=== PATIENT | female | born 1930 | race Caucasian/White ===

== ENCOUNTER → 2016-05-28 | Outpatient (CLI) | payer MEDICARE, BC ==
[2016-05-28 13:24] LABS: CH 31.5; CHCM 32.3; HCT 43.3 % (34.0-46.0); HDW 2.42; HGB 13.7 gm/dL (11.4-16.0); MCH 30.9 pg (25.0-35.0); MCHC 31.5 g/dL (31.0-37.0); RBC 4.42 m/uL (3.80-5.40); RDW 14.6 % (11.5-15.5); WBC 5.4 k/uL (3.8-10.6)
[2016-05-28 13:44] LABS: Anion Gap 10 mmol/L; Blood Urea Nitrogen 15 mg/dL (7-17); Carbon Dioxide 33 mmol/L (22-30); Chloride 91 mmol/L (98-107); Non-African American GFR(MDRD) >60 (>60 ml/min/1.73 sqM); Potassium 3.6 mmol/L (3.5-5.1); Sodium 134 mmol/L (137-145)
== END | disposition home or self-care (01) ==
LOC: LABPAT 12:45
PROVIDERS: ATTEND Internal Medicine Cardiovascular Disease
DX: Z01.812 Encounter for preprocedural laboratory examination (principal); I48.2 Chronic atrial fibrillation
CPT/HCPCS: 80051; 82565; 84520; 85027

== ENCOUNTER 2016-05-29 06:04 | Day surgery (SDC) | payer MEDICARE, BC ==
[2016-05-27 14:09] VITALS: BMI 18.1
[~2016-05-29 06:04] MED LIST: SODIUM CHLORIDE 0.9% 1,000 ML IV SCH; ceFAZolin 1,000 MG in SODIUM CHLORIDE 0.9% IRRIGATIO 250 ML IRRIGATION ONE; ceFAZolin 2 GM in SODIUM CHLORIDE 0.9% 100 ML IVPB ONE
[2016-05-29 06:42] LABS: INR 2.1 (<1.1); Prothrombin Time 19.9 sec (9.0-12.0)
[2016-05-29] MEDS ORDERED: PHYTONADIONE 5 MG in SODIUM CHLORIDE 0.9% 50 ML IVPB STA (07:47)
[2016-05-29] MEDS ORDERED: fentaNYL (PF) 50 MCG/ML 2 ML AMP IV ONE (07:50)
[2016-05-29] MEDS ORDERED: IV FLUID CONTINUATION 400 ML IV ONE (07:50)
[2016-05-29] MEDS ORDERED: LIDOCAINE 1% INJ 10MG/ML (20 ML MDV) SQ ONE (07:53)
[2016-05-29] MEDS ORDERED: ACETAMINOPHEN TAB 325 MG TAB PO PRN (08:35)
--- NOTE | 2016-05-29 08:48 | P.PCN ---
Date of Procedure: 05/29/16 Preoperative Diagnosis: Battery depletion Postoperative Diagnosis: The same Procedure(s) Performed: Generator replacement Description of Procedure: HISTORY: This is a 85-year-old female with history of permanent pacemaker implantation who is found to have evidence of battery depletion on recent evaluation. She was advised to have battery replacement. Patient was advised to stop Coumadin 5 days prior to the procedure CONSENT: I have discussed the risks and benefits as related to the above mentioned procedure and both sedation/analgesia as well as necessary blood product administration. The patient has indicated understanding and acceptance of the risks of the procedure discussed. PROCEDURE: Patient was brought to the lab in a fasting state. Patient was given IV Versed and fentanyl for sedation. The skin over the existing pulse generator was infiltrated with lidocaine. An incision was made in the skin and was deepened until the pectoral fascia was exposed. Hemostasis was obtained. The existing pulse generator was pulled out of the pocket. The lead was disconnected and were checked for thresholds. THRESHOLDS: VENTRICULAR: The minimum patient threshold was 0.7 V at pulse width of 0.5 ms. The impedance is 655 ohms. R- wave is a 23 mV. THE LEADS: VENTRICULAR: This is manufactured by [employer]. Model number is 4136 and serial number is [id number]. There is a E at in the ventricle manifest by [employer] model #07550 and serial number is [id number] THE EXPLANTED DEVICE and this is manufactured by [employer] model number is 1194 and serial number is [id number]. THE NEW DEVICE: Manufactured by [employer]. Model number is L100 and the serial number is [id number] . The lead was then connected to a new pulse generator . Pacemaker seems to function normally. The pocket was irrigated with antibiotics. The pocket was closed in the usual fashion. Pectoral fascia was closed with 2-0 Prolene, the subcutaneous tissue was closed with 3-0 Prolene and the skin was closed with 4-0 Prolene. Patient tolerated the procedure well . Patient will be monitored on the telemetry unit for 2-3 hours. If stable patient be discharged home later today. PLAN: Continue prophylactic antibiotics. We'll resume Coumadin from tomorrow. Rest of the medication be continued. We will keep the incision dry for the next week. FALLOW UP: In the office in one week.
[2016-05-29 09:09] VITALS: RESP 16
[2016-05-29 10:34] VITALS: PULSE 60
[2016-05-29 10:51] VITALS: TEMP 98
[2016-05-29 11:29] VITALS: BP 139/63
--- NOTE | 2016-06-04 16:10 | CDI ---
Dear Dr. Armstrong, On your procedure note IV versed and Fentanyl for sedation is documented. However, the Versed or Moderate/Conscious sedation is not documented any where else in the medical record. This is conflicting documentation. For proper reporting purposes please document that the sedation provided You Senior was Moderate/Conscious sedation or MAC (Monitored Anesthesia Care). Please document this as an addendum to your procedure note. Thank you for your time, Chyna Slaughter, [facility] Outpatient Intelligence Officer Murtaza howard [employer] Remberto MTDD
== END 2016-05-29 11:24 | disposition home or self-care (01) ==
LOC: CATHEP 06:04
PROVIDERS: ATTEND Internal Medicine Cardiovascular Disease
DX: Z45.010 Encounter for checking and testing of cardiac pacemaker pulse generator [battery] (principal); Z79.01 Long term (current) use of anticoagulants
CPT/HCPCS: 99152; 99153; 33227; 85610; C1786; J3430; J0690 ×2; J2001; J3010

== ENCOUNTER 2016-10-13 13:37 | Inpatient (IN) | payer MEDICARE, BC ==
[2016-10-13 14:29] LABS: Basophils % (A) 0 %; CH 31.6; CHCM 34.1; Eosinophils # (A) 0.1 k/uL (0-0.7); Eosinophils % (A) 0 %; HCT 38.1 % (34.0-46.0); HDW 2.28; HGB 13.2 gm/dL (11.4-16.0); Luc % (Auto) 1; Lymphocytes # (A) 0.5 k/uL (1.0-4.8); Lymphocytes % (A) 4 %; MCH 32.3 pg (25.0-35.0); MCHC 34.7 g/dL (31.0-37.0); Mean Platelet Volume 7.1; Monocytes # (A) 0.6 k/uL (0-1.0); Monocytes % (A) 5 %; Neutrophils % (A) 89 %; RDW 14.6 % (11.5-15.5); WBC 12.3 k/uL (3.8-10.6); WBC (Perox) 11.81
[2016-10-13 14:39] LABS: ALT 26 U/L (9-52); AST 24 U/L (14-36); Alkaline Phosphatase 96 U/L (38-126); Amylase 37 U/L (30-110); Anion Gap 9 mmol/L; Blood Urea Nitrogen 18 mg/dL (7-17); Calcium 8.8 mg/dL (8.4-10.2); Carbon Dioxide 28 mmol/L (22-30); Chloride 94 mmol/L (98-107); Glucose 101 mg/dL (74-99); Non-African American GFR(MDRD) >60 (>60 ml/min/1.73 sqM); Potassium 3.5 mmol/L (3.5-5.1); Sodium 131 mmol/L (137-145); Total Bilirubin 1.3 mg/dL (0.2-1.3); Total Protein 6.4 g/dL (6.3-8.2)
--- NOTE | 2016-10-13 14:46 | XR ---
EXAMINATION TYPE: XR KUB DATE OF EXAM: 10/13/2016 2:36 PM CLINICAL HISTORY: Difficulty urinating per patient. Pain per order. TECHNIQUE: Supine and upright images of the abdomen are obtained. COMPARISON: None. FINDINGS: Cardiomegaly is seen. Dual-lead pacemaker is noted. Vascular calcification is seen. Cholecy stectomy clips are noted. Patient is rotated making evaluation slightly suboptimal. Osseous structure s are demineralized. Disc space narrowing with spurring and sclerotic right L4-L5 level is noted. Scattered gas is seen in nondistended small and large bowel loops. No suspicious calcifications are p resent. No pneumoperitoneum is noted. IMPRESSION: Overall nonspecific favor nonobstructive bowel gas pattern. No definite nephrolithiasis.
[2016-10-13 15:06] LABS: Appearance,Urine Turbid (Clear); Bacteria,Urine Moderate /hpf; Bilirubin,Urine Negative (Negative); Glucose,Urine (UA) Negative (Negative); Ketones,Urine Negative (Negative); Leukocyte Esterase,Urine Large (Negative); Nitrite,Urine Positive (Negative); Particle Count 58085; Protein,Urine 1+ (Negative); RBC,Urine 14 /hpf (0-5); Specific Gravity,Urine 1.012 (1.001-1.035); UA Billing (MACRO vs. MICRO) MICRO; Urobilinogen,Urine <2.0 mg/dL (<2.0); WBC,Urine >182 /hpf (0-5)
[2016-10-13] MEDS ORDERED: HYDROmorphone 1 MG/ML 1 ML SYRINGE IVP STA (15:35)
[2016-10-13] MEDS ORDERED: SODIUM CHLORIDE 0.9% 1,000 ML IV ONE ×2 (15:35→15:51)
--- NOTE | 2016-10-13 15:37 | ED ---
Abdominal Pain HPI - General Chief Complaint: Abdominal Pain Stated Complaint: kidney pain/back pain Time Seen by Provider: 10/13/16 14:05 Source: EMS, RN notes reviewed Mode of arrival: EMS Limitations: no limitations - History of Present Illness Initial Comments: Patient is a 86-year-old female presents emergency room for evaluation of bilateral flank pain and difficulty urinating. Patient states the difficulty during urination began this weekend. Patient states that the bilateral flank pain began this morning and she could not get out of bed so EMS was called. Patient states she was given morphine with no relief of symptoms. Patient states she continues still having trouble urinating. Patient denies abdominal pain. Patient denies nausea or vomiting. Patient denies fevers or chills. Patient has chest pain or shortness of breath. Patient denies history of kidney stones. - Related Data Home Medications Medication Instructions Recorded Confirmed Albuterol Nebulized [Ventolin 2.5 mg INHALATION QID 04/01/14 10/13/16 Nebulized] Aspirin 81 mg PO DAILY 04/01/14 10/13/16 Digoxin [Lanoxin] 125 mcg PO DAILY 04/01/14 10/13/16 Diltiazem HCl 30 mg PO BID 04/01/14 10/13/16 Hydrochlorothiazide [Hydrodiuril] 37.5 mg PO DAILY 04/01/14 10/13/16 Montelukast [Singulair] 10 mg PO HS 04/01/14 10/13/16 Pravastatin Sodium [Pravachol] 20 mg PO HS 04/01/14 10/13/16 ALPRAZolam [Xanax] 0.25 mg PO DAILY PRN 05/27/16 10/13/16 Cetirizine HCl [Zyrtec] 10 mg PO DAILY 05/27/16 10/13/16 Dorzolamide 2% [Trusopt 2%] 1 drops BOTH EYES BID 05/27/16 10/13/16 Latanoprost Ophth [Xalatan 0.005%] 1 drops BOTH EYES HS 05/27/16 10/13/16 Loteprednol Etabonate [Lotemax] 1 drop LEFT EYE DAILY 05/27/16 10/13/16 Magnesium Oxide [Mag-Ox] 250 mg PO DAILY 05/27/16 10/13/16 Vits A,C,E/Lutein/Minerals 1 tab PO DAILY 05/27/16 10/13/16 [Ocuvite with Lutein Tablet] Clopidogrel Bisulfate [Plavix] 75 mg PO DAILY 10/13/16 10/13/16 Escitalopram Oxalate [Lexapro] 10 mg PO DAILY 10/13/16 10/13/16 Allergies Allergy/AdvReac Type Severity Reaction Status Date / Time codeine AdvReac Unknown Verified 10/13/16 14:12 furosemide [From Lasix] AdvReac dizziness,w Verified 10/13/16 14:12 eakness tiotropium bromide AdvReac Unknown Verified 10/13/16 14:12 [From Spiriva with HandiHaler] Review of Systems ROS Statement: Those systems with pertinent positive or pertinent negative responses have been documented in the HPI. ROS Other: All systems not noted in ROS Statement are negative. Past Medical History Past Medical History: Atrial Fibrillation, Coronary Artery Disease (CAD), Cancer , Eye Disorder, Hearing Disorder / Deafness, Hyperlipidemia, Hypertension Additional Past Medical History / Comment(s): See Dr Townsend's H&P,breast ca ,blind rt eye,legally blind lt eye, [place] hearing [employer],Macular degeneration and glaucoma josh eyes. History of Any Multi-Drug Resistant Organisms: None Reported Past Surgical History: Ablation, Cholecystectomy, Heart Catheterization With Stent, Hysterectomy, Pacemaker, Tonsillectomy Additional Past Surgical History / Comment(s): mastectomy, oopherectomy Past Anesthesia/Blood Transfusion Reactions: No Reported Reaction Date of Last Stent Placement:: unk Type of Cardiac Device: Permanent Pacemaker Device Placement Date:: unk Past Psychological History: Anxiety Smoking Status: Former smoker - Past Family History Mother Family Medical History: No Reported History Father Family Medical History: No Reported History General Exam - General Exam Comments Initial Comments: laying in exam room, no acute distress. Limitations: no limitations General appearance: alert, in no apparent distress Head exam: Present: atraumatic, normocephalic, normal inspection Eye exam: Present: normal appearance ENT exam: Present: normal exam Neck exam: Present: normal inspection Respiratory exam: Present: normal lung sounds bilaterally. Absent: respiratory distress Cardiovascular Exam: Present: regular rate, normal rhythm, normal heart sounds Extremities exam: Present: normal inspection Back exam: Present: normal inspection, CVA tenderness (R), CVA tenderness (L) Neurological exam: Present: alert, oriented X3, CN II-XII intact, normal gait Psychiatric exam: Present: normal affect, normal mood Skin exam: Present: warm, dry, intact, normal color. Absent: rash Course Vital Signs 10/13/16 10/13/16 10/13/16 13:41 16:28 17:31 Temperature 99.4 F 97.1 F L 97.9 F Pulse Rate 90 77 91 Respiratory 17 16 17 Rate Blood Pressure 128/67 144/69 146/73 O2 Sat by Pulse 92 L 93 L 94 L Oximetry Medical Decision Making - Medical Decision Making Patient is a 86-year-old female presents to the emergency room for evaluation of bilateral flank pain and painful urination. Patient does have a urinary tract infection. Elevated white count. Possible pyelonephritis. Patient given a dose of Rocephin and will be admitted. Discussed case with Dr. Mcintosh. Dr. Mcintosh discussed case with Dr. Noriega who agreed to admit patient. - Lab Data Result diagrams: 10/13/16 14:08 10/13/16 14:08 Lab Results 10/13/16 10/13/16 10/13/16 Range/Units 14:08 14:08 14:51 WBC 12.3 H (3.8-10.6) k/uL RBC 4.10 (3.80-5.40) m/uL Hgb 13.2 (11.4-16.0) gm/dL Hct 38.1 (34.0-46.0) % MCV 93.0 (80.0-100.0) fL MCH 32.3 (25.0-35.0) pg MCHC 34.7 (31.0-37.0) g/dL RDW 14.6 (11.5-15.5) % Plt Count 201 (150-450) k/uL Neutrophils % 89 % Lymphocytes % 4 % Monocytes % 5 % Eosinophils % 0 % Basophils % 0 % Neutrophils # 11.0 H (1.3-7.7) k/uL Lymphocytes # 0.5 L (1.0-4.8) k/uL Monocytes # 0.6 (0-1.0) k/uL Eosinophils # 0.1 (0-0.7) k/uL Basophils # 0.0 (0-0.2) k/uL Sodium 131 L (137-145) mmol/L Potassium 3.5 (3.5-5.1) mmol/L Chloride 94 L (98-107) mmol/L Carbon Dioxide 28 (22-30) mmol/L Anion Gap 9 mmol/L BUN 18 H (7-17) mg/dL Creatinine 0.69 (0.52-1.04) mg/dL Est GFR (MDRD) Af Amer >60 (>60 ml/min/1.73 sqM) Est GFR (MDRD) Non-Af >60 (>60 ml/min/1.73 sqM) Glucose 101 H (74-99) mg/dL Calcium 8.8 (8.4-10.2) mg/dL Total Bilirubin 1.3 (0.2-1.3) mg/dL AST 24 (14-36) U/L ALT 26 (9-52) U/L Alkaline Phosphatase 96 (38-126) U/L Total Protein 6.4 (6.3-8.2) g/dL Albumin 3.4 L (3.5-5.0) g/dL Amylase 37 (30-110) U/L Lipase 141 (23-300) U/L Urine Color Yellow Urine Appearance Turbid H (Clear) Urine pH 6.0 (5.0-8.0) Ur Specific [place] 1.012 (1.001-1.035) Urine Protein 1+ H (Negative) Urine Glucose (UA) Negative (Negative) Urine Ketones Negative (Negative) Urine Blood Moderate H (Negative) Urine Nitrite Positive H (Negative) Urine Bilirubin Negative (Negative) Urine Urobilinogen <2.0 (<2.0) mg/dL Ur Leukocyte Esterase Large H (Negative) Urine RBC 14 H (0-5) /hpf Urine WBC >182 H (0-5) /hpf Urine WBC Clumps Many H (None) /hpf Urine Bacteria Moderate H (None) /hpf - Radiology Data Radiology results: report reviewed, image reviewed Disposition Clinical Impression: Urinary tract infection Disposition: ADMITTED IP TO THIS [facility] Condition: Stable Decision Date: 10/13/16
[2016-10-13] MEDS ORDERED: ONDANSETRON 4 MG/2 ML VIAL IVP PRN (16:57)
[2016-10-13] MEDS ORDERED: NALOXONE 0.4 MG/ML 1 ML VIAL IV PRN (16:57)
[2016-10-13] MEDS ORDERED: DIAZEPAM 5 MG/ML 2 ML SYRINGE IVP STA (16:57)
[2016-10-13 18:07] VITALS: BMI 19.2
[2016-10-13] MEDS: SODIUM CHLORIDE 0.9% 1,000 ML IV SCH (18:15)
[2016-10-13] MEDS ORDERED: ALPRAZolam 0.25 MG TAB PO PRN (20:26)
[2016-10-13] MEDS: LATANOPROST 0.005% OPHTH DROPS 2.5 ML BTL BOTH EYES SCH (20:55)
[2016-10-13] MEDS: DORZOLAMIDE HCL 2% DROPS 10 ML BTL BOTH EYES SCH (20:55)
[2016-10-13] MEDS: HYDROmorphone 1 MG/ML 1 ML SYRINGE IV PRN (21:01)
[2016-10-13] MEDS: MONTELUKAST 10 MG TAB PO SCH (22:11)
[2016-10-13] MEDS: DILTIAZEM ORAL 30 MG TAB PO SCH (22:11)
[2016-10-13] MEDS: PRAVASTATIN SODIUM 20 MG TAB PO SCH (22:12)
[2016-10-13] MEDS: ALBUTEROL NEBULIZED 2.5 MG/3 ML INHALATION SCH (22:17)
[2016-10-14] MEDS: SODIUM CHLORIDE 0.9% 1,000 ML IV SCH (03:23)
[2016-10-14] MEDS: HYDROmorphone 1 MG/ML 1 ML SYRINGE IV PRN ×2 (03:26→07:38)
[2016-10-14 07:41] LABS: Basophils % (A) 1 %; CH 30.9; CHCM 33.3; Eosinophils # (A) 0.1 k/uL (0-0.7); Eosinophils % (A) 1 %; HCT 35.6 % (34.0-46.0); HDW 2.33; Luc # (Auto) 0.15; Luc % (Auto) 2; Lymphocytes # (A) 0.9 k/uL (1.0-4.8); Lymphocytes % (A) 9 %; MCH 31.5 pg (25.0-35.0); MCHC 33.8 g/dL (31.0-37.0); MCV 93.2 fL (80.0-100.0); Mean Platelet Volume 7.1; Monocytes # (A) 0.7 k/uL (0-1.0); Monocytes % (A) 7 %; Neutrophils # (A) 7.9 k/uL (1.3-7.7); Neutrophils % (A) 81 %; RBC 3.81 m/uL (3.80-5.40); RDW 14.5 % (11.5-15.5); WBC 9.8 k/uL (3.8-10.6); WBC (Perox) 10.23
[2016-10-14] MEDS: DORZOLAMIDE HCL 2% DROPS 10 ML BTL BOTH EYES SCH ×2 (07:45→20:59)
[2016-10-14] MEDS: ESCITALOPRAM 10 MG TAB PO SCH (07:45)
[2016-10-14] MEDS: CLOPIDOGREL 75 MG TAB PO SCH (07:45)
[2016-10-14] MEDS: prednisoLONE ACETATE 1% OPHTH DROPS 1 ML BTL LEFT EYE SCH (07:45)
[2016-10-14] MEDS: LORATADINE 10 MG TAB PO SCH (07:45)
[2016-10-14] MEDS: DILTIAZEM ORAL 30 MG TAB PO SCH ×2 (07:45→20:59)
[2016-10-14] MEDS: DIGOXIN 125 MCG TAB PO SCH (07:45)
[2016-10-14] MEDS: ASPIRIN 81 MG CHEW PO SCH (07:45)
[2016-10-14] MEDS: HYDROCHLOROTHIAZIDE 25 MG TAB PO SCH (07:46)
[2016-10-14] MEDS: ALBUTEROL NEBULIZED 2.5 MG/3 ML INHALATION SCH ×4 (07:58→20:46)
[2016-10-14] MEDS ORDERED: ALBUTEROL NEBULIZED 2.5 MG/3 ML INHALATION SCH (08:00)
[2016-10-14 08:11] LABS: ALT 32 U/L (9-52); AST 36 U/L (14-36); Alkaline Phosphatase 93 U/L (38-126); Anion Gap 9 mmol/L; Blood Urea Nitrogen 12 mg/dL (7-17); Calcium 8.4 mg/dL (8.4-10.2); Carbon Dioxide 26 mmol/L (22-30); Chloride 100 mmol/L (98-107); Glucose 89 mg/dL (74-99); Non-African American GFR(MDRD) >60 (>60 ml/min/1.73 sqM); Potassium 3.3 mmol/L (3.5-5.1); Sodium 135 mmol/L (137-145); Total Bilirubin 0.9 mg/dL (0.2-1.3); Total Protein 5.9 g/dL (6.3-8.2)
--- NOTE | 2016-10-14 09:01 | P.HPIM ---
History of Present Illness H&P Date: 10/14/16 Chief Complaint: Difficulty urinating This is a 86-year-old female with past medical history noted below who presented to the emergency room with difficulty urinating and bilateral flank pain. Patient is a poor historian and is hard of hearing as well. She said that for the past few days she was having burning sensation and was unable to urinate. She was also complaining of bilateral flank pain. She denies any blood in her urine. No fevers or chills. She was also progressively weak. She said that usually she is able to get up and use her walker to walk around her house for the past few days was unable to do so. She was brought in by EMS to the emergency room and was found to have evidence of UTI. Abdominal x-ray showed no evidence of nephrolithiasis. Patient was hemodynamically stable. She was started on IV antibiotic and IV fluid hydration was admitted to the hospital for further evaluation. She is awake and alert today. She said that her pain is improved. She was very weak and unable to sit up in bed for me to check for CVA tenderness. Review of Systems Review of system: 14 points review of systems were obtained and were negative except to what were mentioned in the HPI. Past Medical History Past Medical History: Atrial Fibrillation, Coronary Artery Disease (CAD), Cancer , Eye Disorder, Hearing Disorder / Deafness, Hyperlipidemia, Hypertension Additional Past Medical History / Comment(s): See Dr Townsend's H&P,breast ca ,blind rt eye,legally blind lt eye, [place],Macular degeneration and glaucoma josh eyes. History of Any Multi-Drug Resistant Organisms: None Reported Past Surgical History: Ablation, Cholecystectomy, Heart Catheterization With Stent, Hysterectomy, Pacemaker, Tonsillectomy Additional Past Surgical History / Comment(s): mastectomy, oopherectomy Past Anesthesia/Blood Transfusion Reactions: No Reported Reaction Date of Last Stent Placement:: unk Type of Cardiac Device: Permanent Pacemaker Device Placement Date:: unk Past Psychological History: Anxiety Smoking Status: Former smoker - Past Family History Mother Family Medical History: No Reported History Father Family Medical History: No Reported History Medications and Allergies Home Medications Medication Instructions Recorded Confirmed Type Albuterol Nebulized [Ventolin 2.5 mg INHALATION QID 04/01/14 10/13/16 History Nebulized] Aspirin 81 mg PO DAILY 04/01/14 10/13/16 History Digoxin [Lanoxin] 125 mcg PO DAILY 04/01/14 10/13/16 History Diltiazem HCl 30 mg PO BID 04/01/14 10/13/16 History Hydrochlorothiazide [Hydrodiuril] 37.5 mg PO DAILY 04/01/14 10/13/16 History Montelukast [Singulair] 10 mg PO HS 04/01/14 10/13/16 History Pravastatin Sodium [Pravachol] 20 mg PO HS 04/01/14 10/13/16 History ALPRAZolam [Xanax] 0.25 mg PO DAILY PRN 05/27/16 10/13/16 History Cetirizine HCl [Zyrtec] 10 mg PO DAILY 05/27/16 10/13/16 History Dorzolamide 2% [Trusopt 2%] 1 drops BOTH EYES BID 05/27/16 10/13/16 History Latanoprost Ophth [Xalatan 0.005%] 1 drops BOTH EYES HS 05/27/16 10/13/16 History Loteprednol Etabonate [Lotemax] 1 drop LEFT EYE DAILY 05/27/16 10/13/16 History Magnesium Oxide [Mag-Ox] 250 mg PO DAILY 05/27/16 10/13/16 History Vits A,C,E/Lutein/Minerals 1 tab PO DAILY 05/27/16 10/13/16 History [Ocuvite with Lutein Tablet] Clopidogrel Bisulfate [Plavix] 75 mg PO DAILY 10/13/16 10/13/16 History Escitalopram Oxalate [Lexapro] 10 mg PO DAILY 10/13/16 10/13/16 History Allergies Allergy/AdvReac Type Severity Reaction Status Date / Time codeine AdvReac Unknown Verified 10/13/16 14:12 furosemide [From Lasix] AdvReac dizziness,w Verified 10/13/16 14:12 eakness tiotropium bromide AdvReac Unknown Verified 10/13/16 14:12 [From Spiriva with HandiHaler] Physical Exam Vitals: Vital Signs Temp Pulse Pulse Resp BP BP Pulse Ox 10/14/16 08:11 92 10/14/16 08:01 96 96 10/14/16 00:00 98 20 07/10/17 22:28 94 10/13/16 22:17 94 10/13/16 22:07 98.7 F 98 20 164/72 97 10/13/16 17:31 97.9 F 91 17 146/73 94 L 10/13/16 16:28 97.1 F L 77 16 144/69 93 L 10/13/16 13:41 99.4 F 90 17 128/67 92 L Intake and Output 10/13/16 10/14/16 10/14/16 22:59 06:59 14:59 Intake Total 800 Output Total 999 3000 Balance -999 -2200 Intake: Intake, IV Titration 800 Amount Sodium Chloride 0.9% 1, 800 000 ml @ 100 mls/hr IV . Q10H [facility] Rx#:[id number] Output: Urine 3000 Straight 1200 Post Void Residual 999 Other: Voiding Method Indwelling Catheter # Voids 2 Weight 50.802 kg General: The patient is awake and alert, in no distress Eye: there is normal conjunctiva bilaterally. Neck: The neck is supple, there is no JVD. Cardiovascular: Normal S1-S2, no S3-S4, no murmurs. Respiratory: Lungs clear to auscultation bilaterally Gastrointestinal: Abdomen is soft, nontender Musculoskeletal: There is no pedal edema. Neurological:. Speech is normal. Skin: Skin is warm and dry Results CBC & Chem 7: 10/14/16 07:13 10/14/16 07:13 Labs: Abnormal Lab Results - Last 24 Hours (Table) 10/13/16 10/13/16 10/13/16 Range/Units 14:08 14:08 14:51 WBC 12.3 H (3.8-10.6) k/uL Neutrophils # 11.0 H (1.3-7.7) k/uL Lymphocytes # 0.5 L (1.0-4.8) k/uL Sodium 131 L (137-145) mmol/L Potassium (3.5-5.1) mmol/L Chloride 94 L (98-107) mmol/L BUN 18 H (7-17) mg/dL Creatinine (0.52-1.04) mg/dL Glucose 101 H (74-99) mg/dL Total Protein (6.3-8.2) g/dL Albumin 3.4 L (3.5-5.0) g/dL Urine Appearance Turbid H (Clear) Urine Protein 1+ H (Negative) Urine Blood Moderate H (Negative) Urine Nitrite Positive H (Negative) Ur Leukocyte Esterase Large H (Negative) Urine RBC 14 H (0-5) /hpf Urine WBC >182 H (0-5) /hpf Urine WBC Clumps Many H (None) /hpf Urine Bacteria Moderate H (None) /hpf 10/14/16 10/14/16 Range/Units 07:13 07:13 WBC (3.8-10.6) k/uL Neutrophils # 7.9 H (1.3-7.7) k/uL Lymphocytes # 0.9 L (1.0-4.8) k/uL Sodium 135 L (137-145) mmol/L Potassium 3.3 L (3.5-5.1) mmol/L Chloride (98-107) mmol/L BUN (7-17) mg/dL Creatinine 0.50 L (0.52-1.04) mg/dL Glucose (74-99) mg/dL Total Protein 5.9 L (6.3-8.2) g/dL Albumin 3.1 L (3.5-5.0) g/dL Urine Appearance (Clear) Urine Protein (Negative) Urine Blood (Negative) Urine Nitrite (Negative) Ur Leukocyte Esterase (Negative) Urine RBC (0-5) /hpf Urine WBC (0-5) /hpf Urine WBC Clumps (None) /hpf Urine Bacteria (None) /hpf Microbiology - Last 24 Hours (Table) 10/13/16 14:51 Urine Culture - Preliminary Urine,Catheterized Thrombosis Risk Factor Assmnt - Choose All That Apply Any of the Below Risk Factors Present?: Yes Each Risk Factor Represents 3 Points: Age 75 years or older Thrombosis Risk Factor Assessment Total Risk Factor Score: 3 Thrombosis Risk Factor Assessment Level: Moderate Risk Assessment and Plan Plan: 1. Urinary tract infection with suspected pyelonephritis: Continue IV ceftriaxone awaiting urine culture. Would obtain a kidney ultrasound for further evaluation. 2. Urinary retention status post Miller catheter insertion. We will plan for voiding trial in the next day or 2. 3. Paroxysmal atrial fibrillation not on anticoagulation at home 4. Essential hypertension: Blood pressure within acceptable range 5. Coronary artery disease on dual antiplatelet therapy 6. DVT prophylaxis with subcu heparin Today, I reviewed his medication list and lab work results. We will continue current regimen.
[2016-10-14] MEDS: HEPARIN SODIUM,PORCINE 5,000 UNIT/ML 1 ML VIAL SQ SCH ×2 (09:26→21:01)
--- NOTE | 2016-10-14 11:07 | US ---
EXAMINATION TYPE: US kidneys/renal and bladder DATE OF EXAM: 10/14/2016 COMPARISON: NONE CLINICAL HISTORY: 86-year-old female with pain, r/o pyelo. TECHNIQUE: Multiple sonographic images of the kidneys and bladder are obtained. FINDINGS: Right Kidney: 8.7 x 3.4 3.1 cm Left Kidney: 10.9 x 4.9 x 3.1 cm with 2 prominent cysts measuring up to 3.5 and 4.5 cm in the mid and lower pole, respectively. No hydronephrosis on either side. Miller catheter is present decompressing the bladder and limiting its evaluation. IMPRESSION: No hydronephrosis. 2 cysts in the left kidney measuring up to 4.5 cm. Miller catheter collapsing the b ladder.
[2016-10-14] MEDS: ACETAMINOPHEN TAB 325 MG TAB PO PRN ×2 (12:09→21:09)
[2016-10-14] MEDS: MAGNESIUM OXIDE 400 MG TAB PO SCH (12:09)
[2016-10-14] MEDS: PRAVASTATIN SODIUM 20 MG TAB PO SCH (20:59)
[2016-10-14] MEDS: MONTELUKAST 10 MG TAB PO SCH (20:59)
[2016-10-14] MEDS: LATANOPROST 0.005% OPHTH DROPS 2.5 ML BTL BOTH EYES SCH (21:00)
[2016-10-15] MEDS: ACETAMINOPHEN TAB 325 MG TAB PO PRN ×2 (06:05→20:53)
[2016-10-15] MEDS: ALBUTEROL NEBULIZED 2.5 MG/3 ML INHALATION SCH ×5 (07:33→18:51)
[2016-10-15] MEDS: CLOPIDOGREL 75 MG TAB PO SCH (09:01)
[2016-10-15] MEDS: ASPIRIN 81 MG CHEW PO SCH (09:01)
[2016-10-15] MEDS: DIGOXIN 125 MCG TAB PO SCH (09:01)
[2016-10-15] MEDS: DILTIAZEM ORAL 30 MG TAB PO SCH ×2 (09:01→20:51)
[2016-10-15] MEDS: DORZOLAMIDE HCL 2% DROPS 10 ML BTL BOTH EYES SCH ×2 (09:02→20:54)
[2016-10-15] MEDS: LORATADINE 10 MG TAB PO SCH (09:03)
[2016-10-15] MEDS: ESCITALOPRAM 10 MG TAB PO SCH (09:03)
[2016-10-15] MEDS: HEPARIN SODIUM,PORCINE 5,000 UNIT/ML 1 ML VIAL SQ SCH ×2 (09:03→20:54)
[2016-10-15] MEDS: HYDROCHLOROTHIAZIDE 25 MG TAB PO SCH (09:03)
[2016-10-15] MEDS: prednisoLONE ACETATE 1% OPHTH DROPS 1 ML BTL LEFT EYE SCH (09:04)
[2016-10-15] MEDS: MAGNESIUM OXIDE 400 MG TAB PO SCH (12:18)
--- NOTE | 2016-10-15 13:32 | P.PN ---
Subjective Patient is doing fairly well today. No events overnight. Objective - Vital Signs Vital signs: Vital Signs Temp 97.5 F L 10/15/16 07:00 Pulse 80 10/15/16 11:23 Resp 16 10/15/16 08:00 BP 136/63 10/15/16 07:00 Pulse Ox 95 10/15/16 07:00 Intake & Output 10/14/16 10/15/16 10/15/16 18:59 06:59 18:59 Intake Total 50 440 240 Output Total 500 1300 1800 Balance -450 -560 1560 Weight 50.802 kg 50.802 kg Intake: IV 50 cefTRIAXone 1,000 mg In 50 Sodium Chloride 0.9% 50 ml @ 100 mls/hr IVPB Q24HR [facility] Rx#:[id number] Oral 440 240 Output: Urine 500 1300 1800 Straight 500 1300 Other: Voiding Method Indwelling Catheter Indwelling Catheter Indwelling Catheter # Voids 2 - Exam General: The patient is awake and alert, in no distress Eye: there is normal conjunctiva bilaterally. Neck: The neck is supple, there is no JVD. Cardiovascular: Normal S1-S2, no S3-S4, no murmurs. Respiratory: Lungs clear to auscultation bilaterally Gastrointestinal: Abdomen is soft, nontender Musculoskeletal: There is no pedal edema. Neurological:. Speech is normal. Skin: Skin is warm and dry - Labs CBC & Chem 7: 10/14/16 07:13 10/14/16 07:13 Labs: Microbiology - Last 24 Hours (Table) 10/13/16 14:51 Urine Culture - Preliminary Urine,Catheterized Gram Neg Bacilli Assessment and Plan Plan: 1. Urinary tract infection with no evidence of pyelonephritis on ultrasound: Continue IV ceftriaxone awaiting urine culture. 2. Urinary retention status post Miller catheter insertion. We will plan for voiding today 3. Paroxysmal atrial fibrillation not on anticoagulation at home 4. Essential hypertension: Blood pressure within acceptable range 5. Coronary artery disease on dual antiplatelet therapy 6. DVT prophylaxis with subcu heparin 7. Physical debility, seen and evaluated by PT/OT. Patient is not interested in going to [facility] for subacute rehab. She would like to go where she resides. Today, I reviewed his medication list and lab work results. We will continue current regimen. Anticipate discharge home tomorrow
[2016-10-15] MEDS: LATANOPROST 0.005% OPHTH DROPS 2.5 ML BTL BOTH EYES SCH (20:53)
[2016-10-15] MEDS: MONTELUKAST 10 MG TAB PO SCH (20:54)
[2016-10-15] MEDS: PRAVASTATIN SODIUM 20 MG TAB PO SCH (20:55)
[2016-10-16] MEDS: ACETAMINOPHEN TAB 325 MG TAB PO PRN ×3 (06:05→20:31)
[2016-10-16] MEDS: ALBUTEROL NEBULIZED 2.5 MG/3 ML INHALATION SCH ×4 (06:52→20:22)
[2016-10-16] MEDS: ASPIRIN 81 MG CHEW PO SCH (08:56)
[2016-10-16] MEDS: HYDROCHLOROTHIAZIDE 25 MG TAB PO SCH (08:56)
[2016-10-16] MEDS: LORATADINE 10 MG TAB PO SCH (08:57)
[2016-10-16] MEDS: DIGOXIN 125 MCG TAB PO SCH (08:57)
[2016-10-16] MEDS: ESCITALOPRAM 10 MG TAB PO SCH (08:57)
[2016-10-16] MEDS: HEPARIN SODIUM,PORCINE 5,000 UNIT/ML 1 ML VIAL SQ SCH ×2 (08:58→20:32)
[2016-10-16] MEDS: CLOPIDOGREL 75 MG TAB PO SCH (08:58)
[2016-10-16] MEDS: DILTIAZEM ORAL 30 MG TAB PO SCH ×2 (08:58→20:32)
[2016-10-16] MEDS: DORZOLAMIDE HCL 2% DROPS 10 ML BTL BOTH EYES SCH ×2 (08:59→20:32)
[2016-10-16] MEDS: prednisoLONE ACETATE 1% OPHTH DROPS 1 ML BTL LEFT EYE SCH (08:59)
[2016-10-16] MEDS: MAGNESIUM OXIDE 400 MG TAB PO SCH (12:05)
--- NOTE | 2016-10-16 12:15 | P.DS ---
Providers Date of admission: 10/13/16 17:03 Expected date of discharge: 10/16/16 Attending physician: Rohit Noriega Primary care physician: Monica Wright [facility] Course: 1. Urinary tract infection with no evidence of pyelonephritis on ultrasound: He will culture grew E. coli. Will finish antibiotic course with Keflex. 2. Urinary retention status post Miller catheter insertion. We will plan for voiding trial next week at [facility]. Patient failed voiding trial in the hospital. 3. Paroxysmal atrial fibrillation not on anticoagulation at home 4. Essential hypertension: Blood pressure within acceptable range 5. Coronary artery disease on dual antiplatelet therapy 6. Physical debility, seen and evaluated by PT/OT. Plan for subacute rehab Patient Condition at Discharge: Fair Plan - Discharge Summary New Discharge Prescriptions: New Cephalexin [Keflex] 500 mg PO Q12HR #14 cap Continue RX: Montelukast [Singulair] 10 mg PO HS RX: Albuterol Nebulized [Ventolin Nebulized] 2.5 mg INHALATION QID RX: Pravastatin Sodium [Pravachol] 20 mg PO HS RX: Aspirin 81 mg PO DAILY RX: Diltiazem HCl 30 mg PO BID RX: Digoxin [Lanoxin] 125 mcg PO DAILY RX: Dorzolamide 2% [Trusopt 2%] 1 drops BOTH EYES BID RX: Loteprednol Etabonate [Lotemax] 1 drop LEFT EYE DAILY RX: Latanoprost Ophth [Xalatan 0.005%] 1 drops BOTH EYES HS RX: Magnesium Oxide [Mag-Ox] 250 mg PO DAILY RX: Vits A,C,E/Lutein/Minerals [Ocuvite with Lutein Tablet] 1 tab PO DAILY RX: Escitalopram Oxalate [Lexapro] 10 mg PO DAILY RX: Clopidogrel Bisulfate [Plavix] 75 mg PO DAILY RX: ALPRAZolam [Xanax] 0.25 mg PO DAILY PRN #20 PRN Reason: Anxiety Changed RX: Hydrochlorothiazide [Hydrodiuril] 25 mg PO DAILY #0 Discontinued RX: Cetirizine HCl [Zyrtec] 10 mg PO DAILY Discharge Medication List RX: Albuterol Nebulized [Ventolin Nebulized] 2.5 mg INHALATION QID 04/01/14 [ History] RX: Aspirin 81 mg PO DAILY 04/01/14 [History] RX: Digoxin [Lanoxin] 125 mcg PO DAILY 04/01/14 [History] RX: Diltiazem HCl 30 mg PO BID 04/01/14 [History] RX: Montelukast [Singulair] 10 mg PO HS 04/01/14 [History] RX: Pravastatin Sodium [Pravachol] 20 mg PO HS 04/01/14 [History] RX: Dorzolamide 2% [Trusopt 2%] 1 drops BOTH EYES BID 05/27/16 [History] RX: Latanoprost Ophth [Xalatan 0.005%] 1 drops BOTH EYES HS 05/27/16 [History] RX: Loteprednol Etabonate [Lotemax] 1 drop LEFT EYE DAILY 05/27/16 [History] RX: Magnesium Oxide [Mag-Ox] 250 mg PO DAILY 05/27/16 [History] RX: Vits A,C,E/Lutein/Minerals [Ocuvite with Lutein Tablet] 1 tab PO DAILY 05/27 [History] RX: Clopidogrel Bisulfate [Plavix] 75 mg PO DAILY 10/13/16 [History] RX: Escitalopram Oxalate [Lexapro] 10 mg PO DAILY 10/13/16 [History] Cephalexin [Keflex] 500 mg PO Q12HR #14 cap 10/16/16 [Rx] RX: ALPRAZolam [Xanax] 0.25 mg PO DAILY PRN #20 10/16/16 [Rx] RX: Hydrochlorothiazide [Hydrodiuril] 25 mg PO DAILY #0 10/16/16 [Rx] Follow up Appointment(s)/Referral(s): Monica Wright MD [Primary Care Provider] - 1-2 days Discharge Disposition: TRANSFER TO SNF/F
--- NOTE | 2016-10-16 13:03 | XR ---
EXAMINATION TYPE: XR chest 2V DATE OF EXAM: 10/16/2016 COMPARISON: Chest x-ray september 04, 2015 HISTORY: Extended care facility placement TECHNIQUE: Frontal and lateral views of the chest are obtained. FINDINGS: There is chronic emphysematous change without suspicious focal air space opacity, pleural effusion, or pneumothorax seen. The cardiac silhouette size remains enlarged with dual lead pacemake r and atherosclerotic thoracic aorta redemonstrated. One of the proximal leads is disassociated on c urrent radiograph from pacemaker device. The osseous structures are demineralized. IMPRESSION: Chronic emphysematous change and cardiomegaly without acute pulmonary process. Displaced proximal pacemaker lead noted. Results of displaced pacemaker lead called to patient's nurse Owen via telephone at time of dictation .
[2016-10-16] MEDS: MONTELUKAST 10 MG TAB PO SCH (20:32)
[2016-10-16] MEDS: PRAVASTATIN SODIUM 20 MG TAB PO SCH (20:32)
[2016-10-16] MEDS: LATANOPROST 0.005% OPHTH DROPS 2.5 ML BTL BOTH EYES SCH (20:32)
[2016-10-16 22:53] VITALS: RESP 18
[2016-10-17] MEDS: ACETAMINOPHEN TAB 325 MG TAB PO PRN (02:07)
[2016-10-17] MEDS: ALBUTEROL NEBULIZED 2.5 MG/3 ML INHALATION SCH ×2 (07:19→11:04)
[2016-10-17 07:42] VITALS: BP 150/76; TEMP 97.8
[2016-10-17] MEDS: ASPIRIN 81 MG CHEW PO SCH (08:38)
[2016-10-17] MEDS: LORATADINE 10 MG TAB PO SCH (08:38)
[2016-10-17] MEDS: ESCITALOPRAM 10 MG TAB PO SCH (08:38)
[2016-10-17] MEDS: HYDROCHLOROTHIAZIDE 25 MG TAB PO SCH (08:38)
[2016-10-17] MEDS: CLOPIDOGREL 75 MG TAB PO SCH (08:38)
[2016-10-17] MEDS: HEPARIN SODIUM,PORCINE 5,000 UNIT/ML 1 ML VIAL SQ SCH (08:38)
[2016-10-17] MEDS: DIGOXIN 125 MCG TAB PO SCH (08:38)
[2016-10-17] MEDS: DILTIAZEM ORAL 30 MG TAB PO SCH (08:38)
[2016-10-17] MEDS: prednisoLONE ACETATE 1% OPHTH DROPS 1 ML BTL LEFT EYE SCH (08:39)
[2016-10-17] MEDS: DORZOLAMIDE HCL 2% DROPS 10 ML BTL BOTH EYES SCH (08:39)
[2016-10-17] MEDS ORDERED: APIXABAN 2.5 MG TABLET PO SCH (09:30)
[2016-10-17 11:05] VITALS: PULSE 80
[2016-10-17] MEDS: MAGNESIUM OXIDE 400 MG TAB PO SCH (13:24)
--- NOTE | 2016-10-17 14:07 | CONS ---
ATTENDING: Dr. Wright and ( ) Ms. Senior is an 86-year-old female with known history of coronary artery disease , status post percutaneous revascularization of her left circumflex performed in 2000, history of chronic atrial fibrillation, with permanent pacemaker implantation underwent degenerative change in May of this year. She was then admitted to the hospital with symptoms of urinary tract infection. Cardiology consultation was requested because of abnormal chest x-ray related to her pacemaker lead. The patient denies any chest pain. She has some dyspnea on exertion and cough. She has occasional dizziness. She does not feel any palpitations. She has occasional peripheral edema. No syncope. She has been on anticoagulation by Dr. Townsend in the past in the form of Coumadin, but apparently that was stopped because of difficulty controlling her INR. Her coronary risk factors are positive for history of hyperlipidemia. She is nonsmoker. She is hyperlipidemic. Her medications at home include aspirin, Plavix 75 mg daily, Lanoxin 0.125 mg daily, Diltazem 30 mg twice a day, hydrochlorothiazide 25 mg daily, Singulair 10 mg daily and pravastatin 20 mg daily. REVIEW OF SYSTEMS: RESPIRATORY SYSTEM: She has history of asthma, history of cough. GI SYSTEM: No recent GI bleeding. No peptic ulcer disease. SYSTEM: She had the urinary tract infection. NERVOUS SYSTEM: She had prior history of stroke. The patient is hard of hearing as well as has difficulty seeing with decreased vision. Her past history is remarkable for the fact that she underwent her first permanent pacemaker implantation in May 2001 and subsequently in 2007 underwent degenerative change with implantation of new RV wire and capping of the old wire. In 2017 the RV wire was used without placement of any new wires. PHYSICAL EXAMINATION: An 86-year-old female alert, no apparent distress. Blood pressure running in the 150s with heart rate in the 80s. HEAD: Normocephalic. EYES: Sclerae anicteric. NECK: Good carotid upstroke. LUNGS: Clear to auscultation. HEART: Irregularly irregular, S1, S2. No S3 with systolic murmur at the base. No diastolic murmur, no rub. ABDOMEN: Soft, nontender. Positive bowel sounds No organomegaly. EXTREMITIES: Mild skin discoloration with minimal edema. Lab data revealed a potassium of 3.3, BUN and creatinine of 12 and 0.5. Hemoglobin of 12, white blood cell of 9.8. Chest x-ray showed a pacemaker with 1 wire that is being capped another wire in good position. There is no evidence of infiltrate. IMPRESSION: 1. Urinary tract infection. 2. Chronic atrial fibrillation not anticoagulated. 3. Status post permanent pacemaker implantation. 4. History of coronary artery disease. 5. Hypertension. 6. Hyperlipidemia. RECOMMENDATIONS: I will obtain an EKG. The x-ray shows no evidence of any significant abnormality in regard to her pacemaker. I had a long discussion with the patient regarding the issue of anticoagulation and risk of stroke. I discussed with her the fact that aspirin and Plavix unfortunately do not prevent stroke in setting of atrial fibrillation. One of the options is to stop the Plavix and initiate treatment with Eliquis. I will discuss those findings further with Dr. Noriega. Thank you for this consult. Will follow with you. CITLALY
== END 2016-10-17 14:55 | DRG 690 ==
LOC: EC 13:37 → 5MS5E 17:03
PROVIDERS: ADMIT Internal Medicine; ATTEND Internal Medicine
DX: N39.0 Urinary tract infection, site not specified (principal); T82.120A Displacement of cardiac electrode, initial encounter; I48.0 Paroxysmal atrial fibrillation; I10 Essential (primary) hypertension; E78.5 Hyperlipidemia, unspecified; F41.9 Anxiety disorder, unspecified; H35.30 Unspecified macular degeneration; H40.9 Unspecified glaucoma; H54.0 Blindness, both eyes; H91.90 Unspecified hearing loss, unspecified ear; I25.10 Atherosclerotic heart disease of native coronary artery without angina pectoris; I48.2 Chronic atrial fibrillation; Z79.02 Long term (current) use of antithrombotics/antiplatelets; Z79.82 Long term (current) use of aspirin; Z79.899 Other long term (current) drug therapy; Z85.3 Personal history of malignant neoplasm of breast; Z87.891 Personal history of nicotine dependence; Z95.0 Presence of cardiac pacemaker; Z88.5 Allergy status to narcotic agent
CPT/HCPCS: 36415; 71020; 74000; 76770; 80053; 81001; 82150; 83690; 85025; 87077; 87086; 87186; 93005; 94640; 94760

== ENCOUNTER 2017-09-02 14:13 | Emergency (ER) | payer MEDICARE, BC ==
[2017-09-02 14:29] VITALS: RESP 18
[2017-09-02] MEDS ORDERED: SODIUM CHLORIDE 0.9% 500 ML IV STA (14:41)
[2017-09-02] MEDS ORDERED: SODIUM CHLORIDE 0.9% 1,000 ML IV STA ×2 (14:41→15:56)
--- NOTE | 2017-09-02 14:46 | ED ---
Nausea/Vomiting/Diarrhea HPI - General Chief complaint: Nausea/Vomiting/Diarrhea Stated complaint: NAUSEA, VOMITING Time Seen by Provider: 09/02/17 14:30 Source: patient, family, RN notes reviewed Mode of arrival: EMS Limitations: no limitations - History of Present Illness Initial comments: This is an 87-year-old female who presents by ambulance with complaints of nausea and vomiting which started last evening around 6 PM. No diarrhea she states she has some distention of her abdomen. She does states she did have a small bowel movements and nothing large recently she does feel like she has to get something out. She also complains of an occipital headache some clear when this started exactly. It is mild in severity. She denies any overt lightheadedness or weakness but generalized weakness is present. No fevers chills or sweats. No known bad food was consumed no other close association with anyone else with similar symptoms and MD complaint: nausea, vomiting - Related Data Home Medications Medication Instructions Recorded Confirmed Albuterol Nebulized [Ventolin 2.5 mg INHALATION RT-QID 04/01/14 09/02/17 Nebulized] Digoxin [Lanoxin] 125 mcg PO DAILY 04/01/14 09/02/17 Diltiazem HCl 30 mg PO BID 04/01/14 09/02/17 Montelukast [Singulair] 10 mg PO HS 04/01/14 09/02/17 Pravastatin Sodium [Pravachol] 20 mg PO HS 04/01/14 09/02/17 Dorzolamide 2% [Trusopt 2%] 1 drops BOTH EYES BID 05/27/16 09/02/17 Latanoprost Ophth [Xalatan 0.005%] 1 drops BOTH EYES HS 05/27/16 09/02/17 Loteprednol Etabonate [Lotemax] 1 drop LEFT EYE DAILY 05/27/16 09/02/17 Magnesium Oxide [Mag-Ox] 250 mg PO HS 05/27/16 09/02/17 Vits A,C,E/Lutein/Minerals 1 tab PO DAILY 05/27/16 09/02/17 [Ocuvite with Lutein Tablet] Escitalopram Oxalate [Lexapro] 10 mg PO DAILY 10/13/16 09/02/17 ALPRAZolam [Xanax] 0.25 mg PO HS 09/02/17 09/02/17 Apixaban [Eliquis] 2.5 mg PO DAILY 09/02/17 09/02/17 Aspirin EC [Ecotrin Low Dose] 81 mg PO DAILY 09/02/17 09/02/17 Otc Allergy Pill Unknown 1 tab PO HS 09/02/17 09/02/17 Previous Rx's Medication Instructions Recorded Hydrochlorothiazide [Hydrodiuril] 25 mg PO DAILY #0 10/16/16 Allergies Allergy/AdvReac Type Severity Reaction Status Date / Time codeine AdvReac Unknown Verified 09/02/17 14:32 furosemide [From Lasix] AdvReac dizziness,w Verified 09/02/17 14:32 eakness tiotropium bromide AdvReac Unknown Verified 09/02/17 14:32 [From Spiriva with HandiHaler] Review of Systems ROS Statement: Those systems with pertinent positive or pertinent negative responses have been documented in the HPI. ROS Other: All systems not noted in ROS Statement are negative. Past Medical History Past Medical History: Atrial Fibrillation, Coronary Artery Disease (CAD), Cancer , Eye Disorder, Hearing Disorder / Deafness, Hyperlipidemia, Hypertension Additional Past Medical History / Comment(s): See Dr Townsend's H&P,breast ca ,blind rt eye,legally blind lt eye, [place],Macular degeneration and glaucoma j[facility] eyes. History of Any Multi-Drug Resistant Organisms: None Reported Past Surgical History: Ablation, Cholecystectomy, Heart Catheterization With Stent, Hysterectomy, Pacemaker, Tonsillectomy Additional Past Surgical History / Comment(s): mastectomy, oopherectomy Past Anesthesia/Blood Transfusion Reactions: No Reported Reaction Date of Last Stent Placement:: unk Type of Cardiac Device: Permanent Pacemaker Device Placement Date:: unk Past Psychological History: Anxiety Smoking Status: Former smoker Past Alcohol Use History: Occasional Past Drug Use History: None Reported - Past Family History Mother Family Medical History: No Reported History Father Family Medical History: No Reported History General Exam - General Exam Comments Initial Comments: This is a well-developed well-nourished awake alert oriented 3 female Limitations: no limitations General appearance: alert, in no apparent distress Head exam: Present: atraumatic, normocephalic, normal inspection Eye exam: Present: normal appearance, PERRL, EOMI. Absent: scleral icterus, conjunctival injection, periorbital swelling ENT exam: Present: mucous membranes dry Neck exam: Present: normal inspection. Absent: tenderness, meningismus, lymphadenopathy Respiratory exam: Present: normal lung sounds bilaterally. Absent: respiratory distress, wheezes, rales, rhonchi, stridor Cardiovascular Exam: Present: normal rhythm, irregular rhythm, normal heart sounds. Absent: systolic murmur, diastolic murmur, rubs, gallop, clicks GI/Abdominal exam: Present: soft, distended (Distention and tympanic no overt tenderness palpation), normal bowel sounds. Absent: tenderness, guarding, rebound, rigid, bruit, pulsatile mass, hernia Rectal exam: Present: deferred Extremities exam: Present: normal inspection, full ROM, normal capillary refill. Absent: tenderness, pedal edema, joint swelling, calf tenderness Back exam: Present: normal inspection Neurological exam: Present: alert, oriented X3, CN II-XII intact Psychiatric exam: Present: normal affect, normal mood Skin exam: Present: warm, dry, intact, normal color. Absent: rash Course Vital Signs 09/02/17 14:22 Temperature 97.7 F Pulse Rate 87 Respiratory 18 Rate Blood Pressure 129/61 O2 Sat by Pulse 92 L Oximetry Medical Decision Making - Medical Decision Making The patient had 973 mL of urine in the bladder per bladder scan. Nursing staff reposition the Miller catheter good flow was obtained with the thousand plus cc return. Patient does feel much improved. He will be discharged. - Lab Data Result diagrams: 09/02/17 14:36 Lab Results 09/02/17 Range/Units 14:36 WBC 10.9 H (3.8-10.6) k/uL RBC 4.46 (3.80-5.40) m/uL Hgb 14.2 (11.4-16.0) gm/dL Hct 42.1 (34.0-46.0) % MCV 94.2 (80.0-100.0) fL MCH 31.7 (25.0-35.0) pg MCHC 33.7 (31.0-37.0) g/dL RDW 14.1 (11.5-15.5) % Plt Count 261 (150-450) k/uL Neutrophils % 84 % Lymphocytes % 6 % Monocytes % 9 % Eosinophils % 1 % Basophils % 0 % Neutrophils # 9.1 H (1.3-7.7) k/uL Lymphocytes # 0.6 L (1.0-4.8) k/uL Monocytes # 1.0 (0-1.0) k/uL Eosinophils # 0.1 (0-0.7) k/uL Basophils # 0.0 (0-0.2) k/uL - EKG Data -: EKG Interpreted by Me Disposition Clinical Impression: Miller catheter problem, Urinary outflow obstruction Disposition: HOME SELF-CARE Condition: Good Instructions: Miller Catheter Placement and Care (ED) Is patient prescribed a controlled substance at d/c from ED?: No Referrals: Gonzalo Oneil MD [Primary Care Provider] - 1-2 days
[2017-09-02 14:58] LABS: Basophils % (A) 0 %; Eosinophils # (A) 0.1 k/uL (0-0.7); Eosinophils % (A) 1 %; HCT 42.1 % (34.0-46.0); HGB 14.2 gm/dL (11.4-16.0); Lymphocytes # (A) 0.6 k/uL (1.0-4.8); Lymphocytes % (A) 6 %; MCH 31.7 pg (25.0-35.0); MCHC 33.7 g/dL (31.0-37.0); MCV 94.2 fL (80.0-100.0); Mean Platelet Volume 7.6; Monocytes % (A) 9 %; Neutrophils # (A) 9.1 k/uL (1.3-7.7); Neutrophils % (A) 84 %; Platelet Count 261 k/uL (150-450); RBC 4.46 m/uL (3.80-5.40); RDW 14.1 % (11.5-15.5); WBC 10.9 k/uL (3.8-10.6)
[2017-09-02 15:46] LABS: Digoxin 1.3 ng/mL; Magnesium 2.2 mg/dL (1.6-2.3); Potassium 3.3 mmol/L (3.5-5.1); Total Bilirubin 1.1 mg/dL (0.2-1.3); Total Protein 6.9 g/dL (6.3-8.2)
--- NOTE | 2017-09-02 15:51 | CT ---
EXAMINATION TYPE: CT brain wo con DATE OF EXAM: 09/02/2017 COMPARISON: NONE HISTORY: Nausea, vomiting and weakness CT DLP: [address] of the brain was performed. The ventricles, basal cisterns and sulci overlying the cerebral convexities demonstrate mild enlargem ent. There is no evidence for intracranial hemorrhage or sulcal effacement. There is decreased attenuation about the periventricular white matter and deep white matter of both c erebral hemispheres, compatible with chronic small vessel ischemia. Differential diagnosis does inclu de demyelination. No mass effects are seen.No midline shift. Osseous calvarium is intact. If symptoms persist consider MRI. IMPRESSION: 1. Age related atrophic and chronic small vessel ischemic change without acute intracranial process s een at this time.
--- NOTE | 2017-09-02 16:04 | XR ---
EXAMINATION TYPE: XR chest 2V DATE OF EXAM: 09/02/2017 COMPARISON: 10/16/2016 HISTORY: Shortness of breath TECHNIQUE: Frontal and lateral views of the chest are obtained. FINDINGS: Scattered senescent parenchymal changes noted. Hyperinflation compatible with COPD. No evidence for infiltrate. No evidence for atelectasis. Heart size is stable. Mediastinal structures are stable and grossly unremarkable. No evidence for hilar prominence. Degenerative changes dorsal spine. Fractured pacer wire noted. IMPRESSION: 1. No evidence for acute pulmonary disease.
--- NOTE | 2017-09-02 16:09 | XR ---
EXAMINATION TYPE: XR KUB DATE OF EXAM: 09/02/2017 COMPARISON: NONE HISTORY: Pain TECHNIQUE: Single supine KUB image of the abdomen is obtained FINDINGS: Small bowel demonstrates no evidence for dilatation or air fluid levels. Gas and fecal material is seen in non-distended colon. No convincing evidence for pneumoperitoneum. No unusual calcifications. The lung bases are clear. The osseous structures are intact. IMPRESSION: 1. Overall nonobstructive bowel gas pattern.
[2017-09-02 16:13] LABS: Creatine Kinase 21 U/L (30-135)
[2017-09-02 16:25] LABS: Creatine Kinase MB 0.4 ng/mL (0.0-2.4); Troponin I <0.012 ng/mL (0.000-0.034)
--- NOTE | 2017-09-02 18:29 | ED ---
Medical Decision Making - Medical Decision Making The patient did feel much improved after IV hydration and was able ambulate with assistance she normally uses a cart when she lays. No more nausea or vomiting she would like to go home the patient daughter's are in agreement with this. The patient will be discharged. There were cautioned that she may start developing diarrhea. She is increase oral fluids follow-up with her doctor return when necessary - Lab Data Result diagrams: 09/02/17 14:36 09/02/17 15:17 Lab Results 09/02/17 09/02/17 09/02/17 Range/Units 14:36 15:17 15:17 WBC 10.9 H (3.8-10.6) k/uL RBC 4.46 (3.80-5.40) m/uL Hgb 14.2 (11.4-16.0) gm/dL Hct 42.1 (34.0-46.0) % MCV 94.2 (80.0-100.0) fL MCH 31.7 (25.0-35.0) pg MCHC 33.7 (31.0-37.0) g/dL RDW 14.1 (11.5-15.5) % Plt Count 261 (150-450) k/uL Neutrophils % 84 % Lymphocytes % 6 % Monocytes % 9 % Eosinophils % 1 % Basophils % 0 % Neutrophils # 9.1 H (1.3-7.7) k/uL Lymphocytes # 0.6 L (1.0-4.8) k/uL Monocytes # 1.0 (0-1.0) k/uL Eosinophils # 0.1 (0-0.7) k/uL Basophils # 0.0 (0-0.2) k/uL Sodium 140 (137-145) mmol/L Potassium 3.3 L (3.5-5.1) mmol/L Chloride 90 L (98-107) mmol/L Carbon Dioxide 39 H (22-30) mmol/L Anion Gap 11 mmol/L BUN 30 H (7-17) mg/dL Creatinine 0.78 (0.52-1.04) mg/dL Est GFR (CKD-EPI)AfAm 80 (>60 ml/min/1.73 sqM) Est GFR (CKD-EPI)NonAf 69 (>60 ml/min/1.73 sqM) Glucose 124 H (74-99) mg/dL Calcium 10.0 (8.4-10.2) mg/dL Magnesium 2.2 (1.6-2.3) mg/dL Total Bilirubin 1.1 (0.2-1.3) mg/dL AST 36 (14-36) U/L ALT 34 (9-52) U/L Alkaline Phosphatase 87 (38-126) U/L Total Creatine Kinase 21 L (30-135) U/L CK-MB (CK-2) 0.4 (0.0-2.4) ng/mL CK-MB (CK-2) Rel Index 1.9 Troponin I <0.012 (0.000-0.034) ng/mL Total Protein 6.9 (6.3-8.2) g/dL Albumin 4.0 (3.5-5.0) g/dL Amylase 59 (30-110) U/L Lipase 145 (23-300) U/L Digoxin 1.3 ng/mL - Radiology Data Radiology results: report reviewed (Imaging was reviewed no acute findings.), image reviewed Disposition Clinical Impression: Gastritis, Nausea & vomiting, Dehydration, Hypokalemia Disposition: HOME SELF-CARE Condition: Good Instructions: Gastritis (ED), Acute Nausea and Vomiting (ED), Dehydration (ED) Prescriptions: Ondansetron [Zofran ODT] 4 mg PO Q8HR #10 tab Potassium Chloride ER [K-Dur 20] 20 meq PO DAILY #7 tab Is patient prescribed a controlled substance at d/c from ED?: No Referrals: Gonzalo Oneil MD [Primary Care Provider] - 1-2 days
[2017-09-02 18:45] LABS: Appearance,Urine Turbid (Clear); Bacteria,Urine Many /hpf; Bilirubin,Urine Negative (Negative); Blood,Urine Moderate (Negative); Color,Urine Yellow; Glucose,Urine (UA) Negative (Negative); Hyaline Casts,Urine 22 /lpf (0-2); Ketones,Urine Trace (Negative); Leukocyte Esterase,Urine Large (Negative); Mucus,Urine Few /hpf; Nitrite,Urine Negative (Negative); Protein,Urine 1+ (Negative); RBC,Urine 59 /hpf (0-5); Specific Gravity,Urine 1.018 (1.001-1.035); Squamous Epithelial Cell,Urine 3 /hpf (0-4); Urobilinogen,Urine <2.0 mg/dL (<2.0); WBC,Urine >182 /hpf (0-5)
[2017-09-02 18:49] VITALS: BP 150/63; PULSE 98; TEMP 98.7
== END 2017-09-02 18:47 | disposition home or self-care (01) ==
LOC: EC 14:13
DX: K29.70 Gastritis, unspecified, without bleeding (principal); E87.6 Hypokalemia; E86.0 Dehydration; I25.10 Atherosclerotic heart disease of native coronary artery without angina pectoris; E78.5 Hyperlipidemia, unspecified; I10 Essential (primary) hypertension; I48.91 Unspecified atrial fibrillation; F41.9 Anxiety disorder, unspecified; Z87.891 Personal history of nicotine dependence; H40.9 Unspecified glaucoma; Z79.82 Long term (current) use of aspirin; Z79.899 Other long term (current) drug therapy; Z79.01 Long term (current) use of anticoagulants; Z88.5 Allergy status to narcotic agent; Z88.8 Allergy status to other drugs, medicaments and biological substances; Z85.3 Personal history of malignant neoplasm of breast; Z95.5 Presence of coronary angioplasty implant and graft
CPT/HCPCS: 36415; 70450; 71046; 74018; 80053; 80162; 81001; 82150; 82550; 82553; 83690; 83735; 84484; 85025; 93005; 96360; 96361; 99285

== ENCOUNTER 2017-09-03 13:10 | Inpatient (IN) | payer MEDICARE, BC ==
[~2017-09-03 13:10] MED LIST changes: +HUMAN PROTHROMBIN COMPLX 500 UNIT/16 ML VIAL IV ONE; -SODIUM CHLORIDE 0.9% 1,000 ML IV SCH; -ceFAZolin 1,000 MG in SODIUM CHLORIDE 0.9% IRRIGATIO 250 ML IRRIGATION ONE; -ceFAZolin 2 GM in SODIUM CHLORIDE 0.9% 100 ML IVPB ONE
[2017-09-03] MEDS ORDERED: MORPHINE SULFATE 2 MG/ML SYRINGE IVP STA (13:57)
[2017-09-03] MEDS ORDERED: ONDANSETRON 4 MG/2 ML VIAL IVP STA (13:57)
[2017-09-03] MEDS ORDERED: RX INFO: IV CONTRAST WAS GIVEN 1 EACH MISC MISCELLANE PRN (13:57)
[2017-09-03 14:24] LABS: Basophils % (A) 0 %; Eosinophils # (A) 0.3 k/uL (0-0.7); Eosinophils % (A) 2 %; HCT 41.6 % (34.0-46.0); HGB 13.9 gm/dL (11.4-16.0); Lymphocytes # (A) 0.4 k/uL (1.0-4.8); Lymphocytes % (A) 3 %; MCH 31.9 pg (25.0-35.0); MCHC 33.4 g/dL (31.0-37.0); MCV 95.5 fL (80.0-100.0); Monocytes # (A) 0.8 k/uL (0-1.0); Monocytes % (A) 5 %; Neutrophils # (A) 14.6 k/uL (1.3-7.7); Neutrophils % (A) 90 %; Platelet Count 244 k/uL (150-450); RBC 4.36 m/uL (3.80-5.40); WBC 16.1 k/uL (3.8-10.6)
[2017-09-03 14:42] LABS: Albumin 3.9 g/dL (3.5-5.0); Calcium 10.2 mg/dL (8.4-10.2); Potassium 3.4 mmol/L (3.5-5.1); Total Protein 6.8 g/dL (6.3-8.2)
[2017-09-03] MEDS ORDERED: PROPOFOL 10 MG/ML 20 ML VIAL IV ONE ×2 (15:27)
[2017-09-03] MEDS ORDERED: SUCCINYLCHOLINE CHLORIDE 100 MG/5 ML SYR IV ONE ×2 (15:27)
[2017-09-03] MEDS ORDERED: fentaNYL (PF) 50 MCG/ML 2 ML AMP ONE ×2 (15:27)
[2017-09-03] MEDS ORDERED: ROCURONIUM BROMIDE 10 MG/ML 10 ML VIAL IV ONE ×2 (15:27)
[2017-09-03] MEDS ORDERED: MIDAZOLAM 2 MG/2 ML VIAL ONE ×2 (15:27)
[2017-09-03] MEDS ORDERED: PHENYLEPHRINE-0.9% NACL SYG 1 MG/10 ML SYRINGE ONE ×2 (15:27)
--- NOTE | 2017-09-03 16:00 | ED ---
Abdominal Pain HPI - General Chief Complaint: Abdominal Pain Stated Complaint: Abd Pain Time Seen by Provider: 09/03/17 13:19 Source: patient, EMS Mode of arrival: EMS Limitations: no limitations - History of Present Illness Initial Comments: 87-year-old female with past medical history is notable appearing for evaluation of intractable nausea and vomiting with abdominal discomfort and distention. She states that she was at this facility yesterday and treated for similar symptoms and discharged home with prescription for pain control and nausea. She states since being discharged she continues to have nausea and vomiting with worsening generalized abdominal pain. States the zofran helps intermittently but returns quickly. States there is associated dysuria but denies chest pain or shortness of breath. - Related Data Home Medications Medication Instructions Recorded Confirmed Albuterol Nebulized [Ventolin 2.5 mg INHALATION RT-QID 04/01/14 09/03/17 Nebulized] Digoxin [Lanoxin] 125 mcg PO DAILY 04/01/14 09/03/17 Diltiazem HCl 30 mg PO BID 04/01/14 09/03/17 Montelukast [Singulair] 10 mg PO HS 04/01/14 09/03/17 Pravastatin Sodium [Pravachol] 20 mg PO HS 04/01/14 09/03/17 Dorzolamide 2% [Trusopt 2%] 1 drops BOTH EYES BID 05/27/16 09/03/17 Latanoprost Ophth [Xalatan 0.005%] 1 drops BOTH EYES HS 05/27/16 09/03/17 Loteprednol Etabonate [Lotemax] 1 drop LEFT EYE DAILY 05/27/16 09/03/17 Magnesium Oxide [Mag-Ox] 250 mg PO HS 05/27/16 09/03/17 Vits A,C,E/Lutein/Minerals 1 tab PO DAILY 05/27/16 09/03/17 [Ocuvite with Lutein Tablet] Escitalopram Oxalate [Lexapro] 10 mg PO DAILY 10/13/16 09/03/17 ALPRAZolam [Xanax] 0.25 mg PO HS 09/02/17 09/03/17 Apixaban [Eliquis] 2.5 mg PO DAILY 09/02/17 09/03/17 Aspirin EC [Ecotrin Low Dose] 81 mg PO DAILY 09/02/17 09/03/17 Otc Allergy Pill Unknown 1 tab PO HS 09/02/17 09/03/17 Previous Rx's Medication Instructions Recorded Hydrochlorothiazide [Hydrodiuril] 25 mg PO DAILY #0 10/16/16 Ondansetron [Zofran ODT] 4 mg PO Q8HR #10 tab 09/02/17 Potassium Chloride ER [K-Dur 20] 20 meq PO DAILY #7 tab 09/02/17 Allergies Allergy/AdvReac Type Severity Reaction Status Date / Time codeine AdvReac Unknown Verified 09/03/17 13:42 furosemide [From Lasix] AdvReac dizziness,w Verified 09/03/17 13:42 eakness tiotropium bromide AdvReac Unknown Verified 09/03/17 13:42 [From Spiriva with HandiHaler] Review of Systems ROS Statement: Those systems with pertinent positive or pertinent negative responses have been documented in the HPI. ROS Other: All systems not noted in ROS Statement are negative. Constitutional: Denies: fever, chills Eyes: Denies: eye pain, vision change ENT: Denies: ear pain, throat pain Respiratory: Denies: cough, dyspnea Cardiovascular: Denies: chest pain, palpitations Endocrine: Denies: polydipsia, polyuria Gastrointestinal: Reports: abdominal pain, nausea, vomiting. Denies: diarrhea, constipation, hematemesis, melena, hematochezia Genitourinary: Reports: dysuria, frequency. Denies: urgency Musculoskeletal: Denies: back pain, arthralgia, myalgia Skin: Denies: rash, lesions Neurological: Denies: headache, weakness Psychiatric: Denies: anxiety, depression Hematological/Lymphatic: Denies: easy bleeding, easy bruising Past Medical History Past Medical History: Atrial Fibrillation, Coronary Artery Disease (CAD), Cancer , Eye Disorder, Hearing Disorder / Deafness, Hyperlipidemia, Hypertension Additional Past Medical History / Comment(s): See Dr Townsend's H&P,breast ca ,blind rt eye,legally blind lt eye, [place]-[employer] hearing aides,Macular degeneration and glaucoma josh eyes. History of Any Multi-Drug Resistant Organisms: None Reported Past Surgical History: Ablation, Cholecystectomy, Heart Catheterization With Stent, Hysterectomy, Pacemaker, Tonsillectomy Additional Past Surgical History / Comment(s): mastectomy, oopherectomy Past Anesthesia/Blood Transfusion Reactions: No Reported Reaction Date of Last Stent Placement:: unk Type of Cardiac Device: Permanent Pacemaker Device Placement Date:: unk Past Psychological History: Anxiety Smoking Status: Former smoker Past Alcohol Use History: Occasional Past Drug Use History: None Reported - Past Family History Mother Family Medical History: No Reported History Father Family Medical History: No Reported History General Exam Limitations: no limitations General appearance: alert, in distress (moderate) Head exam: Present: atraumatic, normocephalic, normal inspection Eye exam: Present: normal appearance, PERRL, EOMI. Absent: scleral icterus, conjunctival injection, periorbital swelling ENT exam: Present: normal exam, mucous membranes moist Neck exam: Present: normal inspection. Absent: tenderness, meningismus, lymphadenopathy Respiratory exam: Present: normal lung sounds bilaterally. Absent: respiratory distress, wheezes, rales, rhonchi, stridor Cardiovascular Exam: Present: regular rate, normal rhythm, normal heart sounds. Absent: systolic murmur, diastolic murmur, rubs, gallop, clicks GI/Abdominal exam: Present: distended, tenderness, guarding. Absent: rebound, rigid Rectal exam: Present: deferred Extremities exam: Present: normal inspection, full ROM, normal capillary refill. Absent: tenderness, pedal edema, joint swelling, calf tenderness Back exam: Present: normal inspection Neurological exam: Present: alert, oriented X3, CN II-XII intact Psychiatric exam: Present: normal affect, normal mood Skin exam: Present: warm, dry, intact, normal color. 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] Respiratory 18 16 18 Rate Blood Pressure 147/63 151/87 Blood Pressure 133/71 [Right Arm Sitting] O2 Sat by Pulse 95 96 96 Oximetry 09/03/17 18:08 Temperature Pulse Rate Pulse Rate [ 91 Supine Gas Appliance Servicer] Respiratory 16 Rate Blood Pressure Blood Pressure 131/63 [Right Arm Sitting] O2 Sat by Pulse 98 Oximetry Medical Decision Making - Medical Decision Making 87-year-old female with past medical history of multiple abdominal surgeries including cholecystectomy, appendectomy, hysterectomy/oophorectomy presented for evaluation of intractable abdominal pain since Thursday and worsening today. On physical examination she appears to be in moderate distress and has a distended abdomen with guarding. The patient is actively vomiting during the exam. Vital signs are stable however. Concern for urinary tract infection versus urinary obstruction versus bowel obstruction. We'll obtain CT abdomen and pelvis, labs, and provide Zofran for pain control. Labs significant for leukocytosis of 16.1 and UTI however no other significant abnormalities noted. CT abdomen and pelvis showed dilated small bowel loops containing fluid extending to the ileum which is decompressed. The transition is in the right lower quadrant and findings are compatible with small bowel obstruction however consideration for possible volvulus is also on differential. Discussed with the on-call surgeon Dr. Seo who agreed with plan to admit, place NG/barajas, start antibiotics, and stated he would likely take the patient to surgery later tonight. He requested a medicine consult with Dr. Song who accepted the consult without further request. Admission order placed and bed request submitted. Dr. Seo called to request the patient be started on Kcentra which was ordered here in the ED. - Lab Data Result diagrams: 09/03/17 14:05 09/03/17 14:05 Lab Results 09/03/17 09/03/17 09/03/17 Range/Units 14:05 14:05 14:05 WBC 16.1 H (3.8-10.6) k/uL RBC 4.36 (3.80-5.40) m/uL Hgb 13.9 (11.4-16.0) gm/dL Hct 41.6 (34.0-46.0) % MCV 95.5 (80.0-100.0) fL MCH 31.9 (25.0-35.0) pg MCHC 33.4 (31.0-37.0) g/dL RDW 14.0 (11.5-15.5) % Plt Count 244 (150-450) k/uL Neutrophils % 90 % Lymphocytes % 3 % Monocytes % 5 % Eosinophils % 2 % Basophils % 0 % Neutrophils # 14.6 H (1.3-7.7) k/uL Lymphocytes # 0.4 L (1.0-4.8) k/uL Monocytes # 0.8 (0-1.0) k/uL Eosinophils # 0.3 (0-0.7) k/uL Basophils # 0.0 (0-0.2) k/uL Sodium 143 (137-145) mmol/L Potassium 3.4 L (3.5-5.1) mmol/L Chloride 91 L (98-107) mmol/L Carbon Dioxide 38 H (22-30) mmol/L Anion Gap 14 mmol/L BUN 32 H (7-17) mg/dL Creatinine 0.80 (0.52-1.04) mg/dL Est GFR (CKD-EPI)AfAm 77 (>60 ml/min/1.73 sqM) Est GFR (CKD-EPI)NonAf 67 (>60 ml/min/1.73 sqM) Glucose 123 H (74-99) mg/dL POC Glucose (mg/dL) (75-99) mg/dL POC Glu Core Finisher ID Plasma Lactic Acid Robert 1.0 (0.7-2.0) mmol/L Calcium 10.2 (8.4-10.2) mg/dL Total Bilirubin 1.0 (0.2-1.3) mg/dL AST 32 (14-36) U/L ALT 32 (9-52) U/L Alkaline Phosphatase 81 (38-126) U/L Total Protein 6.8 (6.3-8.2) g/dL Albumin 3.9 (3.5-5.0) g/dL Lipase 106 (23-300) U/L Urine Color Urine Appearance (Clear) Urine pH (5.0-8.0) Ur Specific [place] (1.001-1.035) Urine Protein (Negative) Urine Glucose (UA) (Negative) Urine Ketones (Negative) Urine Blood (Negative) Urine Nitrite (Negative) Urine Bilirubin (Negative) Urine Urobilinogen (<2.0) mg/dL Ur Leukocyte Esterase (Negative) Urine RBC (0-5) /hpf Urine WBC (0-5) /hpf Urine WBC Clumps (None) /hpf Urine Mucus (None) /hpf Gastric Occult Blood (Negative) 09/03/17 09/03/17 09/03/17 Range/Units 14:05 16:00 20:09 WBC (3.8-10.6) k/uL RBC (3.80-5.40) m/uL Hgb (11.4-16.0) gm/dL Hct (34.0-46.0) % MCV (80.0-100.0) fL MCH (25.0-35.0) pg MCHC (31.0-37.0) g/dL RDW (11.5-15.5) % Plt Count (150-450) k/uL Neutrophils % % Lymphocytes % % Monocytes % % Eosinophils % % Basophils % % Neutrophils # (1.3-7.7) k/uL Lymphocytes # (1.0-4.8) k/uL Monocytes # (0-1.0) k/uL Eosinophils # (0-0.7) k/uL Basophils # (0-0.2) k/uL Sodium (137-145) mmol/L Potassium (3.5-5.1) mmol/L Chloride (98-107) mmol/L Carbon Dioxide (22-30) mmol/L Anion Gap mmol/L BUN (7-17) mg/dL Creatinine (0.52-1.04) mg/dL Est GFR (CKD-EPI)AfAm (>60 ml/min/1.73 sqM) Est GFR (CKD-EPI)NonAf (>60 ml/min/1.73 sqM) Glucose (74-99) mg/dL POC Glucose (mg/dL) 121 H (75-99) mg/dL POC Glu Core Finisher ID Plasma Lactic Acid Robert (0.7-2.0) mmol/L Calcium (8.4-10.2) mg/dL Total Bilirubin (0.2-1.3) mg/dL AST (14-36) U/L ALT (9-52) U/L Alkaline Phosphatase (38-126) U/L Total Protein (6.3-8.2) g/dL Albumin (3.5-5.0) g/dL Lipase (23-300) U/L Urine Color Light Red Urine Appearance Turbid H (Clear) Urine pH 6.0 (5.0-8.0) Ur Specific [place] >1.050 H (1.001-1.035) Urine Protein 3+ H (Negative) Urine Glucose (UA) Negative (Negative) Urine Ketones 1+ H (Negative) Urine Blood Moderate H (Negative) Urine Nitrite Positive H (Negative) Urine Bilirubin Negative (Negative) Urine Urobilinogen <2.0 (<2.0) mg/dL Ur Leukocyte Esterase Large H (Negative) Urine RBC 51 H (0-5) /hpf Urine WBC >182 H (0-5) /hpf Urine WBC Clumps Many H (None) /hpf Urine Mucus Few H (None) /hpf Gastric Occult Blood Positive (Negative) Disposition Clinical Impression: Small bowel obstruction, Volvulus, UTI (urinary tract infection), Leukocytosis Disposition: ADMITTED IP TO THIS [facility] Referrals: Gonzalo Oneil MD [Primary Care Provider] - 1-2 days Decision to Admit Reason: Admit from EC Decision Date: 09/03/17 Decision Time: 17:11
--- NOTE | 2017-09-03 16:10 | CT ---
EXAMINATION TYPE: CT abdomen pelvis w con DATE OF EXAM: 09/03/2017 COMPARISON: NONE INDICATION: Generalized abdominal pain. DLP: 983 mGycm, Automated exposure control for dose reduction was used. CONTRAST: 100 mL of Isovue M300. Study performed without Oral Contrast TECHNIQUE: Axial images were obtained from above the diaphragm to the pubic rami in the axial plane a t 5 mm thick sections. Reconstructed images are reviewed on the computer in the coronal plane. FINDINGS: Limited CT sections are obtained the lung bases. Some minimal subsegmental atelectasis may be at the right base.. CT ABDOMEN: Liver: There is biliary dilatation within the liver. Some minimal ascites is adjacent to the liver. Spleen: Calcified granuloma within the spleen. Some splenic splenule is may be present inferiorly lat erally. Pancreas: Atrophic Adrenal glands: The adrenal glands are normal. Gallbladder: Surgically absent Kidneys: No masses are evident. No hydronephrosis is present. There are 2 cysts on the posterior la teral left to lower pole measuring 2.8 cm the inferior pole measuring 4.2 cm. This lower pole measure s 0 Hounsfield units in the posterior lateral measures -3 Hounsfield units. Right kidney may has some cortical infarct. Delayed images were obtained through the kidneys, which remain unremarkable. Aorta: Vascular calcification is within the aorta. Inferior vena cava: Flattened which can be related to the patient's volume status. CT PELVIS: There are markedly dilated small bowel loops containing fluid. The stomach is distended. Distention e xtends to the proximal ileum. Distal ileum have a normal caliber. Colon is decompressed. Is a transit ion is in the right lower quadrant identified series 3 image 52 but better appreciated on sequential images series 5 image 35-41. There may be some swirling vascular structures in this region. Consider volvulus. Appendix: Not clearly identified. What may be the appendix extends into the right anterior hemipelvis but is not dilated and does not inflammatory changes. Urinary bladder: Normal. Genitourinary structures: Uterus and ovaries are not identified. Osseous structures: No suspicious lytic or sclerotic lesions. IMPRESSIONS: 1. Dilated small bowel loops containing fluid extending to the ileum which is decompressed. The berman sition is in the right lower quadrant. Findings compatible small bowel obstruction. Consider possible volvulus. Report was called to the emergency room physician by Dr. Shogren by telephone at the time of interpretation. 2. Renal cysts
[2017-09-03] MEDS ORDERED: metroNIDAZOLE-NS PMX 500 MG in SALINE 1 100ML.BAG IVPB STA (16:14)
[2017-09-03] MEDS ORDERED: cefTRIAXone IN SWFI 1,000 MG/10 ML SYRINGE IVP STA (16:14)
[2017-09-03 16:18] LABS: RBC,Urine 51 /hpf (0-5); WBC,Urine >182 /hpf (0-5)
[2017-09-03 16:19] LABS: Appearance,Urine Turbid (Clear); Bilirubin,Urine Negative (Negative); Blood,Urine Moderate (Negative); Color,Urine Light Red; Glucose,Urine (UA) Negative (Negative); Ketones,Urine 1+ (Negative); Leukocyte Esterase,Urine Large (Negative); Mucus,Urine Few /hpf; Nitrite,Urine Positive (Negative); Protein,Urine 3+ (Negative); Urobilinogen,Urine <2.0 mg/dL (<2.0)
[2017-09-03 16:25] LABS: Specific Gravity,Urine >1.050 (1.001-1.035)
[2017-09-03] MEDS ORDERED: NALOXONE 0.4 MG/ML 1 ML VIAL IV PRN ×2 (16:51→19:49)
[2017-09-03] MEDS: MORPHINE SULFATE 2 MG/ML SYRINGE IV PRN ×2 (17:03→17:04)
[2017-09-03] MEDS: ONDANSETRON 4 MG/2 ML VIAL IVP PRN (17:03)
[2017-09-03] MEDS: SODIUM CHLORIDE 0.9% 1,000 ML IV SCH ×2 (17:09→21:00)
[2017-09-03] MEDS ORDERED: Kcentra PER PHARMACY 1 EACH MISC MISCELLANE SCH (17:15)
[2017-09-03] MEDS ORDERED: HUMAN PROTHROMBIN COMPLX IV ONE ×2 (17:30→19:30)
[2017-09-03] MEDS ORDERED: SODIUM CHLORIDE 0.9% 1,000 ML IV ONE ×2 (17:35→23:25)
--- NOTE | 2017-09-03 17:42 | P.CONS ---
History of Present Illness - Reason for Consult Consult date: 09/03/17 medical management Requesting physician: Durga Seo - Chief Complaint small bowel obstruction with volvulus - History of Present Illness This is an 87-year-old female one of Dr. Oneil,'s with a previous medical history significant for coronary artery disease status post myocardial infarction 3 with the first one Y she was at 5-year-old, post left heart catheterization with the upper continue his coronary intervention and 3 stent placement, hypertension and hypertensive cardio vascular disease, hyperlipidemia , atrial fibrillation status post permanent pacemaker, history of breast cancer in the past status post left mastectomy with lymph node dissection, history of glaucoma with left eye blindness and macular degeneration, patient was in her usual state of health about a week ago when she started to feel increased bloating in her stomach associated with increased nausea over the last 2 days she developed to have a significant abdominal pain associated with increased nausea and vomiting she has not had a bowel movement in 3 days, she was brought into the emergency department at [facility] yesterday from 12 until 6: 30 she was given some medicine that she felt better that time patient went back home and woke up today with significant abdominal pain associated with nausea and vomiting and no bowel movement she ended up coming to the ER at [facility] had a computed tomography scan of the abdomen that showed small bowel obstruction with possible volvulus patient was seen by surgery and he was reminded for the patient to go to the OR [facility]. Review of Systems Constitutional: Reports anorexia, Reports weakness, Reports weight loss Eyes: left loss of vision Ears: bilateral: decreased hearing Ears, nose, mouth and throat: Denies dysphagia, Denies neck lump, Denies sore throat Cardiovascular: Reports shortness of breath, Denies chest pain, Denies rapid heart beat Respiratory: Denies congestion, Denies cough, Denies cough with sputum, Denies sleep apnea, Denies snoring, Denies wheezing Gastrointestinal: Reports abdominal pain, Reports bloating, Reports loss of appetite, Reports nausea, Reports vomiting, Denies hematemesis, Denies melena Genitourinary: Denies dysuria, Denies urgency Menstruation: Reports post hysterectomy, Reports postmenopausal Musculoskeletal: Denies myalgias Musculoskeletal: absent: ankle pain, ankle stiffness, ankle swelling, elbow pain , elbow stiffness, elbow swelling, foot pain, foot stiffness, foot swelling, hand pain, hand stiffness, hand swelling, hip pain, hip stiffness, hip swelling , knee pain, knee stiffness, knee swelling, shoulder pain, shoulder stiffness, shoulder swelling, wrist pain, wrist stiffness, wrist swelling Integumentary: Denies pruritus, Denies rash Neurological: Denies numbness, Denies weakness Psychiatric: Reports anxiety Endocrine: Denies fatigue, Denies weight change Past Medical History Past Medical History: Atrial Fibrillation, Coronary Artery Disease (CAD), Cancer , Eye Disorder, Hearing Disorder / Deafness, Hyperlipidemia, Hypertension, Myocardial Infarction (HI), Osteoarthritis (OA) Additional Past Medical History / Comment(s): See Dr Townsend's H&P,breast ca ,blind rt eye,legally blind lt eye, [place]-josh hearing aides,Macular degeneration and glaucoma josh eyes. History of Any Multi-Drug Resistant Organisms: None Reported Past Surgical History: Ablation, Cholecystectomy, Heart Catheterization With Stent, Hysterectomy, Pacemaker, Tonsillectomy Additional Past Surgical History / Comment(s): mastectomy, oopherectomy Past Anesthesia/Blood Transfusion Reactions: No Reported Reaction Date of Last Stent Placement:: unk Type of Cardiac Device: Permanent Pacemaker Device Placement Date:: unk Past Psychological History: Anxiety Smoking Status: Former smoker (patient uses would've a pack every day she smoked from the age of 16 until the age of 51 about 35 years of smoking.) Past Alcohol Use History: Occasional Past Drug Use History: None Reported - Past Family History Mother Family Medical History: Myocardial Infarction (HI) (mother at the age of 66 from HI.) Father Family Medical History: Unable to Obtain (doesn't know much about the father.) Brother(s) Family Medical History: Coronary Artery Disease (CAD) (patient had 2 brothers were with CAD.) Sister(s) Family Medical History: Coronary Artery Disease (CAD) (patient had 2 sisters were with CAD.) Daughter(s) Family Medical History: No Reported History (patient has 3 daughters no major medical problems) Son(s) Family Medical History: No Reported History (patient has 2 sons no major medical problems) Medications and Allergies Home Medications Medication Instructions Recorded Confirmed Type Albuterol Nebulized [Ventolin 2.5 mg INHALATION RT-QID 04/01/09/03/17 History Nebulized] Digoxin [Lanoxin] 125 mcg PO DAILY 04/01/14 09/03/17 History Diltiazem HCl 30 mg PO BID 04/01/14 09/03/17 History Montelukast [Singulair] 10 mg PO HS 04/01/14 09/03/17 History Pravastatin Sodium [Pravachol] 20 mg PO HS 04/01/14 09/03/17 History Dorzolamide 2% [Trusopt 2%] 1 drops BOTH EYES BID 05/27/16 09/03/17 History Latanoprost Ophth [Xalatan 0.005%] 1 drops BOTH EYES HS 05/27/16 09/03/17 History Loteprednol Etabonate [Lotemax] 1 drop LEFT EYE DAILY 05/27/16 09/03/17 History Magnesium Oxide [Mag-Ox] 250 mg PO HS 05/27/16 09/03/17 History Vits A,C,E/Lutein/Minerals 1 tab PO DAILY 05/27/16 09/03/17 History [Ocuvite with Lutein Tablet] Escitalopram Oxalate [Lexapro] 10 mg PO DAILY 10/13/16 09/03/17 History Hydrochlorothiazide [Hydrodiuril] 25 mg PO DAILY #0 10/16/16 09/03/17 Rx ALPRAZolam [Xanax] 0.25 mg PO HS 09/02/17 09/03/17 History Apixaban [Eliquis] 2.5 mg PO DAILY 09/02/17 09/03/17 History Aspirin EC [Ecotrin Low Dose] 81 mg PO DAILY 09/02/17 09/03/17 History Ondansetron [Zofran ODT] 4 mg PO Q8HR #10 tab 09/02/17 09/03/17 Rx Otc Allergy Pill Unknown 1 tab PO HS 09/02/17 09/03/17 History Potassium Chloride ER [K-Dur 20] 20 meq PO DAILY #7 tab 09/02/17 09/03/17 Rx Allergies Allergy/AdvReac Type Severity Reaction Status Date / Time codeine AdvReac Unknown Verified 09/03/17 13:42 furosemide [From Lasix] AdvReac dizziness,w Verified 09/03/17 13:42 eakness tiotropium bromide AdvReac Unknown Verified 09/03/17 13:42 [From Spiriva with HandiHaler] Physical Exam Vitals: Vital Signs Temp Pulse Resp BP Pulse Ox 09/03/17 17:26 98.4 F 98 16 151/87 96 09/03/17 13:19 97.8 F 85 18 147/63 95 Intake and Output 09/03/17 09/03/17 09/03/17 06:59 14:59 22:59 Other: Weight 54.431 kg - Constitutional General appearance: mild distress, thin - EENT Eyes: anicteric sclerae, EOMI, PERRLA, no ptosis, no scleral icterus, normal appearance ENT: hearing grossly normal, NA/AT, normal oropharynx Ears: bilateral: normal - Neck Neck: no lymphadenopathy, normal ROM, no rigidity, no stridor, no thyromegaly Carotids: bilateral: upstroke delayed - Respiratory Respiratory: bilateral: diminished, negative: dullness, rales, rhonchi, wheezing , prolonged expiration - Cardiovascular Rhythm: other (permanent pacemaker.) Heart sounds: normal: S1, S2 Abnormal Heart Sounds: systolic murmur - Gastrointestinal General gastrointestinal: absent bowel sounds, distended, rigid, tenderness - Integumentary Integumentary: normal, normal turgor - Neurologic Neurologic: CNII-XII intact - Musculoskeletal Musculoskeletal: generalized weakness, strength equal bilaterally - Psychiatric Psychiatric: A&O x's 3, appropriate affect, intact judgment & insight Results CBC & Chem 7: 09/03/17 14:05 09/03/17 14:05 Labs: Abnormal Lab Results - Last 24 Hours (Table) 09/03/17 09/03/17 09/03/17 Range/Units 14:05 14:05 16:00 WBC 16.1 H (3.8-10.6) k/uL Neutrophils # 14.6 H (1.3-7.7) k/uL Lymphocytes # 0.4 L (1.0-4.8) k/uL Potassium 3.4 L (3.5-5.1) mmol/L Chloride 91 L (98-107) mmol/L Carbon Dioxide 38 H (22-30) mmol/L BUN 32 H (7-17) mg/dL Glucose 123 H (74-99) mg/dL Urine Appearance Turbid H (Clear) Ur Specific [place] >1.050 H (1.001-1.035) Urine Protein 3+ H (Negative) Urine Ketones 1+ H (Negative) Urine Blood Moderate H (Negative) Urine Nitrite Positive H (Negative) Ur Leukocyte Esterase Large H (Negative) Urine RBC 51 H (0-5) /hpf Urine WBC >182 H (0-5) /hpf Urine WBC Clumps Many H (None) /hpf Urine Mucus Few H (None) /hpf Assessment and Plan Assessment: Assessment and plan: 1. Small bowel obstruction with possible volvulus. Patient will have the energy to place in the OR, patient was taken to the OR urgently for expiratory laparotomy and lysis of adhesion with possible small bowel resection, with Dr. Seo, keep the patient nothing per mouth for now NG tube in place, IV fluid resuscitation, replace her potassium, patient did receive a dose of ceftriaxone and metronidazole, she will receive the reversal of the Eliquis prior to the OR , continue IV antibiotic in the form of metronidazole as well as Zosyn. 2. CAD post HI with left heart catheterization in 3 stents placement. Patient appears to be stable at this point in time we'll monitor the patient very closely postoperatively. 3. Atrial fibrillation post permanent pacemaker placement. We will resume the patient digoxin, Cardizem, hold off Eliquis for the next 48 hours. 4. Hyperlipidemia. Continue patient on pravastatin 20 mg at bedtime. 5. History of glaucoma. Continue current eyedrops. 6. History of macular degeneration. She is legally blind. 7. History of breast cancer status post left mastectomy with lymph node dissection. Currently in remission. 8. ALLERGIC rhinitis and possible asthma. Continue patient on albuterol and singular 10 mg orally at bedtime. 9. Anxiety disorder. Continue Lexapro 10 mg orally once every day as well as Xanax 0.25 mg orally at bedtime. 10. DVT prophylaxis. Patient will be placed on heparin postoperatively subcutaneously. 11. GI prophylaxis. Start the patient on Protonix 40 mg IV push every 24 hours. 12. We will follow the patient post OR, spoke with both daughters at the bedside in the emergency department we will continue to follow the patient her prognosis is guarded further recommendations to follow. 13. Hypokalemia status post placement. 14. Thank you Dr. Seo for allowing us to participate in the care of your patient we will follow the patient postoperatively with you.
--- NOTE | 2017-09-03 18:37 | P.GSHP ---
History of Present Illness H&P Date: 09/03/17 Chief Complaint: Abdominal pain distention This is a 87-year-old female who's had a 3 to four-day history of abdominal pain nausea vomiting. Patient states her abdominal pain and distention worsened today. She presented emergency room underwent CAT scan was found to have a small bowel obstruction possibly due to adhesions or volvulus. The patient had been seen in the ER approximately 2 days ago with similar symptoms. The patient is in extreme pain. She looks quite distress. Past Medical History Past Medical History: Atrial Fibrillation, Coronary Artery Disease (CAD), Cancer , Eye Disorder, Hearing Disorder / Deafness, Hyperlipidemia, Hypertension, Myocardial Infarction ([place]), Osteoarthritis (OA) Additional Past Medical History / Comment(s): See Dr Townsend's H&P,breast ca ,blind rt eye,legally blind lt eye, [employer],Macular degeneration and glaucoma josh eyes. History of Any Multi-Drug Resistant Organisms: None Reported Past Surgical History: Ablation, Cholecystectomy, Heart Catheterization With Stent, Hysterectomy, Pacemaker, Tonsillectomy Additional Past Surgical History / Comment(s): mastectomy, oopherectomy Past Anesthesia/Blood Transfusion Reactions: No Reported Reaction Date of Last Stent Placement:: unk Type of Cardiac Device: Permanent Pacemaker Device Placement Date:: unk Past Psychological History: Anxiety Smoking Status: Former smoker (patient uses would've a pack every day she smoked from the age of 16 until the age of 51 about 35 years of smoking.) Past Alcohol Use History: Occasional Past Drug Use History: None Reported - Past Family History Mother Family Medical History: Myocardial Infarction ([place]) (mother at the age of 66 from [place].) Father Family Medical History: Unable to Obtain (doesn't know much about the father.) Brother(s) Family Medical History: Coronary Artery Disease (CAD) (patient had 2 brothers were with CAD.) Sister(s) Family Medical History: Coronary Artery Disease (CAD) (patient had 2 sisters were with CAD.) Daughter(s) Family Medical History: No Reported History (patient has 3 daughters no major medical problems) Son(s) Family Medical History: No Reported History (patient has 2 sons no major medical problems) Medications and Allergies Home Medications Medication Instructions Recorded Confirmed Type Albuterol Nebulized [Ventolin 2.5 mg INHALATION RT-QID 04/01/14 09/03/17 History Nebulized] Digoxin [Lanoxin] 125 mcg PO DAILY 04/01/14 09/03/17 History Diltiazem HCl 30 mg PO BID 04/01/14 09/03/17 History Montelukast [Singulair] 10 mg PO HS 04/01/14 09/03/17 History Pravastatin Sodium [Pravachol] 20 mg PO HS 04/01/14 09/03/17 History Dorzolamide 2% [Trusopt 2%] 1 drops BOTH EYES BID 05/27/16 09/03/17 History Latanoprost Ophth [Xalatan 0.005%] 1 drops BOTH EYES HS 05/27/16 09/03/17 History Loteprednol Etabonate [Lotemax] 1 drop LEFT EYE DAILY 05/27/16 09/03/17 History Magnesium Oxide [Mag-Ox] 250 mg PO HS 05/27/16 09/03/17 History Vits A,C,E/Lutein/Minerals 1 tab PO DAILY 05/27/16 09/03/17 History [Ocuvite with Lutein Tablet] Escitalopram Oxalate [Lexapro] 10 mg PO DAILY 10/13/16 09/03/17 History Hydrochlorothiazide [Hydrodiuril] 25 mg PO DAILY #0 10/16/16 09/03/17 Rx ALPRAZolam [Xanax] 0.25 mg PO HS 09/02/17 09/03/17 History Apixaban [Eliquis] 2.5 mg PO DAILY 09/02/17 09/03/17 History Aspirin EC [Ecotrin Low Dose] 81 mg PO DAILY 09/02/17 09/03/17 History Ondansetron [Zofran ODT] 4 mg PO Q8HR #10 tab 09/02/17 09/03/17 Rx Otc Allergy Pill Unknown 1 tab PO HS 09/02/17 09/03/17 History Potassium Chloride ER [K-Dur 20] 20 meq PO DAILY #7 tab 09/02/17 09/03/17 Rx Allergies Allergy/AdvReac Type Severity Reaction Status Date / Time codeine AdvReac Unknown Verified 09/03/17 13:42 furosemide [From Lasix] AdvReac dizziness,w Verified 09/03/17 13:42 eakness tiotropium bromide AdvReac Unknown Verified 09/03/17 13:42 [From Spiriva with HandiHaler] Surgical - Exam Vital Signs Temp Pulse Resp BP Pulse Ox 97.8 F 85 18 147/63 95 09/03/17 13:19 09/03/17 13:19 09/03/17 13:19 09/03/17 13:19 09/03/17 13:19 - General moderate distress - Eyes PERRL - ENT normal pinna - Neck no masses - Respiratory normal expansion - Cardiovascular Rhythm: regular - Abdomen Abdomen soft, there is diffuse tenderness throughout. The abdomen is distended. Results - Labs 09/03/17 14:05 09/03/17 14:05 Abnormal Lab Results - Last 24 Hours (Table) 09/03/17 09/03/17 09/03/17 Range/Units 14:05 14:05 16:00 WBC 16.1 H (3.8-10.6) k/uL Neutrophils # 14.6 H (1.3-7.7) k/uL Lymphocytes # 0.4 L (1.0-4.8) k/uL Potassium 3.4 L (3.5-5.1) mmol/L Chloride 91 L (98-107) mmol/L Carbon Dioxide 38 H (22-30) mmol/L BUN 32 H (7-17) mg/dL Glucose 123 H (74-99) mg/dL Urine Appearance Turbid H (Clear) Ur Specific [place] >1.050 H (1.001-1.035) Urine Protein 3+ H (Negative) Urine Ketones 1+ H (Negative) Urine Blood Moderate H (Negative) Urine Nitrite Positive H (Negative) Ur Leukocyte Esterase Large H (Negative) Urine RBC 51 H (0-5) /hpf Urine WBC >182 H (0-5) /hpf Urine WBC Clumps Many H (None) /hpf Urine Mucus Few H (None) /hpf Diabetes panel 09/03/17 Range/Units 14:05 Sodium 143 (137-145) mmol/L Potassium 3.4 L (3.5-5.1) mmol/L Chloride 91 L (98-107) mmol/L Carbon Dioxide 38 H (22-30) mmol/L BUN 32 H (7-17) mg/dL Creatinine 0.80 (0.52-1.04) mg/dL Glucose 123 H (74-99) mg/dL Calcium 10.2 (8.4-10.2) mg/dL AST 32 (14-36) U/L ALT 32 (9-52) U/L Alkaline Phosphatase 81 (38-126) U/L Total Protein 6.8 (6.3-8.2) g/dL Albumin 3.9 (3.5-5.0) g/dL Calcium panel 09/03/17 Range/Units 14:05 Calcium 10.2 (8.4-10.2) mg/dL Albumin 3.9 (3.5-5.0) g/dL Pituitary panel 09/03/17 Range/Units 14:05 Sodium 143 (137-145) mmol/L Potassium 3.4 L (3.5-5.1) mmol/L Chloride 91 L (98-107) mmol/L Carbon Dioxide 38 H (22-30) mmol/L BUN 32 H (7-17) mg/dL Creatinine 0.80 (0.52-1.04) mg/dL Glucose 123 H (74-99) mg/dL Calcium 10.2 (8.4-10.2) mg/dL Adrenal panel 09/03/17 Range/Units 14:05 Sodium 143 (137-145) mmol/L Potassium 3.4 L (3.5-5.1) mmol/L Chloride 91 L (98-107) mmol/L Carbon Dioxide 38 H (22-30) mmol/L BUN 32 H (7-17) mg/dL Creatinine 0.80 (0.52-1.04) mg/dL Glucose 123 H (74-99) mg/dL Calcium 10.2 (8.4-10.2) mg/dL Total Bilirubin 1.0 (0.2-1.3) mg/dL AST 32 (14-36) U/L ALT 32 (9-52) U/L Alkaline Phosphatase 81 (38-126) U/L Total Protein 6.8 (6.3-8.2) g/dL Albumin 3.9 (3.5-5.0) g/dL Assessment and Plan Assessment: High-grade complete small bowel obstruction. Patient will undergo emergent exploratory laparotomy today. I discussed with the patient family that she is quite high risk. The patient was given K Centra in the emergency room.
[2017-09-03] MEDS ORDERED: LACTATED RINGERS 1,000 ML IV ONE ×2 (19:45→19:49)
[2017-09-03] MEDS ORDERED: METOCLOPRAMIDE 5 MG/ML 2 ML VIAL IVP PRN (19:49)
--- NOTE | 2017-09-03 19:49 | P.OP ---
Date of Procedure: 09/03/17 Preoperative Diagnosis: Small bowel obstruction Postoperative Diagnosis: Small bowel obstruction due to adhesions with small bowel volvulus Procedure(s) Performed: Exploratory laparotomy Lysis of adhesions Small bowel resection Anesthesia: DEIDRE Surgeon: Durga Seo Estimated Blood Loss (ml): 10 Pathology: other Disposition: ICU Description of Procedure: Patient's placed the operative table in the supine position. She received general anesthesia. Her abdomen was prepped and draped in usual sterile fashion. The abdomen was entered through a midline incision. Upon entering the abdomen there was some ascitic fluid. The bowel was grossly dilated. In the right lower quadrant there was some normal caliber small bowel. The bowel was adhesed in the right pelvis. This had caused a complete bowel traction. The adhesion was lysed and then the bowel was freed. There was a small bowel volvulus related to this adhesion. This was causing a complete bowel obstruction. This point the bowel was examined. There is small section of jejunum that appeared to be ischemic. This area was transected proximally distally with a GI stapler and then using the LigaSure device the mesentery the bowel was divided. A [id number] functional end-to-end staple anastomosis created using the RADHA and TA stapler. The window in the mesentery was closed with 3-0 Vicryl suture. The abdomen was irrigated. No bleeding seen. The fascia was closed with looped #1 PDS suture. Skin was closed with davi. Patient top she will well and was sent to to the recovery room in stable condition. On the ventilator.
[2017-09-03 20:10] LABS: Glucose,Whole Blood 121 mg/dL (75-99)
[2017-09-03 20:45] LABS: ABG Base Excess 11.1 mmol/L; ABG HCO3 34 mmol/L (21-25); ABG PCO2 44 mmHg (35-45); ABG PO2 202 mmHg (83-108); ABG TCO2 36 mmol/L (19-24)
[2017-09-03] MEDS: HYDROmorphone 0.5 MG/0.5 ML SYRINGE IVP PRN ×2 (20:45→23:41)
[2017-09-03] MEDS: ALBUTEROL NEBULIZED 2.5 MG/3 ML INHALATION SCH (20:46)
[2017-09-03] MEDS ORDERED: PROPOFOL 100 ML IV ONE (20:48)
[2017-09-03 20:53] LABS: Basophils % (A) 0 %; Eosinophils # (A) 0.1 k/uL (0-0.7); Eosinophils % (A) 1 %; HCT 38.1 % (34.0-46.0); HGB 12.5 gm/dL (11.4-16.0); Lymphocytes # (A) 0.3 k/uL (1.0-4.8); Lymphocytes % (A) 3 %; MCH 31.4 pg (25.0-35.0); MCHC 32.8 g/dL (31.0-37.0); MCV 95.5 fL (80.0-100.0); Mean Platelet Volume 7.5; Monocytes # (A) 0.1 k/uL (0-1.0); Monocytes % (A) 2 %; Neutrophils # (A) 7.1 k/uL (1.3-7.7); Neutrophils % (A) 94 %; Platelet Count 220 k/uL (150-450); RBC 3.99 m/uL (3.80-5.40); WBC 7.5 k/uL (3.8-10.6)
[2017-09-03 20:59] LABS: Ionized Calcium 5.1 mg/dL (4.5-5.3)
[2017-09-03] MEDS ORDERED: PROPOFOL 1,000 MG in EMPTY BAG 1 BAG IV SCH (21:00)
[2017-09-03 21:02] LABS: INR 1.1 (<1.2)
[2017-09-03 21:06] LABS: Anion Gap 10 mmol/L; Blood Urea Nitrogen 29 mg/dL (7-17); Calcium 9.3 mg/dL (8.4-10.2); Carbon Dioxide 32 mmol/L (22-30); Chloride 99 mmol/L (98-107); Glucose 131 mg/dL (74-99); Magnesium 2.1 mg/dL (1.6-2.3); Phosphorus 3.1 mg/dL (2.5-4.5); Sodium 141 mmol/L (137-145)
[2017-09-03] MEDS ORDERED: Potassium Replacement Protocol 1 EACH MISC MISCELLANE PRN (21:36)
[2017-09-03] MEDS: POTASSIUM CHLORIDE 10 MEQ in WATER FOR INJECTION 1 100ML.BAG IVPB SCH ×2 (21:55→23:36)
--- NOTE | 2017-09-03 22:11 | XR ---
EXAMINATION: XR chest 1V portable DATE AND TIME: 09/03/2017 9:14 PM ORDERING PROVIDER: Katalina Forte CLINICAL INDICATION: Tube placement TECHNIQUE: AP portable supine COMPARISON: 09/02/2017 3:34 PM DESCRIPTION: ET tube tip superimposed over the mid trachea level of the head of the clavicles. NG tube present, coursing over the gastric cardia. Cardiac pacemaker and EKG leads noted. Mildly enlarged cardiac silhouette, stable compared to yesterday's study. The lungs appear to be cl ear bilaterally. Note: Supine radiography cannot exclude pneumothorax or pneumoperitoneum. IMPRESSION: NO DEFINITE ACUTE PROCESS, SUPINE STUDY.
[2017-09-03] MEDS ORDERED: ACETAMINOPHEN IV (For NPO) 1,000 MG in EMPTY BAG 1 BAG IVPB PRN (22:41)
[2017-09-03] MEDS: MONTELUKAST 10 MG TAB PO SCH (23:29)
[2017-09-03] MEDS: PRAVASTATIN SODIUM 20 MG TAB PO SCH (23:29)
[2017-09-04] MEDS: PIPERACILLIN-TAZOBACTAM 3.375 GM in DEXTROSE/WATER 1 50ML.BAG IVPB SCH ×3 (00:39→16:36)
[2017-09-04] MEDS: ONDANSETRON 4 MG/2 ML VIAL IVP PRN (00:41)
[2017-09-04] MEDS: MAGNESIUM OXIDE 400 MG TAB PO SCH ×2 (00:59→20:34)
[2017-09-04] MEDS: ALPRAZolam 0.25 MG TAB PO SCH ×2 (00:59→20:34)
[2017-09-04] MEDS: LORATADINE 10 MG TAB PO SCH ×2 (00:59→20:34)
[2017-09-04] MEDS: DILTIAZEM ORAL 30 MG TAB PO SCH ×3 (00:59→20:34)
[2017-09-04] MEDS: ONDANSETRON ODT 4 MG TAB PO SCH ×3 (01:02→16:36)
[2017-09-04] MEDS: DORZOLAMIDE HCL 2% DROPS 10 ML BTL BOTH EYES SCH ×3 (02:34→20:33)
[2017-09-04] MEDS ORDERED: SODIUM CHLORIDE 0.9% 1,000 ML IV ONE ×2 (02:35→06:11)
[2017-09-04] MEDS: LATANOPROST 0.005% OPHTH DROPS 2.5 ML BTL BOTH EYES SCH ×2 (02:35→20:33)
[2017-09-04] MEDS: MORPHINE SULFATE 2 MG/ML SYRINGE IV PRN ×3 (02:51→08:29)
[2017-09-04 05:22] LABS: HCT 33.9 % (34.0-46.0); HGB 10.9 gm/dL (11.4-16.0); MCH 31.6 pg (25.0-35.0); MCHC 32.3 g/dL (31.0-37.0); MCV 98.1 fL (80.0-100.0); Mean Platelet Volume 7.7; Platelet Count 187 k/uL (150-450); RBC 3.46 m/uL (3.80-5.40); RDW 14.2 % (11.5-15.5)
[2017-09-04 05:45] LABS: Anion Gap 8 mmol/L; Blood Urea Nitrogen 26 mg/dL (7-17); Calcium 7.8 mg/dL (8.4-10.2); Carbon Dioxide 29 mmol/L (22-30); Chloride 107 mmol/L (98-107); Glucose 100 mg/dL (74-99); Magnesium 1.8 mg/dL (1.6-2.3); Phosphorus 2.2 mg/dL (2.5-4.5); Sodium 144 mmol/L (137-145)
[2017-09-04] MEDS ORDERED: POTASSIUM CHLORIDE 10 MEQ in WATER FOR INJECTION 1 100ML.BAG IVPB ONE (06:00)
[2017-09-04] MEDS: HYDROmorphone 0.5 MG/0.5 ML SYRINGE IVP PRN ×5 (06:59→23:58)
[2017-09-04] MEDS: MAGNESIUM SULFATE-D5W PMX 1 GM in DEXTROSE/WATER 1 100ML.BAG IVPB SCH ×2 (06:59→08:05)
[2017-09-04 07:09] LABS: ABG Base Excess 1.3 mmol/L; ABG HCO3 27 mmol/L (21-25); ABG Oxygen Saturation 98.4 % (94-97); ABG PCO2 47 mmHg (35-45); ABG PH 7.36 (7.35-7.45); ABG PO2 117 mmHg (83-108); ABG TCO2 28 mmol/L (19-24)
[2017-09-04 07:49] LABS: Band Neutrophils % 34 %; Metamyelocytes % 7 %; Myelocytes % 1 %; Neutrophils % (M) 54 %; Nucleated Red Blood Cells 0 /100 WBC (0-0); Total Cells Counted 200; Toxic Granulation Present
[2017-09-04 07:50] LABS: Poikilocytosis (M) Present; Toxic Vacuolation Present
[2017-09-04] MEDS: PANTOPRAZOLE 40 MG/10 ML VIAL IV SCH (08:07)
[2017-09-04] MEDS: POTASSIUM CHLORIDE ER 20 MEQ TAB.ER PO SCH (08:08)
[2017-09-04] MEDS: ESCITALOPRAM 10 MG TAB PO SCH (08:08)
[2017-09-04] MEDS: HYDROCHLOROTHIAZIDE 25 MG TAB PO SCH (08:08)
[2017-09-04] MEDS: prednisoLONE ACETATE 1% OPHTH DROPS 5 ML BTL LEFT EYE SCH (08:08)
[2017-09-04] MEDS: DIGOXIN 125 MCG TAB PO SCH (08:09)
[2017-09-04] MEDS: ENOXAPARIN 40 MG/0.4 ML SYRINGE SQ SCH (08:09)
[2017-09-04] MEDS: ALBUTEROL NEBULIZED 2.5 MG/3 ML INHALATION SCH ×4 (08:17→20:13)
[2017-09-04] MEDS: VIT A,C & E-LUTEIN-MINERALS 1 EACH TAB PO SCH (08:31)
--- NOTE | 2017-09-04 09:19 | P.CNPUL ---
History of Present Illness Consult date: 09/04/17 Chief complaint: Small bowel obstruction, expiratory laparotomy History of present illness: 87-year-old female patient, presented to the hospital for abdominal pain and increased nausea and vomiting and she did not have any bowel movements for the past few days. She initially presented to the ED and she was discharged home to come back with the same problem with significant abdominal pain and distention. CAT scan of the abdomen showed evidence of small bowel obstruction with volvulus and at that point the patient was seen by general surgery and the patient was taken to the operating room yesterday and she underwent expiratory laparotomy, lysis of adhesions and she was found to have a small segment of the jejunum being ischemic that was resected with primary anastomosis. The abdomen was irrigated. The fascia was closed and a wound VAC was applied. Overnight, the patient became oliguric. The patient received a total of 4 L of IV fluid boluses and maintenance fluid was maintained at 120 mL an hour. The patient did not require any pressors. This morning, the patient is still sedated with Diprivan at 50 mics per KG pigmented. The patient is an assist-control mode of ventilation at the rate of 14 tidal volume of 450 FiO2 of 40% and a PEEP of 5. The blood gases from this morning showed a pH of 7.36 with a pCO2 of 47 pO2 117. The chest x-ray from this morning shows some mild four-vessel congestion. ET tube is in a good location. The patient has a left-sided pacemaker in place. Correlation profile is within normal. White cell count is at 10.0. Hemoglobin stable at 10.9. Urinalysis suggested the possibility of an underlying infection the patient is currently on IV Zosyn. The patient is arousable. We are the process of giving her a sedation holiday and checking weaning parameters. The potassium level was low at 3.0 and the patient had a normal renal function with a creatinine of 0.6 and the patient's potassium level is being replaced per protocol. 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, deafness, hypertension, hyperlipidemia, history of breast cancer with a previous left mastectomy, history of coronary intervention and coronary stenting History of Any Multi-Drug Resistant Organisms: None Reported Past Surgical History: Ablation, Cholecystectomy, Heart Catheterization With Stent, Hysterectomy, Pacemaker, Tonsillectomy Additional Past Surgical History / Comment(s): mastectomy, oopherectomy Past Anesthesia/Blood Transfusion Reactions: No Reported Reaction Date of Last Stent Placement:: unk Type of Cardiac Device: Permanent Pacemaker Device Placement Date:: unk Past Psychological History: Anxiety Smoking Status: Former smoker Past Alcohol Use History: Occasional Past Drug Use History: None Reported - Past Family History Mother Family Medical History: No Reported History Father Family Medical History: No Reported History Brother(s) Family Medical History: Coronary Artery Disease (CAD) (patient had 2 brothers were with CAD.) Sister(s) Family Medical History: Coronary Artery Disease (CAD) (patient had 2 sisters were with CAD.) Daughter(s) Family Medical History: No Reported History (patient has 3 daughters no major medical problems) Son(s) Family Medical History: No Reported History (patient has 2 sons no major medical problems) Medications and Allergies Home Medications Medication Instructions Recorded Confirmed Type Albuterol Nebulized [Ventolin 2.5 mg INHALATION RT-QID 04/01/14 09/03/17 History Nebulized] Digoxin [Lanoxin] 125 mcg PO DAILY 04/01/14 09/03/17 History Diltiazem HCl 30 mg PO BID 04/01/14 09/03/17 History Montelukast [Singulair] 10 mg PO HS 04/01/14 09/03/17 History Pravastatin Sodium [Pravachol] 20 mg PO HS 04/01/14 09/03/17 History Dorzolamide 2% [Trusopt 2%] 1 drops BOTH EYES BID 05/27/16 09/03/17 History Latanoprost Ophth [Xalatan 0.005%] 1 drops BOTH EYES HS 05/27/16 09/03/17 History Loteprednol Etabonate [Lotemax] 1 drop LEFT EYE DAILY 05/27/16 09/03/17 History Magnesium Oxide [Mag-Ox] 250 mg PO HS 05/27/16 09/03/17 History Vits A,C,E/Lutein/Minerals 1 tab PO DAILY 05/27/16 09/03/17 History [Ocuvite with Lutein Tablet] Escitalopram Oxalate [Lexapro] 10 mg PO DAILY 10/13/16 09/03/17 History Hydrochlorothiazide [Hydrodiuril] 25 mg PO DAILY #0 10/16/16 09/03/17 Rx ALPRAZolam [Xanax] 0.25 mg PO HS 09/02/17 09/03/17 History Apixaban [Eliquis] 2.5 mg PO DAILY 09/02/17 09/03/17 History Aspirin EC [Ecotrin Low Dose] 81 mg PO DAILY 09/02/17 09/03/17 History Ondansetron [Zofran ODT] 4 mg PO Q8HR #10 tab 09/02/17 09/03/17 Rx Otc Allergy Pill Unknown 1 tab PO HS 09/02/17 09/03/17 History Potassium Chloride ER [K-Dur 20] 20 meq PO DAILY #7 tab 09/02/17 09/03/17 Rx Allergies Allergy/AdvReac Type Severity Reaction Status Date / Time codeine AdvReac Unknown Verified 09/03/17 13:42 furosemide [From Lasix] AdvReac dizziness,w Verified 09/03/17 13:42 eakness tiotropium bromide AdvReac Unknown Verified 09/03/17 13:42 [From Spiriva with HandiHaler] Physical Exam Vitals: Vital Signs Temp Pulse Pulse Resp BP BP Pulse Ox 09/04/17 08:44 102 H 09/04/17 08:23 112 H 09/04/17 07:00 98.6 F 93 14 98 09/04/17 06:45 102 H 14 119/53 98 09/04/17 06:30 102 H 14 98 09/04/17 06:15 109 H 14 87/55 97 09/04/17 06:00 98.2 F 100 14 96 09/04/17 05:45 105 H 14 87/47 96 09/04/17 05:30 104 H 14 84/48 96 09/04/17 05:15 104 H 14 84/48 96 09/04/17 05:00 99.1 F 103 H 14 96 09/04/17 04:45 113 H 14 113/56 99 09/04/17 04:30 104 H 14 97 09/04/17 04:15 102 H 14 107/48 99 18 04:00 98.8 F 97 14 97 09/04/17 03:45 97 14 88/45 96 09/04/17 03:30 97 14 96 09/04/17 03:15 104 H 14 86/47 97 18 03:00 97.8 F 102 H 14 96 09/04/17 02:45 104 H 13 108/52 96 09/04/17 02:30 106 H 14 96 09/04/17 02:15 103 H 14 114/56 96 09/04/17 02:00 104 H 14 98 09/04/17 01:45 104 H 14 120/57 99 09/04/17 01:30 100 14 100 09/04/17 01:15 107 H 14 86/49 98 09/04/17 01:00 98.7 F 108 H 14 86/49 98 09/04/17 00:45 105 H 14 100/50 99 09/04/17 00:30 103 H 13 112/53 99 09/04/17 00:15 100 14 112/53 100 09/04/17 00:00 97.4 F L 94 14 100 09/03/17 23:45 97 14 123/59 99 09/03/17 23:30 105 H 14 99 09/03/17 23:15 106 H 14 95/57 100 09/03/17 23:08 108 H 14 92/51 99 09/03/17 23:00 103 H 14 98 09/03/17 22:45 110 H 14 92/51 99 09/03/17 22:30 100 14 99 09/03/17 22:15 112 H 14 99 09/03/17 22:00 122 H 14 99 18 21:45 96 16 100 09/03/17 21:30 95 15 171/81 100 09/03/17 21:15 99 14 100 09/03/17 21:00 98 14 100 09/03/17 20:47 94 09/03/17 20:45 109 H 14 100 18 20:30 79 14 100 09/03/17 20:15 97.3 F L 73 14 108/60 100 09/03/17 20:05 104 H 09/03/17 18:08 91 16 131/63 98 09/03/17 17:30 97.5 F L 106 H 18 133/71 96 09/03/17 17:26 98.4 F 98 16 151/87 96 09/03/17 13:19 97.8 F 85 18 147/63 95 Intake and Output 09/03/17 09/04/17 09/04/17 22:59 06:59 14:59 Intake Total 5078.818 1731.0 623 Output Total 850 337 30 Balance 123.796 7964.0 593 Intake: IV 1691 4634.0 623 0.9 NaCl 120 960 120 Lactated Ringers 1,000 ml 125 @ 125 mls/hr IV .Q8H [facility] Rx#:[id number] Piperacillin-Tazobactam 3 50.0 .375 gm In Dextrose/Water 1 50ml.bag @ 12.5 mls/hr IVPB Q8HR [facility] Rx#: [id number] Potassium Chloride 10 meq 100 100 In Water For Injection 1 100ml.bag @ 100 mls/hr IVPB Q1H [facility] Rx#: [id number] Pressure Bag of 0.9NaCl- 6 24 3 Sodium Chloride 0.9% 1, 3500 500 000 ml @ 999 mls/hr IV . Q1H1M [facility] Rx#:[id number] Intake, IV Titration 3.918 Amount Propofol 1,000 mg In 3.918 Empty Bag 1 bag @ Titrate IV .Q0M [facility] Rx#: [id number] Output: Gastric Drainage 300 100 Urine 500 237 30 Estimated Blood Loss 50 Other: Voiding Method Indwelling Catheter Indwelling Catheter Weight 52.2 kg 52.7 kg ABP, PAP, CO, CI - Last 8 Hours Arterial Blood Pressure 128/50 Arterial Blood Pressure 134/52 Arterial Blood Pressure 127/47 Arterial Blood Pressure 109/50 Arterial Blood Pressure 91/44 Arterial Blood Pressure 94/44 Arterial Blood Pressure 94/43 Arterial Blood Pressure 97/42 Arterial Blood Pressure 91/42 Arterial Blood Pressure 102/46 Arterial Blood Pressure 109/46 Arterial Blood Pressure 136/58 Arterial Blood Pressure 111/46 Arterial Blood Pressure 92/42 Arterial Blood Pressure 97/44 Arterial Blood Pressure 103/44 Arterial Blood Pressure 107/45 Arterial Blood Pressure 124/53 Arterial Blood Pressure 114/49 Arterial Blood Pressure 125/50 Arterial Blood Pressure 139/51 Arterial Blood Pressure 142/52 Arterial Blood Pressure 135/51 Arterial Blood Pressure 92/45 Gen. appearance the patient is sedated, comfortable likely distress. Currently sedated with Diprivan, intubated on a mechanical ventilator. Orogastric and orotracheal tube are both in place. Head exam was generally normal. There was no scleral icterus or corneal arcus. Mucous membranes were moist. Neck was supple and without jugular venous distension, thyromegaly, or carotid bruits. Carotids were easily palpable bilaterally. There was no adenopathy. The patient has an orogastric and orotracheal tube in place stitches is intubated by #7 orotracheal tube. Lungs were clear to auscultation and percussion, and with normal diaphragmatic excursion. No wheezes or rales were noted. Cardiac exam revealed the PMI to be normally situated and sized. The rhythm was irregular and is controlled for now and no extrasystoles were noted during several minutes of auscultation. The first and second heart sounds were normal and physiologic splitting of the second heart sound was noted. There were no murmurs, rubs, clicks, or gallops. Abdominal exam shows no direct tenderness rebound tensile guarding. Bowel sounds are hypoactive. There is a superficial wound VAC applied covering the anterior wound surface. Organs cannot be accurately palpated. Examination of the extremities revealed easily palpable radial, femoral and pedal pulses. There was no cyanosis, clubbing or edema. Examination of the skin revealed no evidence of significant rashes, suspicious appearing nevi or other concerning lesions. Neurologically the patient is sedated yet she is responding to painful stimuli and she is moving all 4 extremities without any limitation. Pupils are equal and symmetrical and there is no facial asymmetry. Results - Laboratory Findings CBC and BMP: 09/04/17 05:00 09/04/17 05:00 ABG ABG pH 7.36 (7.35-7.45) 09/04/17 07:03 ABG pCO2 47 mmHg (35-45) H 09/04/17 07:03 ABG pO2 117 mmHg (83-108) H 09/04/17 07:03 ABG O2 Saturation 98.4 % (94-97) H 09/04/17 07:03 PT/INR, D-dimer PT 11.0 sec (9.0-12.0) 09/03/17 20:37 INR 1.1 (<1.2) 09/03/17 20:37 Abnormal lab findings: Abnormal Labs 09/03/17 09/03/17 09/03/17 14:05 14:05 16:00 WBC 16.1 H RBC Hgb Hct Neutrophils # 14.6 H Neutrophils # (Manual) Lymphocytes # 0.4 L Lymphocytes # (Manual) Metamyelocytes # (Man) Myelocytes # (Manual) ABG pH ABG pCO2 ABG pO2 ABG HCO3 ABG Total CO2 ABG O2 Saturation Potassium 3.4 L Chloride 91 L Carbon Dioxide 38 H BUN 32 H Glucose 123 H POC Glucose (mg/dL) Calcium Phosphorus Urine Appearance Turbid H Ur Specific [place] >1.050 H Urine Protein 3+ H Urine Ketones 1+ H Urine Blood Moderate H Urine Nitrite Positive H Ur Leukocyte Esterase Large H Urine RBC 51 H Urine WBC >182 H Urine WBC Clumps Many H Urine Mucus Few H 09/03/17 09/03/17 09/03/17 20:09 20:37 20:37 WBC RBC Hgb Hct Neutrophils # Neutrophils # (Manual) Lymphocytes # 0.3 L Lymphocytes # (Manual) Metamyelocytes # (Man) Myelocytes # (Manual) ABG pH ABG pCO2 ABG pO2 ABG HCO3 ABG Total CO2 ABG O2 Saturation Potassium 3.0 L* Chloride Carbon Dioxide 32 H BUN 29 H Glucose 131 H POC Glucose (mg/dL) 121 H Calcium Phosphorus Urine Appearance Ur Specific [place] Urine Protein Urine Ketones Urine Blood Urine Nitrite Ur Leukocyte Esterase Urine RBC Urine WBC Urine WBC Clumps Urine Mucus 09/03/17 09/04/17 09/04/17 20:42 05:00 05:00 WBC RBC 3.46 L Hgb 10.9 L Hct 33.9 L Neutrophils # Neutrophils # (Manual) 8.80 H Lymphocytes # Lymphocytes # (Manual) 0.20 L Metamyelocytes # (Man) 0.70 H Myelocytes # (Manual) 0.10 H ABG pH 7.50 H ABG pCO2 ABG pO2 202 H ABG HCO3 34 H ABG Total CO2 36 H ABG O2 Saturation 100.0 H Potassium 3.0 L* Chloride Carbon Dioxide BUN 26 H Glucose 100 H POC Glucose (mg/dL) Calcium 7.8 L Phosphorus 2.2 L Urine Appearance Ur Specific [place] Urine Protein Urine Ketones Urine Blood Urine Nitrite Ur Leukocyte Esterase Urine RBC Urine WBC Urine WBC Clumps Urine Mucus 09/04/17 07:03 WBC RBC Hgb Hct Neutrophils # Neutrophils # (Manual) Lymphocytes # Lymphocytes # (Manual) Metamyelocytes # (Man) Myelocytes # (Manual) ABG pH ABG pCO2 47 H ABG pO2 117 H ABG HCO3 27 H ABG Total CO2 28 H ABG O2 Saturation 98.4 H Potassium Chloride Carbon Dioxide BUN Glucose POC Glucose (mg/dL) Calcium Phosphorus Urine Appearance Ur Specific [place] Urine Protein Urine Ketones Urine Blood Urine Nitrite Ur Leukocyte Esterase Urine RBC Urine WBC Urine WBC Clumps Urine Mucus - Diagnostic Findings Chest x-ray: image reviewed Assessment and Plan Plan: 1 acute bowel obstruction/small bowel obstruction with volvulus secondary to adhesions, status post respiratory laparotomy, lysis of adhesions and small bowel obstruction. The patient is postop day #1 2 abdominal pain secondary to above 3 acute respiratory failure, and expected outcome of bowel surgery. The patient is oxygenating well for now. Chest exit shows mild pulmonary asked her congestion. Blood gases was reviewed 4 Hypotension, responded nicely to IV fluids and the patient did not require any pressors. The patient is in a positive fluid balance 5 coronary artery disease with previous coronary intervention and stenting 6 chronic atrial fibrillation rate is controlled for now and the patient's coagulopathy was reversed preoperatively with Kcentra. Currently she is on Lovenox 40 mg subcu for DVT prophylaxis and the patient has SCDs. 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 Sedation holiday. Check weaning parameters. Consider extubating patient today if the patient is able to provide good weaning parameters and this point is breathing trial. Continue IV fluids. Give additional bolus of 1 L. Maintenance fluid at the rate of 120 mL an hour. IV Zosyn. Lovenox for DVT prophylaxis. Replace potassium. We'll continue to follow and make further recommendations based on her progress. Keep nothing by mouth for now. IV Protonix for GI prophylaxis.
--- NOTE | 2017-09-04 09:36 | XR ---
EXAMINATION TYPE: XR chest 1V DATE OF EXAM: 09/04/2017 COMPARISON: 09/03/2017 HISTORY: Endotracheal tube placement TECHNIQUE: Single frontal view of the chest is obtained. FINDINGS: Endotracheal tube is stable in position as is the enteric tube. Endotracheal tube appears slightly cephalad in position and could be advanced approximately 2.5 cm for optimal placement. Lucency within the lung suggests underlying emphysematous change. Scattered right-sided patchy opacit ies are favored to represent atelectasis. Cardiomediastinal silhouette is stable and within normal li mits. Dual lead left-sided cardiac device is again noted. No pleural effusion or pneumothorax. Osseou s structures are demineralized but appear intact. IMPRESSION: 1. Stable positioning of lines and tubes although advancement of the endotracheal tube of approximate ly 2.5 cm could be performed for optimal placement. 2. Linear right multifocal opacities likely relate to atelectasis with underlying COPD.
--- NOTE | 2017-09-04 09:51 | P.PN ---
Subjective Progress Note Date: 09/04/17 87-year-old female seen in the intensive care unit vented sedated does open eyes to verbal stimuli. Patient is postop day 1 exploratory laparotomy, lysis of adhesions, small bowel resection due to adhesions with small bowel volvulus. Nasal gastric tube in place indwelling Miller catheter in place few hypoactive bowel tones prevena system in place current blood pressure 119/45 patient did have an episode with a systolic pressure in the 80s 5 L fluid bolus given. Objective - Vital Signs Vital signs: Vital Signs Temp 99.2 F 09/04/17 08:00 Pulse 100 09/04/17 09:15 Resp 11 L 09/04/17 09:15 BP 104/44 09/04/17 09:15 Pulse Ox 97 09/04/17 09:15 Intake & Output 09/03/17 09/04/17 09/04/17 18:59 06:59 18:59 Intake Total 1040 5288.918 1748 Output Total 350 837 85 Balance 690 4451.918 1663 Weight 54.431 kg 52.7 kg Intake: IV 1040 5285.0 1748 0.9 NaCl 1080 240 Lactated Ringers 1,000 ml 125 @ 125 mls/hr IV .Q8H [facility] Rx#:[id number] Piperacillin-Tazobactam 3 50.0 .375 gm In Dextrose/Water 1 50ml.bag @ 12.5 mls/hr IVPB Q8HR [facility] Rx#: [id number] Potassium Chloride 10 meq 200 In Water For Injection 1 100ml.bag @ 100 mls/hr IVPB Q1H [facility] Rx#: [id number] Pressure Bag of 0.9NaCl- 30 9 Sodium Chloride 0.9% 1, 3500 1499 000 ml @ 999 mls/hr IV . Q1H1M [facility] Rx#:[id number] Intake, IV Titration 3.918 Amount Propofol 1,000 mg In 3.918 Empty Bag 1 bag @ Titrate IV .Q0M [facility] Rx#: [id number] Output: Gastric Drainage 400 Urine 300 437 85 Estimated Blood Loss 50 Other: Voiding Method Indwelling Catheter ABP, PAP, CO, CI - Last Documented Arterial Blood Pressure 119/45 - Exam Physical exam 87-year-old female orally intubated sedated on vent support will open eyes to verbal stimuli Lungs anterior diminished at the bases FiO2 at 40% sats 95% Heart S1-S2 audible irregular abdomen few hypoactive bowel tones noted nasal gastric tube to suction indwelling Miller catheter in place prevena wound system in place Extremities 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 - Labs CBC & Chem 7: 09/04/17 05:00 09/04/17 05:00 Labs: Abnormal Lab Results - Last 24 Hours (Table) 09/03/17 09/03/17 09/03/17 Range/Units 14:05 14:05 16:00 WBC 16.1 H (3.8-10.6) k/uL RBC (3.80-5.40) m/uL Hgb (11.4-16.0) gm/dL Hct (34.0-46.0) % Neutrophils # 14.6 H (1.3-7.7) k/uL Neutrophils # (Manual) (1.3-7.7) k/uL Lymphocytes # 0.4 L (1.0-4.8) k/uL Lymphocytes # (Manual) (1.0-4.8) k/uL Metamyelocytes # (Man) (0) k/uL Myelocytes # (Manual) (0) k/uL ABG pH (7.35-7.45) ABG pCO2 (35-45) mmHg ABG pO2 (83-108) mmHg ABG HCO3 (21-25) mmol/L ABG Total CO2 (19-24) mmol/L ABG O2 Saturation (94-97) % Potassium 3.4 L (3.5-5.1) mmol/L Chloride 91 L (98-107) mmol/L Carbon Dioxide 38 H (22-30) mmol/L BUN 32 H (7-17) mg/dL Glucose 123 H (74-99) mg/dL POC Glucose (mg/dL) (75-99) mg/dL Calcium (8.4-10.2) mg/dL Phosphorus (2.5-4.5) mg/dL Urine Appearance Turbid H (Clear) Ur Specific [place] >1.050 H (1.001-1.035) Urine Protein 3+ H (Negative) Urine Ketones 1+ H (Negative) Urine Blood Moderate H (Negative) Urine Nitrite Positive H (Negative) Ur Leukocyte Esterase Large H (Negative) Urine RBC 51 H (0-5) /hpf Urine WBC >182 H (0-5) /hpf Urine WBC Clumps Many H (None) /hpf Urine Mucus Few H (None) /hpf 09/03/17 09/03/17 09/03/17 Range/Units 20:09 20:37 20:37 WBC (3.8-10.6) k/uL RBC (3.80-5.40) m/uL Hgb (11.4-16.0) gm/dL Hct (34.0-46.0) % Neutrophils # (1.3-7.7) k/uL Neutrophils # (Manual) (1.3-7.7) k/uL Lymphocytes # 0.3 L (1.0-4.8) k/uL Lymphocytes # (Manual) (1.0-4.8) k/uL Metamyelocytes # (Man) (0) k/uL Myelocytes # (Manual) (0) k/uL ABG pH (7.35-7.45) ABG pCO2 (35-45) mmHg ABG pO2 (83-108) mmHg ABG HCO3 (21-25) mmol/L ABG Total CO2 (19-24) mmol/L ABG O2 Saturation (94-97) % Potassium 3.0 L* (3.5-5.1) mmol/L Chloride (98-107) mmol/L Carbon Dioxide 32 H (22-30) mmol/L BUN 29 H (7-17) mg/dL Glucose 131 H (74-99) mg/dL POC Glucose (mg/dL) 121 H (75-99) mg/dL Calcium (8.4-10.2) mg/dL Phosphorus (2.5-4.5) mg/dL Urine Appearance (Clear) Ur Specific [place] (1.001-1.035) Urine Protein (Negative) Urine Ketones (Negative) Urine Blood (Negative) Urine Nitrite (Negative) Ur Leukocyte Esterase (Negative) Urine RBC (0-5) /hpf Urine WBC (0-5) /hpf Urine WBC Clumps (None) /hpf Urine Mucus (None) /hpf 09/03/17 09/04/17 09/04/17 Range/Units 20:42 05:00 05:00 WBC (3.8-10.6) k/uL RBC 3.46 L (3.80-5.40) m/uL Hgb 10.9 L (11.4-16.0) gm/dL Hct 33.9 L (34.0-46.0) % Neutrophils # (1.3-7.7) k/uL Neutrophils # (Manual) 8.80 H (1.3-7.7) k/uL Lymphocytes # (1.0-4.8) k/uL Lymphocytes # (Manual) 0.20 L (1.0-4.8) k/uL Metamyelocytes # (Man) 0.70 H (0) k/uL Myelocytes # (Manual) 0.10 H (0) k/uL ABG pH 7.50 H (7.35-7.45) ABG pCO2 (35-45) mmHg ABG pO2 202 H (83-108) mmHg ABG HCO3 34 H (21-25) mmol/L ABG Total CO2 36 H (19-24) mmol/L ABG O2 Saturation 100.0 H (94-97) % Potassium 3.0 L* (3.5-5.1) mmol/L Chloride (98-107) mmol/L Carbon Dioxide (22-30) mmol/L BUN 26 H (7-17) mg/dL Glucose 100 H (74-99) mg/dL POC Glucose (mg/dL) (75-99) mg/dL Calcium 7.8 L (8.4-10.2) mg/dL Phosphorus 2.2 L (2.5-4.5) mg/dL Urine Appearance (Clear) Ur Specific [place] (1.001-1.035) Urine Protein (Negative) Urine Ketones (Negative) Urine Blood (Negative) Urine Nitrite (Negative) Ur Leukocyte Esterase (Negative) Urine RBC (0-5) /hpf Urine WBC (0-5) /hpf Urine WBC Clumps (None) /hpf Urine Mucus (None) /hpf 09/04/17 Range/Units 07:03 WBC (3.8-10.6) k/uL RBC (3.80-5.40) m/uL Hgb (11.4-16.0) gm/dL Hct (34.0-46.0) % Neutrophils # (1.3-7.7) k/uL Neutrophils # (Manual) (1.3-7.7) k/uL Lymphocytes # (1.0-4.8) k/uL Lymphocytes # (Manual) (1.0-4.8) k/uL Metamyelocytes # (Man) (0) k/uL Myelocytes # (Manual) (0) k/uL ABG pH (7.35-7.45) ABG pCO2 47 H (35-45) mmHg ABG pO2 117 H (83-108) mmHg ABG HCO3 27 H (21-25) mmol/L ABG Total CO2 28 H (19-24) mmol/L ABG O2 Saturation 98.4 H (94-97) % Potassium (3.5-5.1) mmol/L Chloride (98-107) mmol/L Carbon Dioxide (22-30) mmol/L BUN (7-17) mg/dL Glucose (74-99) mg/dL POC Glucose (mg/dL) (75-99) mg/dL Calcium (8.4-10.2) mg/dL Phosphorus (2.5-4.5) mg/dL Urine Appearance (Clear) Ur Specific [place] (1.001-1.035) Urine Protein (Negative) Urine Ketones (Negative) Urine Blood (Negative) Urine Nitrite (Negative) Ur Leukocyte Esterase (Negative) Urine RBC (0-5) /hpf Urine WBC (0-5) /hpf Urine WBC Clumps (None) /hpf Urine Mucus (None) /hpf Assessment and Plan Assessment: Impression Present on admission intractable abdominal pain nausea vomiting with abdominal distention no stool suspect due to a small bowel obstruction Postop day 1 September 03 small bowel obstruction secondary to adhesions with volvlus Acute respiratory failure expected outcome from bowel surgery Hypotension fluid bolus given no pressors required Chronic atrial fibrillation controlled ventricular response Macular degeneration legally blind Permanent pacemaker Plan Continue postop surgical care Continue ICU management per the ultrasonic hand solderer Vent per pulmonary service Pain control DVT and GI prophylaxis Further surgical recommendations pending will follow The above impression and plan of care have been discussed and directed by signing physician. Chrystal Sharma nurse practitioner acting as scribe for signing physician.
[2017-09-04] MEDS ORDERED: BENZOCAINE/MENTHOL LOZENG 1 EACH LOZENGE MUCOUS MEM PRN (11:54)
[2017-09-04] MEDS: POTASSIUM CHLORIDE 10 MEQ in WATER FOR INJECTION 1 100ML.BAG IVPB SCH ×4 (13:11→21:23)
[2017-09-04] MEDS: SODIUM CHLORIDE 0.9% 1,000 ML IV SCH ×2 (13:13→19:48)
--- NOTE | 2017-09-04 13:20 | P.PN ---
Subjective Progress Note Date: 09/04/17 This is an 87-year-old female one of Dr. Oneil,'s with a previous medical history significant for coronary artery disease status post myocardial infarction 3 with the first one Y she was at 5-year-old, post left heart catheterization with the upper continue his coronary intervention and 3 stent placement, hypertension and hypertensive cardio vascular disease, hyperlipidemia , atrial fibrillation status post permanent pacemaker, history of breast cancer in the past status post left mastectomy with lymph node dissection, history of glaucoma with left eye blindness and macular degeneration, patient was in her usual state of health about a week ago when she started to feel increased bloating in her stomach associated with increased nausea over the last 2 days she developed to have a significant abdominal pain associated with increased nausea and vomiting she has not had a bowel movement in 3 days, she was brought into the emergency department at [facility] yesterday from 12 until 6: 30 she was given some medicine that she felt better that time patient went back home and woke up today with significant abdominal pain associated with nausea and vomiting and no bowel movement she ended up coming to the ER at [facility] had a computed tomography scan of the abdomen that showed small bowel obstruction with possible volvulus patient was seen by surgery and he was reminded for the patient to go to the [facility]. 09/04: Patient underwent expiratory laparotomy and lysis of adhesion for small bowel resection due to small bowel obstruction and volvulus, she is laying down about the drowsy opens her eyes response to verbal sunlight, she does follow commands appropriately, she has of NG tube in place, she is complaining of pain , she has a wound VAC in the middle of the abdomen. Objective - Vital Signs Vital signs: Vital Signs Temp 99.2 F 09/04/17 08:00 Pulse 95 09/04/17 11:00 Resp 12 09/04/17 11:00 BP 87/41 09/04/17 11:00 Pulse Ox 93 L 09/04/17 11:00 Intake & Output 09/03/17 09/04/17 09/04/17 18:59 06:59 18:59 Intake Total 1040 5288.918 1993 Output Total 350 837 175 Balance 690 4451.918 1819 Weight 54.431 kg 52.7 kg Intake: IV 1040 5285.0 1993 0.9 NaCl 1080 480 Lactated Ringers 1,000 ml 125 @ 125 mls/hr IV .Q8H [facility] Rx#:[id number] Piperacillin-Tazobactam 3 50.0 .375 gm In Dextrose/Water 1 50ml.bag @ 12.5 mls/hr IVPB Q8HR [facility] Rx#: [id number] Potassium Chloride 10 meq 200 In Water For Injection 1 100ml.bag @ 100 mls/hr IVPB Q1H [facility] Rx#: [id number] Pressure Bag of 0.9NaCl- 30 15 Sodium Chloride 0.9% 1, 3500 1499 000 ml @ 999 mls/hr IV . Q1H1M [facility] Rx#:[id number] Intake, IV Titration 3.918 Amount Propofol 1,000 mg In 3.918 Empty Bag 1 bag @ Titrate IV .Q0M [facility] Rx#: [id number] Output: Gastric Drainage 400 Urine 300 437 175 Estimated Blood Loss 50 Other: Voiding Method Indwelling Catheter Indwelling Catheter ABP, PAP, CO, CI - Last Documented Arterial Blood Pressure 100/43 - Exam - Constitutional General appearance: mild distress, thin - EENT Eyes: anicteric sclerae, EOMI, PERRLA, no ptosis, no scleral icterus, normal appearance ENT: Hard of hearing, NG tube in place, mucous membranes of the mouth are somewhat dry. Ears: bilateral: normal - Neck Neck: no lymphadenopathy, normal ROM, no rigidity, no stridor, no thyromegaly Carotids: bilateral: upstroke delayed - Respiratory Respiratory: bilateral: diminished, negative: dullness, rales, rhonchi, wheezing , prolonged expiration - Cardiovascular Rhythm: other (permanent pacemaker.) Heart sounds: normal: S1, S2 Abnormal Heart Sounds: systolic murmur - Gastrointestinal General gastrointestinal: There is a wound VAC in the middle of the abdomen, nonspecific tenderness, decreased bowel sounds. - Integumentary Integumentary: normal, normal turgor - Neurologic Neurologic: CNII-XII intact - Musculoskeletal Musculoskeletal: generalized weakness, strength equal bilaterally - Psychiatric Psychiatric: A&O x's 3, appropriate affect, intact judgment & insight - Labs CBC & Chem 7: 09/04/17 05:00 09/04/17 10:15 Labs: Abnormal Lab Results - Last 24 Hours (Table) 09/03/17 09/03/17 09/03/17 Range/Units 14:05 14:05 16:00 WBC 16.1 H (3.8-10.6) k/uL RBC (3.80-5.40) m/uL Hgb (11.4-16.0) gm/dL Hct (34.0-46.0) % Neutrophils # 14.6 H (1.3-7.7) k/uL Neutrophils # (Manual) (1.3-7.7) k/uL Lymphocytes # 0.4 L (1.0-4.8) k/uL Lymphocytes # (Manual) (1.0-4.8) k/uL Metamyelocytes # (Man) (0) k/uL Myelocytes # (Manual) (0) k/uL ABG pH (7.35-7.45) ABG pCO2 (35-45) mmHg ABG pO2 (83-108) mmHg ABG HCO3 (21-25) mmol/L ABG Total CO2 (19-24) mmol/L ABG O2 Saturation (94-97) % Potassium 3.4 L (3.5-5.1) mmol/L Chloride 91 L (98-107) mmol/L Carbon Dioxide 38 H (22-30) mmol/L BUN 32 H (7-17) mg/dL Glucose 123 H (74-99) mg/dL POC Glucose (mg/dL) (75-99) mg/dL Calcium (8.4-10.2) mg/dL Phosphorus (2.5-4.5) mg/dL Urine Appearance Turbid H (Clear) Ur Specific [place] >1.050 H (1.001-1.035) Urine Protein 3+ H (Negative) Urine Ketones 1+ H (Negative) Urine Blood Moderate H (Negative) Urine Nitrite Positive H (Negative) Ur Leukocyte Esterase Large H (Negative) Urine RBC 51 H (0-5) /hpf Urine WBC >182 H (0-5) /hpf Urine WBC Clumps Many H (None) /hpf Urine Mucus Few H (None) /hpf 09/03/17 09/03/17 09/03/17 Range/Units 20:09 20:37 20:37 WBC (3.8-10.6) k/uL RBC (3.80-5.40) m/uL Hgb (11.4-16.0) gm/dL Hct (34.0-46.0) % Neutrophils # (1.3-7.7) k/uL Neutrophils # (Manual) (1.3-7.7) k/uL Lymphocytes # 0.3 L (1.0-4.8) k/uL Lymphocytes # (Manual) (1.0-4.8) k/uL Metamyelocytes # (Man) (0) k/uL Myelocytes # (Manual) (0) k/uL ABG pH (7.35-7.45) ABG pCO2 (35-45) mmHg ABG pO2 (83-108) mmHg ABG HCO3 (21-25) mmol/L ABG Total CO2 (19-24) mmol/L ABG O2 Saturation (94-97) % Potassium 3.0 L* (3.5-5.1) mmol/L Chloride (98-107) mmol/L Carbon Dioxide 32 H (22-30) mmol/L BUN 29 H (7-17) mg/dL Glucose 131 H (74-99) mg/dL POC Glucose (mg/dL) 121 H (75-99) mg/dL Calcium (8.4-10.2) mg/dL Phosphorus (2.5-4.5) mg/dL Urine Appearance (Clear) Ur Specific [place] (1.001-1.035) Urine Protein (Negative) Urine Ketones (Negative) Urine Blood (Negative) Urine Nitrite (Negative) Ur Leukocyte Esterase (Negative) Urine RBC (0-5) /hpf Urine WBC (0-5) /hpf Urine WBC Clumps (None) /hpf Urine Mucus (None) /hpf 09/03/17 09/04/17 09/04/17 Range/Units 20:42 05:00 05:00 WBC (3.8-10.6) k/uL RBC 3.46 L (3.80-5.40) m/uL Hgb 10.9 L (11.4-16.0) gm/dL Hct 33.9 L (34.0-46.0) % Neutrophils # (1.3-7.7) k/uL Neutrophils # (Manual) 8.80 H (1.3-7.7) k/uL Lymphocytes # (1.0-4.8) k/uL Lymphocytes # (Manual) 0.20 L (1.0-4.8) k/uL Metamyelocytes # (Man) 0.70 H (0) k/uL Myelocytes # (Manual) 0.10 H (0) k/uL ABG pH 7.50 H (7.35-7.45) ABG pCO2 (35-45) mmHg ABG pO2 202 H (83-108) mmHg ABG HCO3 34 H (21-25) mmol/L ABG Total CO2 36 H (19-24) mmol/L ABG O2 Saturation 100.0 H (94-97) % Potassium 3.0 L* (3.5-5.1) mmol/L Chloride (98-107) mmol/L Carbon Dioxide (22-30) mmol/L BUN 26 H (7-17) mg/dL Glucose 100 H (74-99) mg/dL POC Glucose (mg/dL) (75-99) mg/dL Calcium 7.8 L (8.4-10.2) mg/dL Phosphorus 2.2 L (2.5-4.5) mg/dL Urine Appearance (Clear) Ur Specific [place] (1.001-1.035) Urine Protein (Negative) Urine Ketones (Negative) Urine Blood (Negative) Urine Nitrite (Negative) Ur Leukocyte Esterase (Negative) Urine RBC (0-5) /hpf Urine WBC (0-5) /hpf Urine WBC Clumps (None) /hpf Urine Mucus (None) /hpf 09/04/17 09/04/17 Range/Units 07:03 10:15 WBC (3.8-10.6) k/uL RBC (3.80-5.40) m/uL Hgb (11.4-16.0) gm/dL Hct (34.0-46.0) % Neutrophils # (1.3-7.7) k/uL Neutrophils # (Manual) (1.3-7.7) k/uL Lymphocytes # (1.0-4.8) k/uL Lymphocytes # (Manual) (1.0-4.8) k/uL Metamyelocytes # (Man) (0) k/uL Myelocytes # (Manual) (0) k/uL ABG pH (7.35-7.45) ABG pCO2 47 H (35-45) mmHg ABG pO2 117 H (83-108) mmHg ABG HCO3 27 H (21-25) mmol/L ABG Total CO2 28 H (19-24) mmol/L ABG O2 Saturation 98.4 H (94-97) % Potassium 3.1 L (3.5-5.1) mmol/L Chloride (98-107) mmol/L Carbon Dioxide (22-30) mmol/L BUN (7-17) mg/dL Glucose (74-99) mg/dL POC Glucose (mg/dL) (75-99) mg/dL Calcium (8.4-10.2) mg/dL Phosphorus (2.5-4.5) mg/dL Urine Appearance (Clear) Ur Specific [place] (1.001-1.035) Urine Protein (Negative) Urine Ketones (Negative) Urine Blood (Negative) Urine Nitrite (Negative) Ur Leukocyte Esterase (Negative) Urine RBC (0-5) /hpf Urine WBC (0-5) /hpf Urine WBC Clumps (None) /hpf Urine Mucus (None) /hpf Assessment and Plan Assessment: Assessment and plan: 1. Small bowel obstruction with volvulus status post exploratory laparotomy and lysis of adhesion with small bowel resection post operative day #1. Continue the current management as outlined by general surgery. 2. CAD post NC with left heart catheterization in 3 stents placement. Patient appears to be stable at this point in time we'll monitor the patient very closely postoperatively. 3. Atrial fibrillation post permanent pacemaker placement. We will hold off Cardizem, hold off Eliquis for the next 48 hours. 4. Hyperlipidemia. Pravastatin as the patient is on nothing per mouth. 5. History of glaucoma. Continue current eyedrops. 6. History of macular degeneration. She is legally blind. 7. History of breast cancer status post left mastectomy with lymph node dissection. Currently in remission. 8. ALLERGIC rhinitis and possible asthma. Continue nebulized treatment as well as oxygen support. 9. Anxiety disorder. Stable at this time. 10. DVT prophylaxis. Patient is on Lovenox 40 mg subcutaneously every day. 11. GI prophylaxis. Start the patient on Protonix 40 mg IV push every 24 hours. 12. Hypokalemia status post placement.
[2017-09-04] MEDS: MONTELUKAST 10 MG TAB PO SCH (20:35)
[2017-09-04] MEDS: PRAVASTATIN SODIUM 20 MG TAB PO SCH (21:22)
[2017-09-05] MEDS: PIPERACILLIN-TAZOBACTAM 3.375 GM in DEXTROSE/WATER 1 50ML.BAG IVPB SCH ×4 (01:00→23:00)
[2017-09-05] MEDS: ONDANSETRON ODT 4 MG TAB PO SCH ×4 (01:25→23:00)
[2017-09-05] MEDS: POTASSIUM CHLORIDE 10 MEQ in WATER FOR INJECTION 1 100ML.BAG IVPB SCH ×5 (01:40→23:00)
[2017-09-05] MEDS: HYDROmorphone 0.5 MG/0.5 ML SYRINGE IVP PRN ×6 (02:56→22:07)
[2017-09-05] MEDS: SODIUM CHLORIDE 0.9% 1,000 ML IV SCH ×3 (02:58→19:06)
[2017-09-05 05:47] LABS: Basophils % (A) 0 %; Eosinophils % (A) 0 %; HCT 31.4 % (34.0-46.0); HGB 9.8 gm/dL (11.4-16.0); Hypochromasia Slight; Lymphocytes # (A) 0.4 k/uL (1.0-4.8); Lymphocytes % (A) 3 %; MCH 31.5 pg (25.0-35.0); MCHC 31.3 g/dL (31.0-37.0); MCV 100.7 fL (80.0-100.0); Macrocytosis Slight; Mean Platelet Volume 7.6; Monocytes # (A) 0.9 k/uL (0-1.0); Monocytes % (A) 7 %; Neutrophils # (A) 10.7 k/uL (1.3-7.7); Neutrophils % (A) 89 %; Platelet Count 170 k/uL (150-450); RBC 3.12 m/uL (3.80-5.40); RDW 14.4 % (11.5-15.5)
[2017-09-05 06:04] LABS: Ionized Calcium 4.8 mg/dL (4.5-5.3)
[2017-09-05 06:34] LABS: Anion Gap 9 mmol/L; Blood Urea Nitrogen 25 mg/dL (7-17); Calcium 7.4 mg/dL (8.4-10.2); Carbon Dioxide 25 mmol/L (22-30); Chloride 109 mmol/L (98-107); Glucose 86 mg/dL (74-99); Magnesium 2.4 mg/dL (1.6-2.3); Phosphorus 1.8 mg/dL (2.5-4.5); Potassium 3.6 mmol/L (3.5-5.1); Sodium 143 mmol/L (137-145)
[2017-09-05] MEDS ORDERED: POTASSIUM CHLORIDE 10 MEQ in WATER FOR INJECTION 1 100ML.BAG IVPB SCH (07:00)
--- NOTE | 2017-09-05 08:04 | XR ---
EXAMINATION TYPE: XR chest 1V DATE OF EXAM: 09/05/2017 COMPARISON: 09/04/2017 HISTORY: SOB, Follow Up FINDINGS: Indwelling tubes and catheters are unchanged. No change in bibasilar opacities. Stable appearance of the cardio-mediastinal structures at this time. Pleural effusion unchanged. IMPRESSION: 1. Stable portable chest. Clinical correlation and follow up until resolution is recommended.
[2017-09-05] MEDS: POTASSIUM PHOSPHATE 10 MMOL in SODIUM CHLORIDE 0.9% 250 ML IV SCH ×3 (08:15→23:56)
[2017-09-05] MEDS: PANTOPRAZOLE 40 MG/10 ML VIAL IV SCH (08:18)
[2017-09-05] MEDS: DORZOLAMIDE HCL 2% DROPS 10 ML BTL BOTH EYES SCH ×2 (08:18→20:14)
[2017-09-05] MEDS: prednisoLONE ACETATE 1% OPHTH DROPS 5 ML BTL LEFT EYE SCH (08:19)
[2017-09-05] MEDS: ENOXAPARIN 40 MG/0.4 ML SYRINGE SQ SCH (08:19)
[2017-09-05] MEDS: ALBUTEROL NEBULIZED 2.5 MG/3 ML INHALATION SCH ×3 (08:47→16:05)
--- NOTE | 2017-09-05 10:26 | P.PN ---
Subjective Progress Note Date: 09/05/17 Patient is status post exploratory laparotomy and small bowel resection. Her daughter is at bedside. Nasogastric tube present. Care team discussion performed with confirmation of bowel sounds. Education on abdominal skin wound VAC performed. No fevers or chills. Patient complains of dry mouth and discomfort from NG tube. No chest pain. No shortness of breath. Objective - Vital Signs Vital signs: Vital Signs Temp 98.3 F 09/05/17 08:00 Pulse 106 H 09/05/17 10:00 Resp 14 09/05/17 10:00 BP 97/48 09/05/17 10:00 Pulse Ox 96 09/05/17 10:00 Intake & Output 09/04/17 09/05/17 09/05/17 18:59 06:59 18:59 Intake Total 2892.5 1951.0 524.0 Output Total 415 598 735 Balance 2477.5 1353.0 -211.0 Weight 52.7 kg 61.4 kg Intake: IV 2892.5 1501.0 524.0 0.9 NaCl 1320 1440 240 Piperacillin-Tazobactam 3 37.5 25.0 25.0 .375 gm In Dextrose/Water 1 50ml.bag @ 12.5 mls/hr IVPB Q8HR [facility] Rx#: [id number] Potassium Phosphate 10 250 mmol In Sodium Chloride 0 .9% 250 ml @ 125 mls/hr IV Q2H [facility] Rx#:[id number] Pressure Bag of 0.9NaCl- 36 36 9 Sodium Chloride 0.9% 1, 1499 000 ml @ 999 mls/hr IV . Q1H1M [facility] Rx#:[id number] Intake, IV Titration 450.0 Amount Piperacillin-Tazobactam 3 50.0 .375 gm In Dextrose/Water 1 50ml.bag @ 12.5 mls/hr IVPB Q8HR [facility] Rx#: [id number] Potassium Chloride 10 meq 400 In Water For Injection 1 100ml.bag @ 100 mls/hr IVPB Q1H [facility] Rx#: [id number] Output: Gastric Drainage 600 Urine 415 598 135 Other: Voiding Method Indwelling Catheter Indwelling Catheter Indwelling Catheter ABP, PAP, CO, CI - Last Documented Arterial Blood Pressure 114/48 - Exam GENERAL: Well developed and in no acute distress. Pleasant. HEENT: No sclera icterus. Extraocular movements grossly intact. Moist buccal mucosa. Head is atraumatic, normocephalic. Patient is hard of hearing. No nasal drainage. NG tube bilious content. NECK: Supple without lymphadenopathy. CHEST: Non-labored respirations and equal bilateral excursions. CARDIOVASCULAR: Regular rate and rhythm. Palpable 2+ radial pulses. ABDOMEN: Soft, minimal distention. Nontender. Wound VAC clean dry and intact. No erythema or cellulitis. MUSCULOSKELETAL: No clubbing, cyanosis. NEUROLOGIC: No focal or lateralizing signs. PSYCH: Appropriate affect. Alert and oriented to person. SKIN: Good skin turgor. Well perfused. - Labs CBC & Chem 7: 09/05/17 05:00 09/05/17 05:00 Labs: Abnormal Lab Results - Last 24 Hours (Table) 09/04/17 09/04/17 09/05/17 Range/Units 10:15 17:55 00:01 WBC (3.8-10.6) k/uL RBC (3.80-5.40) m/uL Hgb (11.4-16.0) gm/dL Hct (34.0-46.0) % MCV (80.0-100.0) fL Neutrophils # (1.3-7.7) k/uL Lymphocytes # (1.0-4.8) k/uL Potassium 3.1 L 3.3 L 3.3 L (3.5-5.1) mmol/L Chloride (98-107) mmol/L BUN (7-17) mg/dL Calcium (8.4-10.2) mg/dL Phosphorus (2.5-4.5) mg/dL Magnesium (1.6-2.3) mg/dL 09/05/17 09/05/17 Range/Units 05:00 05:00 WBC 12.0 H (3.8-10.6) k/uL RBC 3.12 L (3.80-5.40) m/uL Hgb 9.8 L (11.4-16.0) gm/dL Hct 31.4 L (34.0-46.0) % MCV 100.7 H (80.0-100.0) fL Neutrophils # 10.7 H (1.3-7.7) k/uL Lymphocytes # 0.4 L (1.0-4.8) k/uL Potassium (3.5-5.1) mmol/L Chloride 109 H (98-107) mmol/L BUN 25 H (7-17) mg/dL Calcium 7.4 L (8.4-10.2) mg/dL Phosphorus 1.8 L (2.5-4.5) mg/dL Magnesium 2.4 H (1.6-2.3) mg/dL Microbiology - Last 24 Hours (Table) 09/04/17 17:55 Urine Culture - Preliminary Urine,Voided 09/03/17 16:48 Blood Culture - Preliminary Blood No Growth after 24 hours Assessment and Plan (1) Small bowel obstruction Current Visit: Yes Status: Acute Code(s): K56.609 - UNSP INTESTNL OBST, UNSP TO PARTIAL VERSUS COMPLETE OBST SNOMED Code(s): 886769765 (2) Volvulus Current Visit: Yes Status: Acute Code(s): K56.2 - VOLVULUS SNOMED Code(s) : 3312333 (3) Dehydration Current Visit: No Status: Acute Code(s): E86.0 - DEHYDRATION SNOMED Code(s ): 33410600 Plan: 1. May start ice chips and popsicles. 2. Oral medications are currently on hold until complete bowel function resumes. 3. Wound VAC duration between 5-8 days. 4. Continue ICU care. Critical care time 32 minutes
[2017-09-05] MEDS: HYDROCHLOROTHIAZIDE 25 MG TAB PO SCH (10:50)
[2017-09-05] MEDS: DILTIAZEM ORAL 30 MG TAB PO SCH ×2 (10:50→20:14)
[2017-09-05] MEDS: DIGOXIN 125 MCG TAB PO SCH (10:50)
[2017-09-05] MEDS: ESCITALOPRAM 10 MG TAB PO SCH (10:50)
[2017-09-05] MEDS: POTASSIUM CHLORIDE ER 20 MEQ TAB.ER PO SCH (10:50)
[2017-09-05] MEDS: VIT A,C & E-LUTEIN-MINERALS 1 EACH TAB PO SCH (10:51)
--- NOTE | 2017-09-05 11:40 | P.PN ---
Subjective Progress Note Date: 09/05/17 87-year-old female patient, presented to the hospital for abdominal pain and increased nausea and vomiting and she did not have any bowel movements for the past few days. She initially presented to the ED and she was discharged home to come back with the same problem with significant abdominal pain and distention. CAT scan of the abdomen showed evidence of small bowel obstruction with volvulus and at that point the patient was seen by general surgery and the patient was taken to the operating room yesterday and she underwent expiratory laparotomy, lysis of adhesions and she was found to have a small segment of the jejunum being ischemic that was resected with primary anastomosis. The abdomen was irrigated. The fascia was closed and a wound VAC was applied. Overnight, the patient became oliguric. The patient received a total of 4 L of IV fluid boluses and maintenance fluid was maintained at 120 mL an hour. The patient did not require any pressors. This morning, the patient is still sedated with Diprivan at 50 mics per KG pigmented. The patient is an assist-control mode of ventilation at the rate of 14 tidal volume of 450 FiO2 of 40% and a PEEP of 5. The blood gases from this morning showed a pH of 7.36 with a pCO2 of 47 pO2 117. The chest x-ray from this morning shows some mild four-vessel congestion. ET tube is in a good location. The patient has a left-sided pacemaker in place. Correlation profile is within normal. White cell count is at 10.0. Hemoglobin stable at 10.9. Urinalysis suggested the possibility of an underlying infection the patient is currently on IV Zosyn. The patient is arousable. We are the process of giving her a sedation holiday and checking weaning parameters. The potassium level was low at 3.0 and the patient had a normal renal function with a creatinine of 0.6 and the patient's potassium level is being replaced per protocol. On 09/05/2017, the patient was seen in follow-up. As noted the patient is extubated. She got wean off the mechanical ventilator yesterday and she was extubated without any major difficulties. She is resting comfortably in bed. NG tube is in place. The output has been 400 mL over the past 12 hours. Minimal output from the LOLY drain. Surgical wound site is clean and the wound VAC and the wound VAC is also in place. The patient remains nothing by mouth. Hemodynamically stable. Adequate urine output. No nausea. No vomiting. No abdominal pain. No abdominal distention. Bowel sounds are hypoactive. She is pulling approximately 500 mL on the incentive spirometer. She is covered with empiric antibiotic coverage. Afebrile. No other significant events over the past 24 hours. Potassium is replaced. Renal function is also stable. Objective - Vital Signs Vital signs: Vital Signs Temp 98.3 F 09/05/17 08:00 Pulse 106 H 09/05/17 10:00 Resp 14 09/05/17 10:00 BP 97/48 09/05/17 10:00 Pulse Ox 96 09/05/17 10:00 Intake & Output 09/04/17 09/05/17 09/05/17 18:59 06:59 18:59 Intake Total 2892.5 1951.0 661.5 Output Total 415 598 780 Balance 2477.5 1353.0 -118.5 Weight 52.7 kg 61.4 kg Intake: IV 2892.5 1501.0 661.5 0.9 NaCl 1320 1440 240 Piperacillin-Tazobactam 3 37.5 25.0 37.5 .375 gm In Dextrose/Water 1 50ml.bag @ 12.5 mls/hr IVPB Q8HR [facility] Rx#: [id number] Potassium Phosphate 10 375 mmol In Sodium Chloride 0 .9% 250 ml @ 125 mls/hr IV Q2H [facility] Rx#:[id number] Pressure Bag of 0.9NaCl- 36 36 9 Sodium Chloride 0.9% 1, 1499 000 ml @ 999 mls/hr IV . Q1H1M [facility] Rx#:[id number] Intake, IV Titration 450.0 Amount Piperacillin-Tazobactam 3 50.0 .375 gm In Dextrose/Water 1 50ml.bag @ 12.5 mls/hr IVPB Q8HR [facility] Rx#: [id number] Potassium Chloride 10 meq 400 In Water For Injection 1 100ml.bag @ 100 mls/hr IVPB Q1H [facility] Rx#: [id number] Output: Gastric Drainage 600 Urine 415 598 180 Other: Voiding Method Indwelling Catheter Indwelling Catheter Indwelling Catheter ABP, PAP, CO, CI - Last Documented Arterial Blood Pressure 114/48 - Exam Gen. appearance the patient is awake and alert and following commands appropriately. Head exam was generally normal. There was no scleral icterus or corneal arcus. Mucous membranes were moist. Neck was supple and without jugular venous distension, thyromegaly, or carotid bruits. Carotids were easily palpable bilaterally. There was no adenopathy. The NG tube remains in place for now. Lungs were clear to auscultation and percussion, and with normal diaphragmatic excursion. No wheezes or rales were noted. Cardiac exam revealed the PMI to be normally situated and sized. The rhythm was irregular and is controlled for now and no extrasystoles were noted during several minutes of auscultation. The first and second heart sounds were normal and physiologic splitting of the second heart sound was noted. There were no murmurs, rubs, clicks, or gallops. Abdominal exam shows no direct tenderness rebound tensile guarding. Bowel sounds are hypoactive. There is a superficial wound VAC applied covering the anterior wound surface. Organs cannot be accurately palpated. Examination of the extremities revealed easily palpable radial, femoral and pedal pulses. There was no cyanosis, clubbing or edema. Examination of the skin revealed no evidence of significant rashes, suspicious appearing nevi or other concerning lesions. Neurologically the patient is awake and the neurologic exam is nonfocal at this point. - Labs CBC & Chem 7: 09/05/17 05:00 09/05/17 05:00 Labs: Abnormal Lab Results - Last 24 Hours (Table) 09/04/17 09/05/17 09/05/17 Range/Units 17:55 00:01 05:00 WBC 12.0 H (3.8-10.6) k/uL RBC 3.12 L (3.80-5.40) m/uL Hgb 9.8 L (11.4-16.0) gm/dL Hct 31.4 L (34.0-46.0) % MCV 100.7 H (80.0-100.0) fL Neutrophils # 10.7 H (1.3-7.7) k/uL Lymphocytes # 0.4 L (1.0-4.8) k/uL Potassium 3.3 L 3.3 L (3.5-5.1) mmol/L Chloride (98-107) mmol/L BUN (7-17) mg/dL Calcium (8.4-10.2) mg/dL Phosphorus (2.5-4.5) mg/dL Magnesium (1.6-2.3) mg/dL 09/05/17 Range/Units 05:00 WBC (3.8-10.6) k/uL RBC (3.80-5.40) m/uL Hgb (11.4-16.0) gm/dL Hct (34.0-46.0) % MCV (80.0-100.0) fL Neutrophils # (1.3-7.7) k/uL Lymphocytes # (1.0-4.8) k/uL Potassium (3.5-5.1) mmol/L Chloride 109 H (98-107) mmol/L BUN 25 H (7-17) mg/dL Calcium 7.4 L (8.4-10.2) mg/dL Phosphorus 1.8 L (2.5-4.5) mg/dL Magnesium 2.4 H (1.6-2.3) mg/dL Microbiology - Last 24 Hours (Table) 09/04/17 17:55 Urine Culture - Preliminary Urine,Voided 09/03/17 16:48 Blood Culture - Preliminary Blood No Growth after 24 hours Assessment and Plan Plan: 1 acute bowel obstruction/small bowel obstruction with volvulus secondary to adhesions, status post respiratory laparotomy, lysis of adhesions and small bowel obstruction. The patient is postop day #2. NG tube remains in place. The patient has been extubated and currently she is awake and alert. 2 abdominal pain secondary to above 3 acute respiratory failure, and expected outcome of bowel surgery. The patient is extubated without any major difficulties. The follow-up chest x-ray from today shows NG tube in place and stable cardiac pulmonary structures with small bilateral pleural effusions. 4 Hypotension, responded nicely to IV fluids and the patient did not require any pressors. The patient did not require any pressors and the patient remains hemodynamically stable, normotensive at this point with adequate urine output. 5 coronary artery disease with previous coronary intervention and stenting 6 chronic atrial fibrillation rate is controlled for now and the patient's coagulopathy was reversed preoperatively with Kcentra. Currently she is on Lovenox 40 mg subcu for DVT prophylaxis and the patient has SCDs. 7 pacemaker insertion 8 hypertension, history of 9 glucoma 10 macular degeneration the patient is legally blind 11 hyperlipidemia 12 hypokalemia, replace and the potassium level is up to 3.6 13 history of breast cancer with a previous mastectomy 14 suspected urine infection, cultures are negative Plan Keep the patient ICU. Keep the patient nothing by mouth. Keep the NG tube in place. Encourage use of incentive spirometer. Increased mobility. Adequate pain control for now. Continue the rest of the supportive care. The patient remains in atrial fibrillation at the rate is controlled. We will start anticoagulation probably as of tomorrow. She is currently only on Lovenox for DVT prophylaxis. Dilaudid for pain control. IV Zosyn as an empiric antibiotic coverage. We'll make further recommendations based on her progress. Case was discussed with the daughter and with the general surgeon.
[2017-09-05 11:46] LABS: Glucose,Whole Blood 80 mg/dL (75-99)
[2017-09-05] MEDS ORDERED: FUROSEMIDE 10 MG/ML 4 ML VIAL IV STA (16:05)
[2017-09-05] MEDS ORDERED: DEXTROSE 50%-WATER 50 ML SYRINGE IVP ONE (16:10)
[2017-09-05 16:20] LABS: Glucose,Whole Blood 72 mg/dL (75-99)
[2017-09-05] MEDS ORDERED: Potassium Replacement Protocol 1 EACH MISC MISCELLANE PRN (16:51)
[2017-09-05 17:02] LABS: Glucose,Whole Blood 173 mg/dL (75-99)
[2017-09-05] MEDS ORDERED: Phosphorus Replacement Protoco 1 EACH MISC MISCELLANE PRN (17:36)
[2017-09-05] MEDS ORDERED: SODIUM PHOSPHATE 10 MMOL in SODIUM CHLORIDE 0.9% 250 ML IVPB ONE (18:00)
--- NOTE | 2017-09-05 18:01 | P.PN ---
Subjective Progress Note Date: 09/05/17 This is an 87-year-old female one of Dr. Oneil,'s with a previous medical history significant for coronary artery disease status post myocardial infarction 3 with the first one Y she was at 5-year-old, post left heart catheterization with the upper continue his coronary intervention and 3 stent placement, hypertension and hypertensive cardio vascular disease, hyperlipidemia , atrial fibrillation status post permanent pacemaker, history of breast cancer in the past status post left mastectomy with lymph node dissection, history of glaucoma with left eye blindness and macular degeneration, patient was in her usual state of health about a week ago when she started to feel increased bloating in her stomach associated with increased nausea over the last 2 days she developed to have a significant abdominal pain associated with increased nausea and vomiting she has not had a bowel movement in 3 days, she was brought into the emergency department at [facility] yesterday from 12 until 6: 30 she was given some medicine that she felt better that time patient went back home and woke up today with significant abdominal pain associated with nausea and vomiting and no bowel movement she ended up coming to the ER at [facility] had a computed tomography scan of the abdomen that showed small bowel obstruction with possible volvulus patient was seen by surgery and he was reminded for the patient to go to the [facility]. 09/04: Patient underwent exploratory laparotomy and lysis of adhesion for small bowel resection due to small bowel obstruction and volvulus, she is laying down about the drowsy opens her eyes response to verbal sunlight, she does follow commands appropriately, she has of NG tube in place, she is complaining of pain , she has a wound VAC in the middle of the abdomen 09/05: Patient was extubated yesterday, has been drowsy all day, NG tube in place , Lasix given for slight fluid overload, still nothing by mouth, no bowel sounds , Objective - Vital Signs Vital signs: Vital Signs Temp 97.3 F L 09/05/17 16:00 Pulse 113 H 09/05/17 17:00 Resp 14 09/05/17 17:00 BP 117/53 09/05/17 17:00 Pulse Ox 95 09/05/17 17:00 Intake & Output 09/04/17 09/05/17 09/05/17 18:59 06:59 18:59 Intake Total 2892.5 1951.0 1387.5 Output Total 854 924 0271 Balance 2477.5 1353.0 -67.5 Weight 52.7 kg 61.4 kg Intake: IV 2892.5 1501.0 1387.5 0.9 NaCl 1320 1440 435 Piperacillin-Tazobactam 3 37.5 25.0 62.5 .375 gm In Dextrose/Water 1 50ml.bag @ 12.5 mls/hr IVPB Q8HR [facility] Rx#: [id number] Potassium Phosphate 10 875 mmol In Sodium Chloride 0 .9% 250 ml @ 125 mls/hr IV Q2H [facility] Rx#:[id number] Pressure Bag of 0.9NaCl- 36 36 15 Sodium Chloride 0.9% 1, 1499 000 ml @ 999 mls/hr IV . Q1H1M [facility] Rx#:[id number] Intake, IV Titration 450.0 Amount Piperacillin-Tazobactam 3 50.0 .375 gm In Dextrose/Water 1 50ml.bag @ 12.5 mls/hr IVPB Q8HR [facility] Rx#: [id number] Potassium Chloride 10 meq 400 In Water For Injection 1 100ml.bag @ 100 mls/hr IVPB Q1H [facility] Rx#: [id number] Output: Gastric Drainage 600 Urine 415 598 855 Other: Voiding Method Indwelling Catheter Indwelling Catheter Indwelling Catheter ABP, PAP, CO, CI - Last Documented Arterial Blood Pressure 139/57 - Constitutional General appearance: Present: cooperative, no acute distress - EENT Eyes: Present: anicteric sclerae, EOMI, dentition normal ENT: Present: NA/AT, normal oropharynx - Respiratory Respiratory: bilateral: CTA, rales, negative: wheezing, prolonged expiration, prolonged inspiration - Cardiovascular Rhythm: regular Heart sounds: normal: S1, S2 - Gastrointestinal General gastrointestinal: Present: normal bowel sounds, soft - Integumentary Integumentary: Present: decreased turgor, normal - Neurologic Neurologic: Present: CNII-XII intact - Musculoskeletal Musculoskeletal: Present: gait normal, strength equal bilaterally - Psychiatric Psychiatric: Present: A&O x's 3, appropriate affect, intact judgment & insight - Labs CBC & Chem 7: 09/05/17 05:00 09/05/17 16:00 Labs: Abnormal Lab Results - Last 24 Hours (Table) 09/04/17 09/05/1718 Range/Units 17:55 00:01 05:00 WBC 12.0 H (3.8-10.6) k/uL RBC 3.12 L (3.80-5.40) m/uL Hgb 9.8 L (11.4-16.0) gm/dL Hct 31.4 L (34.0-46.0) % MCV 100.7 H (80.0-100.0) fL Neutrophils # 10.7 H (1.3-7.7) k/uL Lymphocytes # 0.4 L (1.0-4.8) k/uL Potassium 3.3 L 3.3 L (3.5-5.1) mmol/L Chloride (98-107) mmol/L BUN (7-17) mg/dL POC Glucose (mg/dL) (75-99) mg/dL Calcium (8.4-10.2) mg/dL Phosphorus (2.5-4.5) mg/dL Magnesium (1.6-2.3) mg/dL 09/05/17 09/05/17 09/05/17 Range/Units 05:00 16:00 16:00 WBC (3.8-10.6) k/uL RBC (3.80-5.40) m/uL Hgb (11.4-16.0) gm/dL Hct (34.0-46.0) % MCV (80.0-100.0) fL Neutrophils # (1.3-7.7) k/uL Lymphocytes # (1.0-4.8) k/uL Potassium 3.4 L (3.5-5.1) mmol/L Chloride 109 H (98-107) mmol/L BUN 25 H (7-17) mg/dL POC Glucose (mg/dL) (75-99) mg/dL Calcium 7.4 L (8.4-10.2) mg/dL Phosphorus 1.8 L 2.1 L (2.5-4.5) mg/dL Magnesium 2.4 H (1.6-2.3) mg/dL 09/05/17 09/05/17 Range/Units 16:08 16:59 WBC (3.8-10.6) k/uL RBC (3.80-5.40) m/uL Hgb (11.4-16.0) gm/dL Hct (34.0-46.0) % MCV (80.0-100.0) fL Neutrophils # (1.3-7.7) k/uL Lymphocytes # (1.0-4.8) k/uL Potassium (3.5-5.1) mmol/L Chloride (98-107) mmol/L BUN (7-17) mg/dL POC Glucose (mg/dL) 72 L 173 H (75-99) mg/dL Calcium (8.4-10.2) mg/dL Phosphorus (2.5-4.5) mg/dL Magnesium (1.6-2.3) mg/dL Microbiology - Last 24 Hours (Table) 09/04/17 17:55 Urine Culture - Preliminary Urine,Voided 09/03/17 16:48 Blood Culture - Preliminary Blood No Growth after 24 hours Assessment and Plan Plan: 1. Small bowel obstruction with volvulus status post exploratory laparotomy and lysis of adhesion with small bowel resection post operative day #2. Continue the current management as outlined by general surgery. Nutrition most likely would be requiring TPN over the next 24-48 hours, the albumin to be obtained and albumin status, 2. CAD post KS with left heart catheterization in 3 stents placement. Patient appears to be stable at this point in time we'll monitor the patient very closely postoperatively. 3. Atrial fibrillation post permanent pacemaker placement. We will hold off Cardizem, hold off Eliquis for the next 48 hours. 4. Hyperlipidemia. Pravastatin as the patient is on nothing per mouth. 5. History of glaucoma. Continue current eyedrops. 6. History of macular degeneration. She is legally blind. 7. History of breast cancer status post left mastectomy with lymph node dissection. Currently in remission. 8. ALLERGIC rhinitis and possible asthma. Continue nebulized treatment as well as oxygen support. 9. Anxiety disorder. Stable at this time. 10. DVT prophylaxis. Patient is on Lovenox 40 mg subcutaneously every day. 11. GI prophylaxis. Start the patient on Protonix 40 mg IV push every 24 hours. 12. Hypokalemia status post placement.
[2017-09-05 18:08] LABS: Glucose,Whole Blood 160 mg/dL (75-99)
[2017-09-05] MEDS: IPRATROPIUM-ALBUTEROL 3 ML NEB INHALATION SCH (19:40)
[2017-09-05] MEDS: MONTELUKAST 10 MG TAB PO SCH (20:14)
[2017-09-05] MEDS: MAGNESIUM OXIDE 400 MG TAB PO SCH (20:14)
[2017-09-05] MEDS: ALPRAZolam 0.25 MG TAB PO SCH (20:14)
[2017-09-05] MEDS: PRAVASTATIN SODIUM 20 MG TAB PO SCH (20:14)
[2017-09-05] MEDS: LORATADINE 10 MG TAB PO SCH (20:14)
[2017-09-05] MEDS: LATANOPROST 0.005% OPHTH DROPS 2.5 ML BTL BOTH EYES SCH (20:14)
[2017-09-05 22:03] LABS: Glucose,Whole Blood 119 mg/dL (75-99)
[2017-09-05 22:31] LABS: Phosphorus 1.6 mg/dL (2.5-4.5)
[2017-09-05 22:33] LABS: Potassium 2.8 mmol/L (3.5-5.1)
[2017-09-06] MEDS: POTASSIUM CHLORIDE 10 MEQ in WATER FOR INJECTION 1 100ML.BAG IVPB SCH ×9 (01:19→22:03)
[2017-09-06] MEDS: HYDROmorphone 0.5 MG/0.5 ML SYRINGE IVP PRN ×3 (01:23→18:10)
[2017-09-06] MEDS: POTASSIUM PHOSPHATE 10 MMOL in SODIUM CHLORIDE 0.9% 250 ML IV SCH (02:00)
[2017-09-06 03:11] LABS: Glucose,Whole Blood 97 mg/dL (75-99)
[2017-09-06 04:19] LABS: Basophils % (A) 0 %; Eosinophils # (A) 0.1 k/uL (0-0.7); Eosinophils % (A) 1 %; HCT 30.7 % (34.0-46.0); HGB 9.7 gm/dL (11.4-16.0); Lymphocytes # (A) 0.3 k/uL (1.0-4.8); Lymphocytes % (A) 3 %; MCH 30.9 pg (25.0-35.0); MCHC 31.6 g/dL (31.0-37.0); MCV 97.7 fL (80.0-100.0); Mean Platelet Volume 8.4; Monocytes # (A) 0.7 k/uL (0-1.0); Monocytes % (A) 6 %; Neutrophils # (A) 9.9 k/uL (1.3-7.7); Neutrophils % (A) 89 %; Platelet Count 169 k/uL (150-450); RBC 3.14 m/uL (3.80-5.40); RDW 14.3 % (11.5-15.5); WBC 11.1 k/uL (3.8-10.6)
[2017-09-06 04:30] LABS: Ionized Calcium 4.2 mg/dL (4.5-5.3)
[2017-09-06 04:38] LABS: Albumin 2.4 g/dL (3.5-5.0); Anion Gap 10 mmol/L; Blood Urea Nitrogen 20 mg/dL (7-17); Carbon Dioxide 27 mmol/L (22-30); Chloride 106 mmol/L (98-107); Glucose 96 mg/dL (74-99); Magnesium 1.8 mg/dL (1.6-2.3); Phosphorus 3.1 mg/dL (2.5-4.5); Potassium 3.6 mmol/L (3.5-5.1); Sodium 143 mmol/L (137-145)
[2017-09-06] MEDS ORDERED: Magnesium Replacement Protocol 1 EACH MISC MISCELLANE PRN (06:07)
[2017-09-06] MEDS: MAGNESIUM SULFATE-D5W PMX 1 GM in DEXTROSE/WATER 1 100ML.BAG IVPB SCH ×2 (06:11→08:04)
[2017-09-06] MEDS: SODIUM CHLORIDE 0.9% 1,000 ML IV SCH ×5 (06:12→22:03)
[2017-09-06 06:34] LABS: Glucose,Whole Blood 109 mg/dL (75-99)
--- NOTE | 2017-09-06 07:12 | XR ---
EXAMINATION TYPE: XR chest 1V DATE OF EXAM: 09/06/2017 CLINICAL HISTORY: Difficulty breathing progress study. TECHNIQUE: Single AP portable upright view of the chest is obtained. COMPARISON: Chest x-ray from one day earlier and older studies. FINDINGS: An orogastric tube is stable in appearance. Surgical changes epigastric region are felt pr esent. There is cardiomegaly with dual lead pacemaker, both leads appear to terminate in right ventri britt. Atherosclerotic aorta is seen. There is chronic parenchymal change with small bilateral pleural effusions and right greater than left bibasilar atelectasis and/or infiltrate all redemonstrated. Oss eous structures are intact. IMPRESSION: Overall stable findings, cardiomegaly and chronic changes with small bilateral pleural effusions and right greater than left bibasilar atelectasis and/or infiltrate all redemonstrated.
[2017-09-06] MEDS: IPRATROPIUM-ALBUTEROL 3 ML NEB INHALATION SCH ×5 (07:37→19:47)
[2017-09-06] MEDS: PIPERACILLIN-TAZOBACTAM 3.375 GM in DEXTROSE/WATER 1 50ML.BAG IVPB SCH ×3 (08:05→23:05)
[2017-09-06] MEDS: ONDANSETRON ODT 4 MG TAB PO SCH ×3 (08:05→23:29)
[2017-09-06] MEDS: DORZOLAMIDE HCL 2% DROPS 10 ML BTL BOTH EYES SCH ×2 (08:11→20:50)
[2017-09-06] MEDS: PANTOPRAZOLE 40 MG/10 ML VIAL IV SCH (08:12)
[2017-09-06] MEDS: ENOXAPARIN 40 MG/0.4 ML SYRINGE SQ SCH (08:12)
[2017-09-06] MEDS: prednisoLONE ACETATE 1% OPHTH DROPS 5 ML BTL LEFT EYE SCH (08:13)
[2017-09-06] MEDS: DILTIAZEM ORAL 30 MG TAB PO SCH ×2 (09:27→20:17)
[2017-09-06] MEDS: HYDROCHLOROTHIAZIDE 25 MG TAB PO SCH (09:27)
[2017-09-06] MEDS: DIGOXIN 125 MCG TAB PO SCH (09:27)
[2017-09-06] MEDS: VIT A,C & E-LUTEIN-MINERALS 1 EACH TAB PO SCH (09:27)
[2017-09-06] MEDS: POTASSIUM CHLORIDE ER 20 MEQ TAB.ER PO SCH (09:27)
[2017-09-06] MEDS: ESCITALOPRAM 10 MG TAB PO SCH (09:27)
[2017-09-06 10:07] LABS: Glucose,Whole Blood 128 mg/dL (75-99)
[2017-09-06 10:27] LABS: Magnesium 2.6 mg/dL (1.6-2.3); Potassium 3.2 mmol/L (3.5-5.1)
--- NOTE | 2017-09-06 11:35 | P.PN ---
Subjective Progress Note Date: 09/06/17 87-year-old female patient, presented to the hospital for abdominal pain and increased nausea and vomiting and she did not have any bowel movements for the past few days. She initially presented to the ED and she was discharged home to come back with the same problem with significant abdominal pain and distention. CAT scan of the abdomen showed evidence of small bowel obstruction with volvulus and at that point the patient was seen by general surgery and the patient was taken to the operating room yesterday and she underwent expiratory laparotomy, lysis of adhesions and she was found to have a small segment of the jejunum being ischemic that was resected with primary anastomosis. The abdomen was irrigated. The fascia was closed and a wound VAC was applied. Overnight, the patient became oliguric. The patient received a total of 4 L of IV fluid boluses and maintenance fluid was maintained at 120 mL an hour. The patient did not require any pressors. This morning, the patient is still sedated with Diprivan at 50 mics per KG pigmented. The patient is an assist-control mode of ventilation at the rate of 14 tidal volume of 450 FiO2 of 40% and a PEEP of 5. The blood gases from this morning showed a pH of 7.36 with a pCO2 of 47 pO2 117. The chest x-ray from this morning shows some mild four-vessel congestion. ET tube is in a good location. The patient has a left-sided pacemaker in place. Correlation profile is within normal. White cell count is at 10.0. Hemoglobin stable at 10.9. Urinalysis suggested the possibility of an underlying infection the patient is currently on IV Zosyn. The patient is arousable. We are the process of giving her a sedation holiday and checking weaning parameters. The potassium level was low at 3.0 and the patient had a normal renal function with a creatinine of 0.6 and the patient's potassium level is being replaced per protocol. On 09/05/2017, the patient was seen in follow-up. As noted the patient is extubated. She got wean off the mechanical ventilator yesterday and she was extubated without any major difficulties. She is resting comfortably in bed. NG tube is in place. The output has been 400 mL over the past 12 hours. Minimal output from the LOLY drain. Surgical wound site is clean and the wound VAC and the wound VAC is also in place. The patient remains nothing by mouth. Hemodynamically stable. Adequate urine output. No nausea. No vomiting. No abdominal pain. No abdominal distention. Bowel sounds are hypoactive. She is pulling approximately 500 mL on the incentive spirometer. She is covered with empiric antibiotic coverage. Afebrile. No other significant events over the past 24 hours. Potassium is replaced. Renal function is also stable. On 09/06/2017, I'm seeing this patient for a follow-up. The patient is still recovering from her surgery. Her abdominal wound is dry clean and intact. NG tube is in place and output has been minimal over the past 12 hours. Bowel sounds are hypoactive. No bowel activity yet. She has a congestion in her lungs for which was given IV Lasix and she diuresed adequately. She is negative fluid balance of 7 89 mL over the past 12 hours. She did drop her potassium level that was replaced overnight. She is hemodynamically stable. Urine output is noted of 20-30 mL an hour. As for blood work, lobe is stable at 9.7. Stable renal function. Potassium was replaced and the level is up to 3.6. Blood sugar is at 128. She is on IV Zosyn as an empiric antibiotic coverage. No fever. No chills. She remains in atrial fibrillation at the rate is controlled. No articulation for now. Objective - Vital Signs Vital signs: Vital Signs Temp 98.2 F 09/06/17 08:00 Pulse 113 H 09/06/17 11:00 Resp 20 09/06/17 11:00 BP 114/72 09/06/17 11:00 Pulse Ox 96 09/06/17 11:00 Intake & Output 09/05/17 09/06/17 09/06/17 18:59 06:59 18:59 Intake Total 1903.0 1808 375 Output Total 2505 1995 185 Balance -602.0 -187 190 Weight 59.7 kg Intake: IV 1903.0 1808 375 0.9 NaCl 435 825 375 Magnesium Sulfate-D5w Pmx 100 1 gm In Dextrose/Water 1 100ml.bag @ 100 mls/hr IVPB Q1H [facility] Rx#: [id number] Piperacillin-Tazobactam 3 125.0 50 .375 gm In Dextrose/Water 1 50ml.bag @ 12.5 mls/hr IVPB Q8HR [facility] Rx#: [id number] Potassium Chloride 10 meq 200 In Water For Injection 1 100ml.bag @ 100 mls/hr IVPB Q1H [facility] Rx#: [id number] Potassium Chloride 10 meq 300 In Water For Injection 1 100ml.bag @ 100 mls/hr IVPB Q1H [facility] Rx#: [id number] Potassium Phosphate 10 1125 500 mmol In Sodium Chloride 0 .9% 250 ml @ 125 mls/hr IV Q2H [facility] Rx#:[id number] Pressure Bag of 0.9NaCl- 18 33 Output: Gastric Drainage 600 Urine 1855 1995 185 Oral Regurgitation 50 Other: Voiding Method Indwelling Catheter Indwelling Catheter Indwelling Catheter ABP, PAP, CO, CI - Last Documented Arterial Blood Pressure 136/59 - Exam Gen. appearance the patient is awake and alert and following commands appropriately. Head exam was generally normal. There was no scleral icterus or corneal arcus. Mucous membranes were moist. Neck was supple and without jugular venous distension, thyromegaly, or carotid bruits. Carotids were easily palpable bilaterally. There was no adenopathy. The NG tube remains in place for now. Lungs were clear to auscultation and percussion, and with normal diaphragmatic excursion. No wheezes or rales were noted. Cardiac exam revealed the PMI to be normally situated and sized. The rhythm was irregular and is controlled for now and no extrasystoles were noted during several minutes of auscultation. The first and second heart sounds were normal and physiologic splitting of the second heart sound was noted. There were no murmurs, rubs, clicks, or gallops. Abdominal exam shows no direct tenderness rebound tensile guarding. Bowel sounds are hypoactive. There is a superficial wound VAC applied covering the anterior wound surface. Organs cannot be accurately palpated. Examination of the extremities revealed easily palpable radial, femoral and pedal pulses. There was no cyanosis, clubbing or edema. Examination of the skin revealed no evidence of significant rashes, suspicious appearing nevi or other concerning lesions. Neurologically the patient is awake and the neurologic exam is nonfocal at this point. - Labs CBC & Chem 7: 09/06/17 04:00 09/06/17 10:08 Labs: Abnormal Lab Results - Last 24 Hours (Table) 09/05/17 09/05/17 09/05/17 Range/Units 16:00 16:00 16:08 WBC (3.8-10.6) k/uL RBC (3.80-5.40) m/uL Hgb (11.4-16.0) gm/dL Hct (34.0-46.0) % Neutrophils # (1.3-7.7) k/uL Lymphocytes # (1.0-4.8) k/uL Potassium 3.4 L (3.5-5.1) mmol/L BUN (7-17) mg/dL POC Glucose (mg/dL) 72 L (75-99) mg/dL Calcium (8.4-10.2) mg/dL Ionized Calcium Emiliana (4.5-5.3) mg/dL Phosphorus 2.1 L (2.5-4.5) mg/dL Magnesium (1.6-2.3) mg/dL Albumin (3.5-5.0) g/dL 09/05/17 09/05/17 09/05/17 Range/Units 16:59 18:00 22:00 WBC (3.8-10.6) k/uL RBC (3.80-5.40) m/uL Hgb (11.4-16.0) gm/dL Hct (34.0-46.0) % Neutrophils # (1.3-7.7) k/uL Lymphocytes # (1.0-4.8) k/uL Potassium 2.8 L* (3.5-5.1) mmol/L BUN (7-17) mg/dL POC Glucose (mg/dL) 173 H 160 H (75-99) mg/dL Calcium (8.4-10.2) mg/dL Ionized Calcium Emiliana (4.5-5.3) mg/dL Phosphorus 1.6 L (2.5-4.5) mg/dL Magnesium (1.6-2.3) mg/dL Albumin (3.5-5.0) g/dL 09/05/1718 09/06/17 Range/Units 22:01 04:00 04:00 WBC 11.1 H (3.8-10.6) k/uL RBC 3.14 L (3.80-5.40) m/uL Hgb 9.7 L (11.4-16.0) gm/dL Hct 30.7 L (34.0-46.0) % Neutrophils # 9.9 H (1.3-7.7) k/uL Lymphocytes # 0.3 L (1.0-4.8) k/uL Potassium (3.5-5.1) mmol/L BUN 20 H (7-17) mg/dL POC Glucose (mg/dL) 119 H (75-99) mg/dL Calcium 7.0 L (8.4-10.2) mg/dL Ionized Calcium Emiliana 4.2 L (4.5-5.3) mg/dL Phosphorus (2.5-4.5) mg/dL Magnesium (1.6-2.3) mg/dL Albumin 2.4 L (3.5-5.0) g/dL 09/06/17 09/06/17 09/06/17 Range/Units 06:32 10:06 10:08 WBC (3.8-10.6) k/uL RBC (3.80-5.40) m/uL Hgb (11.4-16.0) gm/dL Hct (34.0-46.0) % Neutrophils # (1.3-7.7) k/uL Lymphocytes # (1.0-4.8) k/uL Potassium 3.2 L (3.5-5.1) mmol/L BUN (7-17) mg/dL POC Glucose (mg/dL) 109 H 128 H (75-99) mg/dL Calcium (8.4-10.2) mg/dL Ionized Calcium Emiliana (4.5-5.3) mg/dL Phosphorus (2.5-4.5) mg/dL Magnesium 2.6 H (1.6-2.3) mg/dL Albumin (3.5-5.0) g/dL Microbiology - Last 24 Hours (Table) 09/04/17 17:55 Urine Culture - Final Urine,Voided 09/03/17 16:48 Blood Culture - Preliminary Blood No Growth after 48 hours Assessment and Plan Plan: 1 acute bowel obstruction/small bowel obstruction with volvulus secondary to adhesions, status post respiratory laparotomy, lysis of adhesions and small bowel obstruction. The patient is postop day #3. The output from the NG tube was dropped. The patient is not producing any bowel movement and the bowel sounds are hypoactive on the physical examination. Abdominal wound is dry clean and intact. Wound VAC is in place. Hemoglobin is stable. Hemodynamically the patient is also stable. 2 abdominal pain secondary to above, recovered 3 acute respiratory failure, and expected outcome of bowel surgery. The patient is extubated without any major difficulties. The patient subsequently developed some pulmonary vessel congestion due to aggressive fluid resuscitation. The patient got diuretics and the patient is improved for now. Today's chest x-ray shows some cardiomegaly and small bilateral pleural effusion right more than left along with some limited atelectatic changes in lung bases. 4 Hypotension, responded nicely to IV fluids and the patient did not require any pressors. The patient did not require any pressors and the patient remains hemodynamically stable, normotensive at this point with adequate urine output. 5 coronary artery disease with previous coronary intervention and stenting 6 chronic atrial fibrillation rate is controlled for now and the patient's coagulopathy was reversed preoperatively with Kcentra. Currently she is on Lovenox 40 mg subcu for DVT prophylaxis and the patient has SCDs. 7 pacemaker insertion 8 hypertension, history of 9 glucoma 10 macular degeneration the patient is legally blind 11 hyperlipidemia 12 hypokalemia, replace and the potassium level is up to 3.6 13 history of breast cancer with a previous mastectomy 14 suspected urine infection, cultures are negative Plan Keep the patient ICU. Keep the patient nothing by mouth. Keep the NG tube in place. Encourage use of incentive spirometer. Increased mobility. Continue with IV Zosyn. Monitor potassium and replace accordingly. Watch for any signs of any fluid overload. Chest x-ray from today was reviewed and it shows atelectatic changes small better pleural effusions lung base bilaterally. Surgery is on the case. Surgical wound site is dry clean and intact. We'll continue to follow.
--- NOTE | 2017-09-06 13:14 | P.PN ---
Subjective Progress Note Date: 09/06/17 Patient is status post exploratory laparotomy and small bowel resection. Her family is at bedside. Today, she is gasping for more air. She is confused as identified by her family members at bedside. She is questioning about hospice. She is now no code. She is more fatigued today. Family members also note increased swelling of the face. She is demonstrating difficulty with breathing. She also has increased cough. She is in the ICU. Objective - Vital Signs Vital signs: Vital Signs Temp 99.0 F 09/06/17 12:00 Pulse 114 H 09/06/17 12:00 Resp 20 09/06/17 12:00 BP 114/85 09/06/17 12:00 Pulse Ox 96 09/06/17 12:00 Intake & Output 09/05/17 09/06/17 09/06/17 18:59 06:59 18:59 Intake Total 1903.0 1808 450 Output Total 2505 1994 245 Balance -602.0 -187 205 Weight 59.7 kg Intake: IV 1903.0 1808 450 0.9 NaCl 435 825 450 Magnesium Sulfate-D5w Pmx 100 1 gm In Dextrose/Water 1 100ml.bag @ 100 mls/hr IVPB Q1H [facility] Rx#: [id number] Piperacillin-Tazobactam 3 125.0 50 .375 gm In Dextrose/Water 1 50ml.bag @ 12.5 mls/hr IVPB Q8HR [facility] Rx#: [id number] Potassium Chloride 10 meq 200 In Water For Injection 1 100ml.bag @ 100 mls/hr IVPB Q1H [facility] Rx#: [id number] Potassium Chloride 10 meq 300 In Water For Injection 1 100ml.bag @ 100 mls/hr IVPB Q1H [facility] Rx#: [id number] Potassium Phosphate 10 1125 500 mmol In Sodium Chloride 0 .9% 250 ml @ 125 mls/hr IV Q2H [facility] Rx#:[id number] Pressure Bag of 0.9NaCl- 18 33 Output: Gastric Drainage 600 Urine 1855 1994 245 Oral Regurgitation 50 Other: Voiding Method Indwelling Catheter Indwelling Catheter Indwelling Catheter ABP, PAP, CO, CI - Last Documented Arterial Blood Pressure 141/66 - Exam GENERAL: Well developed and in no acute distress. Pleasant. HEENT: No sclera icterus. Extraocular movements grossly intact. Moist buccal mucosa. Head is atraumatic, normocephalic. Patient is hard of hearing. No nasal drainage. NG tube bilious content. NECK: Supple without lymphadenopathy. CHEST: Labored respirations and equal bilateral excursions. CARDIOVASCULAR: Tachycardic. Palpable 2+ radial pulses. ABDOMEN: Soft, minimal distention. Nontender. Wound VAC clean dry and intact. No erythema or cellulitis. MUSCULOSKELETAL: No clubbing, cyanosis. NEUROLOGIC: No focal or lateralizing signs. PSYCH: Appropriate affect. Alert and oriented to person. SKIN: Good skin turgor. Well perfused. - Labs CBC & Chem 7: 09/06/17 04:00 09/06/17 10:08 Labs: Abnormal Lab Results - Last 24 Hours (Table) 09/05/17 09/05/17 09/05/17 Range/Units 16:00 16:00 16:08 WBC (3.8-10.6) k/uL RBC (3.80-5.40) m/uL Hgb (11.4-16.0) gm/dL Hct (34.0-46.0) % Neutrophils # (1.3-7.7) k/uL Lymphocytes # (1.0-4.8) k/uL Potassium 3.4 L (3.5-5.1) mmol/L BUN (7-17) mg/dL POC Glucose (mg/dL) 72 L (75-99) mg/dL Calcium (8.4-10.2) mg/dL Ionized Calcium Emiliana (4.5-5.3) mg/dL Phosphorus 2.1 L (2.5-4.5) mg/dL Magnesium (1.6-2.3) mg/dL Albumin (3.5-5.0) g/dL 09/05/17 09/05/17 09/05/17 Range/Units 16:59 18:00 22:00 WBC (3.8-10.6) k/uL RBC (3.80-5.40) m/uL Hgb (11.4-16.0) gm/dL Hct (34.0-46.0) % Neutrophils # (1.3-7.7) k/uL Lymphocytes # (1.0-4.8) k/uL Potassium 2.8 L* (3.5-5.1) mmol/L BUN (7-17) mg/dL POC Glucose (mg/dL) 173 H 160 H (75-99) mg/dL Calcium (8.4-10.2) mg/dL Ionized Calcium Emiliana (4.5-5.3) mg/dL Phosphorus 1.6 L (2.5-4.5) mg/dL Magnesium (1.6-2.3) mg/dL Albumin (3.5-5.0) g/dL 09/05/17 09/06/17 09/06/17 Range/Units 22:01 04:00 04:00 WBC 11.1 H (3.8-10.6) k/uL RBC 3.14 L (3.80-5.40) m/uL Hgb 9.7 L (11.4-16.0) gm/dL Hct 30.7 L (34.0-46.0) % Neutrophils # 9.9 H (1.3-7.7) k/uL Lymphocytes # 0.3 L (1.0-4.8) k/uL Potassium (3.5-5.1) mmol/L BUN 20 H (7-17) mg/dL POC Glucose (mg/dL) 119 H (75-99) mg/dL Calcium 7.0 L (8.4-10.2) mg/dL Ionized Calcium Emiliana 4.2 L (4.5-5.3) mg/dL Phosphorus (2.5-4.5) mg/dL Magnesium (1.6-2.3) mg/dL Albumin 2.4 L (3.5-5.0) g/dL 09/06/17 09/06/17 09/06/17 Range/Units 06:32 10:06 10:08 WBC (3.8-10.6) k/uL RBC (3.80-5.40) m/uL Hgb (11.4-16.0) gm/dL Hct (34.0-46.0) % Neutrophils # (1.3-7.7) k/uL Lymphocytes # (1.0-4.8) k/uL Potassium 3.2 L (3.5-5.1) mmol/L BUN (7-17) mg/dL POC Glucose (mg/dL) 109 H 128 H (75-99) mg/dL Calcium (8.4-10.2) mg/dL Ionized Calcium Emiliana (4.5-5.3) mg/dL Phosphorus (2.5-4.5) mg/dL Magnesium 2.6 H (1.6-2.3) mg/dL Albumin (3.5-5.0) g/dL Microbiology - Last 24 Hours (Table) 09/04/17 17:55 Urine Culture - Final Urine,Voided 09/03/17 16:48 Blood Culture - Preliminary Blood No Growth after 48 hours Assessment and Plan (1) Small bowel obstruction Current Visit: Yes Status: Acute Code(s): K56.609 - UNSP INTESTNL OBST, UNSP TO PARTIAL VERSUS COMPLETE OBST SNOMED Code(s): 306267675 (2) Volvulus Current Visit: Yes Status: Acute Code(s): K56.2 - VOLVULUS SNOMED Code(s) : 0233516 (3) Dehydration Current Visit: No Status: Acute Code(s): E86.0 - DEHYDRATION SNOMED Code(s ): 69741521 (4) COPD (chronic obstructive pulmonary disease) Current Visit: Yes Status: Acute Code(s): J44.9 - CHRONIC OBSTRUCTIVE PULMONARY DISEASE, UNSPECIFIED SNOMED Code(s): 23323140 Plan: 1. Recommend breathing treatments. 2. Patient is far more tachypneic today. 3. Continue ICU care. 4. May start anticoagulant when Hgb is stable for more than 24 hrs. Critical care time 32 minutes
[2017-09-06 14:29] LABS: Glucose,Whole Blood 104 mg/dL (75-99)
[2017-09-06] MEDS ORDERED: FUROSEMIDE 10 MG/ML 4 ML VIAL IV STA (16:23)
--- NOTE | 2017-09-06 16:30 | P.PN ---
Subjective This is an 87-year-old female one of Dr. Oneil,'s with a previous medical history significant for coronary artery disease status post myocardial infarction 3 with the first one Y she was at 5-year-old, post left heart catheterization with the upper continue his coronary intervention and 3 stent placement, hypertension and hypertensive cardio vascular disease, hyperlipidemia , atrial fibrillation status post permanent pacemaker, history of breast cancer in the past status post left mastectomy with lymph node dissection, history of glaucoma with left eye blindness and macular degeneration, patient was in her usual state of health about a week ago when she started to feel increased bloating in her stomach associated with increased nausea over the last 2 days she developed to have a significant abdominal pain associated with increased nausea and vomiting she has not had a bowel movement in 3 days, she was brought into the emergency department at [facility] yesterday from 12 until 6: 30 she was given some medicine that she felt better that time patient went back home and woke up today with significant abdominal pain associated with nausea and vomiting and no bowel movement she ended up coming to the ER at [facility] had a computed tomography scan of the abdomen that showed small bowel obstruction with possible volvulus patient was seen by surgery and he was reminded for the patient to go to the [facility]. 09/04: Patient underwent exploratory laparotomy and lysis of adhesion for small bowel resection due to small bowel obstruction and volvulus, she is laying down about the drowsy opens her eyes response to verbal sunlight, she does follow commands appropriately, she has of NG tube in place, she is complaining of pain , she has a wound VAC in the middle of the abdomen 6/2: Patient was extubated yesterday, has been drowsy all day, NG tube in place , Lasix given for slight fluid overload, still nothing by mouth, no bowel sounds 6 last 3: Patient is awake today, more conversant, she has brought up hospice but most likely discussion was triggered that she and her has been to prior to his , on exam today noted to be more generalized edema and anasarca in the face, extremities and bilateral upper extremity and bilateral lower extremity, furosemide 40 mg IV given today, albumin low at 2.4, IV fluids decreased to 75 mL an hour, contemplating the use of TPN, will discuss with family members patient was started on popsicle which she tolerated, if this continues, patient most likely with transition to oral ensure clear in next 24 hrs Objective - Vital Signs Vital signs: Vital Signs Temp 99.0 F 09/06/17 12:00 Pulse 114 H 09/06/17 16:03 Resp 19 09/06/17 15:00 BP 109/60 09/06/17 15:00 Pulse Ox 94 L 09/06/17 15:00 Intake & Output 09/05/17 09/06/17 09/06/17 18:59 06:59 18:59 Intake Total 1903.0 1808 675 Output Total 5 1994 Balance -602.0 -187 320 Weight 59.7 kg Intake: IV 1903.0 1808 675 0.9 NaCl 435 825 675 Magnesium Sulfate-D5w Pmx 100 1 gm In Dextrose/Water 1 100ml.bag @ 100 mls/hr IVPB Q1H [facility] Rx#: [id number] Piperacillin-Tazobactam 3 125.0 50 .375 gm In Dextrose/Water 1 50ml.bag @ 12.5 mls/hr IVPB Q8HR [facility] Rx#: [id number] Potassium Chloride 10 meq 200 In Water For Injection 1 100ml.bag @ 100 mls/hr IVPB Q1H [facility] Rx#: [id number] Potassium Chloride 10 meq 300 In Water For Injection 1 100ml.bag @ 100 mls/hr IVPB Q1H [facility] Rx#: [id number] Potassium Phosphate 10 1125 500 mmol In Sodium Chloride 0 .9% 250 ml @ 125 mls/hr IV Q2H [facility] Rx#:[id number] Pressure Bag of 0.9NaCl- 18 33 Output: Gastric Drainage 600 Urine 1854 Oral Regurgitation 50 Other: Voiding Method Indwelling Catheter Indwelling Catheter Indwelling Catheter ABP, PAP, CO, CI - Last Documented Arterial Blood Pressure 123/52 - Constitutional General appearance: Present: cooperative, no acute distress - EENT Eyes: Present: anicteric sclerae, EOMI, PERRLA, normal appearance ENT: Present: NA/AT, normal oropharynx - Neck Neck: Present: normal ROM - Respiratory Respiratory: bilateral: CTA, diminished, rales, negative: dullness, prolonged expiration, prolonged inspiration - Cardiovascular Rhythm: irregularly irregular Heart sounds: normal: S1, S2 Abnormal Heart Sounds: Present: systolic murmur. Absent: diastolic murmur, rub , S3 Gallop, S4 Gallop, click, other - Gastrointestinal General gastrointestinal: Present: absent bowel sounds, soft - Integumentary Integumentary: Present: decreased turgor, normal - Neurologic Neurologic: Present: CNII-XII intact - Musculoskeletal Musculoskeletal: Present: strength equal bilaterally - Psychiatric Psychiatric: Present: A&O x's 3, appropriate affect - Labs CBC & Chem 7: 09/06/17 04:00 09/06/17 15:30 Labs: Abnormal Lab Results - Last 24 Hours (Table) 09/05/17 09/05/17 09/05/17 Range/Units 16:00 16:00 16:08 WBC (3.8-10.6) k/uL RBC (3.80-5.40) m/uL Hgb (11.4-16.0) gm/dL Hct (34.0-46.0) % Neutrophils # (1.3-7.7) k/uL Lymphocytes # (1.0-4.8) k/uL Potassium 3.4 L (3.5-5.1) mmol/L BUN (7-17) mg/dL POC Glucose (mg/dL) 72 L (75-99) mg/dL Calcium (8.4-10.2) mg/dL Ionized Calcium Emiliana (4.5-5.3) mg/dL Phosphorus 2.1 L (2.5-4.5) mg/dL Magnesium (1.6-2.3) mg/dL Albumin (3.5-5.0) g/dL 09/05/17 09/05/17 09/05/17 Range/Units 16:59 18:00 22:00 WBC (3.8-10.6) k/uL RBC (3.80-5.40) m/uL Hgb (11.4-16.0) gm/dL Hct (34.0-46.0) % Neutrophils # (1.3-7.7) k/uL Lymphocytes # (1.0-4.8) k/uL Potassium 2.8 L* (3.5-5.1) mmol/L BUN (7-17) mg/dL POC Glucose (mg/dL) 173 H 160 H (75-99) mg/dL Calcium (8.4-10.2) mg/dL Ionized Calcium Emiliana (4.5-5.3) mg/dL Phosphorus 1.6 L (2.5-4.5) mg/dL Magnesium (1.6-2.3) mg/dL Albumin (3.5-5.0) g/dL 09/05/17 09/06/17 09/06/17 Range/Units 22:01 04:00 04:00 WBC 11.1 H (3.8-10.6) k/uL RBC 3.14 L (3.80-5.40) m/uL Hgb 9.7 L (11.4-16.0) gm/dL Hct 30.7 L (34.0-46.0) % Neutrophils # 9.9 H (1.3-7.7) k/uL Lymphocytes # 0.3 L (1.0-4.8) k/uL Potassium (3.5-5.1) mmol/L BUN 20 H (7-17) mg/dL POC Glucose (mg/dL) 119 H (75-99) mg/dL Calcium 7.0 L (8.4-10.2) mg/dL Ionized Calcium Emiliana 4.2 L (4.5-5.3) mg/dL Phosphorus (2.5-4.5) mg/dL Magnesium (1.6-2.3) mg/dL Albumin 2.4 L (3.5-5.0) g/dL 09/06/17 09/06/17 09/06/17 Range/Units 06:32 10:06 10:08 WBC (3.8-10.6) k/uL RBC (3.80-5.40) m/uL Hgb (11.4-16.0) gm/dL Hct (34.0-46.0) % Neutrophils # (1.3-7.7) k/uL Lymphocytes # (1.0-4.8) k/uL Potassium 3.2 L (3.5-5.1) mmol/L BUN (7-17) mg/dL POC Glucose (mg/dL) 109 H 128 H (75-99) mg/dL Calcium (8.4-10.2) mg/dL Ionized Calcium Emiliana (4.5-5.3) mg/dL Phosphorus (2.5-4.5) mg/dL Magnesium 2.6 H (1.6-2.3) mg/dL Albumin (3.5-5.0) g/dL 09/06/17 09/06/17 Range/Units 14:27 15:30 WBC (3.8-10.6) k/uL RBC (3.80-5.40) m/uL Hgb (11.4-16.0) gm/dL Hct (34.0-46.0) % Neutrophils # (1.3-7.7) k/uL Lymphocytes # (1.0-4.8) k/uL Potassium 3.3 L (3.5-5.1) mmol/L BUN (7-17) mg/dL POC Glucose (mg/dL) 104 H (75-99) mg/dL Calcium (8.4-10.2) mg/dL Ionized Calcium Emiliana (4.5-5.3) mg/dL Phosphorus (2.5-4.5) mg/dL Magnesium (1.6-2.3) mg/dL Albumin (3.5-5.0) g/dL Microbiology - Last 24 Hours (Table) 09/04/17 17:55 Urine Culture - Final Urine,Voided 09/03/17 16:48 Blood Culture - Preliminary Blood No Growth after 48 hours Assessment and Plan Plan: 1. Small bowel obstruction with volvulus status post exploratory laparotomy and lysis of adhesion with small bowel resection post operative day #2. Continue the current management as outlined by general surgery. Nutrition most likely would be requiring TPN over the next 24-48 hours, the albumin to be obtained and albumin status, continue Zosyn 2. Fluid overload, with anasarca, Lasix 40 mg one time dose today potassium supplementation IV, based on this, IV fluid has been decreased to 75 mL an hour , we'll going to hold off TPN at this time and readdress fluid status with 24 hours with strict I's and O's, echocardiogram and a BNP to be obtained 2. CAD post VA with left heart catheterization in 3 stents placement. Patient appears to be stable at this point in time we'll monitor the patient very closely postoperatively. 3. Atrial fibrillation post permanent pacemaker placement. We will hold off Cardizem, hold off Eliquis for the next 48 hours. 4. Hyperlipidemia. Pravastatin as the patient is on nothing per mouth. 5. History of glaucoma. Continue current eyedrops. 6. History of macular degeneration. She is legally blind. 7. History of breast cancer status post left mastectomy with lymph node dissection. Currently in remission. 8. ALLERGIC rhinitis and possible asthma. Continue nebulized treatment as well as oxygen support. 9. Anxiety disorder. Stable at this time. 10. Moderate protein calorie malnutrition, status post bowel surgery, TPN will be addressed tomorrow 10. DVT prophylaxis. Patient is on Lovenox 40 mg subcutaneously every day. 11. GI prophylaxis. Start the patient on Protonix 40 mg IV push every 24 hours. 12. Hypokalemia status post placement.
[2017-09-06] MEDS ORDERED: POTASSIUM CHLORIDE 10 MEQ in WATER FOR INJECTION 1 100ML.BAG IVPB SCH (17:00)
[2017-09-06 17:58] LABS: Glucose,Whole Blood 114 mg/dL (75-99)
[2017-09-06 20:00] LABS: Glucose,Whole Blood 103 mg/dL (75-99)
[2017-09-06] MEDS: ALPRAZolam 0.25 MG TAB PO SCH (20:17)
[2017-09-06] MEDS: MONTELUKAST 10 MG TAB PO SCH (20:18)
[2017-09-06] MEDS: PRAVASTATIN SODIUM 20 MG TAB PO SCH (20:18)
[2017-09-06] MEDS: LORATADINE 10 MG TAB PO SCH (20:18)
[2017-09-06] MEDS: MAGNESIUM OXIDE 400 MG TAB PO SCH (20:18)
[2017-09-06] MEDS: LATANOPROST 0.005% OPHTH DROPS 2.5 ML BTL BOTH EYES SCH (20:50)
[2017-09-06 22:09] LABS: Glucose,Whole Blood 101 mg/dL (75-99)
[2017-09-07] MEDS: POTASSIUM CHLORIDE 10 MEQ in WATER FOR INJECTION 1 100ML.BAG IVPB SCH ×5 (02:05→08:20)
[2017-09-07] MEDS: SODIUM CHLORIDE 0.9% 1,000 ML IV SCH ×2 (02:06→17:15)
[2017-09-07 02:12] LABS: Glucose,Whole Blood 89 mg/dL (75-99)
[2017-09-07] MEDS: HYDROmorphone 0.5 MG/0.5 ML SYRINGE IVP PRN ×2 (03:18→14:32)
[2017-09-07 05:27] LABS: Basophils % (A) 0 %; Eosinophils # (A) 0.1 k/uL (0-0.7); Eosinophils % (A) 1 %; HCT 32.1 % (34.0-46.0); HGB 10.4 gm/dL (11.4-16.0); Lymphocytes # (A) 0.3 k/uL (1.0-4.8); Lymphocytes % (A) 3 %; MCH 31.2 pg (25.0-35.0); MCHC 32.4 g/dL (31.0-37.0); MCV 96.3 fL (80.0-100.0); Mean Platelet Volume 8.3; Monocytes # (A) 0.7 k/uL (0-1.0); Monocytes % (A) 7 %; Neutrophils # (A) 8.3 k/uL (1.3-7.7); Neutrophils % (A) 87 %; Platelet Count 191 k/uL (150-450); RBC 3.34 m/uL (3.80-5.40); RDW 13.9 % (11.5-15.5); WBC 9.6 k/uL (3.8-10.6)
[2017-09-07 05:44] LABS: Ionized Calcium 4.2 mg/dL (4.5-5.3)
[2017-09-07 06:03] LABS: Glucose,Whole Blood 83 mg/dL (75-99)
[2017-09-07 06:14] LABS: Anion Gap 11 mmol/L; Blood Urea Nitrogen 16 mg/dL (7-17); Calcium 7.3 mg/dL (8.4-10.2); Carbon Dioxide 30 mmol/L (22-30); Chloride 100 mmol/L (98-107); Glucose 85 mg/dL (74-99); Magnesium 2.1 mg/dL (1.6-2.3); Phosphorus 1.4 mg/dL (2.5-4.5); Potassium 3.5 mmol/L (3.5-5.1); Sodium 141 mmol/L (137-145)
[2017-09-07] MEDS: IPRATROPIUM-ALBUTEROL 3 ML NEB INHALATION SCH ×4 (07:36→19:40)
[2017-09-07] MEDS: ONDANSETRON ODT 4 MG TAB PO SCH ×3 (07:51→17:25)
[2017-09-07] MEDS: PIPERACILLIN-TAZOBACTAM 3.375 GM in DEXTROSE/WATER 1 50ML.BAG IVPB SCH ×2 (07:54→17:22)
--- NOTE | 2017-09-07 08:17 | XR ---
EXAMINATION TYPE: XR chest 1V DATE OF EXAM: 09/07/2017 COMPARISON: 09/06/2017 HISTORY: SOB, Follow Up FINDINGS: Indwelling tubes and catheters are unchanged. No change in bibasilar atelectasis, infiltrate and/or effusion. Stable appearance of the cardio-mediastinal structures at this time. Pleural effusion unchanged. Fractured pacer wire redemonstrated. IMPRESSION: 1. Stable portable chest. Clinical correlation and follow up until resolution is recommended.
[2017-09-07] MEDS: prednisoLONE ACETATE 1% OPHTH DROPS 5 ML BTL LEFT EYE SCH (08:43)
[2017-09-07] MEDS: DORZOLAMIDE HCL 2% DROPS 10 ML BTL BOTH EYES SCH ×2 (08:44→20:51)
[2017-09-07] MEDS: PANTOPRAZOLE 40 MG/10 ML VIAL IV SCH (08:44)
[2017-09-07] MEDS: ENOXAPARIN 40 MG/0.4 ML SYRINGE SQ SCH (08:44)
[2017-09-07] MEDS: POTASSIUM CHLORIDE ER 20 MEQ TAB.ER PO SCH (10:01)
[2017-09-07 10:11] LABS: Glucose,Whole Blood 83 mg/dL (75-99)
[2017-09-07] MEDS: HYDROCHLOROTHIAZIDE 25 MG TAB PO SCH (10:52)
[2017-09-07] MEDS: DIGOXIN 125 MCG TAB PO SCH (10:52)
[2017-09-07] MEDS: VIT A,C & E-LUTEIN-MINERALS 1 EACH TAB PO SCH (10:52)
[2017-09-07] MEDS: ESCITALOPRAM 10 MG TAB PO SCH (10:52)
[2017-09-07] MEDS: DILTIAZEM ORAL 30 MG TAB PO SCH ×2 (10:52→20:51)
--- NOTE | 2017-09-07 11:50 | P.PN ---
Subjective Progress Note Date: 09/07/17 Principal diagnosis: Acute bowel obstruction with volvulus secondary to adhesions, status post exploratory laparotomy. Postoperative day #4. 87-year-old female patient, presented to the hospital for abdominal pain and increased nausea and vomiting and she did not have any bowel movements for the past few days. She initially presented to the ED and she was discharged home to come back with the same problem with significant abdominal pain and distention. CAT scan of the abdomen showed evidence of small bowel obstruction with volvulus and at that point the patient was seen by general surgery and the patient was taken to the operating room yesterday and she underwent expiratory laparotomy, lysis of adhesions and she was found to have a small segment of the jejunum being ischemic that was resected with primary anastomosis. The abdomen was irrigated. The fascia was closed and a wound VAC was applied. Overnight, the patient became oliguric. The patient received a total of 4 L of IV fluid boluses and maintenance fluid was maintained at 120 mL an hour. The patient did not require any pressors. This morning, the patient is still sedated with Diprivan at 50 mics per KG pigmented. The patient is an assist-control mode of ventilation at the rate of 14 tidal volume of 450 FiO2 of 40% and a PEEP of 5. The blood gases from this morning showed a pH of 7.36 with a pCO2 of 47 pO2 117. The chest x-ray from this morning shows some mild four-vessel congestion. ET tube is in a good location. The patient has a left-sided pacemaker in place. Correlation profile is within normal. White cell count is at 10.0. Hemoglobin stable at 10.9. Urinalysis suggested the possibility of an underlying infection the patient is currently on IV Zosyn. The patient is arousable. We are the process of giving her a sedation holiday and checking weaning parameters. The potassium level was low at 3.0 and the patient had a normal renal function with a creatinine of 0.6 and the patient's potassium level is being replaced per protocol. On 09/05/2017, the patient was seen in follow-up. As noted the patient is extubated. She got wean off the mechanical ventilator yesterday and she was extubated without any major difficulties. She is resting comfortably in bed. NG tube is in place. The output has been 400 mL over the past 12 hours. Minimal output from the LOLY drain. Surgical wound site is clean and the wound VAC and the wound VAC is also in place. The patient remains nothing by mouth. Hemodynamically stable. Adequate urine output. No nausea. No vomiting. No abdominal pain. No abdominal distention. Bowel sounds are hypoactive. She is pulling approximately 500 mL on the incentive spirometer. She is covered with empiric antibiotic coverage. Afebrile. No other significant events over the past 24 hours. Potassium is replaced. Renal function is also stable. On 09/06/2017, I'm seeing this patient for a follow-up. The patient is still recovering from her surgery. Her abdominal wound is dry clean and intact. NG tube is in place and output has been minimal over the past 12 hours. Bowel sounds are hypoactive. No bowel activity yet. She has a congestion in her lungs for which was given IV Lasix and she diuresed adequately. She is negative fluid balance of 7 89 mL over the past 12 hours. She did drop her potassium level that was replaced overnight. She is hemodynamically stable. Urine output is noted of 20-30 mL an hour. As for blood work, lobe is stable at 9.7. Stable renal function. Potassium was replaced and the level is up to 3.6. Blood sugar is at 128. She is on IV Zosyn as an empiric antibiotic coverage. No fever. No chills. She remains in atrial fibrillation at the rate is controlled. No articulation for now. On 09/07/2017, patient was seen on follow-up, and she seems to be doing relatively well. Still recovering from her surgery nicely, abdominal wound is dry and clean, she has some oozing from her right lower quadrant area from reaction to the tape. Nasogastric tube remains in place, bowel sounds are hypoactive, still improving with diuretics/Lasix IV push, chest x-ray continues to show by basilar atelectasis and effusions. All labs were reviewed including CBC and basic metabolic profile as well as renal profile seems to be unremarkable. Objective - Vital Signs Vital signs: Vital Signs Temp 96.9 F L 09/07/17 08:00 Pulse 125 H 09/07/17 11:30 Resp 20 09/07/17 11:00 BP 125/71 09/07/17 11:00 Pulse Ox 96 09/07/17 11:18 Intake & Output 09/06/17 09/07/17 09/07/17 18:59 06:59 18:59 Intake Total 975 1418.0 313 Output Total 1735 1193 390 Balance -760 225.0 -77 Weight 59.4 kg 59.4 kg Intake: IV 975 1018.0 313 0.9 NaCl 975 935 310 Piperacillin-Tazobactam 3 50.0 .375 gm In Dextrose/Water 1 50ml.bag @ 12.5 mls/hr IVPB Q8HR [facility] Rx#: [id number] Pressure Bag of 0.9NaCl- 33 3 Intake, IV Titration 400 Amount Potassium Chloride 10 meq 400 In Water For Injection 1 100ml.bag @ 100 mls/hr IVPB Q1H [facility] Rx#: [id number] Output: Gastric Drainage 225 Urine 1435 1193 165 Emesis 300 Other: Voiding Method Indwelling Catheter Indwelling Catheter Indwelling Catheter ABP, PAP, CO, CI - Last Documented Arterial Blood Pressure 150/61 - Exam Physical Exam: Revealed an 87-year-old female in no distress. Head: Atraumatic, normocephalic. HEENT:[Neck is supple.] [No neck masses.] [No thyromegaly.] [No JVD.] Moist mucous membranes, PERRLA, EOMI, no icterus, no thyromegaly. Chest: [Clear throughout, no crackles, no rhonchi, no wheezes.] Cardiac Exam: [Normal S1 and S2, no S3 gallop, no murmur.] Abdomen: [Soft, slightly tender, no megaly, no rebound, no guarding, diminished bowel sounds, minimal tenderness on deep palpation. Minimal oozing of serous drainage noted in the right lower quadrant area from reaction to tape. Extremities: [No clubbing, no edema, no cyanosis.] Neurological Exam: [No focal neurologic deficit.] Psychiatric: Normal mood affect and mental status examination Lymphatics: No lymphadenopathy. - Labs CBC & Chem 7: 09/07/17 05:00 09/07/17 10:00 Labs: Abnormal Lab Results - Last 24 Hours (Table) 09/06/17 09/06/17 09/06/17 Range/Units 14:27 15:30 17:54 RBC (3.80-5.40) m/uL Hgb (11.4-16.0) gm/dL Hct (34.0-46.0) % Neutrophils # (1.3-7.7) k/uL Lymphocytes # (1.0-4.8) k/uL Potassium 3.3 L (3.5-5.1) mmol/L POC Glucose (mg/dL) 104 H 114 H (75-99) mg/dL Calcium (8.4-10.2) mg/dL Ionized Calcium Emiilana (4.5-5.3) mg/dL Phosphorus (2.5-4.5) mg/dL 09/06/17 09/06/17 09/06/17 Range/Units 19:59 20:01 22:07 RBC (3.80-5.40) m/uL Hgb (11.4-16.0) gm/dL Hct (34.0-46.0) % Neutrophils # (1.3-7.7) k/uL Lymphocytes # (1.0-4.8) k/uL Potassium 3.1 L (3.5-5.1) mmol/L POC Glucose (mg/dL) 103 H 101 H (75-99) mg/dL Calcium (8.4-10.2) mg/dL Ionized Calcium Emiliana (4.5-5.3) mg/dL Phosphorus (2.5-4.5) mg/dL 09/06/17 09/07/17 09/07/17 Range/Units 23:57 05:00 05:00 RBC 3.34 L (3.80-5.40) m/uL Hgb 10.4 L (11.4-16.0) gm/dL Hct 32.1 L (34.0-46.0) % Neutrophils # 8.3 H (1.3-7.7) k/uL Lymphocytes # 0.3 L (1.0-4.8) k/uL Potassium 3.1 L (3.5-5.1) mmol/L POC Glucose (mg/dL) (75-99) mg/dL Calcium 7.3 L (8.4-10.2) mg/dL Ionized Calcium Emiliana 4.2 L (4.5-5.3) mg/dL Phosphorus 1.4 L (2.5-4.5) mg/dL Microbiology - Last 24 Hours (Table) 09/03/17 16:48 Blood Culture - Preliminary Blood No Growth after 72 hours Assessment and Plan Assessment: 1 acute bowel obstruction/small bowel obstruction with volvulus secondary to adhesions, status post respiratory laparotomy, lysis of adhesions and small bowel obstruction. The patient is postop day #4. The output from the NG tube was dropped. The patient is not producing any bowel movement and the bowel sounds are hypoactive on the physical examination. Abdominal wound is dry clean and intact. Hemoglobin is stable. Hemodynamically the patient is also stable. 2 abdominal pain secondary to above, recovered 3 acute respiratory failure, and expected outcome of bowel surgery. The patient is extubated without any major difficulties. The patient subsequently developed some pulmonary vessel congestion due to aggressive fluid resuscitation. The patient got diuretics and the patient is improved for now. Today's chest x-ray shows some cardiomegaly small bilateral pleural effusions, right more so than left. And some atelectasis. 4 Hypotension, responded nicely to IV fluids and the patient did not require any pressors. The patient did not require any pressors and the patient remains hemodynamically stable, normotensive at this point with adequate urine output. 5 coronary artery disease with previous coronary intervention and stenting 6 chronic atrial fibrillation rate is controlled for now and the patient's coagulopathy was reversed preoperatively with Kcentra. Currently she is on Lovenox 40 mg subcu for DVT prophylaxis and the patient has SCDs. 7 pacemaker insertion 8 hypertension, history of 9 glucoma 10 macular degeneration the patient is legally blind 11 hyperlipidemia 12 hypokalemia, replace and the potassium level is 3.5 13 history of breast cancer with a previous mastectomy 14 suspected urine infection, cultures are negative Recommendation we'll continue to monitor in the ICU for the next 24 hours, continue nasogastric tube on low suction, encourage incentive spirometry, continue antibiotics, monitor closely and correct electrolytes, continue Lasix as needed for findings of mild fluid overload. Patient does have pleural effusions, but not in any form of distress at this point. We'll continue to follow. Time with Patient: Less than 30
--- NOTE | 2017-09-07 12:36 | ECHOF ---
Referral Reason:[facility] MEASUREMENTS -------- HEIGHT: 165.1 cm WEIGHT: 59.0 kg BP: 115/63 RVIDd: 2.9 cm (< 3.3) IVSd: 1.2 cm (0.6 - 1.1) LVIDd: 3.4 cm (3.9 - 5.3) LVPWd: 1.1 cm (0.6 - 1.1) IVSs: 1.4 cm LVIDs: 2.4 cm LVPWs: 1.4 cm LA Diam: 4.2 cm (2.7 - 3.8) LAESV Index (A-L): 32.48 ml/m Ao Diam: 3.2 cm (2.0 - 3.7) AV Cusp: 1.4 cm (1.5 - 2.6) MV EXCURSION: 14.100 mm (> 18.000) MV EF SLOPE: 134 mm/s (70 - 150) EPSS: 0.5 cm AV maxP.78 mmHg AV meanP.93 mmHg RAP: 5.00 mmHg RVSP: 31.48 mmHg FINDINGS -------- Atrial fibrillation. Pacerwire seen in RV and RA. This was a technically adequate study. The left ventricular size is normal. There is borderline concentric left ventricular hypertrophy. Overall left ventricular systolic function is normal with, an EF between 55 - 60 %. The right ventricle is normal in size. LA is midly dilated 29-33ml/m2. The right atrium is normal in size. There is mild aortic valve sclerosis. There is mild aortic regurgitation. There is mild aortic st enosis present. Peak/mean gradient across the Aortic Valve is 14.78mmHg / 8.93mmHg. The mitral valve leaflets are mildly thickened. Moderate mitral annular calcification present. Mo derate mitral regurgitation is present. Mild tricuspid regurgitation present. Right ventricular systolic pressure is normal at < 35 mmHg. The pulmonic valve was not well visualized. There is no pulmonic regurgitation present. The aortic root size is normal. There is no pericardial effusion. CONCLUSIONS -------- 1. Atrial fibrillation. 2. Pacerwire seen in RV and RA. 3. This was a technically adequate study. 4. The left ventricular size is normal. 5. There is borderline concentric left ventricular hypertrophy. 6. Overall left ventricular systolic function is normal with, an EF between 55 - 60 %. 7. LA is midly dilated 29-33ml/m2. 8. There is mild aortic valve sclerosis. 9. There is mild aortic regurgitation. 10. There is mild aortic stenosis present. 11. Peak/mean gradient across the Aortic Valve is 14.78mmHg / 8.93mmHg. 12. The mitral valve leaflets are mildly thickened. 13. Moderate mitral annular calcification present. 14. Moderate mitral regurgitation is present. 15. Mild tricuspid regurgitation present. 16. Right ventricular systolic pressure is normal at < 35 mmHg. 17. The pulmonic valve was not well visualized. 18. There is no pulmonic regurgitation present. 19. The aortic root size is normal. 20. There is no pericardial effusion. TELETYPE OR [employer] KEYBOARD OPERATOR: Inez Llamas RDCS
[2017-09-07] MEDS ORDERED: POTASSIUM BICARBONATE/CIT AC 20 MEQ TABLET.EFF NG-TUBE SCH (13:00)
[2017-09-07 14:06] LABS: Glucose,Whole Blood 97 mg/dL (75-99)
--- NOTE | 2017-09-07 15:30 | P.PN ---
Subjective Progress Note Date: 09/07/17 87-year-old female seen in the intensive care unit vented sedated does open eyes to verbal stimuli. Patient is postop exploratory laparotomy, lysis of adhesions, small bowel resection due to adhesions with small bowel volvulus. Nasal gastric tube in place to intermittent suction few hypoactive bowel tones indwelling Miller catheter in place prevena wound system in place afebrile tachycardic heart rate 1 Objective - Vital Signs Vital signs: Vital Signs Temp 96.9 F L 09/07/17 08:00 Pulse 125 H 09/07/17 15:00 Resp 20 09/07/17 15:00 BP 117/58 09/07/17 14:00 Pulse Ox 94 L 09/07/17 15:00 Intake & Output 09/06/17 09/07/17 09/07/17 18:59 06:59 18:59 Intake Total 975 1418.0 538 Output Total 1735 1193 540 Balance -760 225.0 -2 Weight 59.4 kg 59.4 kg Intake: IV 975 1018.0 538 0.9 NaCl 975 935 535 Piperacillin-Tazobactam 3 50.0 .375 gm In Dextrose/Water 1 50ml.bag @ 12.5 mls/hr IVPB Q8HR [facility] Rx#: [id number] Pressure Bag of 0.9NaCl- 33 3 Intake, IV Titration 400 Amount Potassium Chloride 10 meq 400 In Water For Injection 1 100ml.bag @ 100 mls/hr IVPB Q1H [facility] Rx#: [id number] Output: Gastric Drainage 225 Urine 1435 1193 315 Emesis 300 Other: Voiding Method Indwelling Catheter Indwelling Catheter Indwelling Catheter ABP, PAP, CO, CI - Last Documented Arterial Blood Pressure 127/54 - Exam Physical exam Essential female awake appears in no acute distress Lungs diminished at the bases no wheezing no crackles Heart S1-S2 audible Abdomen surgical dressing site dry hypoactive bowel active bowel tones nasal gastric tube dysfunction scant amount of serous drainage noted right lower quadrant indwelling Miller catheter in place Extremities trace pedal edema bilaterally - Labs CBC & Chem 7: 09/07/17 05:00 09/07/17 10:00 Labs: Abnormal Lab Results - Last 24 Hours (Table) 09/06/17 09/06/17 09/06/17 Range/Units 04:00 15:30 17:54 RBC (3.80-5.40) m/uL Hgb (11.4-16.0) gm/dL Hct (34.0-46.0) % Neutrophils # (1.3-7.7) k/uL Lymphocytes # (1.0-4.8) k/uL Potassium 3.3 L (3.5-5.1) mmol/L POC Glucose (mg/dL) 114 H (75-99) mg/dL Calcium (8.4-10.2) mg/dL Ionized Calcium Emiliana (4.5-5.3) mg/dL Phosphorus (2.5-4.5) mg/dL Prealbumin <5.0 L (18.0-42.0) mg/dL 09/06/17 09/06/17 09/06/17 Range/Units 19:59 20:01 22:07 RBC (3.80-5.40) m/uL Hgb (11.4-16.0) gm/dL Hct (34.0-46.0) % Neutrophils # (1.3-7.7) k/uL Lymphocytes # (1.0-4.8) k/uL Potassium 3.1 L (3.5-5.1) mmol/L POC Glucose (mg/dL) 103 H 101 H (75-99) mg/dL Calcium (8.4-10.2) mg/dL Ionized Calcium Emiliana (4.5-5.3) mg/dL Phosphorus (2.5-4.5) mg/dL Prealbumin (18.0-42.0) mg/dL 09/06/17 09/07/17 09/07/17 Range/Units 23:57 05:00 05:00 RBC 3.34 L (3.80-5.40) m/uL Hgb 10.4 L (11.4-16.0) gm/dL Hct 32.1 L (34.0-46.0) % Neutrophils # 8.3 H (1.3-7.7) k/uL Lymphocytes # 0.3 L (1.0-4.8) k/uL Potassium 3.1 L (3.5-5.1) mmol/L POC Glucose (mg/dL) (75-99) mg/dL Calcium 7.3 L (8.4-10.2) mg/dL Ionized Calcium Emiliana 4.2 L (4.5-5.3) mg/dL Phosphorus 1.4 L (2.5-4.5) mg/dL Prealbumin (18.0-42.0) mg/dL Microbiology - Last 24 Hours (Table) 09/03/17 16:48 Blood Culture - Preliminary Blood No Growth after 72 hours Assessment and Plan Assessment: Impression Present on admission intractable abdominal pain nausea vomiting with abdominal distention no stool suspect due to a small bowel obstruction Postop September 03 acute small bowel obstruction secondary to adhesions with volvlus Acute respiratory failure expected outcome from bowel surgery Hypotension fluid bolus given no pressors required Chronic atrial fibrillation controlled ventricular response Macular degeneration legally blind Permanent pacemaker Hypokalemia corrected resolved Essential hypertension Plan Continue postop surgical care Continue ICU management per the perforating machine operator Vent per pulmonary service Pain control DVT and GI prophylaxis Further surgical recommendations pending will follow The above impression and plan of care have been discussed and directed by signing physician. Chrystal Sharma nurse practitioner acting as scribe for signing physician.
--- NOTE | 2017-09-07 16:50 | P.PN ---
Subjective This is an 87-year-old female one of Dr. Oneil,'s with a previous medical history significant for coronary artery disease status post myocardial infarction 3 with the first one Y she was at 5-year-old, post left heart catheterization with the upper continue his coronary intervention and 3 stent placement, hypertension and hypertensive cardio vascular disease, hyperlipidemia , atrial fibrillation status post permanent pacemaker, history of breast cancer in the past status post left mastectomy with lymph node dissection, history of glaucoma with left eye blindness and macular degeneration, patient was in her usual state of health about a week ago when she started to feel increased bloating in her stomach associated with increased nausea over the last 2 days she developed to have a significant abdominal pain associated with increased nausea and vomiting she has not had a bowel movement in 3 days, she was brought into the emergency department at [facility] yesterday from 12 until 6: 30 she was given some medicine that she felt better that time patient went back home and woke up today with significant abdominal pain associated with nausea and vomiting and no bowel movement she ended up coming to the ER at [facility] had a computed tomography scan of the abdomen that showed small bowel obstruction with possible volvulus patient was seen by surgery and he was reminded for the patient to go to the [facility]. 09/04: Patient underwent exploratory laparotomy and lysis of adhesion for small bowel resection due to small bowel obstruction and volvulus, she is laying down about the drowsy opens her eyes response to verbal sunlight, she does follow commands appropriately, she has of NG tube in place, she is complaining of pain , she has a wound VAC in the middle of the abdomen 6/2: Patient was extubated yesterday, has been drowsy all day, NG tube in place , Lasix given for slight fluid overload, still nothing by mouth, no bowel sounds 6 last 3: Patient is awake today, more conversant, she has brought up hospice but most likely discussion was triggered that she and her has been to prior to his , on exam today noted to be more generalized edema and anasarca in the face, extremities and bilateral upper extremity and bilateral lower extremity, furosemide 40 mg IV given today, albumin low at 2.4, IV fluids decreased to 75 mL an hour, contemplating the use of TPN, will discuss with family members patient was started on popsicle which she tolerated, if this continues, patient most likely with transition to oral ensure clear in next 24 hrs 09/07, patient remains in ICU, more conversant, and less edematous, vitals are stable general surgeon is anticipating increase in oral diet in the morning, currently on ice chips and popsicle, and meds. No nausea no vomiting, postop pain under control, no flatness she had limited bowel sounds. NG tube clamp with intermittent suction Objective - Vital Signs Vital signs: Vital Signs Temp 96.9 F L 09/07/17 08:00 Pulse 100 09/07/17 15:41 Resp 18 09/07/17 15:41 BP 117/58 09/07/17 14:00 Pulse Ox 94 L 09/07/17 15:00 Intake & Output 09/06/17 09/07/17 09/07/17 18:59 06:59 18:59 Intake Total 975 1418.0 538 Output Total 1735 1193 540 Balance -760 225.0 -2 Weight 59.4 kg 59.4 kg Intake: IV 975 1018.0 538 0.9 NaCl 975 935 535 Piperacillin-Tazobactam 3 50.0 .375 gm In Dextrose/Water 1 50ml.bag @ 12.5 mls/hr IVPB Q8HR [facility] Rx#: [id number] Pressure Bag of 0.9NaCl- 33 3 Intake, IV Titration 400 Amount Potassium Chloride 10 meq 400 In Water For Injection 1 100ml.bag @ 100 mls/hr IVPB Q1H [facility] Rx#: [id number] Output: Gastric Drainage 225 Urine 1435 1193 315 Emesis 300 Other: Voiding Method Indwelling Catheter Indwelling Catheter Indwelling Catheter ABP, PAP, CO, CI - Last Documented Arterial Blood Pressure 127/54 - Constitutional General appearance: Present: cooperative, no acute distress - EENT Eyes: Present: anicteric sclerae, EOMI, PERRLA, dentition normal, normal appearance ENT: Present: NA/AT, normal oropharynx - Neck Neck: Present: normal ROM - Respiratory Respiratory: bilateral: CTA, negative: diminished, dullness, rales - Cardiovascular Rhythm: regular Heart sounds: normal: S1, S2 Abnormal Heart Sounds: Absent: systolic murmur, diastolic murmur, rub, S3 Gallop , S4 Gallop, click, other - Gastrointestinal General gastrointestinal: Present: normal bowel sounds, soft - Integumentary Integumentary: Present: decreased turgor, normal - Neurologic Neurologic: Present: CNII-XII intact - Musculoskeletal Musculoskeletal: Present: generalized weakness, strength equal bilaterally - Psychiatric Psychiatric: Present: A&O x's 3, appropriate affect - Labs CBC & Chem 7: 09/07/17 05:00 09/07/17 10:00 Labs: Abnormal Lab Results - Last 24 Hours (Table) 09/06/17 09/06/17 09/06/17 Range/Units 04:00 17:54 19:59 RBC (3.80-5.40) m/uL Hgb (11.4-16.0) gm/dL Hct (34.0-46.0) % Neutrophils # (1.3-7.7) k/uL Lymphocytes # (1.0-4.8) k/uL Potassium (3.5-5.1) mmol/L POC Glucose (mg/dL) 114 H 103 H (75-99) mg/dL Calcium (8.4-10.2) mg/dL Ionized Calcium Emiliana (4.5-5.3) mg/dL Phosphorus (2.5-4.5) mg/dL Prealbumin <5.0 L (18.0-42.0) mg/dL 09/06/17 09/06/17 09/06/17 Range/Units 20:01 22:07 23:57 RBC (3.80-5.40) m/uL Hgb (11.4-16.0) gm/dL Hct (34.0-46.0) % Neutrophils # (1.3-7.7) k/uL Lymphocytes # (1.0-4.8) k/uL Potassium 3.1 L 3.1 L (3.5-5.1) mmol/L POC Glucose (mg/dL) 101 H (75-99) mg/dL Calcium (8.4-10.2) mg/dL Ionized Calcium Emiliana (4.5-5.3) mg/dL Phosphorus (2.5-4.5) mg/dL Prealbumin (18.0-42.0) mg/dL 09/07/17 09/07/17 Range/Units 05:00 05:00 RBC 3.34 L (3.80-5.40) m/uL Hgb 10.4 L (11.4-16.0) gm/dL Hct 32.1 L (34.0-46.0) % Neutrophils # 8.3 H (1.3-7.7) k/uL Lymphocytes # 0.3 L (1.0-4.8) k/uL Potassium (3.5-5.1) mmol/L POC Glucose (mg/dL) (75-99) mg/dL Calcium 7.3 L (8.4-10.2) mg/dL Ionized Calcium Emiliana 4.2 L (4.5-5.3) mg/dL Phosphorus 1.4 L (2.5-4.5) mg/dL Prealbumin (18.0-42.0) mg/dL Microbiology - Last 24 Hours (Table) 09/03/17 16:48 Blood Culture - Preliminary Blood No Growth after 72 hours Assessment and Plan Plan: 1. Small bowel obstruction with volvulus status post exploratory laparotomy and lysis of adhesion with small bowel resection post operative day #2. Continue the current management as outlined by general surgery. Nutrition most likely would be requiring TPN over the next 24-48 hours, the albumin to be obtained and albumin status, continue Zosyn 2. Fluid overload, with anasarca, Lasix 40 mg one time dose today potassium supplementation IV, based on this, IV fluid has been decreased to 75 mL an hour , we'll going to hold off TPN at this time eas diet will be increased in am per general surgery and continue with strict I's and O's, echocardiogram 2. CAD post VT with left heart catheterization in 3 stents placement. Patient appears to be stable at this point in time we'll monitor the patient very closely postoperatively. 3. Atrial fibrillation post permanent pacemaker placement. We will hold off Cardizem, hold off Eliquis for the next 48 hours. 4. Hyperlipidemia. Pravastatin as the patient is on nothing per mouth. 5. History of glaucoma. Continue current eyedrops. 6. History of macular degeneration. She is legally blind. 7. History of breast cancer status post left mastectomy with lymph node dissection. Currently in remission. 8. ALLERGIC rhinitis and possible asthma. Continue nebulized treatment as well as oxygen support. 9. Anxiety disorder. Stable at this time. 10. Moderate protein calorie malnutrition, status post bowel surgery, TPN will be addressed tomorrow 10. DVT prophylaxis. Patient is on Lovenox 40 mg subcutaneously every day. 11. GI prophylaxis. Start the patient on Protonix 40 mg IV push every 24 hours. 12. Hypokalemia status post placement potassium bicarb given through an NG tube today 09/07 will need K-Phos for the next supplementation, as phosphorous is low,
[2017-09-07 18:07] LABS: Glucose,Whole Blood 92 mg/dL (75-99)
[2017-09-07] MEDS: ALPRAZolam 0.25 MG TAB PO SCH ×2 (19:50→20:50)
[2017-09-07 20:05] LABS: Glucose,Whole Blood 83 mg/dL (75-99)
[2017-09-07] MEDS: POTASSIUM BICARBONATE/CIT AC 20 MEQ TABLET.EFF NG-TUBE SCH ×2 (20:49→20:52)
[2017-09-07] MEDS: PRAVASTATIN SODIUM 20 MG TAB PO SCH (20:50)
[2017-09-07] MEDS: MONTELUKAST 10 MG TAB PO SCH (20:51)
[2017-09-07] MEDS: MAGNESIUM OXIDE 400 MG TAB PO SCH (20:51)
[2017-09-07] MEDS: LORATADINE 10 MG TAB PO SCH (20:51)
[2017-09-07] MEDS: LATANOPROST 0.005% OPHTH DROPS 2.5 ML BTL BOTH EYES SCH (20:51)
[2017-09-07 23:39] LABS: Glucose,Whole Blood 84 mg/dL (75-99)
[2017-09-08] MEDS: ONDANSETRON ODT 4 MG TAB PO SCH ×3 (00:50→18:51)
[2017-09-08] MEDS: PIPERACILLIN-TAZOBACTAM 3.375 GM in DEXTROSE/WATER 1 50ML.BAG IVPB SCH ×3 (00:50→17:50)
[2017-09-08] MEDS: HYDROmorphone 0.5 MG/0.5 ML SYRINGE IVP PRN ×3 (01:36→20:04)
[2017-09-08 04:29] LABS: Glucose,Whole Blood 82 mg/dL (75-99)
[2017-09-08 04:38] LABS: Basophils % (A) 0 %; Eosinophils # (A) 0.1 k/uL (0-0.7); Eosinophils % (A) 1 %; HCT 31.3 % (34.0-46.0); HGB 10.1 gm/dL (11.4-16.0); Lymphocytes # (A) 0.6 k/uL (1.0-4.8); Lymphocytes % (A) 5 %; MCH 31.1 pg (25.0-35.0); MCHC 32.2 g/dL (31.0-37.0); MCV 96.7 fL (80.0-100.0); Mean Platelet Volume 7.8; Monocytes # (A) 0.8 k/uL (0-1.0); Monocytes % (A) 7 %; Neutrophils # (A) 9.5 k/uL (1.3-7.7); Neutrophils % (A) 85 %; Platelet Count 187 k/uL (150-450); RBC 3.23 m/uL (3.80-5.40); RDW 14.1 % (11.5-15.5); WBC 11.2 k/uL (3.8-10.6)
[2017-09-08 04:50] LABS: Ionized Calcium 4.4 mg/dL (4.5-5.3)
[2017-09-08 04:59] LABS: Anion Gap 9 mmol/L; Blood Urea Nitrogen 15 mg/dL (7-17); Calcium 7.8 mg/dL (8.4-10.2); Carbon Dioxide 33 mmol/L (22-30); Chloride 97 mmol/L (98-107); Glucose 80 mg/dL (74-99); Magnesium 2.1 mg/dL (1.6-2.3); Potassium 3.6 mmol/L (3.5-5.1); Sodium 139 mmol/L (137-145)
[2017-09-08 05:08] LABS: Phosphorus 1.2 mg/dL (2.5-4.5)
[2017-09-08] MEDS: SODIUM CHLORIDE 0.9% 1,000 ML IV SCH ×2 (05:31→17:50)
[2017-09-08] MEDS ORDERED: POTASSIUM CHLORIDE ER 20 MEQ TAB.ER PO SCH (06:00)
[2017-09-08] MEDS: POTASSIUM PHOSPHATE 10 MMOL in SODIUM CHLORIDE 0.9% 250 ML IV SCH ×3 (06:19→10:51)
--- NOTE | 2017-09-08 07:52 | XR ---
EXAMINATION TYPE: XR chest 1V DATE OF EXAM: 09/08/2017 COMPARISON: 09/07/2017 INDICATION: Shortness of breath TECHNIQUE: Single frontal view of the chest is obtained. FINDINGS: The heart size is mildly prominent. The pulmonary vasculature is normal. There is a small right pleural effusion which is slightly increased over the interval. A minimal left pleural effusion is stable. Some mild right lower lobe atelectasis may be present. Pacemaker overlie s left chest. IMPRESSION: 1. Small increasing right pleural effusion. Stable small left pleural effusion. 2. Cardiomegaly.
[2017-09-08] MEDS: IPRATROPIUM-ALBUTEROL 3 ML NEB INHALATION SCH ×4 (08:24→19:52)
[2017-09-08] MEDS: POTASSIUM CHLORIDE ER 20 MEQ TAB.ER PO SCH (08:38)
[2017-09-08] MEDS: ENOXAPARIN 40 MG/0.4 ML SYRINGE SQ SCH (08:38)
[2017-09-08] MEDS: PANTOPRAZOLE 40 MG/10 ML VIAL IV SCH (08:38)
[2017-09-08] MEDS: HYDROCHLOROTHIAZIDE 25 MG TAB PO SCH (08:38)
[2017-09-08] MEDS: VIT A,C & E-LUTEIN-MINERALS 1 EACH TAB PO SCH (08:39)
[2017-09-08] MEDS: DILTIAZEM ORAL 30 MG TAB PO SCH ×2 (08:39→21:13)
[2017-09-08] MEDS: DORZOLAMIDE HCL 2% DROPS 10 ML BTL BOTH EYES SCH ×2 (08:39→21:13)
[2017-09-08] MEDS: ESCITALOPRAM 10 MG TAB PO SCH (08:39)
[2017-09-08] MEDS: DIGOXIN 125 MCG TAB PO SCH (08:39)
[2017-09-08] MEDS: prednisoLONE ACETATE 1% OPHTH DROPS 5 ML BTL LEFT EYE SCH (08:51)
--- NOTE | 2017-09-08 10:56 | P.PN ---
Subjective Progress Note Date: 09/08/17 Principal diagnosis: Acute bowel obstruction with volvulus secondary to adhesions, status post exploratory laparotomy. Postoperative day #5 87-year-old female patient, presented to the hospital for abdominal pain and increased nausea and vomiting and she did not have any bowel movements for the past few days. She initially presented to the ED and she was discharged home to come back with the same problem with significant abdominal pain and distention. CAT scan of the abdomen showed evidence of small bowel obstruction with volvulus and at that point the patient was seen by general surgery and the patient was taken to the operating room yesterday and she underwent expiratory laparotomy, lysis of adhesions and she was found to have a small segment of the jejunum being ischemic that was resected with primary anastomosis. The abdomen was irrigated. The fascia was closed and a wound VAC was applied. Overnight, the patient became oliguric. The patient received a total of 4 L of IV fluid boluses and maintenance fluid was maintained at 120 mL an hour. The patient did not require any pressors. This morning, the patient is still sedated with Diprivan at 50 mics per KG pigmented. The patient is an assist-control mode of ventilation at the rate of 14 tidal volume of 450 FiO2 of 40% and a PEEP of 5. The blood gases from this morning showed a pH of 7.36 with a pCO2 of 47 pO2 117. The chest x-ray from this morning shows some mild four-vessel congestion. ET tube is in a good location. The patient has a left-sided pacemaker in place. Correlation profile is within normal. White cell count is at 10.0. Hemoglobin stable at 10.9. Urinalysis suggested the possibility of an underlying infection the patient is currently on IV Zosyn. The patient is arousable. We are the process of giving her a sedation holiday and checking weaning parameters. The potassium level was low at 3.0 and the patient had a normal renal function with a creatinine of 0.6 and the patient's potassium level is being replaced per protocol. On 09/05/2017, the patient was seen in follow-up. As noted the patient is extubated. She got wean off the mechanical ventilator yesterday and she was extubated without any major difficulties. She is resting comfortably in bed. NG tube is in place. The output has been 400 mL over the past 12 hours. Minimal output from the LOLY drain. Surgical wound site is clean and the wound VAC and the wound VAC is also in place. The patient remains nothing by mouth. Hemodynamically stable. Adequate urine output. No nausea. No vomiting. No abdominal pain. No abdominal distention. Bowel sounds are hypoactive. She is pulling approximately 500 mL on the incentive spirometer. She is covered with empiric antibiotic coverage. Afebrile. No other significant events over the past 24 hours. Potassium is replaced. Renal function is also stable. On 09/06/2017, I'm seeing this patient for a follow-up. The patient is still recovering from her surgery. Her abdominal wound is dry clean and intact. NG tube is in place and output has been minimal over the past 12 hours. Bowel sounds are hypoactive. No bowel activity yet. She has a congestion in her lungs for which was given IV Lasix and she diuresed adequately. She is negative fluid balance of 7 89 mL over the past 12 hours. She did drop her potassium level that was replaced overnight. She is hemodynamically stable. Urine output is noted of 20-30 mL an hour. As for blood work, lobe is stable at 9.7. Stable renal function. Potassium was replaced and the level is up to 3.6. Blood sugar is at 128. She is on IV Zosyn as an empiric antibiotic coverage. No fever. No chills. She remains in atrial fibrillation at the rate is controlled. No articulation for now. On 09/07/2017, patient was seen on follow-up, and she seems to be doing relatively well. Still recovering from her surgery nicely, abdominal wound is dry and clean, she has some oozing from her right lower quadrant area from reaction to the tape. Nasogastric tube remains in place, bowel sounds are hypoactive, still improving with diuretics/Lasix IV push, chest x-ray continues to show by basilar atelectasis and effusions. All labs were reviewed including CBC and basic metabolic profile as well as renal profile seems to be unremarkable. On 09/08/2017, patient was seen on follow-up, patient seems to be doing well, continues to recover nicely from her surgery, relatively asymptomatic, no cough no wheezing no shortness of breath. Chest x-ray continues to show small bilateral pleural effusions, patient is responding well to diuretics, CBC is relatively unremarkable, basic metabolic profile is relatively normal, renal profile is normal. Plan to transfer the patient out of the ICU to a regular medical floor today. Patient remains in atrial fibrillation, but rate seems to be controlled. Objective - Vital Signs Vital signs: Vital Signs Temp 98.6 F 09/08/17 08:00 Pulse 108 H 09/08/17 09:00 Resp 16 09/08/17 09:00 BP 134/65 09/08/17 09:00 Pulse Ox 97 09/08/17 09:00 Intake & Output 09/07/17 09/08/17 09/08/17 18:59 06:59 18:59 Intake Total 908 1050 426 Output Total 1090 795 200 Balance -182 255 226 Weight 59.4 kg 58.3 kg Intake: IV 908 950 56 0.9 NaCl 905 950 Piperacillin-Tazobactam 3 50 .375 gm In Dextrose/Water 1 50ml.bag @ 12.5 mls/hr IVPB Q8HR [facility] Rx#: [id number] Pressure Bag of 0.9NaCl- 3 6 Intake, IV Titration 250 Amount Potassium Phosphate 10 250 mmol In Sodium Chloride 0 .9% 250 ml @ 125 mls/hr IV Q2H [facility] Rx#:[id number] Oral 120 Other 100 Output: Gastric Drainage 225 Drainage 0 0 Medial Abdomen 0 0 Urine 765 795 200 Emesis 100 Other: Voiding Method Indwelling Catheter Indwelling Catheter Indwelling Catheter ABP, PAP, CO, CI - Last Documented Arterial Blood Pressure 152/62 - Exam Physical Exam: Revealed an 87-year-old female in no distress. Head: Atraumatic, normocephalic. HEENT:[Neck is supple.] [No neck masses.] [No thyromegaly.] [No JVD.] Moist mucous membranes, PERRLA, EOMI, no icterus, no thyromegaly. Chest: [Clear throughout, no crackles, no rhonchi, no wheezes.] Cardiac Exam: [Normal S1 and S2, no S3 gallop, no murmur.] Abdomen: [Soft, slightly tender, no megaly, no rebound, no guarding, diminished bowel sounds, minimal tenderness on deep palpation. Minimal oozing of serous drainage noted in the right lower quadrant area from reaction to tape. Wound VAC seems to be intact. Extremities: [No clubbing, trace edema, no cyanosis.] Neurological Exam: [No focal neurologic deficit.] Psychiatric: Normal mood affect and mental status examination Lymphatics: No lymphadenopathy. - Labs CBC & Chem 7: 09/08/17 04:20 09/08/17 04:20 Labs: Abnormal Lab Results - Last 24 Hours (Table) 09/06/17 09/07/17 09/08/17 Range/Units 04:00 18:08 04:20 WBC 11.2 H (3.8-10.6) k/uL RBC 3.23 L (3.80-5.40) m/uL Hgb 10.1 L (11.4-16.0) gm/dL Hct 31.3 L (34.0-46.0) % Neutrophils # 9.5 H (1.3-7.7) k/uL Lymphocytes # 0.6 L (1.0-4.8) k/uL Potassium 3.4 L (3.5-5.1) mmol/L Chloride (98-107) mmol/L Carbon Dioxide (22-30) mmol/L Calcium (8.4-10.2) mg/dL Ionized Calcium Emiliana (4.5-5.3) mg/dL Phosphorus (2.5-4.5) mg/dL Prealbumin <5.0 L (18.0-42.0) mg/dL 09/08/17 Range/Units 04:20 WBC (3.8-10.6) k/uL RBC (3.80-5.40) m/uL Hgb (11.4-16.0) gm/dL Hct (34.0-46.0) % Neutrophils # (1.3-7.7) k/uL Lymphocytes # (1.0-4.8) k/uL Potassium (3.5-5.1) mmol/L Chloride 97 L (98-107) mmol/L Carbon Dioxide 33 H (22-30) mmol/L Calcium 7.8 L (8.4-10.2) mg/dL Ionized Calcium Emiliana 4.4 L (4.5-5.3) mg/dL Phosphorus 1.2 L* (2.5-4.5) mg/dL Prealbumin (18.0-42.0) mg/dL Microbiology - Last 24 Hours (Table) 09/03/17 16:48 Blood Culture - Preliminary Blood No Growth after 96 hours Assessment and Plan Assessment: 1 acute bowel obstruction/small bowel obstruction with volvulus secondary to adhesions, status post respiratory laparotomy, lysis of adhesions and small bowel obstruction. The patient is postop day #5. Progressing nicely, will transfer the patient out of the ICU to a monitor bed. 2 abdominal pain secondary to above, recovered 3 acute respiratory failure, and expected outcome of bowel surgery. The patient is extubated without any major difficulties. The patient subsequently developed some pulmonary vessel congestion due to aggressive fluid resuscitation. Responding well to diuresis. 4 Hypotension, responded nicely to IV fluids and the patient did not require any pressors. Resolved. 5 coronary artery disease with previous coronary intervention and stenting 6 chronic atrial fibrillation rate is controlled for now and the patient's coagulopathy was reversed preoperatively with Kcentra. Currently she is on Lovenox 40 mg subcu for DVT prophylaxis and the patient has SCDs. 7 pacemaker insertion 8 hypertension, history of 9 glaucoma 10 macular degeneration the patient is legally blind 11 hyperlipidemia 12 hypokalemia, replace and the potassium level is 3.6 13 history of breast cancer with a previous mastectomy 14 suspected urine infection, cultures are negative Recommendation : Continue present supportive care measures, patient could be transferred out of the ICU to a monitor bed will continue to follow. Time with Patient: Less than 30
--- NOTE | 2017-09-08 11:52 | P.PN ---
Subjective Progress Note Date: 09/08/17 87-year-old being seen in the intensive care unit sitting up in bed patient reportedly remove the nasogastric tube last evening. Is hard of hearing. Pleasant cooperative oriented 3 States breathing improved no shortness of breath nasal cannula 2 L sats are 97% no conversational dyspnea noted no cough noted dressing removed right lower quadrant skin excoriation noted. Has a prevera wound system to surgical site in place indwelling Miller catheter in place labs reviewed white count 11.2 Postop 03 of September lysis of adhesions exploratory laparotomy small bowel resection for a small bowel obstruction due to adhesions with a small bowel volvulus Objective - Vital Signs Vital signs: Vital Signs Temp 98.6 F 09/08/17 08:00 Pulse 103 H 09/08/17 11:37 Resp 16 09/08/17 10:00 BP 127/59 09/08/17 10:00 Pulse Ox 97 09/08/17 10:00 Intake & Output 09/07/17 09/08/17 09/08/17 18:59 06:59 18:59 Intake Total 908 1050 501 Output Total 1090 795 340 Balance -182 255 161 Weight 59.4 kg 58.3 kg Intake: IV 908 950 131 0.9 NaCl 905 950 75 Piperacillin-Tazobactam 3 50 .375 gm In Dextrose/Water 1 50ml.bag @ 12.5 mls/hr IVPB Q8HR [facility] Rx#: [id number] Pressure Bag of 0.9NaCl- 3 6 Intake, IV Titration 250 Amount Potassium Phosphate 10 250 mmol In Sodium Chloride 0 .9% 250 ml @ 125 mls/hr IV Q2H SANJUANA Rx#:[id number] Oral 120 Other 100 Output: Gastric Drainage 225 Drainage 0 0 Medial Abdomen 0 0 Urine 765 795 340 Emesis 100 Other: Voiding Method Indwelling Catheter Indwelling Catheter Indwelling Catheter ABP, PAP, CO, CI - Last Documented Arterial Blood Pressure 131/47 - Exam Physical exam awake appears in no acute distress sitting up in bed hard of hearing Lungs diminished at the bases no wheezing no crackles nasal cannula 2 L sats 95 % no cough noted Heart S1-S2 audible no murmur noted heart rate in the 80s to 90s Abdomen pervena wound system to surgical site in place dry hypoactive bowel sounds indwelling Miller catheter in place dressing right lower quadrant dry surgical tenderness appropriate slightly distended Extremities trace pedal edema bilaterally - Labs CBC & Chem 7: 09/08/17 04:20 09/08/17 04:20 Labs: Abnormal Lab Results - Last 24 Hours (Table) 09/06/17 09/07/17 09/08/17 Range/Units 04:00 18:08 04:20 WBC 11.2 H (3.8-10.6) k/uL RBC 3.23 L (3.80-5.40) m/uL Hgb 10.1 L (11.4-16.0) gm/dL Hct 31.3 L (34.0-46.0) % Neutrophils # 9.5 H (1.3-7.7) k/uL Lymphocytes # 0.6 L (1.0-4.8) k/uL Potassium 3.4 L (3.5-5.1) mmol/L Chloride (98-107) mmol/L Carbon Dioxide (22-30) mmol/L Calcium (8.4-10.2) mg/dL Ionized Calcium Emiliana (4.5-5.3) mg/dL Phosphorus (2.5-4.5) mg/dL Prealbumin <5.0 L (18.0-42.0) mg/dL 09/08/17 Range/Units 04:20 WBC (3.8-10.6) k/uL RBC (3.80-5.40) m/uL Hgb (11.4-16.0) gm/dL Hct (34.0-46.0) % Neutrophils # (1.3-7.7) k/uL Lymphocytes # (1.0-4.8) k/uL Potassium (3.5-5.1) mmol/L Chloride 97 L (98-107) mmol/L Carbon Dioxide 33 H (22-30) mmol/L Calcium 7.8 L (8.4-10.2) mg/dL Ionized Calcium Emiliana 4.4 L (4.5-5.3) mg/dL Phosphorus 1.2 L* (2.5-4.5) mg/dL Prealbumin (18.0-42.0) mg/dL Microbiology - Last 24 Hours (Table) 09/03/17 16:48 Blood Culture - Preliminary Blood No Growth after 96 hours Assessment and Plan Assessment: Impression Present on admission intractable abdominal pain nausea vomiting with abdominal distention no stool suspect due to a small bowel obstruction Postop September 03 acute small bowel obstruction secondary to adhesions with volvlus Acute respiratory failure expected outcome from bowel surgery Hypotension fluid bolus given no pressors required Chronic atrial fibrillation controlled ventricular response Macular degeneration legally blind Permanent pacemaker Hypokalemia corrected resolved Essential hypertension Hearing deficit History of breast cancer right breast Plan Okay to transfer to surgical unit when okayed with the knitter helper PT OT when appropriate Start clear liquid diet advance as tolerated Continue postop surgical care Continue ICU management per the knitter helper Pain control DVT and GI prophylaxis Further surgical recommendations pending will follow The above impression and plan of care have been discussed and directed by signing physician. Chrystal Sharma nurse practitioner acting as scribe for signing physician.
[2017-09-08 12:15] LABS: Glucose,Whole Blood 75 mg/dL (75-99)
--- NOTE | 2017-09-08 15:18 | P.PN ---
Subjective This is an 87-year-old female one of Dr. Oneil,'s with a previous medical history significant for coronary artery disease status post myocardial infarction 3 with the first one Y she was at 5-year-old, post left heart catheterization with the upper continue his coronary intervention and 3 stent placement, hypertension and hypertensive cardio vascular disease, hyperlipidemia , atrial fibrillation status post permanent pacemaker, history of breast cancer in the past status post left mastectomy with lymph node dissection, history of glaucoma with left eye blindness and macular degeneration, patient was in her usual state of health about a week ago when she started to feel increased bloating in her stomach associated with increased nausea over the last 2 days she developed to have a significant abdominal pain associated with increased nausea and vomiting she has not had a bowel movement in 3 days, she was brought into the emergency department at [facility] yesterday from 12 until 6: 30 she was given some medicine that she felt better that time patient went back home and woke up today with significant abdominal pain associated with nausea and vomiting and no bowel movement she ended up coming to the ER at [facility] had a computed tomography scan of the abdomen that showed small bowel obstruction with possible volvulus patient was seen by surgery and he was reminded for the patient to go to the [facility]. 09/04: Patient underwent exploratory laparotomy and lysis of adhesion for small bowel resection due to small bowel obstruction and volvulus, she is laying down about the drowsy opens her eyes response to verbal sunlight, she does follow commands appropriately, she has of NG tube in place, she is complaining of pain , she has a wound VAC in the middle of the abdomen 6/2: Patient was extubated yesterday, has been drowsy all day, NG tube in place , Lasix given for slight fluid overload, still nothing by mouth, no bowel sounds 6 last 3: Patient is awake today, more conversant, she has brought up hospice but most likely discussion was triggered that she and her has been to prior to his , on exam today noted to be more generalized edema and anasarca in the face, extremities and bilateral upper extremity and bilateral lower extremity, furosemide 40 mg IV given today, albumin low at 2.4, IV fluids decreased to 75 mL an hour, contemplating the use of TPN, will discuss with family members patient was started on popsicle which she tolerated, if this continues, patient most likely with transition to oral ensure clear in next 24 hrs 09/07, patient remains in ICU, more conversant, and less edematous, vitals are stable general surgeon is anticipating increase in oral diet in the morning, currently on ice chips and pop 09/08, patient's in ICU today, has improved significantly, and is anticipated to be transferred out today to surgical or so floor with telemetry, family at bedside, full liquid diet initiated today by surgery , and ensure clear started , patient does not have any flatus or bowel movement yet. Objective - Vital Signs Vital signs: Vital Signs Temp 98.6 F 09/08/17 14:58 Pulse 98 09/08/17 14:58 Resp 17 09/08/17 14:58 BP 116/58 09/08/17 14:58 Pulse Ox 92 L 09/08/17 14:58 Intake & Output 09/07/17 09/08/17 09/08/17 18:59 06:59 18:59 Intake Total 908 1050 696 Output Total 1090 795 615 Balance -182 255 81 Weight 59.4 kg 58.3 kg Intake: IV 908 950 206 0.9 NaCl 905 950 150 Piperacillin-Tazobactam 3 50 .375 gm In Dextrose/Water 1 50ml.bag @ 12.5 mls/hr IVPB Q8HR [facility] Rx#: [id number] Pressure Bag of 0.9NaCl- 3 6 Intake, IV Titration 250 Amount Potassium Phosphate 10 250 mmol In Sodium Chloride 0 .9% 250 ml @ 125 mls/hr IV Q2H [facility] Rx#:[id number] Oral 240 Other 100 Output: Gastric Drainage 225 Drainage 0 0 Medial Abdomen 0 0 Urine 765 795 615 Emesis 100 Other: Voiding Method Indwelling Catheter Indwelling Catheter Indwelling Catheter ABP, PAP, CO, CI - Last Documented Arterial Blood Pressure 131/47 - Constitutional General appearance: Present: cooperative, no acute distress - EENT Eyes: Present: anicteric sclerae, edentulous, PERRLA, dentition normal ENT: Present: NA/AT, normal oropharynx - Neck Neck: Present: normal ROM - Respiratory Respiratory: bilateral: CTA, negative: diminished, dullness - Cardiovascular Rhythm: regular Heart sounds: normal: S1, S2 - Gastrointestinal General gastrointestinal: Present: normal bowel sounds, soft - Neurologic Neurologic: Present: CNII-XII intact - Musculoskeletal Musculoskeletal: Present: generalized weakness, strength equal bilaterally - Psychiatric Psychiatric: Present: A&O x's 3, appropriate affect, intact judgment & insight - Labs CBC & Chem 7: 09/08/17 04:20 09/08/17 04:20 Labs: Abnormal Lab Results - Last 24 Hours (Table) 09/07/17 09/08/17 09/08/17 Range/Units 18:08 04:20 04:20 WBC 11.2 H (3.8-10.6) k/uL RBC 3.23 L (3.80-5.40) m/uL Hgb 10.1 L (11.4-16.0) gm/dL Hct 31.3 L (34.0-46.0) % Neutrophils # 9.5 H (1.3-7.7) k/uL Lymphocytes # 0.6 L (1.0-4.8) k/uL Potassium 3.4 L (3.5-5.1) mmol/L Chloride 97 L (98-107) mmol/L Carbon Dioxide 33 H (22-30) mmol/L Calcium 7.8 L (8.4-10.2) mg/dL Ionized Calcium Emiliana 4.4 L (4.5-5.3) mg/dL Phosphorus 1.2 L* (2.5-4.5) mg/dL Microbiology - Last 24 Hours (Table) 09/03/17 16:48 Blood Culture - Preliminary Blood No Growth after 96 hours Assessment and Plan Plan: 1. Small bowel obstruction with volvulus status post exploratory laparotomy and lysis of adhesion with small bowel resection post operative day #2. Continue the current management as outlined by general surgery. Nutrition most likely would be requiring TPN over the next 24-48 hours, the albumin to be obtained and albumin status, continue Zosyn 2. Fluid overload, with anasarca improved,potassium supplementation IV, based on this, IV fluid has been decreased to 75 mL an hour, protein supplementation to ensure clear, continue Hydreodiuril continue with strict I's and O's, echocardiogram showed atrial fibrillation, LV size normal, EF 55-60%, left atrium mildly dilated, aortic valve sclerosis, mild aortic stenosis, mild aortic regurgitation, moderate MR, mild TR tract ventricle systolic pressure of 35 3. CAD post OH with left heart catheterization in 3 stents placement. Patient appears to be stable at this point in time we'll monitor the patient very closely postoperatively. 4. Atrial fibrillation post permanent pacemaker placement. We will hold off Cardizem, hold off Eliquis for the next 48 hours. 5. Hyperlipidemia. Pravastatin as the patient is on nothing per mouth. 6. History of glaucoma. Continue current eyedrops. 7. History of macular degeneration. She is legally blind. 8. History of breast cancer status post left mastectomy with lymph node dissection. Currently in remission. 8. ALLERGIC rhinitis and possible asthma. Continue nebulized treatment as well as oxygen support. 10. Anxiety disorder. Stable at this time. 11. Moderate protein calorie malnutrition, status post bowel surgery, TPN will be addressed tomorrow 12. DVT prophylaxis. Patient is on Lovenox 40 mg subcutaneously every day. 11. GI prophylaxis. Start the patient on Protonix 40 mg IV push every 24 hours. 12. Hypokalemia status post placement potassium bicarb given through an NG tube today 09/07 will need K-Phos for the next supplementation, as phosphorous is low, 13. Debility, PT OT consulted, discharge planning needed for either subacute or inpatient skilled therapies
[2017-09-08 17:14] LABS: Glucose,Whole Blood 85 mg/dL (75-99)
[2017-09-08] MEDS: ACETAMINOPHEN TAB 325 MG TAB PO PRN (18:38)
[2017-09-08 20:25] LABS: Glucose,Whole Blood 85 mg/dL (75-99)
[2017-09-08] MEDS ORDERED: POTAS-SOD-PHOS 278-164-250 MG 1 EACH PACKET PO SCH (21:00)
[2017-09-08] MEDS: LATANOPROST 0.005% OPHTH DROPS 2.5 ML BTL BOTH EYES SCH (21:12)
[2017-09-08] MEDS: MONTELUKAST 10 MG TAB PO SCH (21:13)
[2017-09-08] MEDS: MAGNESIUM OXIDE 400 MG TAB PO SCH (21:13)
[2017-09-08] MEDS: LORATADINE 10 MG TAB PO SCH (21:13)
[2017-09-08] MEDS: PRAVASTATIN SODIUM 20 MG TAB PO SCH (21:13)
[2017-09-09] MEDS: ALPRAZolam 0.25 MG TAB PO SCH ×2 (00:05→21:53)
[2017-09-09] MEDS: ONDANSETRON ODT 4 MG TAB PO SCH ×4 (00:05→23:31)
[2017-09-09] MEDS: ACETAMINOPHEN TAB 325 MG TAB PO PRN (00:05)
[2017-09-09] MEDS: PIPERACILLIN-TAZOBACTAM 3.375 GM in DEXTROSE/WATER 1 50ML.BAG IVPB SCH ×3 (00:08→16:13)
[2017-09-09] MEDS ORDERED: IPRATROPIUM-ALBUTEROL 3 ML NEB INHALATION ONE (04:54)
[2017-09-09] MEDS: SODIUM CHLORIDE 0.9% 1,000 ML IV SCH ×2 (05:07→19:57)
[2017-09-09 07:23] LABS: Glucose,Whole Blood 85 mg/dL (75-99)
[2017-09-09 07:42] LABS: Basophils % (A) 0 %; Eosinophils # (A) 0.1 k/uL (0-0.7); Eosinophils % (A) 1 %; HCT 32.3 % (34.0-46.0); HGB 10.5 gm/dL (11.4-16.0); Lymphocytes # (A) 0.5 k/uL (1.0-4.8); Lymphocytes % (A) 5 %; MCH 30.8 pg (25.0-35.0); MCHC 32.3 g/dL (31.0-37.0); MCV 95.4 fL (80.0-100.0); Mean Platelet Volume 7.4; Monocytes # (A) 0.7 k/uL (0-1.0); Monocytes % (A) 7 %; Neutrophils # (A) 8.4 k/uL (1.3-7.7); Neutrophils % (A) 85 %; Platelet Count 191 k/uL (150-450); RBC 3.39 m/uL (3.80-5.40); WBC 9.9 k/uL (3.8-10.6)
[2017-09-09 07:47] LABS: Ionized Calcium 4.5 mg/dL (4.5-5.3)
[2017-09-09] MEDS ORDERED: FUROSEMIDE 10 MG/ML 4 ML VIAL IV STA (08:25)
[2017-09-09] MEDS: IPRATROPIUM-ALBUTEROL 3 ML NEB INHALATION SCH ×5 (08:40→19:19)
--- NOTE | 2017-09-09 08:45 | XR ---
EXAMINATION TYPE: XR chest 1V DATE OF EXAM: 09/09/2017 COMPARISON: 09/08/2017 HISTORY: Shortness of breath TECHNIQUE: Single frontal view of the chest is obtained. FINDINGS: There is a persistent right basilar opacity and layering small right pleural effusion as w ell as a trace left pleural effusion. Cardiac silhouette is partially obscured but again enlarged. Du al lead left-sided cardiac device remains. There is mild prominence of the pulmonary vascularity. Oss eous structures are generally demineralized. IMPRESSION: Similar findings in comparison to the prior of 09/08/2017 suggesting underlying decompensa aurea congestive heart failure.
--- NOTE | 2017-09-09 08:51 | P.PN ---
Subjective Progress Note Date: 09/09/17 Principal diagnosis: Acute bowel obstruction with volvulus secondary to adhesions, status post exploratory laparotomy, postop day 6 87-year-old female patient, presented to the hospital for abdominal pain and increased nausea and vomiting and she did not have any bowel movements for the past few days. She initially presented to the ED and she was discharged home to come back with the same problem with significant abdominal pain and distention. CAT scan of the abdomen showed evidence of small bowel obstruction with volvulus and at that point the patient was seen by general surgery and the patient was taken to the operating room yesterday and she underwent expiratory laparotomy, lysis of adhesions and she was found to have a small segment of the jejunum being ischemic that was resected with primary anastomosis. The abdomen was irrigated. The fascia was closed and a wound VAC was applied. Overnight, the patient became oliguric. The patient received a total of 4 L of IV fluid boluses and maintenance fluid was maintained at 120 mL an hour. The patient did not require any pressors. This morning, the patient is still sedated with Diprivan at 50 mics per KG pigmented. The patient is an assist-control mode of ventilation at the rate of 14 tidal volume of 450 FiO2 of 40% and a PEEP of 5. The blood gases from this morning showed a pH of 7.36 with a pCO2 of 47 pO2 117. The chest x-ray from this morning shows some mild four-vessel congestion. ET tube is in a good location. The patient has a left-sided pacemaker in place. Correlation profile is within normal. White cell count is at 10.0. Hemoglobin stable at 10.9. Urinalysis suggested the possibility of an underlying infection the patient is currently on IV Zosyn. The patient is arousable. We are the process of giving her a sedation holiday and checking weaning parameters. The potassium level was low at 3.0 and the patient had a normal renal function with a creatinine of 0.6 and the patient's potassium level is being replaced per protocol. On 09/05/2017, the patient was seen in follow-up. As noted the patient is extubated. She got wean off the mechanical ventilator yesterday and she was extubated without any major difficulties. She is resting comfortably in bed. NG tube is in place. The output has been 400 mL over the past 12 hours. Minimal output from the LOLY drain. Surgical wound site is clean and the wound VAC and the wound VAC is also in place. The patient remains nothing by mouth. Hemodynamically stable. Adequate urine output. No nausea. No vomiting. No abdominal pain. No abdominal distention. Bowel sounds are hypoactive. She is pulling approximately 500 mL on the incentive spirometer. She is covered with empiric antibiotic coverage. Afebrile. No other significant events over the past 24 hours. Potassium is replaced. Renal function is also stable. On 09/06/2017, I'm seeing this patient for a follow-up. The patient is still recovering from her surgery. Her abdominal wound is dry clean and intact. NG tube is in place and output has been minimal over the past 12 hours. Bowel sounds are hypoactive. No bowel activity yet. She has a congestion in her lungs for which was given IV Lasix and she diuresed adequately. She is negative fluid balance of 7 89 mL over the past 12 hours. She did drop her potassium level that was replaced overnight. She is hemodynamically stable. Urine output is noted of 20-30 mL an hour. As for blood work, lobe is stable at 9.7. Stable renal function. Potassium was replaced and the level is up to 3.6. Blood sugar is at 128. She is on IV Zosyn as an empiric antibiotic coverage. No fever. No chills. She remains in atrial fibrillation at the rate is controlled. No articulation for now. On 09/07/2017, patient was seen on follow-up, and she seems to be doing relatively well. Still recovering from her surgery nicely, abdominal wound is dry and clean, she has some oozing from her right lower quadrant area from reaction to the tape. Nasogastric tube remains in place, bowel sounds are hypoactive, still improving with diuretics/Lasix IV push, chest x-ray continues to show by basilar atelectasis and effusions. All labs were reviewed including CBC and basic metabolic profile as well as renal profile seems to be unremarkable. On 09/08/2017, patient was seen on follow-up, patient seems to be doing well, continues to recover nicely from her surgery, relatively asymptomatic, no cough no wheezing no shortness of breath. Chest x-ray continues to show small bilateral pleural effusions, patient is responding well to diuretics, CBC is relatively unremarkable, basic metabolic profile is relatively normal, renal profile is normal. Plan to transfer the patient out of the ICU to a regular medical floor today. Patient remains in atrial fibrillation, but rate seems to be controlled. On 09/09/2017 patient seen in follow-up on the surgical floor. She appears more dyspneic at rest, and particularly with exertion. Per nursing staff patient was also noted to be more short of breath, and the lung sounds are extremely diminished at the bases, with crackles. Today's chest x-ray shows bilateral pleural effusions, slightly worsened on the left compared to previous exams. Patient remains on 2 L per nasal cannula with O2 sat 96%, afebrile, vital signs are stable, denies any chest pain, her incentive spirometry effort is 500-750, patient is legally blind, and requires assistance with her incentive spirometry. Today's labs were reviewed, WBCs 9.9, hemoglobin is 10.5. Patient had been on oral hydrochlorothiazide, we will give the patient 1 dose of Lasix, continue with her nebulized bronchodilators. Left arm seems to be more swollen, the patient has a history of left mastectomy. We will obtain ultrasound Doppler of the left upper extremity to rule out DVT. Patient is on full liquid diet, tolerating diet well, no nausea or vomiting. Mid abdominal incision with a wound VAC in place. Objective - Vital Signs Vital signs: Vital Signs Temp 98.3 F 09/09/17 07:08 Pulse 92 09/09/17 07:08 Resp 18 09/09/17 07:08 BP 121/76 09/09/17 07:08 Pulse Ox 98 09/09/17 07:08 Intake & Output 09/08/17 09/09/17 09/09/17 18:59 06:59 18:59 Intake Total 696 1110 Output Total 615 1850 Balance 81 -740 Intake: IV 206 1110 0.9 NaCl 150 1060 Piperacillin-Tazobactam 3 50 50 .375 gm In Dextrose/Water 1 50ml.bag @ 12.5 mls/hr IVPB Q8HR [facility]JUA[facility] Rx#: [id number] Pressure Bag of 0.9NaCl- 6 Intake, IV Titration 250 Amount Potassium Phosphate 10 250 mmol In Sodium Chloride 0 .9% 250 ml @ 125 mls/hr IV Q2H SANJUANA Rx#:[id number] Oral 240 Output: Drainage 0 0 Medial Abdomen 0 0 Urine 615 [address] Urethral 425 Straight 500 Other: Voiding Method Indwelling Catheter # Voids 0 ABP, PAP, CO, CI - Last Documented Arterial Blood Pressure 131/47 - Exam Physical Exam: Revealed an 87-year-old female in no distress. Head: Atraumatic, normocephalic. HEENT:[Neck is supple.] [No neck masses.] [No thyromegaly.] [No JVD.] Moist mucous membranes, PERRLA, EOMI, no icterus, no thyromegaly. Chest: [Diminished breath sounds bilaterally, with crackles in bilateral bases, dullness at bilateral bases] Cardiac Exam: [Normal S1 and S2, no S3 gallop, no murmur.] Abdomen: [Soft, slightly tender, no megaly, no rebound, no guarding, diminished bowel sounds, minimal tenderness on deep palpation. Wound VAC seems to be intact. Skin tear noted on the right lower quadrant covered with a ABD dressing Extremities: [No clubbing, trace edema, no cyanosis.] Neurological Exam: [No focal neurologic deficit.] Psychiatric: Normal mood affect and mental status examination Lymphatics: No lymphadenopathy. - Labs CBC & Chem 7: 09/09/17 07:00 09/08/17 04:20 Labs: Abnormal Lab Results - Last 24 Hours (Table) 09/09/17 Range/Units 07:00 RBC 3.39 L (3.80-5.40) m/uL Hgb 10.5 L (11.4-16.0) gm/dL Hct 32.3 L (34.0-46.0) % Neutrophils # 8.4 H (1.3-7.7) k/uL Lymphocytes # 0.5 L (1.0-4.8) k/uL Microbiology - Last 24 Hours (Table) 09/03/17 16:48 Blood Culture - Preliminary Blood No Growth after 120 hours Assessment and Plan Plan: Assessment: 1 acute bowel obstruction/small bowel obstruction with volvulus secondary to adhesions, status post respiratory laparotomy, lysis of adhesions and small bowel obstruction. The patient is postop day #6. Progressing nicely, will transfer the patient out of the ICU to a monitor bed. 2 abdominal pain secondary to above, recovered 3 acute respiratory failure, and expected outcome of bowel surgery. The patient is extubated without any major difficulties. The patient subsequently developed some pulmonary vessel congestion due to aggressive fluid resuscitation. Responding well to diuresis. On 09/09/2017 he is noted to be more dyspneic, and there is decreased aeration noted bilaterally, chest x-ray shows bilateral pleural effusions, slightly worse on the left compared to previous exams, patient will be given a dose of IV Lasix, and IV fluids will be decreased to KVO. 4 Hypotension, responded nicely to IV fluids and the patient did not require any pressors. Resolved. 5 coronary artery disease with previous coronary intervention and stenting 6 chronic atrial fibrillation rate is controlled for now and the patient's coagulopathy was reversed preoperatively with Kcentra. Currently she is on Lovenox 40 mg subcu for DVT prophylaxis and the patient has SCDs. 7 pacemaker insertion 8 hypertension, history of 9 glaucoma 10 macular degeneration the patient is legally blind 11 hyperlipidemia 12 hypokalemia, replace and the potassium level is 3.6 13 history of breast cancer with a previous mastectomy 14 suspected urine infection, cultures are negative Recommendation : Patient is a bit more dyspneic on today's exam, and the chest x-ray was obtained and it shows small bilateral pleural effusions, slightly worse on the left compared to previous exams. Continue encouraging incentive spirometry, continue with nebulized bronchodilators. Continue monitoring labs, urine output , electrolytes I performed a history & physical examination of the patient and discussed their management with my nurse practitioner, Carina Rojas. I reviewed the nurse practitioner's note and agree with the documented findings and plan of care. Lung sounds are diminished, with bibasilar crackles. The findings and the impression was discussed with the patient. I attest to the documentation by the nurse practitioner. Time with Patient: Less than 30
[2017-09-09 08:52] LABS: Anion Gap 9 mmol/L; Blood Urea Nitrogen 12 mg/dL (7-17); Carbon Dioxide 30 mmol/L (22-30); Chloride 99 mmol/L (98-107); Glucose 81 mg/dL (74-99); Magnesium 1.7 mg/dL (1.6-2.3); Phosphorus 1.5 mg/dL (2.5-4.5); Potassium 3.4 mmol/L (3.5-5.1); Sodium 138 mmol/L (137-145)
[2017-09-09] MEDS: DILTIAZEM ORAL 30 MG TAB PO SCH ×3 (10:10→22:02)
[2017-09-09] MEDS: ENOXAPARIN 40 MG/0.4 ML SYRINGE SQ SCH (10:10)
[2017-09-09] MEDS: DORZOLAMIDE HCL 2% DROPS 10 ML BTL BOTH EYES SCH ×2 (10:10→22:01)
[2017-09-09] MEDS: HYDROCHLOROTHIAZIDE 25 MG TAB PO SCH (10:11)
[2017-09-09] MEDS: DIGOXIN 125 MCG TAB PO SCH (10:11)
[2017-09-09] MEDS: ESCITALOPRAM 10 MG TAB PO SCH (10:11)
[2017-09-09] MEDS: PANTOPRAZOLE 40 MG/10 ML VIAL IV SCH (10:11)
[2017-09-09] MEDS: POTASSIUM CHLORIDE ER 20 MEQ TAB.ER PO SCH ×4 (10:12→18:00)
[2017-09-09] MEDS: prednisoLONE ACETATE 1% OPHTH DROPS 5 ML BTL LEFT EYE SCH (10:12)
--- NOTE | 2017-09-09 10:36 | P.PN ---
Subjective Progress Note Date: 09/09/17 87 year old female seen this morning at the bedside currently sitting up in bed nasal cannula at 2 L with a sat patient is very hard of hearing temp this morning 98.3 white count 9.9 hemoglobin 10.4 potassium 3.4 diet has been initiated tolerating no reports the nausea vomiting. Dressing right lower quadrant moderate amount of serous drainage noted prevera system in place dressing to the site dry nursing document needing to straight cath patient twice during the night for urinary retention Postop 03 of September lysis of adhesions exploratory laparotomy small bowel resection for a small bowel obstruction due to adhesions with a small bowel volvulus Objective - Vital Signs Vital signs: Vital Signs Temp 98.3 F 09/09/17 07:08 Pulse 96 09/09/17 08:49 Resp 18 09/09/17 07:08 BP 121/76 09/09/17 07:08 Pulse Ox 96 09/09/17 08:40 Intake & Output 09/08/17 09/09/17 09/09/17 18:59 06:59 18:59 Intake Total 696 1110 Output Total 615 1850 Balance 81 -740 Intake: IV 206 1110 0.9 NaCl 150 1060 Piperacillin-Tazobactam 3 50 50 .375 gm In Dextrose/Water 1 50ml.bag @ 12.5 mls/hr IVPB Q8HR [facility] Rx#: [id number] Pressure Bag of 0.9NaCl- 6 Intake, IV Titration 250 Amount Potassium Phosphate 10 250 mmol In Sodium Chloride 0 .9% 250 ml @ 125 mls/hr IV Q2H [facility]JUANA Rx#:[id number] Oral 240 Output: Drainage 0 0 Medial Abdomen 0 0 Urine 615 1850 2-way Urethral 425 Straight 500 Other: Voiding Method Indwelling Catheter # Voids 0 ABP, PAP, CO, CI - Last Documented Arterial Blood Pressure 131/47 - Exam Physical exam awake increasingly more alert sitting up in bed hard of hearing no conversational dyspnea noted appears in no acute distress Lungs diminished at the bases no wheezing no crackles nasal cannula 2 L sats 96 % no cough noted Heart S1-S2 audible no murmur noted Abdomen pervena wound system to surgical site in place dry hypoactive bowel sounds dressing right lower quadrant dry surgical tenderness appropriate slightly distended needed to be straight cathed twice during the night for urinary retention Extremities no pedal edema bilaterally 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 - Labs CBC & Chem 7: 09/09/17 07:00 09/09/17 07:00 Labs: Abnormal Lab Results - Last 24 Hours (Table) 09/09/17 09/09/17 Range/Units 07:00 07:00 RBC 3.39 L (3.80-5.40) m/uL Hgb 10.5 L (11.4-16.0) gm/dL Hct 32.3 L (34.0-46.0) % Neutrophils # 8.4 H (1.3-7.7) k/uL Lymphocytes # 0.5 L (1.0-4.8) k/uL Potassium 3.4 L (3.5-5.1) mmol/L Creatinine 0.46 L (0.52-1.04) mg/dL Calcium 8.0 L (8.4-10.2) mg/dL Phosphorus 1.5 L (2.5-4.5) mg/dL Microbiology - Last 24 Hours (Table) 09/03/17 16:48 Blood Culture - Preliminary Blood No Growth after 120 hours Assessment and Plan Assessment: Impression Present on admission intractable abdominal pain nausea vomiting with abdominal distention no stool suspect due to a small bowel obstruction Postop September 03 acute small bowel obstruction secondary to adhesions with volvlus Acute respiratory failure expected outcome from bowel surgery Hypotension fluid bolus given no pressors required Chronic atrial fibrillation controlled ventricular response Macular degeneration legally blind Permanent pacemaker Hypokalemia corrected resolved Essential hypertension Hearing deficit and legally blind Postop expected urinary retention suspect due to poor oral intake hypovolemia History of breast cancer breast with mastectomy Hypokalemia corrected resolved New-onset left upper extremity edematous Plan Follow-up on Dopplers left upper extremity to rule out a DVT Potassium to be replaced Inserted Miller catheter now PT OT when appropriate Start full diet advance as tolerated Continue postop surgical care Increase activity Pain control DVT and GI prophylaxis Further surgical recommendations pending will follow The above impression and plan of care have been discussed and directed by signing physician. Chrystal Sharma nurse practitioner acting as scribe for signing physician.
[2017-09-09 11:47] LABS: Glucose,Whole Blood 98 mg/dL (75-99)
[2017-09-09] MEDS: HYDROcodone/APAP 5-325MG 1 EACH TAB PO PRN (12:09)
[2017-09-09] MEDS ORDERED: METOCLOPRAMIDE 5 MG/ML 2 ML VIAL IVP PRN (12:29)
[2017-09-09] MEDS: VIT A,C & E-LUTEIN-MINERALS 1 EACH TAB PO SCH (14:00)
--- NOTE | 2017-09-09 14:27 | P.PN ---
Subjective Progress Note Date: 09/09/17 This is an 87-year-old female one of Dr. Oneil,'s with a previous medical history significant for coronary artery disease status post myocardial infarction 3 with the first one Y she was at 5-year-old, post left heart catheterization with the upper continue his coronary intervention and 3 stent placement, hypertension and hypertensive cardio vascular disease, hyperlipidemia , atrial fibrillation status post permanent pacemaker, history of breast cancer in the past status post left mastectomy with lymph node dissection, history of glaucoma with left eye blindness and macular degeneration, patient was in her usual state of health about a week ago when she started to feel increased bloating in her stomach associated with increased nausea over the last 2 days she developed to have a significant abdominal pain associated with increased nausea and vomiting she has not had a bowel movement in 3 days, she was brought into the emergency department at [facility] yesterday from 12 until 6: 30 she was given some medicine that she felt better that time patient went back home and woke up today with significant abdominal pain associated with nausea and vomiting and no bowel movement she ended up coming to the ER at [facility] had a computed tomography scan of the abdomen that showed small bowel obstruction with possible volvulus patient was seen by surgery and he was reminded for the patient to go to the [facility]. 09/04: Patient underwent exploratory laparotomy and lysis of adhesion for small bowel resection due to small bowel obstruction and volvulus, she is laying down about the drowsy opens her eyes response to verbal sunlight, she does follow commands appropriately, she has of NG tube in place, she is complaining of pain , she has a wound VAC in the middle of the abdomen 6/2: Patient was extubated yesterday, has been drowsy all day, NG tube in place , Lasix given for slight fluid overload, still nothing by mouth, no bowel sounds 6 last 3: Patient is awake today, more conversant, she has brought up hospice but most likely discussion was triggered that she and her has been to prior to his , on exam today noted to be more generalized edema and anasarca in the face, extremities and bilateral upper extremity and bilateral lower extremity, furosemide 40 mg IV given today, albumin low at 2.4, IV fluids decreased to 75 mL an hour, contemplating the use of TPN, will discuss with family members patient was started on popsicle which she tolerated, if this continues, patient most likely with transition to oral ensure clear in next 24 hrs 09/07, patient remains in ICU, more conversant, and less edematous, vitals are stable general surgeon is anticipating increase in oral diet in the morning, currently on ice chips and pop 09/08, patient's in ICU today, has improved significantly, and is anticipated to be transferred out today to surgical or so floor with telemetry, family at bedside, full liquid diet initiated today by surgery , and ensure clear started , patient does not have any flatus or bowel movement yet. 09/09: Patient is seen on the surgical unit. Heart rate is elevated for which Cardizem will be increased. Patient denies having any nausea. She has not passed gas. Slight increased abdominal distention from yesterday. She is tolerating diet without nausea or vomiting. Wound VAC is in place. Patient needed straight cath for urinary retention. We will plan for culture of the wound on her right lower abdomen (skin tear from tape) and Bactroban to be applied. Objective - Vital Signs Vital signs: Vital Signs Temp 98.3 F 09/09/17 07:08 Pulse 96 09/09/17 08:49 Resp 18 09/09/17 07:08 BP 138/72 09/09/17 10:23 Pulse Ox 96 09/09/17 08:40 Intake & Output 09/08/17 09/09/17 09/09/17 18:59 06:59 18:59 Intake Total 696 1110 Output Total 615 1850 Balance 81 -740 Intake: IV 206 1110 0.9 NaCl 150 1060 Piperacillin-Tazobactam 3 50 50 .375 gm In Dextrose/Water 1 50ml.bag @ 12.5 mls/hr IVPB Q8HR [facility] Rx#: [id number] Pressure Bag of 0.9NaCl- 6 Intake, IV Titration 250 Amount Potassium Phosphate 10 250 mmol In Sodium Chloride 0 .9% 250 ml @ 125 mls/hr IV Q2H [facility] Rx#:[id number] Oral 240 Output: Drainage 0 0 Medial Abdomen 0 0 Urine 615 1850 2-way Urethral 425 Straight 500 Other: Voiding Method Indwelling Catheter # Voids 0 ABP, PAP, CO, CI - Last Documented Arterial Blood Pressure 131/47 - Exam General appearance: Present: cooperative, no acute distress - EENT Eyes: Present: anicteric sclerae, edentulous, PERRLA, dentition normal ENT: Present: NA/AT, normal oropharynx - Neck Neck: Present: normal ROM - Respiratory Respiratory: bilateral: CTA, negative: diminished, dullness - Cardiovascular Rhythm: regular Heart sounds: normal: S1, S2 - Gastrointestinal General gastrointestinal: Present: normal bowel sounds, soft - Neurologic Neurologic: Present: CNII-XII intact - Musculoskeletal Musculoskeletal: Present: generalized weakness, strength equal bilaterally - Psychiatric Psychiatric: Present: A&O x's 3, appropriate affect, intact judgment & insight - Labs CBC & Chem 7: 09/09/17 07:00 09/09/17 07:00 Labs: Abnormal Lab Results - Last 24 Hours (Table) 09/09/17 09/09/17 Range/Units 07:00 07:00 RBC 3.39 L (3.80-5.40) m/uL Hgb 10.5 L (11.4-16.0) gm/dL Hct 32.3 L (34.0-46.0) % Neutrophils # 8.4 H (1.3-7.7) k/uL Lymphocytes # 0.5 L (1.0-4.8) k/uL Potassium 3.4 L (3.5-5.1) mmol/L Creatinine 0.46 L (0.52-1.04) mg/dL Calcium 8.0 L (8.4-10.2) mg/dL Phosphorus 1.5 L (2.5-4.5) mg/dL Microbiology - Last 24 Hours (Table) 09/03/17 16:48 Blood Culture - Preliminary Blood No Growth after 120 hours Assessment and Plan Plan: 1. Small bowel obstruction with volvulus status post exploratory laparotomy and lysis of adhesion with small bowel resection. Continue the current management as outlined by general surgery. Continue Zosyn. 2. Fluid overload, with anasarca improved. echocardiogram showed atrial fibrillation, LV size normal, EF 55-60%, left atrium mildly dilated, aortic valve sclerosis, mild aortic stenosis, mild aortic regurgitation, moderate MR, mild TR tract ventricle systolic pressure of 35 3. CAD post ID with left heart catheterization in 3 stents placement. Patient appears to be stable at this point in time we'll monitor the patient very closely postoperatively. 4. Chronic Atrial fibrillation post permanent pacemaker placement. Resumed on digoxin 125 g daily, Cardizem 30 mg 3 times daily, currently on Lovenox.. 5. Hyperlipidemia. Continue pravastatin. 6. History of glaucoma. Continue current eyedrops. 7. History of macular degeneration. She is legally blind. 8. History of breast cancer status post left mastectomy with lymph node dissection. Currently in remission. 8. ALLERGIC rhinitis and possible asthma. Continue nebulized treatment as well as oxygen support. 10. Generalized anxiety disorder. Continue Xanax 0.25 mg at bedtime, Lexapro 10 mg daily. 11. Moderate protein calorie malnutrition, status post bowel surgery, on oral diet 12. DVT prophylaxis. Patient is on Lovenox 40 mg subcutaneously every day. 11. GI prophylaxis. Start the patient on Protonix 40 mg IV push every 24 hours. 12. Hypokalemia status post replacement 13. Discharge plan: Subacute rehab or possibly inpatient rehab Impression and plan of care have been directed as dictated by the signing physician. Cailin Mendoza nurse practitioner acting as scribe for signing physician.
--- NOTE | 2017-09-09 14:35 | US ---
EXAMINATION TYPE: US venous doppler duplex UE LT DATE OF EXAM: 09/09/2017 COMPARISON: NONE CLINICAL HISTORY: swelling in left arm. Swelling left arm SIDE PERFORMED: Left Limitations, pt scanned portable sitting upright in chair. Grayscale, color doppler, spectral dop pler imaging performed of the deep veins of the left upper extremity. There is normal flow, compress ibility and vascular waveforms Left Arm: Visualized portions show no evidence of DVT, proximal subclavian vein and cephalic vein u nable to be imaged due to pt position and immobility IMPRESSION: Limited exam with inability to image the proximal subclavian vein and cephalic vein. Otherwise no haresh p venous thrombosis within the remainder the visualized left upper extremity.
[2017-09-09] MEDS: MUPIROCIN 2% OINT 22 GM TUBE TOPICAL SCH ×2 (16:54→22:02)
[2017-09-09 17:01] LABS: Glucose,Whole Blood 81 mg/dL (75-99)
[2017-09-09] MEDS: POTASSIUM PHOSPHATE 10 MMOL in SODIUM CHLORIDE 0.9% 250 ML IV SCH (19:53)
[2017-09-09 20:19] LABS: Glucose,Whole Blood 84 mg/dL (75-99)
[2017-09-09] MEDS ORDERED: Potassium Replacement Protocol 1 EACH MISC MISCELLANE PRN (20:26)
[2017-09-09] MEDS ORDERED: POTASSIUM BICARBONATE/CIT AC 20 MEQ TABLET.EFF PO SCH (21:00)
[2017-09-09] MEDS: MAGNESIUM SULFATE-D5W PMX 1 GM in DEXTROSE/WATER 1 100ML.BAG IVPB SCH ×2 (21:57→23:28)
[2017-09-09] MEDS: LORATADINE 10 MG TAB PO SCH (22:01)
[2017-09-09] MEDS: LATANOPROST 0.005% OPHTH DROPS 2.5 ML BTL BOTH EYES SCH (22:01)
[2017-09-09] MEDS: MAGNESIUM OXIDE 400 MG TAB PO SCH (22:01)
[2017-09-09] MEDS: MONTELUKAST 10 MG TAB PO SCH (22:02)
[2017-09-09] MEDS: PRAVASTATIN SODIUM 20 MG TAB PO SCH (22:02)
[2017-09-10] MEDS: PIPERACILLIN-TAZOBACTAM 3.375 GM in DEXTROSE/WATER 1 50ML.BAG IVPB SCH ×4 (00:27→23:08)
[2017-09-10] MEDS: POTASSIUM PHOSPHATE 10 MMOL in SODIUM CHLORIDE 0.9% 250 ML IV SCH (01:01)
[2017-09-10] MEDS: HYDROcodone/APAP 5-325MG 1 EACH TAB PO PRN ×2 (02:57→16:21)
[2017-09-10] MEDS: SODIUM CHLORIDE 0.9% 1,000 ML IV SCH ×2 (03:39→11:47)
[2017-09-10 06:56] LABS: Basophils % (A) 0 %; Eosinophils # (A) 0.2 k/uL (0-0.7); Eosinophils % (A) 2 %; HCT 32.5 % (34.0-46.0); HGB 10.5 gm/dL (11.4-16.0); Lymphocytes # (A) 0.7 k/uL (1.0-4.8); Lymphocytes % (A) 6 %; MCH 31.2 pg (25.0-35.0); MCHC 32.5 g/dL (31.0-37.0); MCV 96.1 fL (80.0-100.0); Mean Platelet Volume 7.4; Monocytes # (A) 0.5 k/uL (0-1.0); Monocytes % (A) 4 %; Neutrophils # (A) 10.6 k/uL (1.3-7.7); Neutrophils % (A) 87 %; Platelet Count 211 k/uL (150-450); RBC 3.38 m/uL (3.80-5.40); RDW 14.1 % (11.5-15.5); WBC 12.2 k/uL (3.8-10.6)
[2017-09-10 07:04] LABS: Glucose,Whole Blood 77 mg/dL (75-99)
[2017-09-10 07:06] LABS: Ionized Calcium 4.3 mg/dL (4.5-5.3)
[2017-09-10 07:25] LABS: Anion Gap 7 mmol/L; Blood Urea Nitrogen 9 mg/dL (7-17); Calcium 7.6 mg/dL (8.4-10.2); Carbon Dioxide 32 mmol/L (22-30); Chloride 96 mmol/L (98-107); Glucose 72 mg/dL (74-99); Magnesium 2.1 mg/dL (1.6-2.3); Potassium 4.7 mmol/L (3.5-5.1); Sodium 135 mmol/L (137-145)
[2017-09-10] MEDS: IPRATROPIUM-ALBUTEROL 3 ML NEB INHALATION SCH ×4 (07:38→19:52)
[2017-09-10] MEDS: ESCITALOPRAM 10 MG TAB PO SCH (08:39)
[2017-09-10] MEDS: VIT A,C & E-LUTEIN-MINERALS 1 EACH TAB PO SCH (08:39)
[2017-09-10] MEDS: HYDROCHLOROTHIAZIDE 25 MG TAB PO SCH (08:39)
[2017-09-10] MEDS: ONDANSETRON ODT 4 MG TAB PO SCH ×3 (08:39→23:08)
[2017-09-10] MEDS: DIGOXIN 125 MCG TAB PO SCH (08:39)
[2017-09-10] MEDS: DILTIAZEM ORAL 30 MG TAB PO SCH ×3 (08:39→21:23)
[2017-09-10] MEDS: PANTOPRAZOLE 40 MG/10 ML VIAL IV SCH (08:40)
[2017-09-10] MEDS: MUPIROCIN 2% OINT 22 GM TUBE TOPICAL SCH ×2 (08:40→21:22)
[2017-09-10] MEDS: ENOXAPARIN 40 MG/0.4 ML SYRINGE SQ SCH (08:40)
[2017-09-10] MEDS: prednisoLONE ACETATE 1% OPHTH DROPS 5 ML BTL LEFT EYE SCH (08:40)
[2017-09-10] MEDS: DORZOLAMIDE HCL 2% DROPS 10 ML BTL BOTH EYES SCH ×2 (08:40→21:23)
--- NOTE | 2017-09-10 09:32 | XR ---
EXAMINATION TYPE: XR chest 1V portable DATE OF EXAM: 09/10/2017 HISTORY: Shortness of breath. COMPARISON: 09/09/2017 TECHNIQUE: Single view of the chest is submitted. FINDINGS: Demonstrated are scattered senescent parenchymal change. Patchy basilar infiltrates and pleural effusions with mild interval improvement. Dual-lead pacer is noted. The heart is stable. Hilar and mediastinal structures are within normal limits. Degenerative changes are seen of the dorsal spine. IMPRESSION: 1. Patchy basilar infiltrates and pleural effusions with mild interval improvement.
[2017-09-10] MEDS ORDERED: POTASSIUM PHOSPHATE 10 MMOL in SODIUM CHLORIDE 0.9% 250 ML IV ONE (10:17)
[2017-09-10] MEDS ORDERED: SODIUM PHOSPHATE 10 MMOL in SODIUM CHLORIDE 0.9% 250 ML IVPB ONE (10:22)
--- NOTE | 2017-09-10 11:05 | P.PN ---
Subjective Progress Note Date: 09/10/17 Principal diagnosis: Acute bowel obstruction with volvulus secondary to adhesions, status post exploratory laparotomy, postop day 6 87-year-old female patient, presented to the hospital for abdominal pain and increased nausea and vomiting and she did not have any bowel movements for the past few days. She initially presented to the ED and she was discharged home to come back with the same problem with significant abdominal pain and distention. CAT scan of the abdomen showed evidence of small bowel obstruction with volvulus and at that point the patient was seen by general surgery and the patient was taken to the operating room yesterday and she underwent expiratory laparotomy, lysis of adhesions and she was found to have a small segment of the jejunum being ischemic that was resected with primary anastomosis. The abdomen was irrigated. The fascia was closed and a wound VAC was applied. Overnight, the patient became oliguric. The patient received a total of 4 L of IV fluid boluses and maintenance fluid was maintained at 120 mL an hour. The patient did not require any pressors. This morning, the patient is still sedated with Diprivan at 50 mics per KG pigmented. The patient is an assist-control mode of ventilation at the rate of 14 tidal volume of 450 FiO2 of 40% and a PEEP of 5. The blood gases from this morning showed a pH of 7.36 with a pCO2 of 47 pO2 117. The chest x-ray from this morning shows some mild four-vessel congestion. ET tube is in a good location. The patient has a left-sided pacemaker in place. Correlation profile is within normal. White cell count is at 10.0. Hemoglobin stable at 10.9. Urinalysis suggested the possibility of an underlying infection the patient is currently on IV Zosyn. The patient is arousable. We are the process of giving her a sedation holiday and checking weaning parameters. The potassium level was low at 3.0 and the patient had a normal renal function with a creatinine of 0.6 and the patient's potassium level is being replaced per protocol. On 09/05/2017, the patient was seen in follow-up. As noted the patient is extubated. She got wean off the mechanical ventilator yesterday and she was extubated without any major difficulties. She is resting comfortably in bed. NG tube is in place. The output has been 400 mL over the past 12 hours. Minimal output from the OLLY drain. Surgical wound site is clean and the wound VAC and the wound VAC is also in place. The patient remains nothing by mouth. Hemodynamically stable. Adequate urine output. No nausea. No vomiting. No abdominal pain. No abdominal distention. Bowel sounds are hypoactive. She is pulling approximately 500 mL on the incentive spirometer. She is covered with empiric antibiotic coverage. Afebrile. No other significant events over the past 24 hours. Potassium is replaced. Renal function is also stable. On 09/06/2017, I'm seeing this patient for a follow-up. The patient is still recovering from her surgery. Her abdominal wound is dry clean and intact. NG tube is in place and output has been minimal over the past 12 hours. Bowel sounds are hypoactive. No bowel activity yet. She has a congestion in her lungs for which was given IV Lasix and she diuresed adequately. She is negative fluid balance of 7 89 mL over the past 12 hours. She did drop her potassium level that was replaced overnight. She is hemodynamically stable. Urine output is noted of 20-30 mL an hour. As for blood work, lobe is stable at 9.7. Stable renal function. Potassium was replaced and the level is up to 3.6. Blood sugar is at 128. She is on IV Zosyn as an empiric antibiotic coverage. No fever. No chills. She remains in atrial fibrillation at the rate is controlled. No articulation for now. On 09/07/2017, patient was seen on follow-up, and she seems to be doing relatively well. Still recovering from her surgery nicely, abdominal wound is dry and clean, she has some oozing from her right lower quadrant area from reaction to the tape. Nasogastric tube remains in place, bowel sounds are hypoactive, still improving with diuretics/Lasix IV push, chest x-ray continues to show by basilar atelectasis and effusions. All labs were reviewed including CBC and basic metabolic profile as well as renal profile seems to be unremarkable. On 09/08/2017, patient was seen on follow-up, patient seems to be doing well, continues to recover nicely from her surgery, relatively asymptomatic, no cough no wheezing no shortness of breath. Chest x-ray continues to show small bilateral pleural effusions, patient is responding well to diuretics, CBC is relatively unremarkable, basic metabolic profile is relatively normal, renal profile is normal. Plan to transfer the patient out of the ICU to a regular medical floor today. Patient remains in atrial fibrillation, but rate seems to be controlled. On 09/09/2017 patient seen in follow-up on the surgical floor. She appears more dyspneic at rest, and particularly with exertion. Per nursing staff patient was also noted to be more short of breath, and the lung sounds are extremely diminished at the bases, with crackles. Today's chest x-ray shows bilateral pleural effusions, slightly worsened on the left compared to previous exams. Patient remains on 2 L per nasal cannula with O2 sat 96%, afebrile, vital signs are stable, denies any chest pain, her incentive spirometry effort is 500-750, patient is legally blind, and requires assistance with her incentive spirometry. Today's labs were reviewed, WBCs 9.9, hemoglobin is 10.5. Patient had been on oral hydrochlorothiazide, we will give the patient 1 dose of Lasix, continue with her nebulized bronchodilators. Left arm seems to be more swollen, the patient has a history of left mastectomy. We will obtain ultrasound Doppler of the left upper extremity to rule out DVT. Patient is on full liquid diet, tolerating diet well, no nausea or vomiting. Mid abdominal incision with a wound VAC in place. On 09/10/2017 patient seen again in follow-up on surgical floor. Denies any dyspnea today, she remains on 2 L per nasal cannula and her O2 sat is 97%, vital signs are stable, patient is afebrile. Lung sounds reveal better air entry bilaterally, and there is some residual crackles at the left lower base. Continue encouraging incentive spirometry, yesterday patient was given a dose of IV Lasix in addition to her maintenance dose of hydrochlorothiazide, and patient diuresed, and produced 3600 cc of urine, and she is in -1045 mL fluid balance over the last 24 hours. She is tolerating full liquid diet, today's labs were reviewed. Repeat chest x-ray has been reviewed and shows patchy basilar infiltrates and pleural effusions with mild interval improvement. Doppler of left upper extremity was done, and was negative for DVT. Objective - Vital Signs Vital signs: Vital Signs Temp 98.3 F 09/10/17 07:22 Pulse 90 09/10/17 10:42 Resp 16 09/10/17 10:42 BP 114/65 09/10/17 08:48 Pulse Ox 97 09/10/17 07:38 Intake & Output 09/09/17 09/10/17 09/10/17 18:59 06:59 18:59 Intake Total 1800 830 100 Output Total 2700 975 375 Balance -900 -145 -275 Intake: IV 130 0.9 NaCl 30 Piperacillin-Tazobactam 3 100 .375 gm In Dextrose/Water 1 50ml.bag @ 12.5 mls/hr IVPB Q8HR [facility] Rx#: [id number] Intake, IV Titration 700 Amount Magnesium Sulfate-D5w Pmx 200 1 gm In Dextrose/Water 1 100ml.bag @ 100 mls/hr IVPB Q1H [facility] Rx#: [id number] Potassium Phosphate 10 500 mmol In Sodium Chloride 0 .9% 250 ml @ 125 mls/hr IV Q2H [facility] Rx#:[id number] Oral 1800 100 Output: Urine 2700 975 375 2-way Urethral 975 375 Other: Voiding Method Indwelling Catheter Indwelling Catheter Indwelling Catheter ABP, PAP, CO, CI - Last Documented Arterial Blood Pressure 131/47 - Exam Physical Exam: Revealed an 87-year-old female in no distress. Head: Atraumatic, normocephalic. HEENT:[Neck is supple.] [No neck masses.] [No thyromegaly.] [No JVD.] Moist mucous membranes, PERRLA, EOMI, no icterus, no thyromegaly. Chest: [Diminished lung sounds at the bases, and crackles at the left lower posterior base] Cardiac Exam: [Normal S1 and S2, no S3 gallop, no murmur.] Abdomen: [Soft, slightly tender, no megaly, no rebound, no guarding, diminished bowel sounds, minimal tenderness on deep palpation. Wound VAC seems to be intact. Skin tear noted on the right lower quadrant covered with a ABD dressing Extremities: [No clubbing, trace edema, no cyanosis.] Neurological Exam: [No focal neurologic deficit.] Psychiatric: Normal mood affect and mental status examination Lymphatics: No lymphadenopathy. - Labs CBC & Chem 7: 09/10/17 06:34 09/10/17 06:34 Labs: Abnormal Lab Results - Last 24 Hours (Table) 09/10/17 09/10/17 09/10/17 Range/Units 06:34 06:34 06:34 WBC 12.2 H (3.8-10.6) k/uL RBC 3.38 L (3.80-5.40) m/uL Hgb 10.5 L (11.4-16.0) gm/dL Hct 32.5 L (34.0-46.0) % Neutrophils # 10.6 H (1.3-7.7) k/uL Lymphocytes # 0.7 L (1.0-4.8) k/uL Sodium 135 L (137-145) mmol/L Chloride 96 L (98-107) mmol/L Carbon Dioxide 32 H (22-30) mmol/L Glucose 72 L (74-99) mg/dL Calcium 7.6 L (8.4-10.2) mg/dL Ionized Calcium Emiliana 4.3 L (4.5-5.3) mg/dL Phosphorus 2.4 L (2.5-4.5) mg/dL Microbiology - Last 24 Hours (Table) 09/09/17 16:18 Gram Stain - Preliminary Abdomen Wound Culture - Preliminary 09/03/17 16:48 Blood Culture - Final Blood No Growth after 144 hours Assessment and Plan Plan: Assessment: 1 acute bowel obstruction/small bowel obstruction with volvulus secondary to adhesions, status post respiratory laparotomy, lysis of adhesions and small bowel obstruction. The patient is postop day #7. Progressing nicely, will transfer the patient out of the ICU to a monitor bed. 2 abdominal pain secondary to above, recovered 3 acute respiratory failure, and expected outcome of bowel surgery. The patient is extubated without any major difficulties. The patient subsequently developed some pulmonary vessel congestion due to aggressive fluid resuscitation. Responding well to diuresis. On 09/09/2017 he is noted to be more dyspneic, and there is decreased aeration noted bilaterally, chest x-ray shows bilateral pleural effusions, slightly worse on the left compared to previous exams, patient will be given a dose of IV Lasix, and IV fluids will be decreased to KVO. On 09/10/2017 patient denies any dyspnea, she diuresed over 3600 mL of urine in the last 24 hours, and she is in negative fluid balance. Chest x-ray shows improvement in the appearance of bilateral pleural effusions, continue maintenance dose hydrochlorothiazide, and continue incentive spirometry. 4 Hypotension, responded nicely to IV fluids and the patient did not require any pressors. Resolved. 5 coronary artery disease with previous coronary intervention and stenting 6 chronic atrial fibrillation rate is controlled for now and the patient's coagulopathy was reversed preoperatively with Kcentra. Currently she is on Lovenox 40 mg subcu for DVT prophylaxis and the patient has SCDs. 7 pacemaker insertion 8 hypertension, history of 9 glaucoma 10 macular degeneration the patient is legally blind 11 hyperlipidemia 12 hypokalemia, replace and the potassium level is 3.6 13 history of breast cancer with a previous mastectomy 14 suspected urine infection, cultures are negative Recommendation : Today's chest x-ray has been reviewed, and shows improvement in the appearance of bilateral pleural effusions, however patchy basilar infiltrates remaining, likely related to atelectasis. Obtain maintenance dose hydrochlorothiazide, obtain room air pulse ox, continue encouraging incentive spirometry, nebulized bronchodilators, and increase activity as tolerated. I performed a history & physical examination of the patient and discussed their management with my nurse practitioner, Carina Rojas. I reviewed the nurse practitioner's note and agree with the documented findings and plan of care. Lung sounds are diminished, with crackles at the left posterior lower base. The findings and the impression was discussed with the patient. I attest to the documentation by the nurse practitioner. Time with Patient: Less than 30
[2017-09-10 11:29] LABS: Glucose,Whole Blood 84 mg/dL (75-99)
[2017-09-10 11:58] VITALS: BMI 21.4
[2017-09-10] MEDS ORDERED: FUROSEMIDE 10 MG/ML 2 ML VIAL IV ONE (12:44)
[2017-09-10] MEDS ORDERED: FUROSEMIDE 20 MG TAB PO SCH (12:45)
--- NOTE | 2017-09-10 12:58 | P.PN ---
Subjective Progress Note Date: 09/10/17 This is an 87-year-old female one of Dr. Oneil,'s with a previous medical history significant for coronary artery disease status post myocardial infarction 3 with the first one Y she was at 5-year-old, post left heart catheterization with the upper continue his coronary intervention and 3 stent placement, hypertension and hypertensive cardio vascular disease, hyperlipidemia , atrial fibrillation status post permanent pacemaker, history of breast cancer in the past status post left mastectomy with lymph node dissection, history of glaucoma with left eye blindness and macular degeneration, patient was in her usual state of health about a week ago when she started to feel increased bloating in her stomach associated with increased nausea over the last 2 days she developed to have a significant abdominal pain associated with increased nausea and vomiting she has not had a bowel movement in 3 days, she was brought into the emergency department at [facility] yesterday from 12 until 6: 30 she was given some medicine that she felt better that time patient went back home and woke up today with significant abdominal pain associated with nausea and vomiting and no bowel movement she ended up coming to the ER at [facility] had a computed tomography scan of the abdomen that showed small bowel obstruction with possible volvulus patient was seen by surgery and he was reminded for the patient to go to the OR [facility]. 09/04: Patient underwent exploratory laparotomy and lysis of adhesion for small bowel resection due to small bowel obstruction and volvulus, she is laying down about the drowsy opens her eyes response to verbal sunlight, she does follow commands appropriately, she has of NG tube in place, she is complaining of pain , she has a wound VAC in the middle of the abdomen 6/2: Patient was extubated yesterday, has been drowsy all day, NG tube in place , Lasix given for slight fluid overload, still nothing by mouth, no bowel sounds 6 last 3: Patient is awake today, more conversant, she has brought up hospice but most likely discussion was triggered that she and her has been to prior to his , on exam today noted to be more generalized edema and anasarca in the face, extremities and bilateral upper extremity and bilateral lower extremity, furosemide 40 mg IV given today, albumin low at 2.4, IV fluids decreased to 75 mL an hour, contemplating the use of TPN, will discuss with family members patient was started on popsicle which she tolerated, if this continues, patient most likely with transition to oral ensure clear in next 24 hrs 09/07, patient remains in ICU, more conversant, and less edematous, vitals are stable general surgeon is anticipating increase in oral diet in the morning, currently on ice chips and pop 09/08, patient's in ICU today, has improved significantly, and is anticipated to be transferred out today to surgical or so floor with telemetry, family at bedside, full liquid diet initiated today by surgery , and ensure clear started , patient does not have any flatus or bowel movement yet. 09/09: Patient is seen on the surgical unit. Heart rate is elevated for which Cardizem will be increased. Patient denies having any nausea. She has not passed gas. Slight increased abdominal distention from yesterday. She is tolerating diet without nausea or vomiting. Wound VAC is in place. Patient needed straight cath for urinary retention. We will plan for culture of the wound on her right lower abdomen (skin tear from tape) and Bactroban to be applied. 09/10: Heart rate improved today. US left arm is negative for DVT but limited. UA reveals patchy basilar infiltrates and pleural effusions with mild interval improvement. Miller catheter remains in place. Patient does states she passed gas today but no bowel movement. Pulse ox is 97% on 2 L nasal cannula. Plan is for discharge to [facility] tomorrow. Objective - Vital Signs Vital signs: Vital Signs Temp 98.3 F 09/10/17 07:22 Pulse 90 09/10/17 10:42 Resp 16 09/10/17 10:42 BP 114/65 09/10/17 08:48 Pulse Ox 97 09/10/17 07:38 Intake & Output 09/09/17 09/10/17 09/10/17 18:59 06:59 18:59 Intake Total 1800 830 100 Output Total 2700 975 375 Balance -900 -145 -275 Weight 58.3 kg Intake: IV 130 0.9 NaCl 30 Piperacillin-Tazobactam 3 100 .375 gm In Dextrose/Water 1 50ml.bag @ 12.5 mls/hr IVPB Q8HR [facility] Rx#: [id number] Intake, IV Titration 700 Amount Magnesium Sulfate-D5w Pmx 200 1 gm In Dextrose/Water 1 100ml.bag @ 100 mls/hr IVPB Q1H [facility] Rx#: [id number] Potassium Phosphate 10 500 mmol In Sodium Chloride 0 .9% 250 ml @ 125 mls/hr IV Q2H [facility] Rx#:[id number] Oral 1800 100 Output: Urine 2700 975 375 2-way Urethral 975 375 Other: Voiding Method Indwelling Catheter Indwelling Catheter Indwelling Catheter ABP, PAP, CO, CI - Last Documented Arterial Blood Pressure 131/47 - Exam General appearance: Present: cooperative, no acute distress - EENT Eyes: Present: anicteric sclerae, edentulous, PERRLA, dentition normal ENT: Present: NA/AT, normal oropharynx - Neck Neck: Present: normal ROM - Respiratory Respiratory: bilateral: CTA, negative: diminished, dullness - Cardiovascular Rhythm: regular Heart sounds: normal: S1, S2 - Gastrointestinal General gastrointestinal: Present: normal bowel sounds, soft - Neurologic Neurologic: Present: CNII-XII intact - Musculoskeletal Musculoskeletal: Present: generalized weakness, strength equal bilaterally - Psychiatric Psychiatric: Present: A&O x's 3, appropriate affect, intact judgment & insight - Labs CBC & Chem 7: 18 06:34 09/10/17 06:34 Labs: Abnormal Lab Results - Last 24 Hours (Table) 09/10/17 09/10/17 09/10/17 Range/Units 06:34 06:34 06:34 WBC 12.2 H (3.8-10.6) k/uL RBC 3.38 L (3.80-5.40) m/uL Hgb 10.5 L (11.4-16.0) gm/dL Hct 32.5 L (34.0-46.0) % Neutrophils # 10.6 H (1.3-7.7) k/uL Lymphocytes # 0.7 L (1.0-4.8) k/uL Sodium 135 L (137-145) mmol/L Chloride 96 L (98-107) mmol/L Carbon Dioxide 32 H (22-30) mmol/L Glucose 72 L (74-99) mg/dL Calcium 7.6 L (8.4-10.2) mg/dL Ionized Calcium Emiliana 4.3 L (4.5-5.3) mg/dL Phosphorus 2.4 L (2.5-4.5) mg/dL Microbiology - Last 24 Hours (Table) 09/09/17 16:18 Gram Stain - Preliminary Abdomen Wound Culture - Preliminary 09/03/17 16:48 Blood Culture - Final Blood No Growth after 144 hours Assessment and Plan Plan: 1. Small bowel obstruction with volvulus status post exploratory laparotomy and lysis of adhesion with small bowel resection. Continue the current management as outlined by general surgery. Continue Zosyn. 2. Fluid overload, with anasarca improved. echocardiogram showed atrial fibrillation, LV size normal, EF 55-60%, left atrium mildly dilated, aortic valve sclerosis, mild aortic stenosis, mild aortic regurgitation, moderate MR, mild TR tract ventricle systolic pressure of 35 3. CAD post AR with left heart catheterization in 3 stents placement. Patient appears to be stable at this point in time we'll monitor the patient very closely postoperatively. 4. Chronic Atrial fibrillation post permanent pacemaker placement. Resumed on digoxin 125 g daily, Cardizem 30 mg 3 times daily, currently on Lovenox.. 5. Hyperlipidemia. Continue pravastatin. 6. History of glaucoma. Continue current eyedrops. 7. History of macular degeneration. She is legally blind. 8. History of breast cancer status post left mastectomy with lymph node dissection. Currently in remission. 8. ALLERGIC rhinitis and possible asthma. Continue nebulized treatment as well as oxygen support. 10. Generalized anxiety disorder. Continue Xanax 0.25 mg at bedtime, Lexapro 10 mg daily. 11. Moderate protein calorie malnutrition, status post bowel surgery, on oral diet 12. DVT prophylaxis. Patient is on Lovenox 40 mg subcutaneously every day. 11. GI prophylaxis. Start the patient on Protonix 40 mg IV push every 24 hours. 12. Hypokalemia status post replacement 13. Discharge plan: [facility] tomorrow. Impression and plan of care have been directed as dictated by the signing physician. Cailin Mendoza nurse practitioner acting as scribe for signing physician.
--- NOTE | 2017-09-10 14:13 | P.PN ---
Subjective Progress Note Date: 09/10/17 87-year-old seen and examined hard of hearing sitting up in a chair this morning. Patient states she is passing gas but has not had a bowel movement. Dressing to surgical site dry with a prevena wound system in place. Indwelling Miller catheter in place reports no nausea vomiting tolerating full liquid diet Postop 03 of September lysis of adhesions exploratory laparotomy small bowel resection for a small bowel obstruction due to adhesions with a small bowel volvulus Objective - Vital Signs Vital signs: Vital Signs Temp 98.3 F 09/10/17 07:22 Pulse 90 09/10/17 10:42 Resp 16 09/10/17 10:42 BP 114/65 09/10/17 08:48 Pulse Ox 97 09/10/17 07:38 Intake & Output 09/09/17 09/10/17 09/10/17 18:59 06:59 18:59 Intake Total 1800 830 100 Output Total 2700 975 375 Balance -900 -145 -275 Weight 58.3 kg Intake: IV 130 0.9 NaCl 30 Piperacillin-Tazobactam 3 100 .375 gm In Dextrose/Water 1 50ml.bag @ 12.5 mls/hr IVPB Q8HR [facility] Rx#: [id number] Intake, IV Titration 700 Amount Magnesium Sulfate-D5w Pmx 200 1 gm In Dextrose/Water 1 100ml.bag @ 100 mls/hr IVPB Q1H [facility] Rx#: [id number] Potassium Phosphate 10 500 mmol In Sodium Chloride 0 .9% 250 ml @ 125 mls/hr IV Q2H [facility] Rx#:[id number] Oral 1800 100 Output: Urine 2700 975 375 2-way Urethral 975 375 Other: Voiding Method Indwelling Catheter Indwelling Catheter Indwelling Catheter ABP, PAP, CO, CI - Last Documented Arterial Blood Pressure 131/47 - Exam Physical exam Sitting up in a chair appears in no acute distress Lungs diminished at the bases no wheezing no crackles nasal cannula 2 L sats 97 % no cough noted Heart S1-S2 audible no murmur noted Abdomen pervena wound system to surgical site in place dry hypoactive bowel sounds dressing right lower quadrant dry surgical tenderness appropriate indwelling Miller catheter in place Extremities no pedal edema bilaterally 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 - Labs CBC & Chem 7: 09/10/17 06:34 09/10/17 06:34 Labs: Abnormal Lab Results - Last 24 Hours (Table) 09/10/17 09/10/17 09/10/17 Range/Units 06:34 06:34 06:34 WBC 12.2 H (3.8-10.6) k/uL RBC 3.38 L (3.80-5.40) m/uL Hgb 10.5 L (11.4-16.0) gm/dL Hct 32.5 L (34.0-46.0) % Neutrophils # 10.6 H (1.3-7.7) k/uL Lymphocytes # 0.7 L (1.0-4.8) k/uL Sodium 135 L (137-145) mmol/L Chloride 96 L (98-107) mmol/L Carbon Dioxide 32 H (22-30) mmol/L Glucose 72 L (74-99) mg/dL Calcium 7.6 L (8.4-10.2) mg/dL Ionized Calcium Emiliana 4.3 L (4.5-5.3) mg/dL Phosphorus 2.4 L (2.5-4.5) mg/dL Microbiology - Last 24 Hours (Table) 09/09/17 16:18 Gram Stain - Preliminary Abdomen Wound Culture - Preliminary 09/03/17 16:48 Blood Culture - Final Blood No Growth after 144 hours Assessment and Plan Assessment: Impression Present on admission intractable abdominal pain nausea vomiting with abdominal distention no stool suspect due to a small bowel obstruction Postop September 03 acute small bowel obstruction secondary to adhesions with volvlus Acute respiratory failure expected outcome from bowel surgery Hypotension fluid bolus given no pressors required Chronic atrial fibrillation controlled ventricular response Macular degeneration legally blind Permanent pacemaker Hypokalemia corrected resolved Essential hypertension Hearing deficit and legally blind Postop expected urinary retention suspect due to poor oral intake hypovolemia History of breast cancer breast with mastectomy Hypokalemia corrected resolved New-onset left upper extremity edematous with Doppler showing no evidence of a DVT Plan Inserted Miller catheter now PT OT when appropriate Start full diet advance as tolerated Continue postop surgical care Increase activity Pain control DVT and GI prophylaxis Further surgical recommendations pending will follow When surgically appropriate patient is being followed by the case packer for ECF placement family's request The above impression and plan of care have been discussed and directed by signing physician. Chrystal Sharma nurse practitioner acting as scribe for signing physician.
--- NOTE | 2017-09-10 15:35 | US ---
EXAMINATION TYPE: US chest DATE OF EXAM: 09/10/2017 COMPARISON: X ray on same date CLINICAL HISTORY: Markings for thoracentesis by pulmonary staff. EXAM MEASUREMENTS: Right Pleural Effusion fluid pocket: 8.3 cm Right skin to fluid thickness: 3.5 cm Left Pleural Effusion fluid pocket: 3.8 cm Left skin to fluid thickness: not marked due to lung floating within pocket Right side marked for possible thoracentesis outside the dept. Left side was not marked for possible thoracentesis outside the dept. Pulmonologists are able to review the images in the patient?s EMR. IMPRESSIONS: Bilateral pleural effusions right greater than left
[2017-09-10 16:57] LABS: Glucose,Whole Blood 110 mg/dL (75-99)
[2017-09-10 20:09] LABS: Glucose,Whole Blood 122 mg/dL (75-99)
[2017-09-10] MEDS: ALPRAZolam 0.25 MG TAB PO SCH (21:20)
[2017-09-10] MEDS: MONTELUKAST 10 MG TAB PO SCH (21:23)
[2017-09-10] MEDS: LORATADINE 10 MG TAB PO SCH (21:23)
[2017-09-10] MEDS: PRAVASTATIN SODIUM 20 MG TAB PO SCH (21:23)
[2017-09-10] MEDS: MAGNESIUM OXIDE 400 MG TAB PO SCH (21:23)
[2017-09-10] MEDS: LATANOPROST 0.005% OPHTH DROPS 2.5 ML BTL BOTH EYES SCH (21:23)
[2017-09-11 07:17] LABS: Glucose,Whole Blood 141 mg/dL (75-99)
[2017-09-11] MEDS: IPRATROPIUM-ALBUTEROL 3 ML NEB INHALATION SCH ×4 (07:23→20:34)
[2017-09-11 08:05] LABS: HGB 10.3 gm/dL (11.4-16.0); MCH 31.1 pg (25.0-35.0); MCHC 32.2 g/dL (31.0-37.0); MCV 96.7 fL (80.0-100.0); Mean Platelet Volume 7.5; Platelet Count 256 k/uL (150-450); RBC 3.31 m/uL (3.80-5.40); RDW 14.5 % (11.5-15.5); WBC 13.8 k/uL (3.8-10.6)
[2017-09-11] MEDS: SODIUM CHLORIDE 0.9% 1,000 ML IV SCH (08:05)
[2017-09-11 08:08] LABS: Ionized Calcium 4.5 mg/dL (4.5-5.3)
[2017-09-11 08:21] LABS: ALT 30 U/L (9-52); AST 19 U/L (14-36); Albumin 2.3 g/dL (3.5-5.0); Alkaline Phosphatase 70 U/L (38-126); Anion Gap 6 mmol/L; Blood Urea Nitrogen 10 mg/dL (7-17); Calcium 7.8 mg/dL (8.4-10.2); Carbon Dioxide 36 mmol/L (22-30); Chloride 94 mmol/L (98-107); Glucose 117 mg/dL (74-99); Potassium 3.7 mmol/L (3.5-5.1); Sodium 136 mmol/L (137-145); Total Bilirubin 0.5 mg/dL (0.2-1.3); Total Protein 4.6 g/dL (6.3-8.2)
--- NOTE | 2017-09-11 09:10 | P.PN ---
Subjective Progress Note Date: 09/11/17 87-year-old female seen sitting up in a chair this morning nursing reports patient had several bowel movements yesterday. Indwelling Miller catheter in place. Temp 98 white count up 13 sitting up taking a liquid diet tolerating no nausea no vomiting prevena wound system in place blood and urine cultures have been negative wound culture preliminary showed Ledy albican Postop 03 of September lysis of adhesions exploratory laparotomy small bowel resection for a small bowel obstruction due to adhesions with a small bowel volvulus Objective - Vital Signs Vital signs: Vital Signs Temp 98.4 F 09/11/17 07:58 Pulse 97 09/11/17 07:58 Resp 16 09/11/17 07:58 BP 123/65 09/11/17 07:58 Pulse Ox 96 09/11/17 07:58 Intake & Output 09/10/17 09/11/17 09/11/17 18:59 06:59 18:59 Intake Total 337 290 360 Output Total 1075 1480 Balance -738 -1190 360 Weight 58.3 kg Intake: IV 130 0.9 NaCl 80 Piperacillin-Tazobactam 3 50 .375 gm In Dextrose/Water 1 50ml.bag @ 12.5 mls/hr IVPB Q8HR [facility] Rx#: [id number] Intake, IV Titration 160 Amount Sodium Chloride 0.9% 1, 160 000 ml @ 20 mls/hr IV . Q24H [facility] Rx#:[id number] Oral 337 360 Output: Urine 1075 1480 2-way Urethral 1075 500 Other: Voiding Method Indwelling Catheter Indwelling Catheter Indwelling Catheter # Voids 1 # Bowel Movements 1 ABP, PAP, CO, CI - Last Documented Arterial Blood Pressure 131/47 - Exam Physical exam Sitting up in a chair appears in no acute distress hard of hearing taking a full liquid diet tolerating Lungs diminished at the bases no wheezing no crackles nasal cannula 2 L sats 96 % no cough noted Heart S1-S2 audible no murmur noted Abdomen pervena wound system to surgical site in place dry active bowel sounds dressing right lower quadrant dry surgical tenderness appropriate indwelling Miller catheter in place Extremities no pedal edema bilaterally 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 - Labs CBC & Chem 7: 09/11/17 06:04 09/11/17 06:04 Labs: Abnormal Lab Results - Last 24 Hours (Table) 09/10/17 09/10/17 09/10/17 Range/Units 06:34 16:54 20:06 WBC (3.8-10.6) k/uL RBC (3.80-5.40) m/uL Hgb (11.4-16.0) gm/dL Hct (34.0-46.0) % Sodium (137-145) mmol/L Chloride (98-107) mmol/L Carbon Dioxide (22-30) mmol/L Glucose (74-99) mg/dL POC Glucose (mg/dL) 110 H 122 H (75-99) mg/dL Calcium (8.4-10.2) mg/dL Phosphorus 2.4 L (2.5-4.5) mg/dL Total Protein (6.3-8.2) g/dL Albumin (3.5-5.0) g/dL 09/11/17 09/11/17 09/11/17 Range/Units 06:04 06:04 07:06 WBC 13.8 H (3.8-10.6) k/uL RBC 3.31 L (3.80-5.40) m/uL Hgb 10.3 L (11.4-16.0) gm/dL Hct 32.0 L (34.0-46.0) % Sodium 136 L (137-145) mmol/L Chloride 94 L (98-107) mmol/L Carbon Dioxide 36 H (22-30) mmol/L Glucose 117 H (74-99) mg/dL POC Glucose (mg/dL) 141 H (75-99) mg/dL Calcium 7.8 L (8.4-10.2) mg/dL Phosphorus 2.0 L (2.5-4.5) mg/dL Total Protein 4.6 L (6.3-8.2) g/dL Albumin 2.3 L (3.5-5.0) g/dL Microbiology - Last 24 Hours (Table) 09/09/17 16:18 Gram Stain - Preliminary Abdomen Wound Culture - Preliminary Ledy albicans Assessment and Plan Assessment: Impression Present on admission intractable abdominal pain nausea vomiting with abdominal distention no stool suspect due to a small bowel obstruction Postop September 03 acute small bowel obstruction secondary to adhesions with volvlus Acute respiratory failure expected outcome from bowel surgery Hypotension fluid bolus given no pressors required Chronic atrial fibrillation controlled ventricular response Macular degeneration legally blind Permanent pacemaker Hypokalemia corrected resolved Essential hypertension Hearing deficit and legally blind Postop expected urinary retention suspect due to poor oral intake hypovolemia History of breast cancer breast with mastectomy Hypokalemia corrected resolved New-onset left upper extremity edematous with Doppler showing no evidence of a DVT Plan Inserted Miller catheter now will have it removed in the ECF facility PT OT when appropriate Start full diet advance as tolerated Continue postop surgical care Increase activity Pain control DVT and GI prophylaxis The above impression and plan of care have been discussed and directed by signing physician. Chrystal Sharma nurse practitioner acting as scribe for signing physician.
[2017-09-11] MEDS: ENOXAPARIN 40 MG/0.4 ML SYRINGE SQ SCH (09:27)
[2017-09-11] MEDS: PANTOPRAZOLE 40 MG/10 ML VIAL IV SCH (09:27)
[2017-09-11] MEDS: ESCITALOPRAM 10 MG TAB PO SCH (09:28)
[2017-09-11] MEDS: POTASSIUM CHLORIDE ER 20 MEQ TAB.ER PO SCH (09:28)
[2017-09-11] MEDS: HYDROcodone/APAP 5-325MG 1 EACH TAB PO PRN ×2 (09:28→16:30)
[2017-09-11] MEDS: DORZOLAMIDE HCL 2% DROPS 10 ML BTL BOTH EYES SCH ×2 (09:28→22:08)
[2017-09-11] MEDS: prednisoLONE ACETATE 1% OPHTH DROPS 5 ML BTL LEFT EYE SCH (09:28)
[2017-09-11] MEDS: DILTIAZEM ORAL 30 MG TAB PO SCH ×3 (09:29→22:09)
[2017-09-11] MEDS: DIGOXIN 125 MCG TAB PO SCH (09:29)
[2017-09-11] MEDS: TRIAMTERENE-HCTZ 37.5-25MG 1 EACH CAP PO SCH (09:29)
[2017-09-11] MEDS: VIT A,C & E-LUTEIN-MINERALS 1 EACH TAB PO SCH (09:29)
[2017-09-11] MEDS: MUPIROCIN 2% OINT 22 GM TUBE TOPICAL SCH ×2 (09:29→22:08)
--- NOTE | 2017-09-11 09:59 | XR ---
EXAMINATION TYPE: XR chest 1V portable DATE OF EXAM: 09/11/2017 COMPARISON: 09/10/2017 HISTORY: Follow-up for pleural effusion and shortness of breath. TECHNIQUE: Single frontal view of the chest is obtained. FINDINGS: There is redemonstration of a small layering right pleural effusion and trace left pleural effusion with bibasilar associated airspace disease. Pulmonary hyperinflation is indicative of under lying COPD. No cephalization. Cardiomediastinal silhouette is partially obscured but enlarged. Dual l ead left-sided cardiac device is again present. Osseous structures display generalized demineralizati on. IMPRESSION: Similar-appearing small right and trace left pleural effusions with associated bibasilar airspace disease, likely compressive atelectasis.
[2017-09-11] MEDS: PIPERACILLIN-TAZOBACTAM 3.375 GM in DEXTROSE/WATER 1 50ML.BAG IVPB SCH ×2 (10:10→15:14)
[2017-09-11] MEDS: ONDANSETRON ODT 4 MG TAB PO SCH ×2 (10:14→15:14)
--- NOTE | 2017-09-11 10:38 | P.PN ---
Subjective Progress Note Date: 09/11/17 Principal diagnosis: Acute bowel obstruction with volvulus secondary to adhesions, status post exploratory laparotomy, postop day 6 87-year-old female patient, presented to the hospital for abdominal pain and increased nausea and vomiting and she did not have any bowel movements for the past few days. She initially presented to the ED and she was discharged home to come back with the same problem with significant abdominal pain and distention. CAT scan of the abdomen showed evidence of small bowel obstruction with volvulus and at that point the patient was seen by general surgery and the patient was taken to the operating room yesterday and she underwent expiratory laparotomy, lysis of adhesions and she was found to have a small segment of the jejunum being ischemic that was resected with primary anastomosis. The abdomen was irrigated. The fascia was closed and a wound VAC was applied. Overnight, the patient became oliguric. The patient received a total of 4 L of IV fluid boluses and maintenance fluid was maintained at 120 mL an hour. The patient did not require any pressors. This morning, the patient is still sedated with Diprivan at 50 mics per KG pigmented. The patient is an assist-control mode of ventilation at the rate of 14 tidal volume of 450 FiO2 of 40% and a PEEP of 5. The blood gases from this morning showed a pH of 7.36 with a pCO2 of 47 pO2 117. The chest x-ray from this morning shows some mild four-vessel congestion. ET tube is in a good location. The patient has a left-sided pacemaker in place. Correlation profile is within normal. White cell count is at 10.0. Hemoglobin stable at 10.9. Urinalysis suggested the possibility of an underlying infection the patient is currently on IV Zosyn. The patient is arousable. We are the process of giving her a sedation holiday and checking weaning parameters. The potassium level was low at 3.0 and the patient had a normal renal function with a creatinine of 0.6 and the patient's potassium level is being replaced per protocol. On 09/05/2017, the patient was seen in follow-up. As noted the patient is extubated. She got wean off the mechanical ventilator yesterday and she was extubated without any major difficulties. She is resting comfortably in bed. NG tube is in place. The output has been 400 mL over the past 12 hours. Minimal output from the LOLY drain. Surgical wound site is clean and the wound VAC and the wound VAC is also in place. The patient remains nothing by mouth. Hemodynamically stable. Adequate urine output. No nausea. No vomiting. No abdominal pain. No abdominal distention. Bowel sounds are hypoactive. She is pulling approximately 500 mL on the incentive spirometer. She is covered with empiric antibiotic coverage. Afebrile. No other significant events over the past 24 hours. Potassium is replaced. Renal function is also stable. On 09/06/2017, I'm seeing this patient for a follow-up. The patient is still recovering from her surgery. Her abdominal wound is dry clean and intact. NG tube is in place and output has been minimal over the past 12 hours. Bowel sounds are hypoactive. No bowel activity yet. She has a congestion in her lungs for which was given IV Lasix and she diuresed adequately. She is negative fluid balance of 7 89 mL over the past 12 hours. She did drop her potassium level that was replaced overnight. She is hemodynamically stable. Urine output is noted of 20-30 mL an hour. As for blood work, lobe is stable at 9.7. Stable renal function. Potassium was replaced and the level is up to 3.6. Blood sugar is at 128. She is on IV Zosyn as an empiric antibiotic coverage. No fever. No chills. She remains in atrial fibrillation at the rate is controlled. No articulation for now. On 09/07/2017, patient was seen on follow-up, and she seems to be doing relatively well. Still recovering from her surgery nicely, abdominal wound is dry and clean, she has some oozing from her right lower quadrant area from reaction to the tape. Nasogastric tube remains in place, bowel sounds are hypoactive, still improving with diuretics/Lasix IV push, chest x-ray continues to show by basilar atelectasis and effusions. All labs were reviewed including CBC and basic metabolic profile as well as renal profile seems to be unremarkable. On 09/08/2017, patient was seen on follow-up, patient seems to be doing well, continues to recover nicely from her surgery, relatively asymptomatic, no cough no wheezing no shortness of breath. Chest x-ray continues to show small bilateral pleural effusions, patient is responding well to diuretics, CBC is relatively unremarkable, basic metabolic profile is relatively normal, renal profile is normal. Plan to transfer the patient out of the ICU to a regular medical floor today. Patient remains in atrial fibrillation, but rate seems to be controlled. On 09/09/2017 patient seen in follow-up on the surgical floor. She appears more dyspneic at rest, and particularly with exertion. Per nursing staff patient was also noted to be more short of breath, and the lung sounds are extremely diminished at the bases, with crackles. Today's chest x-ray shows bilateral pleural effusions, slightly worsened on the left compared to previous exams. Patient remains on 2 L per nasal cannula with O2 sat 96%, afebrile, vital signs are stable, denies any chest pain, her incentive spirometry effort is 500-750, patient is legally blind, and requires assistance with her incentive spirometry. Today's labs were reviewed, WBCs 9.9, hemoglobin is 10.5. Patient had been on oral hydrochlorothiazide, we will give the patient 1 dose of Lasix, continue with her nebulized bronchodilators. Left arm seems to be more swollen, the patient has a history of left mastectomy. We will obtain ultrasound Doppler of the left upper extremity to rule out DVT. Patient is on full liquid diet, tolerating diet well, no nausea or vomiting. Mid abdominal incision with a wound VAC in place. On 09/10/2017 patient seen again in follow-up on surgical floor. Denies any dyspnea today, she remains on 2 L per nasal cannula and her O2 sat is 97%, vital signs are stable, patient is afebrile. Lung sounds reveal better air entry bilaterally, and there is some residual crackles at the left lower base. Continue encouraging incentive spirometry, yesterday patient was given a dose of IV Lasix in addition to her maintenance dose of hydrochlorothiazide, and patient diuresed, and produced 3600 cc of urine, and she is in -1045 mL fluid balance over the last 24 hours. She is tolerating full liquid diet, today's labs were reviewed. Repeat chest x-ray has been reviewed and shows patchy basilar infiltrates and pleural effusions with mild interval improvement. Doppler of left upper extremity was done, and was negative for DVT. On 09/11/2017 patient seen again in follow-up. She denies any dyspnea, was on the chest revealed a 8.3 cm oral fluid pocket on the right, and 3.8 cm pocket on the left. Patient remains on 2 L per nasal cannula with a pulse ox of 96%, hemodynamically stable, respirations are even and nonlabored. Today's labs were reviewed. Patient was given an additional dose of IV Lasix yesterday, and she is in -1928 mL fluid balance over the last 24 hours. Patient is tolerating oral diet, wound VAC still in place on the mid abdominal incision, patient is having frequent loose stools, and to receive has been ordered. Objective - Vital Signs Vital signs: Vital Signs Temp 98.4 F 09/11/17 07:58 Pulse 97 09/11/17 07:58 Resp 16 09/11/17 07:58 BP 123/65 09/11/17 07:58 Pulse Ox 96 09/11/17 07:58 Intake & Output 09/10/17 09/11/17 09/11/17 18:59 06:59 18:59 Intake Total 337 290 360 Output Total 1075 1480 Balance -738 -1190 360 Weight 58.3 kg Intake: IV 130 0.9 NaCl 80 Piperacillin-Tazobactam 3 50 .375 gm In Dextrose/Water 1 50ml.bag @ 12.5 mls/hr IVPB Q8HR [facility] Rx#: [id number] Intake, IV Titration 160 Amount Sodium Chloride 0.9% 1, 160 000 ml @ 20 mls/hr IV . Q24H [facility] Rx#:[id number] Oral 337 360 Output: Urine 1075 1480 2-way Urethral 1075 500 Other: Voiding Method Indwelling Catheter Indwelling Catheter Indwelling Catheter # Voids 1 # Bowel Movements 1 1 ABP, PAP, CO, CI - Last Documented Arterial Blood Pressure 131/47 - Exam Physical Exam: Revealed an 87-year-old female in no distress. Head: Atraumatic, normocephalic. HEENT:[Neck is supple.] [No neck masses.] [No thyromegaly.] [No JVD.] Moist mucous membranes, PERRLA, EOMI, no icterus, no thyromegaly. Chest: [Diminished lung sounds at the bases, and bibasilar crackles] Cardiac Exam: [Normal S1 and S2, no S3 gallop, no murmur.] Abdomen: [Soft, slightly tender, no megaly, no rebound, no guarding, diminished bowel sounds, minimal tenderness on deep palpation. Wound VAC seems to be intact. Skin tear noted on the right lower quadrant covered with a ABD dressing Extremities: [No clubbing, trace edema, no cyanosis.] Neurological Exam: [No focal neurologic deficit.] Psychiatric: Normal mood affect and mental status examination Lymphatics: No lymphadenopathy. - Labs CBC & Chem 7: 09/11/17 06:04 09/11/17 06:04 Labs: Abnormal Lab Results - Last 24 Hours (Table) 09/10/17 09/10/17 09/11/17 Range/Units 16:54 20:06 06:04 WBC (3.8-10.6) k/uL RBC (3.80-5.40) m/uL Hgb (11.4-16.0) gm/dL Hct (34.0-46.0) % Sodium 136 L (137-145) mmol/L Chloride 94 L (98-107) mmol/L Carbon Dioxide 36 H (22-30) mmol/L Glucose 117 H (74-99) mg/dL POC Glucose (mg/dL) 110 H 122 H (75-99) mg/dL Calcium 7.8 L (8.4-10.2) mg/dL Phosphorus 2.0 L (2.5-4.5) mg/dL Total Protein 4.6 L (6.3-8.2) g/dL Albumin 2.3 L (3.5-5.0) g/dL 09/11/17 09/11/17 Range/Units 06:04 07:06 WBC 13.8 H (3.8-10.6) k/uL RBC 3.31 L (3.80-5.40) m/uL Hgb 10.3 L (11.4-16.0) gm/dL Hct 32.0 L (34.0-46.0) % Sodium (137-145) mmol/L Chloride (98-107) mmol/L Carbon Dioxide (22-30) mmol/L Glucose (74-99) mg/dL POC Glucose (mg/dL) 141 H (75-99) mg/dL Calcium (8.4-10.2) mg/dL Phosphorus (2.5-4.5) mg/dL Total Protein (6.3-8.2) g/dL Albumin (3.5-5.0) g/dL Microbiology - Last 24 Hours (Table) 09/09/17 16:18 Gram Stain - Preliminary Abdomen Wound Culture - Preliminary Ledy albicans Assessment and Plan Plan: Assessment: 1 acute bowel obstruction/small bowel obstruction with volvulus secondary to adhesions, status post respiratory laparotomy, lysis of adhesions and small bowel obstruction. The patient is postop day #8. 2 abdominal pain secondary to above, recovered 3 acute respiratory failure, and expected outcome of bowel surgery. The patient is extubated without any major difficulties. The patient subsequently developed some pulmonary vessel congestion due to aggressive fluid resuscitation. Responding well to diuresis. On 09/09/2017 he is noted to be more dyspneic, and there is decreased aeration noted bilaterally, chest x-ray shows bilateral pleural effusions, slightly worse on the left compared to previous exams, patient will be given a dose of IV Lasix, and IV fluids will be decreased to KVO. On 09/10/2017 patient denies any dyspnea, she diuresed over 3600 mL of urine in the last 24 hours, and she is in negative fluid balance. Chest x-ray shows improvement in the appearance of bilateral pleural effusions, continue maintenance dose hydrochlorothiazide, and continue incentive spirometry. On 09/11/2017 patient is in -1928 mL fluid balance over the last 24 hours, continues on oral hydrochlorothiazide, and yesterday an additional dose of 20 mg of IV Lasix was given. Clinically patient is stable, denies any respiratory distress, denies any dyspnea, ultrasound of the chest showed 8.3 cm fluid pocket on the right, and 3.8 cm on the left 4 Hypotension, responded nicely to IV fluids and the patient did not require any pressors. Resolved. 5 coronary artery disease with previous coronary intervention and stenting 6 chronic atrial fibrillation rate is controlled for now and the patient's coagulopathy was reversed preoperatively with Kcentra. Currently she is on Lovenox 40 mg subcu for DVT prophylaxis and the patient has SCDs. 7 pacemaker insertion 8 hypertension, history of 9 glaucoma 10 macular degeneration the patient is legally blind 11 hyperlipidemia 12 hypokalemia, replace and the potassium level is 3.6 13 history of breast cancer with a previous mastectomy 14 suspected urine infection, cultures are negative Recommendation : Continue current plan of treatment, continue incentive spirometry, continue nebulized bronchodilators, increase activity as tolerated, we'll proceed with right-sided thoracentesis by Dr. Jhaveri today. I performed a history & physical examination of the patient and discussed their management with my nurse practitioner, Carina Rojas. I reviewed the nurse practitioner's note and agree with the documented findings and plan of care. Lung sounds are diminished, with bibasilar crackles. The findings and the impression was discussed with the patient. I attest to the documentation by the nurse practitioner. Time with Patient: Less than 30
[2017-09-11 11:28] LABS: Glucose,Whole Blood 136 mg/dL (75-99)
[2017-09-11] MEDS ORDERED: POTASSIUM CHLORIDE ER 20 MEQ TAB.ER PO SCH (12:00)
[2017-09-11] MEDS: SODIUM PHOSPHATE 10 MMOL in SODIUM CHLORIDE 0.9% 250 ML IVPB SCH ×2 (12:36→14:49)
[2017-09-11 12:45] LABS: Appearance,Urine Clear (Clear); Bilirubin,Urine Negative (Negative); Blood,Urine Negative (Negative); Color,Urine Yellow; Glucose,Urine (UA) Negative (Negative); Ketones,Urine 1+ (Negative); Leukocyte Esterase,Urine Negative (Negative); Mucus,Urine Rare /hpf; Nitrite,Urine Negative (Negative); PH, Urine 8.5 (5.0-8.0); Protein,Urine 1+ (Negative); RBC,Urine 1 /hpf (0-5); Specific Gravity,Urine 1.017 (1.001-1.035); Squamous Epithelial Cell,Urine <1 /hpf (0-4); Urobilinogen,Urine <2.0 mg/dL (<2.0); WBC,Urine 6 /hpf (0-5)
[2017-09-11] MEDS ORDERED: FUROSEMIDE 10 MG/ML 2 ML VIAL IV ONE (13:07)
--- NOTE | 2017-09-11 14:16 | P.PN ---
Subjective Progress Note Date: 09/11/17 This is an 87-year-old female one of Dr. Oneil,'s with a previous medical history significant for coronary artery disease status post myocardial infarction 3 with the first one Y she was at 5-year-old, post left heart catheterization with the upper continue his coronary intervention and 3 stent placement, hypertension and hypertensive cardio vascular disease, hyperlipidemia , atrial fibrillation status post permanent pacemaker, history of breast cancer in the past status post left mastectomy with lymph node dissection, history of glaucoma with left eye blindness and macular degeneration, patient was in her usual state of health about a week ago when she started to feel increased bloating in her stomach associated with increased nausea over the last 2 days she developed to have a significant abdominal pain associated with increased nausea and vomiting she has not had a bowel movement in 3 days, she was brought into the emergency department at [facility] yesterday from 12 until 6: 30 she was given some medicine that she felt better that time patient went back home and woke up today with significant abdominal pain associated with nausea and vomiting and no bowel movement she ended up coming to the ER at [facility] had a computed tomography scan of the abdomen that showed small bowel obstruction with possible volvulus patient was seen by surgery and he was reminded for the patient to go to the [facility]. 09/04: Patient underwent exploratory laparotomy and lysis of adhesion for small bowel resection due to small bowel obstruction and volvulus, she is laying down about the drowsy opens her eyes response to verbal sunlight, she does follow commands appropriately, she has of NG tube in place, she is complaining of pain , she has a wound VAC in the middle of the abdomen 6/2: Patient was extubated yesterday, has been drowsy all day, NG tube in place , Lasix given for slight fluid overload, still nothing by mouth, no bowel sounds 6 last 3: Patient is awake today, more conversant, she has brought up hospice but most likely discussion was triggered that she and her has been to prior to his , on exam today noted to be more generalized edema and anasarca in the face, extremities and bilateral upper extremity and bilateral lower extremity, furosemide 40 mg IV given today, albumin low at 2.4, IV fluids decreased to 75 mL an hour, contemplating the use of TPN, will discuss with family members patient was started on popsicle which she tolerated, if this continues, patient most likely with transition to oral ensure clear in next 24 hrs 09/07, patient remains in ICU, more conversant, and less edematous, vitals are stable general surgeon is anticipating increase in oral diet in the morning, currently on ice chips and pop 09/08, patient's in ICU today, has improved significantly, and is anticipated to be transferred out today to surgical or so floor with telemetry, family at bedside, full liquid diet initiated today by surgery , and ensure clear started , patient does not have any flatus or bowel movement yet. 09/09: Patient is seen on the surgical unit. Heart rate is elevated for which Cardizem will be increased. Patient denies having any nausea. She has not passed gas. Slight increased abdominal distention from yesterday. She is tolerating diet without nausea or vomiting. Wound VAC is in place. Patient needed straight cath for urinary retention. We will plan for culture of the wound on her right lower abdomen (skin tear from tape) and Bactroban to be applied. 09/10: Heart rate improved today. US left arm is negative for DVT but limited. UA reveals patchy basilar infiltrates and pleural effusions with mild interval improvement. Miller catheter remains in place. Patient does states she passed gas today but no bowel movement. Pulse ox is 97% on 2 L nasal cannula. Plan is for discharge to [facility] tomorrow. 09/11: Patient denies any nausea. She has had diarrhea. Stool specimen to be sent for C. diff. Surgery has ordered for urinalysis and culture. Phosphorus and potassium replaced. Heart rate has been running 110 by documentation is consistently 80-90. Plan will be to continue to monitor. No fevers. Repeat chest x-ray shows trace left pleural effusion and associated bibasilar space disease likely compressive atelectasis. Patient was ordered for 1 dose of IV push Lasix 20 mg today by pulmonary medicine. No plan for thoracentesis. Anticipate discharge to [facility] on Thursday. Objective - Vital Signs Vital signs: Vital Signs Temp 98.4 F 09/11/17 07:58 Pulse 84 09/11/17 11:29 Resp 16 09/11/17 07:58 BP 123/65 09/11/17 07:58 Pulse Ox 96 09/11/17 07:58 Intake & Output 09/10/17 09/11/17 09/11/17 18:59 06:59 18:59 Intake Total 337 290 360 Output Total 1075 1480 Balance -738 -1190 360 Weight 58.3 kg Intake: IV 130 0.9 NaCl 80 Piperacillin-Tazobactam 3 50 .375 gm In Dextrose/Water 1 50ml.bag @ 12.5 mls/hr IVPB Q8HR [facility] Rx#: [id number] Intake, IV Titration 160 Amount Sodium Chloride 0.9% 1, 160 000 ml @ 20 mls/hr IV . Q24H [facility] Rx#:[id number] Oral 337 360 Output: Urine 1075 1480 2-way Urethral 1075 500 Other: Voiding Method Indwelling Catheter Indwelling Catheter Indwelling Catheter # Voids 1 # Bowel Movements 1 1 ABP, PAP, CO, CI - Last Documented Arterial Blood Pressure 131/47 - Exam General appearance: Present: cooperative, no acute distress - EENT Eyes: Present: anicteric sclerae, edentulous, PERRLA, dentition normal ENT: Present: NA/AT, normal oropharynx - Neck Neck: Present: normal ROM - Respiratory Respiratory: bilateral: CTA, negative: diminished, dullness - Cardiovascular Rhythm: regular Heart sounds: normal: S1, S2 - Gastrointestinal General gastrointestinal: Present: normal bowel sounds, soft - Neurologic Neurologic: Present: CNII-XII intact - Musculoskeletal Musculoskeletal: Present: generalized weakness, strength equal bilaterally - Psychiatric Psychiatric: Present: A&O x's 3, appropriate affect, intact judgment & insight - Labs CBC & Chem 7: 09/11/17 06:04 09/11/17 06:04 Labs: Abnormal Lab Results - Last 24 Hours (Table) 09/10/17 09/10/17 09/11/17 Range/Units 16:54 20:06 06:04 WBC (3.8-10.6) k/uL RBC (3.80-5.40) m/uL Hgb (11.4-16.0) gm/dL Hct (34.0-46.0) % Sodium 136 L (137-145) mmol/L Chloride 94 L (98-107) mmol/L Carbon Dioxide 36 H (22-30) mmol/L Glucose 117 H (74-99) mg/dL POC Glucose (mg/dL) 110 H 122 H (75-99) mg/dL Calcium 7.8 L (8.4-10.2) mg/dL Phosphorus 2.0 L (2.5-4.5) mg/dL Total Protein 4.6 L (6.3-8.2) g/dL Albumin 2.3 L (3.5-5.0) g/dL 09/11/17 09/11/17 09/11/17 Range/Units 06:04 07:06 11:19 WBC 13.8 H (3.8-10.6) k/uL RBC 3.31 L (3.80-5.40) m/uL Hgb 10.3 L (11.4-16.0) gm/dL Hct 32.0 L (34.0-46.0) % Sodium (137-145) mmol/L Chloride (98-107) mmol/L Carbon Dioxide (22-30) mmol/L Glucose (74-99) mg/dL POC Glucose (mg/dL) 141 H 136 H (75-99) mg/dL Calcium (8.4-10.2) mg/dL Phosphorus (2.5-4.5) mg/dL Total Protein (6.3-8.2) g/dL Albumin (3.5-5.0) g/dL Microbiology - Last 24 Hours (Table) 09/09/17 16:18 Gram Stain - Preliminary Abdomen Wound Culture - Preliminary Ledy albicans Assessment and Plan Plan: 1. Small bowel obstruction with volvulus status post exploratory laparotomy and lysis of adhesion with small bowel resection. Continue the current management as outlined by general surgery. Continue Zosyn. 2. Fluid overload, with anasarca improved. Lasix dosed daily. echocardiogram showed atrial fibrillation, LV size normal, EF 55-60%, left atrium mildly dilated, aortic valve sclerosis, mild aortic stenosis, mild aortic regurgitation, moderate MR, mild TR tract ventricle systolic pressure of 35 3. CAD post ID with left heart catheterization in 3 stents placement. Patient appears to be stable at this point in time we'll monitor the patient very closely postoperatively. 4. Chronic Atrial fibrillation post permanent pacemaker placement. Resumed on digoxin 125 g daily, Cardizem 30 mg 3 times daily, currently on Lovenox.. 5. Hyperlipidemia. Continue pravastatin. 6. History of glaucoma. Continue current eyedrops. 7. History of macular degeneration. She is legally blind. 8. History of breast cancer status post left mastectomy with lymph node dissection. Currently in remission. 8. ALLERGIC rhinitis and possible asthma. Continue nebulized treatment as well as oxygen support. 10. Generalized anxiety disorder. Continue Xanax 0.25 mg at bedtime, Lexapro 10 mg daily. 11. Moderate protein calorie malnutrition, status post bowel surgery, on oral diet 12. DVT prophylaxis. Patient is on Lovenox 40 mg subcutaneously every day. 11. GI prophylaxis. Start the patient on Protonix 40 mg IV push every 24 hours. 12. Hypokalemia and hypophosphatemia status post replacement 13. Discharge plan: [place]. Impression and plan of care have been directed as dictated by the signing physician. Cailin Mendoza nurse practitioner acting as scribe for signing physician.
[2017-09-11 20:37] LABS: Glucose,Whole Blood 137 mg/dL (75-99)
[2017-09-11] MEDS: ALPRAZolam 0.25 MG TAB PO SCH (22:08)
[2017-09-11] MEDS: PRAVASTATIN SODIUM 20 MG TAB PO SCH (22:08)
[2017-09-11] MEDS: LATANOPROST 0.005% OPHTH DROPS 2.5 ML BTL BOTH EYES SCH (22:08)
[2017-09-11] MEDS: MONTELUKAST 10 MG TAB PO SCH (22:09)
[2017-09-11] MEDS: LORATADINE 10 MG TAB PO SCH (22:09)
[2017-09-11] MEDS: MAGNESIUM OXIDE 400 MG TAB PO SCH (22:09)
[2017-09-12] MEDS: PIPERACILLIN-TAZOBACTAM 3.375 GM in DEXTROSE/WATER 1 50ML.BAG IVPB SCH ×4 (01:48→23:18)
[2017-09-12] MEDS: ONDANSETRON ODT 4 MG TAB PO SCH ×4 (01:49→23:20)
[2017-09-12] MEDS: IPRATROPIUM-ALBUTEROL 3 ML NEB INHALATION SCH ×4 (07:15→21:01)
[2017-09-12 08:44] LABS: ALT 29 U/L (9-52); AST 21 U/L (14-36); Albumin 2.5 g/dL (3.5-5.0); Alkaline Phosphatase 65 U/L (38-126); Anion Gap 6 mmol/L; Blood Urea Nitrogen 11 mg/dL (7-17); Calcium 8.2 mg/dL (8.4-10.2); Carbon Dioxide 33 mmol/L (22-30); Chloride 95 mmol/L (98-107); Glucose 88 mg/dL (74-99); Potassium 3.7 mmol/L (3.5-5.1); Sodium 134 mmol/L (137-145); Total Bilirubin 0.4 mg/dL (0.2-1.3)
[2017-09-12] MEDS: ENOXAPARIN 40 MG/0.4 ML SYRINGE SQ SCH (10:35)
[2017-09-12] MEDS: DORZOLAMIDE HCL 2% DROPS 10 ML BTL BOTH EYES SCH ×2 (10:35→23:19)
[2017-09-12] MEDS: DIGOXIN 125 MCG TAB PO SCH (10:35)
[2017-09-12] MEDS: DILTIAZEM ORAL 30 MG TAB PO SCH ×3 (10:35→23:19)
[2017-09-12] MEDS: ESCITALOPRAM 10 MG TAB PO SCH (10:36)
[2017-09-12] MEDS: prednisoLONE ACETATE 1% OPHTH DROPS 5 ML BTL LEFT EYE SCH (10:36)
[2017-09-12] MEDS: POTASSIUM CHLORIDE ER 20 MEQ TAB.ER PO SCH (10:37)
[2017-09-12] MEDS: HYDROcodone/APAP 5-325MG 1 EACH TAB PO PRN ×3 (10:37→19:03)
[2017-09-12] MEDS: VIT A,C & E-LUTEIN-MINERALS 1 EACH TAB PO SCH (10:37)
[2017-09-12] MEDS: TRIAMTERENE-HCTZ 37.5-25MG 1 EACH CAP PO SCH (10:37)
--- NOTE | 2017-09-12 11:30 | P.PN ---
Subjective Progress Note Date: 09/12/17 Principal diagnosis: Small bowel obstruction Patient continued to be hemodynamic a overnight no major events reported by nursing staff patient continued to have urinary retention and required intermittent straight cath twice. Diarrhea has subsided and patient returned to be negative for C. diff patient is tolerating current diet but eating less than 25% of her meals drinking decent amount of fluid. Family at the bedside Objective - Vital Signs Vital signs: Vital Signs Temp 97.6 F 09/12/17 07:00 Pulse 89 09/12/17 07:00 Resp 16 09/12/17 07:00 BP 143/63 09/12/17 07:00 Pulse Ox 94 L 09/12/17 07:00 Intake & Output 09/11/17 09/12/17 09/12/17 18:59 06:59 18:59 Intake Total 1100 905 350 Output Total 1275 900 Balance -175 5 350 Intake: IV 50 Piperacillin-Tazobactam 3 50 .375 gm In Dextrose/Water 1 50ml.bag @ 12.5 mls/hr IVPB Q8HR [facility] Rx#: [id number] Intake, IV Titration 105 Amount Sodium Chloride 0.9% 1, 105 000 ml @ 20 mls/hr IV . Q24H [facility] Rx#:[id number] Oral 1100 750 350 Output: Urine 1275 900 2-way Urethral 275 Straight 1000 900 Other: Voiding Method Bedside Commode Diaper Indwelling Catheter # Bowel Movements 2 ABP, PAP, CO, CI - Last Documented Arterial Blood Pressure 131/47 - Exam Gen.: in stated age, no acute distress Heart: Normal S1-S2 Lungs: Clear to auscultation bilaterally Abdomen: Soft, no tenderness, positive bowel sounds in all 4 quadrant no guarding or rebound, incision seems to be clean and intact and dry Skin: No new rash Psych: Alert and oriented 2-3 Neuro: No focal deficit - Labs CBC & Chem 7: 09/11/17 06:04 09/12/17 06:53 Labs: Abnormal Lab Results - Last 24 Hours (Table) 09/11/17 09/11/17 09/11/17 Range/Units 11:19 11:55 20:22 Sodium (137-145) mmol/L Chloride (98-107) mmol/L Carbon Dioxide (22-30) mmol/L POC Glucose (mg/dL) 136 H 137 H (75-99) mg/dL Calcium (8.4-10.2) mg/dL Total Protein (6.3-8.2) g/dL Albumin (3.5-5.0) g/dL Urine pH 8.5 H (5.0-8.0) Urine Protein 1+ H (Negative) Urine Ketones 1+ H (Negative) Urine WBC 6 H (0-5) /hpf Urine Mucus Rare H (None) /hpf 09/12/17 Range/Units 06:53 Sodium 134 L (137-145) mmol/L Chloride 95 L (98-107) mmol/L Carbon Dioxide 33 H (22-30) mmol/L POC Glucose (mg/dL) (75-99) mg/dL Calcium 8.2 L (8.4-10.2) mg/dL Total Protein 5.0 L (6.3-8.2) g/dL Albumin 2.5 L (3.5-5.0) g/dL Urine pH (5.0-8.0) Urine Protein (Negative) Urine Ketones (Negative) Urine WBC (0-5) /hpf Urine Mucus (None) /hpf Microbiology - Last 24 Hours (Table) 09/09/17 16:18 Gram Stain - Final Abdomen Wound Culture - Final Ledy albicans 09/11/17 11:55 Urine Culture - Preliminary Urine,Catheterized Assessment and Plan Assessment: 1. Small bowel obstruction with volvulus status post exploratory laparotomy and lysis of adhesions with small bowel resection. 2. Moderate to severe protein calorie malnutrition. 3. Urinary retention. 4. Coronary artery disease. 5. Chronic atrial fibrillation. 6. Status post pacemaker placement. 7. Anemia. 8. History of breast cancer. 9. We will continue with bladder scan and intermittent straight cath and as needed basis discussed with the nursing staff at the bedside I would like to have physical and neck patient will therapy evaluated the patient's encourage out of bed and sit up patient in chair continue with current pain medication monitor her vital signs and repeat blood work in the morning would like to discontinue IV fluid and encourage oral intake. Discharge planning based on clinical progress
[2017-09-12] MEDS: MUPIROCIN 2% OINT 22 GM TUBE TOPICAL SCH ×2 (12:10→23:19)
[2017-09-12] MEDS: PANTOPRAZOLE 40 MG/10 ML VIAL IV SCH (12:10)
[2017-09-12] MEDS: SODIUM CHLORIDE 0.9% 1,000 ML IV SCH (12:21)
--- NOTE | 2017-09-12 12:45 | P.PN ---
Subjective Progress Note Date: 09/12/17 Principal diagnosis: Small bowel obstruction Patient complaining of some lower abdominal pain today. Per the family she is been having issues with urinary retention. When she had a Miller catheter placed she had resolution of her pain. Today she was able to finally use the commode and her pain did improve. Denies nausea or vomiting. On a regular diet although appetite diminished. No CBC drawn today. Objective - Vital Signs Vital signs: Vital Signs Temp 97.6 F 09/12/17 07:00 Pulse 99 09/12/17 08:00 Resp 16 09/12/17 08:00 BP 143/63 09/12/17 07:00 Pulse Ox 94 L 09/12/17 07:00 Intake & Output 09/11/17 09/12/17 09/12/17 18:59 06:59 18:59 Intake Total 1100 905 700 Output Total 1275 900 300 Balance -175 5 400 Weight 58.3 kg Intake: IV 50 Piperacillin-Tazobactam 3 50 .375 gm In Dextrose/Water 1 50ml.bag @ 12.5 mls/hr IVPB Q8HR [facility] Rx#: [id number] Intake, IV Titration 105 Amount Sodium Chloride 0.9% 1, 105 000 ml @ 20 mls/hr IV . Q24H [facility] Rx#:[id number] Oral 1100 750 700 Output: Urine 1275 900 300 2-way Urethral 275 Straight 1000 900 Other: Voiding Method Bedside Commode Diaper Diaper Indwelling Catheter Indwelling Catheter # Voids 1 # Bowel Movements 2 ABP, PAP, CO, CI - Last Documented Arterial Blood Pressure 131/47 - Exam Abdomen: Soft, mild distention, mild incisional tenderness, incision clean and dry, tape blister right lower quadrant - Labs CBC & Chem 7: 09/11/17 06:04 09/12/17 06:53 Labs: Abnormal Lab Results - Last 24 Hours (Table) 09/11/17 09/11/17 09/12/17 Range/Units 11:55 20:22 06:53 Sodium 134 L (137-145) mmol/L Chloride 95 L (98-107) mmol/L Carbon Dioxide 33 H (22-30) mmol/L POC Glucose (mg/dL) 137 H (75-99) mg/dL Calcium 8.2 L (8.4-10.2) mg/dL Total Protein 5.0 L (6.3-8.2) g/dL Albumin 2.5 L (3.5-5.0) g/dL Urine pH 8.5 H (5.0-8.0) Urine Protein 1+ H (Negative) Urine Ketones 1+ H (Negative) Urine WBC 6 H (0-5) /hpf Urine Mucus Rare H (None) /hpf Microbiology - Last 24 Hours (Table) 09/09/17 16:18 Gram Stain - Final Abdomen Wound Culture - Final Ledy albicans 09/11/17 11:55 Urine Culture - Preliminary Urine,Catheterized Assessment and Plan (1) Small bowel obstruction Narrative/Plan: Continue diet as tolerated. Increase activity. Monitor for urinary retention. Plans for transfer to [facility] on Thursday. Check CBC tomorrow. Current Visit: Yes Status: Acute Code(s): K56.609 - UNSP INTESTNL OBST, UNSP TO PARTIAL VERSUS COMPLETE OBST SNOMED Code(s): 231290290
--- NOTE | 2017-09-12 14:02 | P.PN ---
Subjective Progress Note Date: 09/12/17 Principal diagnosis: Small bowel obstruction with adhesions and will feel less. Status post exploratory laparotomy with lysis of adhesions and small bowel resection. 87-year-old female patient, presented to the hospital for abdominal pain and increased nausea and vomiting and she did not have any bowel movements for the past few days. She initially presented to the ED and she was discharged home to come back with the same problem with significant abdominal pain and distention. CAT scan of the abdomen showed evidence of small bowel obstruction with volvulus and at that point the patient was seen by general surgery and the patient was taken to the operating room yesterday and she underwent expiratory laparotomy, lysis of adhesions and she was found to have a small segment of the jejunum being ischemic that was resected with primary anastomosis. The abdomen was irrigated. The fascia was closed and a wound VAC was applied. Overnight, the patient became oliguric. The patient received a total of 4 L of IV fluid boluses and maintenance fluid was maintained at 120 mL an hour. The patient did not require any pressors. This morning, the patient is still sedated with Diprivan at 50 mics per KG pigmented. The patient is an assist-control mode of ventilation at the rate of 14 tidal volume of 450 FiO2 of 40% and a PEEP of 5. The blood gases from this morning showed a pH of 7.36 with a pCO2 of 47 pO2 117. The chest x-ray from this morning shows some mild four-vessel congestion. ET tube is in a good location. The patient has a left-sided pacemaker in place. Correlation profile is within normal. White cell count is at 10.0. Hemoglobin stable at 10.9. Urinalysis suggested the possibility of an underlying infection the patient is currently on IV Zosyn. The patient is arousable. We are the process of giving her a sedation holiday and checking weaning parameters. The potassium level was low at 3.0 and the patient had a normal renal function with a creatinine of 0.6 and the patient's potassium level is being replaced per protocol. On 09/05/2017, the patient was seen in follow-up. As noted the patient is extubated. She got wean off the mechanical ventilator yesterday and she was extubated without any major difficulties. She is resting comfortably in bed. NG tube is in place. The output has been 400 mL over the past 12 hours. Minimal output from the LOLY drain. Surgical wound site is clean and the wound VAC and the wound VAC is also in place. The patient remains nothing by mouth. Hemodynamically stable. Adequate urine output. No nausea. No vomiting. No abdominal pain. No abdominal distention. Bowel sounds are hypoactive. She is pulling approximately 500 mL on the incentive spirometer. She is covered with empiric antibiotic coverage. Afebrile. No other significant events over the past 24 hours. Potassium is replaced. Renal function is also stable. On 09/06/2017, I'm seeing this patient for a follow-up. The patient is still recovering from her surgery. Her abdominal wound is dry clean and intact. NG tube is in place and output has been minimal over the past 12 hours. Bowel sounds are hypoactive. No bowel activity yet. She has a congestion in her lungs for which was given IV Lasix and she diuresed adequately. She is negative fluid balance of 7 89 mL over the past 12 hours. She did drop her potassium level that was replaced overnight. She is hemodynamically stable. Urine output is noted of 20-30 mL an hour. As for blood work, lobe is stable at 9.7. Stable renal function. Potassium was replaced and the level is up to 3.6. Blood sugar is at 128. She is on IV Zosyn as an empiric antibiotic coverage. No fever. No chills. She remains in atrial fibrillation at the rate is controlled. No articulation for now. On 09/07/2017, patient was seen on follow-up, and she seems to be doing relatively well. Still recovering from her surgery nicely, abdominal wound is dry and clean, she has some oozing from her right lower quadrant area from reaction to the tape. Nasogastric tube remains in place, bowel sounds are hypoactive, still improving with diuretics/Lasix IV push, chest x-ray continues to show by basilar atelectasis and effusions. All labs were reviewed including CBC and basic metabolic profile as well as renal profile seems to be unremarkable. On 09/08/2017, patient was seen on follow-up, patient seems to be doing well, continues to recover nicely from her surgery, relatively asymptomatic, no cough no wheezing no shortness of breath. Chest x-ray continues to show small bilateral pleural effusions, patient is responding well to diuretics, CBC is relatively unremarkable, basic metabolic profile is relatively normal, renal profile is normal. Plan to transfer the patient out of the ICU to a regular medical floor today. Patient remains in atrial fibrillation, but rate seems to be controlled. On 09/09/2017 patient seen in follow-up on the surgical floor. She appears more dyspneic at rest, and particularly with exertion. Per nursing staff patient was also noted to be more short of breath, and the lung sounds are extremely diminished at the bases, with crackles. Today's chest x-ray shows bilateral pleural effusions, slightly worsened on the left compared to previous exams. Patient remains on 2 L per nasal cannula with O2 sat 96%, afebrile, vital signs are stable, denies any chest pain, her incentive spirometry effort is 500-750, patient is legally blind, and requires assistance with her incentive spirometry. Today's labs were reviewed, WBCs 9.9, hemoglobin is 10.5. Patient had been on oral hydrochlorothiazide, we will give the patient 1 dose of Lasix, continue with her nebulized bronchodilators. Left arm seems to be more swollen, the patient has a history of left mastectomy. We will obtain ultrasound Doppler of the left upper extremity to rule out DVT. Patient is on full liquid diet, tolerating diet well, no nausea or vomiting. Mid abdominal incision with a wound VAC in place. On 09/10/2017 patient seen again in follow-up on surgical floor. Denies any dyspnea today, she remains on 2 L per nasal cannula and her O2 sat is 97%, vital signs are stable, patient is afebrile. Lung sounds reveal better air entry bilaterally, and there is some residual crackles at the left lower base. Continue encouraging incentive spirometry, yesterday patient was given a dose of IV Lasix in addition to her maintenance dose of hydrochlorothiazide, and patient diuresed, and produced 3600 cc of urine, and she is in -1045 mL fluid balance over the last 24 hours. She is tolerating full liquid diet, today's labs were reviewed. Repeat chest x-ray has been reviewed and shows patchy basilar infiltrates and pleural effusions with mild interval improvement. Doppler of left upper extremity was done, and was negative for DVT. On 09/11/2017 patient seen again in follow-up. She denies any dyspnea, was on the chest revealed a 8.3 cm oral fluid pocket on the right, and 3.8 cm pocket on the left. Patient remains on 2 L per nasal cannula with a pulse ox of 96%, hemodynamically stable, respirations are even and nonlabored. Today's labs were reviewed. Patient was given an additional dose of IV Lasix yesterday, and she is in -1928 mL fluid balance over the last 24 hours. Patient is tolerating oral diet, wound VAC still in place on the mid abdominal incision, patient is having frequent loose stools, and to receive has been ordered. The patient is seen again today 09/12/2017 in follow-up on the surgical floor. She is currently sitting up in a chair at the bedside. She is awake and alert in no acute distress. She did have some issues with urinary retention and lower abdominal discomfort has resolved. She is tolerating her diet. She denies any worsening shortness of breath, cough or congestion. She is encouraged regarding the increased use of the incentive spirometer. Currently maintaining O2 saturations in the 90s on 1 L/m per nasal cannula. She's been afebrile. Hemodynamically stable. Remains in a negative balance. Weight 58.3 kg. Objective - Vital Signs Vital signs: Vital Signs Temp 97.6 F 09/12/17 07:00 Pulse 99 09/12/17 08:00 Resp 16 09/12/17 08:00 BP 143/63 09/12/17 07:00 Pulse Ox 94 L 09/12/17 07:00 Intake & Output 09/11/17 09/12/17 09/12/17 18:59 06:59 18:59 Intake Total 1100 905 700 Output Total 1275 900 300 Balance -175 5 400 Weight 58.3 kg Intake: IV 50 Piperacillin-Tazobactam 3 50 .375 gm In Dextrose/Water 1 50ml.bag @ 12.5 mls/hr IVPB Q8HR [facility] Rx#: [id number] Intake, IV Titration 105 Amount Sodium Chloride 0.9% 1, 105 000 ml @ 20 mls/hr IV . Q24H [facility] Rx#:[id number] Oral 1100 750 700 Output: Urine 1275 900 300 2-way Urethral 275 Straight 1000 900 Other: Voiding Method Bedside Commode Diaper Diaper Indwelling Catheter Indwelling Catheter # Voids 1 # Bowel Movements 2 ABP, PAP, CO, CI - Last Documented Arterial Blood Pressure 131/47 - Exam - Exam Physical Exam: Revealed an 87-year-old female in no distress. Head: Atraumatic, normocephalic. HEENT:[Neck is supple.] [No neck masses.] [No thyromegaly.] [No JVD.] Moist mucous membranes, PERRLA, EOMI, no icterus, no thyromegaly. Chest: [Diminished lung sounds at the bases, and bibasilar crackles] Cardiac Exam: [Normal S1 and S2, no S3 gallop, no murmur.] Abdomen: [Soft, slightly tender, no megaly, no rebound, no guarding, diminished bowel sounds, minimal tenderness on deep palpation. Wound VAC seems to be intact. Skin tear noted on the right lower quadrant covered with a ABD dressing Extremities: [No clubbing, trace edema, no cyanosis.] Neurological Exam: [No focal neurologic deficit.] Psychiatric: Normal mood affect and mental status examination Lymphatics: No lymphadenopathy. - Labs CBC & Chem 7: 09/11/17 06:04 09/12/17 06:53 Labs: Abnormal Lab Results - Last 24 Hours (Table) 09/11/17 09/12/17 Range/Units 20:22 06:53 Sodium 134 L (137-145) mmol/L Chloride 95 L (98-107) mmol/L Carbon Dioxide 33 H (22-30) mmol/L POC Glucose (mg/dL) 137 H (75-99) mg/dL Calcium 8.2 L (8.4-10.2) mg/dL Total Protein 5.0 L (6.3-8.2) g/dL Albumin 2.5 L (3.5-5.0) g/dL Microbiology - Last 24 Hours (Table) 09/11/17 11:55 Urine Culture - Final Urine,Catheterized 09/09/17 16:18 Gram Stain - Final Abdomen Wound Culture - Final Ledy albicans Assessment and Plan Assessment: Assessment: 1 acute bowel obstruction/small bowel obstruction with volvulus secondary to adhesions, status post respiratory laparotomy, lysis of adhesions and small bowel obstruction. 2 abdominal pain secondary to above, recovered 3 acute respiratory failure, and expected outcome of bowel surgery. The patient is extubated without any major difficulties. The patient subsequently developed some pulmonary vessel congestion due to aggressive fluid resuscitation. Responding well to diuresis. Oxygen currently at 1 L/m maintaining good O2 saturations in the 90s 4 Hypotension, responded nicely to IV fluids and the patient did not require any pressors. Resolved. 5 coronary artery disease with previous coronary intervention and stenting 6 chronic atrial fibrillation rate is controlled for now and the patient's coagulopathy was reversed preoperatively with Kcentra. Currently she is on Lovenox 40 mg subcu for DVT prophylaxis and the patient has SCDs. 7 pacemaker insertion 8 hypertension, history of 9 glaucoma 10 macular degeneration the patient is legally blind 11 hyperlipidemia 12 hypokalemia, replace and the potassium level is 3.7 13 history of breast cancer with a previous mastectomy 14 suspected urine infection, cultures are negative Recommendation : The patient was seen and evaluated by Dr. Jhaveri. She is currently stable from the pulmonary and critical care standpoint. She is currently up in a chair at the bedside. Maintaining good O2 saturations in the upper 90s on 1 L per nasal cannula. Working well with the incentive spirometer. We will increase her activity as tolerated. The plan is for subacute rehabilitation on Thursday. We' ll continue to follow. I, the cosigning physician, performed a history & physical examination of the patient. Lungs sounds with few scattered rhonchi. Maintaining good O2 saturations in the 90s on 1 L/m per nasal cannula. I discussed the assessment and plan of care with my nurse practitioner, Aliya Palacios. I attest to the above note as dictated by her.
[2017-09-12 20:05] LABS: Glucose,Whole Blood 127 mg/dL (75-99)
[2017-09-12] MEDS: LATANOPROST 0.005% OPHTH DROPS 2.5 ML BTL BOTH EYES SCH (23:19)
[2017-09-12] MEDS: MAGNESIUM OXIDE 400 MG TAB PO SCH (23:19)
[2017-09-12] MEDS: MONTELUKAST 10 MG TAB PO SCH (23:19)
[2017-09-12] MEDS: LORATADINE 10 MG TAB PO SCH (23:20)
[2017-09-12] MEDS: ALPRAZolam 0.25 MG TAB PO SCH (23:20)
[2017-09-12] MEDS: PRAVASTATIN SODIUM 20 MG TAB PO SCH (23:20)
[2017-09-13] MEDS: IPRATROPIUM-ALBUTEROL 3 ML NEB INHALATION SCH ×4 (07:20→19:39)
[2017-09-13 07:24] LABS: Glucose,Whole Blood 101 mg/dL (75-99)
[2017-09-13 07:36] LABS: Basophils % (A) 0 %; Eosinophils # (A) 0.2 k/uL (0-0.7); Eosinophils % (A) 2 %; HCT 34.5 % (34.0-46.0); HGB 11.1 gm/dL (11.4-16.0); Hypochromasia Slight; Lymphocytes # (A) 0.9 k/uL (1.0-4.8); Lymphocytes % (A) 8 %; MCH 31.7 pg (25.0-35.0); MCV 98.9 fL (80.0-100.0); Mean Platelet Volume 7.3; Monocytes # (A) 0.5 k/uL (0-1.0); Monocytes % (A) 5 %; Neutrophils # (A) 9.5 k/uL (1.3-7.7); Neutrophils % (A) 84 %; Platelet Count 322 k/uL (150-450); RBC 3.49 m/uL (3.80-5.40); RDW 14.6 % (11.5-15.5); WBC 11.3 k/uL (3.8-10.6)
--- NOTE | 2017-09-13 07:56 | P.PN ---
Subjective Progress Note Date: 09/13/17 Principal diagnosis: Small bowel obstruction patient has no new complaints. She states that she has no abdominal pain presently. She says she was able to void last night spontaneously. White blood cell count 11 which is down from 13. Objective - Vital Signs Vital signs: Vital Signs Temp 97.6 F 09/13/17 01:26 Pulse 80 09/13/17 07:30 Resp 16 09/13/17 01:26 BP 107/64 09/13/17 01:26 Pulse Ox 97 09/13/17 01:26 Intake & Output 09/12/17 09/13/17 09/13/17 18:59 06:59 18:59 Intake Total 1050 525 Output Total 600 620 Balance 450 -95 Weight 58.3 kg Intake: IV 50 Piperacillin-Tazobactam 3 50 .375 gm In Dextrose/Water 1 50ml.bag @ 12.5 mls/hr IVPB Q8HR [facility] Rx#: [id number] Intake, IV Titration 150 Amount Sodium Chloride 0.9% 1, 150 000 ml @ 20 mls/hr IV . Q24H [facility] Rx#:[id number] Oral 1050 325 Output: Urine 600 620 Other: Voiding Method Bedside Commode Bedside Commode # Voids 1 2 # Bowel Movements 0 ABP, PAP, CO, CI - Last Documented Arterial Blood Pressure 131/47 - Exam abdomen soft, minimal distention, nontender, incision clean and dry - Labs CBC & Chem 7: 09/13/17 07:04 09/12/17 06:53 Labs: Abnormal Lab Results - Last 24 Hours (Table) 09/12/17 09/12/17 09/13/17 Range/Units 06:53 20:03 07:04 WBC 11.3 H (3.8-10.6) k/uL RBC 3.49 L (3.80-5.40) m/uL Hgb 11.1 L (11.4-16.0) gm/dL Neutrophils # 9.5 H (1.3-7.7) k/uL Lymphocytes # 0.9 L (1.0-4.8) k/uL Sodium 134 L (137-145) mmol/L Chloride 95 L (98-107) mmol/L Carbon Dioxide 33 H (22-30) mmol/L POC Glucose (mg/dL) 127 H (75-99) mg/dL Calcium 8.2 L (8.4-10.2) mg/dL Total Protein 5.0 L (6.3-8.2) g/dL Albumin 2.5 L (3.5-5.0) g/dL 09/13/17 Range/Units 07:08 WBC (3.8-10.6) k/uL RBC (3.80-5.40) m/uL Hgb (11.4-16.0) gm/dL Neutrophils # (1.3-7.7) k/uL Lymphocytes # (1.0-4.8) k/uL Sodium (137-145) mmol/L Chloride (98-107) mmol/L Carbon Dioxide (22-30) mmol/L POC Glucose (mg/dL) 101 H (75-99) mg/dL Calcium (8.4-10.2) mg/dL Total Protein (6.3-8.2) g/dL Albumin (3.5-5.0) g/dL Microbiology - Last 24 Hours (Table) 09/11/17 11:55 Urine Culture - Final Urine,Catheterized Assessment and Plan (1) Small bowel obstruction Narrative/Plan: continue physical therapy. Continue diet as tolerated. Plan transfer to rehab tomorrow. Current Visit: Yes Status: Acute Code(s): K56.609 - UNSP INTESTNL OBST, UNSP TO PARTIAL VERSUS COMPLETE OBST SNOMED Code(s): 834574135
[2017-09-13 08:01] LABS: ALT 28 U/L (9-52); AST 24 U/L (14-36); Albumin 2.6 g/dL (3.5-5.0); Alkaline Phosphatase 80 U/L (38-126); Anion Gap 6 mmol/L; Blood Urea Nitrogen 12 mg/dL (7-17); Calcium 8.7 mg/dL (8.4-10.2); Carbon Dioxide 35 mmol/L (22-30); Chloride 94 mmol/L (98-107); Glucose 95 mg/dL (74-99); Phosphorus 3.1 mg/dL (2.5-4.5); Potassium 4.4 mmol/L (3.5-5.1); Sodium 135 mmol/L (137-145); Total Bilirubin 0.3 mg/dL (0.2-1.3); Total Protein 5.4 g/dL (6.3-8.2)
[2017-09-13] MEDS: VIT A,C & E-LUTEIN-MINERALS 1 EACH TAB PO SCH (09:32)
[2017-09-13] MEDS: DILTIAZEM ORAL 30 MG TAB PO SCH ×2 (09:32→18:23)
[2017-09-13] MEDS: ENOXAPARIN 40 MG/0.4 ML SYRINGE SQ SCH (09:32)
[2017-09-13] MEDS: ESCITALOPRAM 10 MG TAB PO SCH (09:32)
[2017-09-13] MEDS: TRIAMTERENE-HCTZ 37.5-25MG 1 EACH CAP PO SCH (09:32)
[2017-09-13] MEDS: POTASSIUM CHLORIDE ER 20 MEQ TAB.ER PO SCH (09:32)
[2017-09-13] MEDS: MUPIROCIN 2% OINT 22 GM TUBE TOPICAL SCH (09:33)
[2017-09-13] MEDS: DORZOLAMIDE HCL 2% DROPS 10 ML BTL BOTH EYES SCH (09:33)
[2017-09-13] MEDS: PANTOPRAZOLE 40 MG/10 ML VIAL IV SCH (09:33)
[2017-09-13] MEDS: prednisoLONE ACETATE 1% OPHTH DROPS 5 ML BTL LEFT EYE SCH (09:33)
[2017-09-13] MEDS: ONDANSETRON ODT 4 MG TAB PO SCH ×2 (09:34→17:36)
[2017-09-13] MEDS: DIGOXIN 125 MCG TAB PO SCH (09:35)
[2017-09-13] MEDS: PIPERACILLIN-TAZOBACTAM 3.375 GM in DEXTROSE/WATER 1 50ML.BAG IVPB SCH ×2 (10:53→18:21)
[2017-09-13] MEDS: HYDROcodone/APAP 5-325MG 1 EACH TAB PO PRN (13:11)
--- NOTE | 2017-09-13 15:39 | P.PN ---
Subjective Progress Note Date: 09/13/17 Principal diagnosis: Acute bowel obstruction with volvulus secondary to adhesions, status post exploratory laparotomy. Postoperative day #7 87-year-old female patient, presented to the hospital for abdominal pain and increased nausea and vomiting and she did not have any bowel movements for the past few days. She initially presented to the ED and she was discharged home to come back with the same problem with significant abdominal pain and distention. CAT scan of the abdomen showed evidence of small bowel obstruction with volvulus and at that point the patient was seen by general surgery and the patient was taken to the operating room yesterday and she underwent expiratory laparotomy, lysis of adhesions and she was found to have a small segment of the jejunum being ischemic that was resected with primary anastomosis. The abdomen was irrigated. The fascia was closed and a wound VAC was applied. Overnight, the patient became oliguric. The patient received a total of 4 L of IV fluid boluses and maintenance fluid was maintained at 120 mL an hour. The patient did not require any pressors. This morning, the patient is still sedated with Diprivan at 50 mics per KG pigmented. The patient is an assist-control mode of ventilation at the rate of 14 tidal volume of 450 FiO2 of 40% and a PEEP of 5. The blood gases from this morning showed a pH of 7.36 with a pCO2 of 47 pO2 117. The chest x-ray from this morning shows some mild four-vessel congestion. ET tube is in a good location. The patient has a left-sided pacemaker in place. Correlation profile is within normal. White cell count is at 10.0. Hemoglobin stable at 10.9. Urinalysis suggested the possibility of an underlying infection the patient is currently on IV Zosyn. The patient is arousable. We are the process of giving her a sedation holiday and checking weaning parameters. The potassium level was low at 3.0 and the patient had a normal renal function with a creatinine of 0.6 and the patient's potassium level is being replaced per protocol. On 09/05/2017, the patient was seen in follow-up. As noted the patient is extubated. She got wean off the mechanical ventilator yesterday and she was extubated without any major difficulties. She is resting comfortably in bed. NG tube is in place. The output has been 400 mL over the past 12 hours. Minimal output from the LOLY drain. Surgical wound site is clean and the wound VAC and the wound VAC is also in place. The patient remains nothing by mouth. Hemodynamically stable. Adequate urine output. No nausea. No vomiting. No abdominal pain. No abdominal distention. Bowel sounds are hypoactive. She is pulling approximately 500 mL on the incentive spirometer. She is covered with empiric antibiotic coverage. Afebrile. No other significant events over the past 24 hours. Potassium is replaced. Renal function is also stable. On 09/06/2017, I'm seeing this patient for a follow-up. The patient is still recovering from her surgery. Her abdominal wound is dry clean and intact. NG tube is in place and output has been minimal over the past 12 hours. Bowel sounds are hypoactive. No bowel activity yet. She has a congestion in her lungs for which was given IV Lasix and she diuresed adequately. She is negative fluid balance of 7 89 mL over the past 12 hours. She did drop her potassium level that was replaced overnight. She is hemodynamically stable. Urine output is noted of 20-30 mL an hour. As for blood work, lobe is stable at 9.7. Stable renal function. Potassium was replaced and the level is up to 3.6. Blood sugar is at 128. She is on IV Zosyn as an empiric antibiotic coverage. No fever. No chills. She remains in atrial fibrillation at the rate is controlled. No articulation for now. On 09/07/2017, patient was seen on follow-up, and she seems to be doing relatively well. Still recovering from her surgery nicely, abdominal wound is dry and clean, she has some oozing from her right lower quadrant area from reaction to the tape. Nasogastric tube remains in place, bowel sounds are hypoactive, still improving with diuretics/Lasix IV push, chest x-ray continues to show by basilar atelectasis and effusions. All labs were reviewed including CBC and basic metabolic profile as well as renal profile seems to be unremarkable. On 09/08/2017, patient was seen on follow-up, patient seems to be doing well, continues to recover nicely from her surgery, relatively asymptomatic, no cough no wheezing no shortness of breath. Chest x-ray continues to show small bilateral pleural effusions, patient is responding well to diuretics, CBC is relatively unremarkable, basic metabolic profile is relatively normal, renal profile is normal. Plan to transfer the patient out of the ICU to a regular medical floor today. Patient remains in atrial fibrillation, but rate seems to be controlled. The patient is seen again today 09/12/2017 in follow-up on the surgical floor. She is currently sitting up in a chair at the bedside. She is awake and alert in no acute distress. She did have some issues with urinary retention and lower abdominal discomfort has resolved. She is tolerating her diet. She denies any worsening shortness of breath, cough or congestion. She is encouraged regarding the increased use of the incentive spirometer. Currently maintaining O2 saturations in the 90s on 1 L/m per nasal cannula. She's been afebrile. Hemodynamically stable. Remains in a negative balance. Weight 58.3 kg. Reevaluated today on 09/13/2017, patient is sitting in a chair at bedside, doing well, relatively asymptomatic, denies any cough wheezing or shortness of breath , had some minimal cramps earlier today involving the left foot but resolved since. CBC is relatively normal electrodes are normal bicarb is 35 BUN is 12 creatinine 0.69. Patient remains on diuretics. Objective - Vital Signs Vital signs: Vital Signs Temp 97.2 F L 09/13/17 08:17 Pulse 84 09/13/17 11:24 Resp 18 09/13/17 08:17 BP 124/60 09/13/17 08:17 Pulse Ox 97 09/13/17 08:17 Intake & Output 09/12/17 09/13/17 09/13/17 18:59 06:59 18:59 Intake Total 1050 525 Output Total 600 620 Balance 450 -95 Weight 58.3 kg Intake: IV 50 Piperacillin-Tazobactam 3 50 .375 gm In Dextrose/Water 1 50ml.bag @ 12.5 mls/hr IVPB Q8HR [facility] Rx#: [id number] Intake, IV Titration 150 Amount Sodium Chloride 0.9% 1, 150 000 ml @ 20 mls/hr IV . Q24H [facility] Rx#:[id number] Oral 1050 325 Output: Urine 600 620 Other: Voiding Method Bedside Commode Bedside Commode Bedside Commode # Voids 1 2 1 # Bowel Movements 0 1 ABP, PAP, CO, CI - Last Documented Arterial Blood Pressure 131/47 - Exam Physical Exam: Revealed an 87-year-old female in no distress. Head: Atraumatic, normocephalic. HEENT:[Neck is supple.] [No neck masses.] [No thyromegaly.] [No JVD.] Moist mucous membranes, PERRLA, EOMI, no icterus, no thyromegaly. Chest: [Clear throughout, no crackles, no rhonchi, no wheezes.] Cardiac Exam: [Normal S1 and S2, no S3 gallop, no murmur.] Abdomen: [Soft, slightly tender, no megaly, no rebound, no guarding, diminished bowel sounds, minimal tenderness on deep palpation. Minimal oozing of serous drainage noted in the right lower quadrant area from reaction to tape. Wound VAC seems to be intact. Extremities: [No clubbing, trace edema, no cyanosis.] Neurological Exam: [No focal neurologic deficit.] Psychiatric: Normal mood affect and mental status examination Lymphatics: No lymphadenopathy. - Labs CBC & Chem 7: 09/13/17 07:04 09/13/17 07:04 Labs: Abnormal Lab Results - Last 24 Hours (Table) 09/12/17 09/13/17 09/13/17 Range/Units 20:03 07:04 07:04 WBC 11.3 H (3.8-10.6) k/uL RBC 3.49 L (3.80-5.40) m/uL Hgb 11.1 L (11.4-16.0) gm/dL Neutrophils # 9.5 H (1.3-7.7) k/uL Lymphocytes # 0.9 L (1.0-4.8) k/uL Sodium 135 L (137-145) mmol/L Chloride 94 L (98-107) mmol/L Carbon Dioxide 35 H (22-30) mmol/L POC Glucose (mg/dL) 127 H (75-99) mg/dL Total Protein 5.4 L (6.3-8.2) g/dL Albumin 2.6 L (3.5-5.0) g/dL 09/13/17 Range/Units 07:08 WBC (3.8-10.6) k/uL RBC (3.80-5.40) m/uL Hgb (11.4-16.0) gm/dL Neutrophils # (1.3-7.7) k/uL Lymphocytes # (1.0-4.8) k/uL Sodium (137-145) mmol/L Chloride (98-107) mmol/L Carbon Dioxide (22-30) mmol/L POC Glucose (mg/dL) 101 H (75-99) mg/dL Total Protein (6.3-8.2) g/dL Albumin (3.5-5.0) g/dL Microbiology - Last 24 Hours (Table) 09/11/17 11:55 Urine Culture - Final Urine,Catheterized Assessment and Plan Assessment: 1 acute bowel obstruction/small bowel obstruction with volvulus secondary to adhesions, status post respiratory laparotomy, lysis of adhesions and small bowel obstruction. Postoperative day #7 2 abdominal pain secondary to above, recovered 3 acute respiratory failure, and expected outcome of bowel surgery. The patient is extubated without any major difficulties. The patient subsequently developed some pulmonary vessel congestion due to aggressive fluid resuscitation. Responding well to diuresis. Oxygen currently at 1 L/m maintaining good O2 saturations in the 90s 4 Hypotension, responded nicely to IV fluids and the patient did not require any pressors. Resolved. 5 coronary artery disease with previous coronary intervention and stenting 6 chronic atrial fibrillation rate is controlled for now and the patient's coagulopathy was reversed preoperatively with Kcentra. Currently she is on Lovenox 40 mg subcu for DVT prophylaxis and the patient has SCDs. 7 pacemaker insertion 8 hypertension, history of 9 glaucoma 10 macular degeneration the patient is legally blind 11 hyperlipidemia 12 hypokalemia, replace and the potassium level is 3.7 13 history of breast cancer with a previous mastectomy Recommendation: Continue present supportive care measures, continue incentive spirometry, follow-up chest x-ray in a.m., and consider discharge planning to a rehab facility in the next 24 hours. Time with Patient: Less than 30
--- NOTE | 2017-09-13 16:21 | P.PN ---
Subjective Progress Note Date: 09/13/17 Principal diagnosis: Small bowel obstruction Patient seems to be improving daughter at the bedside saying that her mother is feeling better patient is hard of hearing but denying chest pain shortness breath nausea vomiting or abdominal pain no major events reported by nursing staff patient had one bowel movement this morning Objective - Vital Signs Vital signs: Vital Signs Temp 98.4 F 09/13/17 15:00 Pulse 88 09/13/17 16:02 Resp 17 09/13/17 15:00 BP 111/64 09/13/17 15:00 Pulse Ox 98 09/13/17 15:00 Intake & Output 09/12/17 09/13/17 09/13/17 18:59 06:59 18:59 Intake Total 1050 525 Output Total 600 620 Balance 450 -95 Weight 58.3 kg Intake: IV 50 Piperacillin-Tazobactam 3 50 .375 gm In Dextrose/Water 1 50ml.bag @ 12.5 mls/hr IVPB Q8HR [facility] Rx#: [id number] Intake, IV Titration 150 Amount Sodium Chloride 0.9% 1, 150 000 ml @ 20 mls/hr IV . Q24H [facility] Rx#:[id number] Oral 1050 325 Output: Urine 600 620 Other: Voiding Method Bedside Commode Bedside Commode Bedside Commode # Voids 1 2 1 # Bowel Movements 0 1 ABP, PAP, CO, CI - Last Documented Arterial Blood Pressure 131/47 - Exam Gen.: in stated age, no acute distress Heart: Normal S1-S2 Lungs: Clear to auscultation bilaterally Abdomen: Soft, no tenderness, positive bowel sounds in all 4 quadrant no guarding or rebound, incision seems to be clean and intact and dry Skin: No new rash Psych: Alert and oriented 2-3 Neuro: No focal deficit - Labs CBC & Chem 7: 09/13/17 07:04 09/13/17 07:04 Labs: Abnormal Lab Results - Last 24 Hours (Table) 09/12/17 09/13/17 09/13/17 Range/Units 20:03 07:04 07:04 WBC 11.3 H (3.8-10.6) k/uL RBC 3.49 L (3.80-5.40) m/uL Hgb 11.1 L (11.4-16.0) gm/dL Neutrophils # 9.5 H (1.3-7.7) k/uL Lymphocytes # 0.9 L (1.0-4.8) k/uL Sodium 135 L (137-145) mmol/L Chloride 94 L (98-107) mmol/L Carbon Dioxide 35 H (22-30) mmol/L POC Glucose (mg/dL) 127 H (75-99) mg/dL Total Protein 5.4 L (6.3-8.2) g/dL Albumin 2.6 L (3.5-5.0) g/dL 09/13/17 Range/Units 07:08 WBC (3.8-10.6) k/uL RBC (3.80-5.40) m/uL Hgb (11.4-16.0) gm/dL Neutrophils # (1.3-7.7) k/uL Lymphocytes # (1.0-4.8) k/uL Sodium (137-145) mmol/L Chloride (98-107) mmol/L Carbon Dioxide (22-30) mmol/L POC Glucose (mg/dL) 101 H (75-99) mg/dL Total Protein (6.3-8.2) g/dL Albumin (3.5-5.0) g/dL Microbiology - Last 24 Hours (Table) 09/11/17 11:55 Urine Culture - Final Urine,Catheterized Assessment and Plan Assessment: 1. Small bowel obstruction with volvulus status post exploratory laparotomy and lysis of adhesions with small bowel resection. 2. Moderate to severe protein calorie malnutrition. 3. Urinary retention. 4. Coronary artery disease. 5. Chronic atrial fibrillation. 6. Status post pacemaker placement. 7. Anemia. 8. History of breast cancer. Patient seems to be improving overall tolerating diet we will continue supportive care monitor her vital signs closely have physical and acute patient will therapy evaluated the patient regarding discharge planning and we will follow-up with general surgery recommendation regarding discharge planning plan discussed with the daughter at the bedside in the presence of the nursing staff. Discharge planning based on clinical progress
[2017-09-13 20:33] LABS: Glucose,Whole Blood 145 mg/dL (75-99)
[2017-09-14] MEDS: ALPRAZolam 0.25 MG TAB PO SCH (00:29)
[2017-09-14] MEDS: PIPERACILLIN-TAZOBACTAM 3.375 GM in DEXTROSE/WATER 1 50ML.BAG IVPB SCH ×2 (00:33→09:03)
[2017-09-14] MEDS: MUPIROCIN 2% OINT 22 GM TUBE TOPICAL SCH ×2 (00:34→12:13)
[2017-09-14] MEDS: DORZOLAMIDE HCL 2% DROPS 10 ML BTL BOTH EYES SCH ×2 (00:34→12:13)
[2017-09-14] MEDS: LATANOPROST 0.005% OPHTH DROPS 2.5 ML BTL BOTH EYES SCH (00:34)
[2017-09-14] MEDS: MONTELUKAST 10 MG TAB PO SCH (00:34)
[2017-09-14] MEDS: PRAVASTATIN SODIUM 20 MG TAB PO SCH (00:34)
[2017-09-14] MEDS: DILTIAZEM ORAL 30 MG TAB PO SCH ×2 (00:35→12:12)
[2017-09-14] MEDS: MAGNESIUM OXIDE 400 MG TAB PO SCH (00:35)
[2017-09-14] MEDS: LORATADINE 10 MG TAB PO SCH (00:35)
[2017-09-14] MEDS: ONDANSETRON ODT 4 MG TAB PO SCH ×2 (00:36→12:11)
[2017-09-14] MEDS ORDERED: PANTOPRAZOLE 40 MG TABLET PO SCH (07:30)
[2017-09-14] MEDS: IPRATROPIUM-ALBUTEROL 3 ML NEB INHALATION SCH ×2 (07:44→11:22)
[2017-09-14 08:25] LABS: Basophils % (A) 0 %; Eosinophils # (A) 0.1 k/uL (0-0.7); Eosinophils % (A) 1 %; HCT 36.6 % (34.0-46.0); HGB 11.4 gm/dL (11.4-16.0); Hypochromasia Slight; Lymphocytes # (A) 0.7 k/uL (1.0-4.8); Lymphocytes % (A) 5 %; MCH 30.8 pg (25.0-35.0); MCHC 31.1 g/dL (31.0-37.0); Macrocytosis Slight; Mean Platelet Volume 7.2; Monocytes # (A) 0.5 k/uL (0-1.0); Monocytes % (A) 4 %; Neutrophils % (A) 87 %; Platelet Count 360 k/uL (150-450); RDW 14.6 % (11.5-15.5); WBC 12.6 k/uL (3.8-10.6)
[2017-09-14 08:39] LABS: ALT 27 U/L (9-52); AST 20 U/L (14-36); Albumin 2.9 g/dL (3.5-5.0); Alkaline Phosphatase 79 U/L (38-126); Anion Gap 10 mmol/L; Blood Urea Nitrogen 11 mg/dL (7-17); Calcium 8.9 mg/dL (8.4-10.2); Carbon Dioxide 28 mmol/L (22-30); Chloride 97 mmol/L (98-107); Glucose 110 mg/dL (74-99); Potassium 4.3 mmol/L (3.5-5.1); Sodium 135 mmol/L (137-145); Total Bilirubin 0.4 mg/dL (0.2-1.3); Total Protein 5.9 g/dL (6.3-8.2)
--- NOTE | 2017-09-14 09:05 | XR ---
EXAMINATION TYPE: XR chest 1V portable DATE OF EXAM: 09/14/2017 CLINICAL HISTORY: Difficulty breathing and pleural effusions progress study. TECHNIQUE: Single AP portable upright view of the chest is obtained. COMPARISON: Chest x-ray from 3 days earlier and older studies. FINDINGS: There is persistent cardiomegaly with dual lead pacemaker and atherosclerotic thoracic aor ta. There are persistent small to moderate-sized right greater than left pleural effusions and associ ated compressive atelectasis. Background chronic emphysematous change is seen. Abandoned or displaced proximal lead from salesperson jewelry redemonstrated unchanged from several older studies back through October 16, 2016. Osseous structures remain demineralized. IMPRESSION: Overall stable findings, chronic emphysematous change and cardiomegaly with small to mo derate bilateral pleural effusions and associated compressive atelectasis all redemonstrated.
--- NOTE | 2017-09-14 10:38 | P.PN ---
Subjective Progress Note Date: 09/14/17 Principal diagnosis: Acute bowel obstruction with volvulus secondary to adhesions, status post exploratory laparotomy, postop day 6 87-year-old female patient, presented to the hospital for abdominal pain and increased nausea and vomiting and she did not have any bowel movements for the past few days. She initially presented to the ED and she was discharged home to come back with the same problem with significant abdominal pain and distention. CAT scan of the abdomen showed evidence of small bowel obstruction with volvulus and at that point the patient was seen by general surgery and the patient was taken to the operating room yesterday and she underwent expiratory laparotomy, lysis of adhesions and she was found to have a small segment of the jejunum being ischemic that was resected with primary anastomosis. The abdomen was irrigated. The fascia was closed and a wound VAC was applied. Overnight, the patient became oliguric. The patient received a total of 4 L of IV fluid boluses and maintenance fluid was maintained at 120 mL an hour. The patient did not require any pressors. This morning, the patient is still sedated with Diprivan at 50 mics per KG pigmented. The patient is an assist-control mode of ventilation at the rate of 14 tidal volume of 450 FiO2 of 40% and a PEEP of 5. The blood gases from this morning showed a pH of 7.36 with a pCO2 of 47 pO2 117. The chest x-ray from this morning shows some mild four-vessel congestion. ET tube is in a good location. The patient has a left-sided pacemaker in place. Correlation profile is within normal. White cell count is at 10.0. Hemoglobin stable at 10.9. Urinalysis suggested the possibility of an underlying infection the patient is currently on IV Zosyn. The patient is arousable. We are the process of giving her a sedation holiday and checking weaning parameters. The potassium level was low at 3.0 and the patient had a normal renal function with a creatinine of 0.6 and the patient's potassium level is being replaced per protocol. On 09/05/2017, the patient was seen in follow-up. As noted the patient is extubated. She got wean off the mechanical ventilator yesterday and she was extubated without any major difficulties. She is resting comfortably in bed. NG tube is in place. The output has been 400 mL over the past 12 hours. Minimal output from the LOLY drain. Surgical wound site is clean and the wound VAC and the wound VAC is also in place. The patient remains nothing by mouth. Hemodynamically stable. Adequate urine output. No nausea. No vomiting. No abdominal pain. No abdominal distention. Bowel sounds are hypoactive. She is pulling approximately 500 mL on the incentive spirometer. She is covered with empiric antibiotic coverage. Afebrile. No other significant events over the past 24 hours. Potassium is replaced. Renal function is also stable. On 09/06/2017, I'm seeing this patient for a follow-up. The patient is still recovering from her surgery. Her abdominal wound is dry clean and intact. NG tube is in place and output has been minimal over the past 12 hours. Bowel sounds are hypoactive. No bowel activity yet. She has a congestion in her lungs for which was given IV Lasix and she diuresed adequately. She is negative fluid balance of 7 89 mL over the past 12 hours. She did drop her potassium level that was replaced overnight. She is hemodynamically stable. Urine output is noted of 20-30 mL an hour. As for blood work, lobe is stable at 9.7. Stable renal function. Potassium was replaced and the level is up to 3.6. Blood sugar is at 128. She is on IV Zosyn as an empiric antibiotic coverage. No fever. No chills. She remains in atrial fibrillation at the rate is controlled. No articulation for now. On 09/07/2017, patient was seen on follow-up, and she seems to be doing relatively well. Still recovering from her surgery nicely, abdominal wound is dry and clean, she has some oozing from her right lower quadrant area from reaction to the tape. Nasogastric tube remains in place, bowel sounds are hypoactive, still improving with diuretics/Lasix IV push, chest x-ray continues to show by basilar atelectasis and effusions. All labs were reviewed including CBC and basic metabolic profile as well as renal profile seems to be unremarkable. On 09/08/2017, patient was seen on follow-up, patient seems to be doing well, continues to recover nicely from her surgery, relatively asymptomatic, no cough no wheezing no shortness of breath. Chest x-ray continues to show small bilateral pleural effusions, patient is responding well to diuretics, CBC is relatively unremarkable, basic metabolic profile is relatively normal, renal profile is normal. Plan to transfer the patient out of the ICU to a regular medical floor today. Patient remains in atrial fibrillation, but rate seems to be controlled. On 09/09/2017 patient seen in follow-up on the surgical floor. She appears more dyspneic at rest, and particularly with exertion. Per nursing staff patient was also noted to be more short of breath, and the lung sounds are extremely diminished at the bases, with crackles. Today's chest x-ray shows bilateral pleural effusions, slightly worsened on the left compared to previous exams. Patient remains on 2 L per nasal cannula with O2 sat 96%, afebrile, vital signs are stable, denies any chest pain, her incentive spirometry effort is 500-750, patient is legally blind, and requires assistance with her incentive spirometry. Today's labs were reviewed, WBCs 9.9, hemoglobin is 10.5. Patient had been on oral hydrochlorothiazide, we will give the patient 1 dose of Lasix, continue with her nebulized bronchodilators. Left arm seems to be more swollen, the patient has a history of left mastectomy. We will obtain ultrasound Doppler of the left upper extremity to rule out DVT. Patient is on full liquid diet, tolerating diet well, no nausea or vomiting. Mid abdominal incision with a wound VAC in place. On 09/10/2017 patient seen again in follow-up on surgical floor. Denies any dyspnea today, she remains on 2 L per nasal cannula and her O2 sat is 97%, vital signs are stable, patient is afebrile. Lung sounds reveal better air entry bilaterally, and there is some residual crackles at the left lower base. Continue encouraging incentive spirometry, yesterday patient was given a dose of IV Lasix in addition to her maintenance dose of hydrochlorothiazide, and patient diuresed, and produced 3600 cc of urine, and she is in -1045 mL fluid balance over the last 24 hours. She is tolerating full liquid diet, today's labs were reviewed. Repeat chest x-ray has been reviewed and shows patchy basilar infiltrates and pleural effusions with mild interval improvement. Doppler of left upper extremity was done, and was negative for DVT. On 09/11/2017 patient seen again in follow-up. She denies any dyspnea, was on the chest revealed a 8.3 cm oral fluid pocket on the right, and 3.8 cm pocket on the left. Patient remains on 2 L per nasal cannula with a pulse ox of 96%, hemodynamically stable, respirations are even and nonlabored. Today's labs were reviewed. Patient was given an additional dose of IV Lasix yesterday, and she is in -1928 mL fluid balance over the last 24 hours. Patient is tolerating oral diet, wound VAC still in place on the mid abdominal incision, patient is having frequent loose stools, and to receive has been ordered. The patient is seen again today 09/12/2017 in follow-up on the surgical floor. She is currently sitting up in a chair at the bedside. She is awake and alert in no acute distress. She did have some issues with urinary retention and lower abdominal discomfort has resolved. She is tolerating her diet. She denies any worsening shortness of breath, cough or congestion. She is encouraged regarding the increased use of the incentive spirometer. Currently maintaining O2 saturations in the 90s on 1 L/m per nasal cannula. She's been afebrile. Hemodynamically stable. Remains in a negative balance. Weight 58.3 kg. Reevaluated today on 09/13/2017, patient is sitting in a chair at bedside, doing well, relatively asymptomatic, denies any cough wheezing or shortness of breath , had some minimal cramps earlier today involving the left foot but resolved since. CBC is relatively normal electrodes are normal bicarb is 35 BUN is 12 creatinine 0.69. Patient remains on diuretics. On 09/14/2017 patient seen again in follow-up on surgical floor. Currently on room air, pulse ox on 1.5 L per nasal cannula was 96%. Denies any dyspnea. Denies afebrile, vital signs are stable. Lung sounds are clear, diminished at the bases, no rhonchi, no wheezes. Today's chest x-ray has been reviewed, and shows stable findings, with small bilateral pleural effusions. Tolerating regular diet. He regular diet, no acute events overnight, discharge planning is in progress for discharge to Rehab facility today. Abdominal incision is covered with surgical dressing, wound VAC has been removed, denies any abdominal pain, denies any nausea or vomiting. Stool for C. diff has been negative, the diarrhea has resolved. Objective - Vital Signs Vital signs: Vital Signs Temp 98.6 F 09/13/17 22:07 Pulse 86 09/14/17 07:56 Resp 16 09/13/17 23:00 BP 133/52 09/13/17 22:07 Pulse Ox 96 09/14/17 07:46 Intake & Output 09/13/17 09/14/17 09/14/17 18:59 06:59 18:59 Intake Total 460 Balance 460 Intake: IV 190 0.9 NaCl 140 Piperacillin-Tazobactam 3 50 .375 gm In Dextrose/Water 1 50ml.bag @ 12.5 mls/hr IVPB Q8HR [facility] Rx#: [id number] Oral 270 Other: Voiding Method Bedside Commode Bedside Commode # Voids 1 3 # Bowel Movements 1 0 # Emeses 0 ABP, PAP, CO, CI - Last Documented Arterial Blood Pressure 131/47 - Exam Physical Exam: Revealed an 87-year-old female in no distress. Head: Atraumatic, normocephalic. HEENT:[Neck is supple.] [No neck masses.] [No thyromegaly.] [No JVD.] Moist mucous membranes, PERRLA, EOMI, no icterus, no thyromegaly. Chest: [Diminished lung sounds at the bases, no crackles, no wheezes, no rhonchi. Cardiac Exam: [Normal S1 and S2, no S3 gallop, no murmur.] Abdomen: [Soft, slightly tender, no megaly, no rebound, no guarding, diminished bowel sounds, minimal tenderness on deep palpation. Mid abdominal incision is covered with a surgical dressing, and the wound VAC has been removed Extremities: [No clubbing, trace edema, no cyanosis.] Neurological Exam: [No focal neurologic deficit.] Psychiatric: Normal mood affect and mental status examination Lymphatics: No lymphadenopathy. - Labs CBC & Chem 7: 09/14/17 07:51 09/14/17 07:51 Labs: Abnormal Lab Results - Last 24 Hours (Table) 09/13/17 09/14/17 09/14/17 Range/Units 20:11 07:51 07:51 WBC 12.6 H (3.8-10.6) k/uL RBC 3.70 L (3.80-5.40) m/uL Neutrophils # 11.0 H (1.3-7.7) k/uL Lymphocytes # 0.7 L (1.0-4.8) k/uL Sodium 135 L (137-145) mmol/L Chloride 97 L (98-107) mmol/L Glucose 110 H (74-99) mg/dL POC Glucose (mg/dL) 145 H (75-99) mg/dL Total Protein 5.9 L (6.3-8.2) g/dL Albumin 2.9 L (3.5-5.0) g/dL Assessment and Plan Plan: Assessment: 1 acute bowel obstruction/small bowel obstruction with volvulus secondary to adhesions, status post respiratory laparotomy, lysis of adhesions and small bowel obstruction. The patient is postop day #8. 2 abdominal pain secondary to above, recovered 3 acute respiratory failure, and expected outcome of bowel surgery. The patient is extubated without any major difficulties. The patient subsequently developed some pulmonary vessel congestion due to aggressive fluid resuscitation. Responding well to diuresis. On 09/09/2017 he is noted to be more dyspneic, and there is decreased aeration noted bilaterally, chest x-ray shows bilateral pleural effusions, slightly worse on the left compared to previous exams, patient will be given a dose of IV Lasix, and IV fluids will be decreased to KVO. On 09/10/2017 patient denies any dyspnea, she diuresed over 3600 mL of urine in the last 24 hours, and she is in negative fluid balance. Chest x-ray shows improvement in the appearance of bilateral pleural effusions, continue maintenance dose hydrochlorothiazide, and continue incentive spirometry. On 09/11/2017 patient is in -1928 mL fluid balance over the last 24 hours, continues on oral hydrochlorothiazide, and yesterday an additional dose of 20 mg of IV Lasix was given. Clinically patient is stable, denies any respiratory distress, denies any dyspnea, ultrasound of the chest showed 8.3 cm fluid pocket on the right, and 3.8 cm on the left On 09/14/2017 patient no distress, no worsening dyspnea, on room air, vital signs are stable. Chest X-ray shows stable small bilateral pleural effusions. 4 Hypotension, responded nicely to IV fluids and the patient did not require any pressors. Resolved. 5 coronary artery disease with previous coronary intervention and stenting 6 chronic atrial fibrillation rate is controlled for now and the patient's coagulopathy was reversed preoperatively with Kcentra. Currently she is on Lovenox 40 mg subcu for DVT prophylaxis and the patient has SCDs. 7 pacemaker insertion 8 hypertension, history of 9 glaucoma 10 macular degeneration the patient is legally blind 11 hyperlipidemia 12 hypokalemia, replace and the potassium level is 3.6 13 history of breast cancer with a previous mastectomy 14 suspected urine infection, cultures are negative Recommendation : Patient remains stable from pulmonary standpoint, vital signs stable, denies any worsening dyspnea, currently on room air, maintaining stable oxygenation. Today's chest x-ray has been reviewed by Dr. Anderson, and is stable in appearance with small bilateral pleural effusions. From pulmonary standpoint patient is stable for discharge to the subacute rehab today. Follow-up with Dr. Smith in the office in one week I performed a history & physical examination of the patient and discussed their management with my nurse practitioner, Carina Rojas. I reviewed the nurse practitioner's note and agree with the documented findings and plan of care. Lung sounds are diminished. The findings and the impression was discussed with the patient. I attest to the documentation by the nurse practitioner. Time with Patient: Less than 30
--- NOTE | 2017-09-14 11:06 | P.DS ---
Providers Date of admission: 09/03/17 16:51 Expected date of discharge: 09/14/17 Attending physician: Durga Seo Consults: 09/03/17 16:51 Consult Physician Stat Consulting Provider: Katie Song Consult Reason/Comments: Small bowel obstruction Do you want consulting provider notified?: Already Contacted 09/03/17 18:57 Consult Physician Stat Consulting Provider: Katalina Forte Consult Reason/Comments: ICU management Do you want consulting provider notified?: Yes Primary care physician: [facility] Course: 87-year-old female presented to the emergency room with a chief complaint of developing abdominal pain with persistent nausea vomiting not able to have a bowel movement for several days. CAT scan of the abdomen showed evidence of a small bowel obstruction with volvulus. Patient was admitted to the services of the attending. Patient underwent September 03 exploratory laparotomy, lysis of adhesions with a small segment of the jejunum be an ischemic that was resected with primary anastomosis. The abdomen was irrigated the fascia was closed patient was admitted to the ICU for close monitoring placed on vent support was able to be extubated when appropriate patient was transferred out of the ICU to a surgical unit PT OT involved in the care patient was felt to be appropriate candidate for subacute rehab and [facility] Present on admission intractable abdominal pain nausea vomiting with abdominal distention no stool suspect due to a small bowel obstruction Postop September 03 acute small bowel obstruction secondary to adhesions with volvlus Acute respiratory failure expected outcome from bowel surgery Hypotension fluid bolus given no pressors required Chronic atrial fibrillation controlled ventricular response Macular degeneration legally blind Permanent pacemaker Hypokalemia corrected resolved Essential hypertension Hearing deficit and legally blind Postop expected urinary retention suspect due to poor oral intake hypovolemia History of breast cancer breast with mastectomy Hypokalemia corrected resolved New-onset left upper extremity edematous with Doppler showing no evidence of a DVT Debilitated chronic The above impression and plan of care have been discussed and directed by signing physician. Chrystal Sharma nurse practitioner acting as scribe for signing physician. Plan - Discharge Summary Discharge Rx Participant: Yes New Discharge Prescriptions: New HYDROcodone/APAP 5-325MG [[place] 5-325] 1 each PO Q4HR PRN #12 tab PRN Reason: MODERATE Pain Continue Montelukast [Singulair] 10 mg PO HS Albuterol Nebulized [Ventolin Nebulized] 2.5 mg INHALATION RT-QID Pravastatin Sodium [Pravachol] 20 mg PO HS Diltiazem HCl 30 mg PO BID Digoxin [Lanoxin] 125 mcg PO DAILY Dorzolamide 2% [Trusopt 2%] 1 drops BOTH EYES BID Loteprednol Etabonate [Lotemax] 1 drop LEFT EYE DAILY Latanoprost Ophth [Xalatan 0.005%] 1 drops BOTH EYES HS Magnesium Oxide [Mag-Ox] 250 mg PO HS Vits A,C,E/Lutein/Minerals [Ocuvite with Lutein Tablet] 1 tab PO DAILY Escitalopram Oxalate [Lexapro] 10 mg PO DAILY Hydrochlorothiazide [Hydrodiuril] 25 mg PO DAILY #0 Apixaban [Eliquis] 2.5 mg PO DAILY Aspirin EC [Ecotrin Low Dose] 81 mg PO DAILY Otc Allergy Pill Unknown 1 tab PO HS Ondansetron [Zofran ODT] 4 mg PO Q8HR #10 tab Potassium Chloride ER [K-Dur 20] 20 meq PO DAILY #7 tab Discontinued ALPRAZolam [Xanax] 0.25 mg PO HS Discharge Medication List Albuterol Nebulized [Ventolin Nebulized] 2.5 mg INHALATION RT-QID 04/01/14 [ History] Digoxin [Lanoxin] 125 mcg PO DAILY 04/01/14 [History] Diltiazem HCl 30 mg PO BID 04/01/14 [History] Montelukast [Singulair] 10 mg PO HS 04/01/14 [History] Pravastatin Sodium [Pravachol] 20 mg PO HS 04/01/14 [History] Dorzolamide 2% [Trusopt 2%] 1 drops BOTH EYES BID 05/27/16 [History] Latanoprost Ophth [Xalatan 0.005%] 1 drops BOTH EYES HS 05/27/16 [History] Loteprednol Etabonate [Lotemax] 1 drop LEFT EYE DAILY 05/27/16 [History] Magnesium Oxide [Mag-Ox] 250 mg PO HS 05/27/16 [History] Vits A,C,E/Lutein/Minerals [Ocuvite with Lutein Tablet] 1 tab PO DAILY 05/27/16 [History] Escitalopram Oxalate [Lexapro] 10 mg PO DAILY 07/10/17 [History] Hydrochlorothiazide [Hydrodiuril] 25 mg PO DAILY #0 10/16/16 [Rx] Apixaban [Eliquis] 2.5 mg PO DAILY 09/02/17 [History] Aspirin EC [Ecotrin Low Dose] 81 mg PO DAILY 09/02/17 [History] Ondansetron [Zofran ODT] 4 mg PO Q8HR #10 tab 09/02/17 [Rx] Otc Allergy Pill Unknown 1 tab PO HS 09/02/17 [History] Potassium Chloride ER [K-Dur 20] 20 meq PO DAILY #7 tab 09/02/17 [Rx] HYDROcodone/APAP 5-325MG [[place] 5-325] 1 each PO Q4HR PRN #12 tab 09/14/17 [Rx] Follow up Appointment(s)/Referral(s): Justin Jhaveri MD [STAFF PHYSICIAN] - 1 Week Gonzalo Oneil MD [Primary Care Provider] - 1 Week Durga Seo MD [STAFF PHYSICIAN] - 1 Week Activity/Diet/Wound Care/Special Instructions: No tub bath for six weeks. Shower daily. No lifting over 10 pounds for the next 6 weeks. May use ice packs to surgical site.
--- NOTE | 2017-09-14 11:12 | P.PN ---
Subjective Progress Note Date: 09/14/17 87-year-old female seen and examined. Sitting up in a chair. Nursing reports the patient has had a bowel movement this morning and one last evening moderate amount of brown soft stool. Abdomen noted to be firm distended tenderness right lower quadrant nursing reports patient has been tolerating a regular diet no nausea no vomiting reportedly urinating no difficulty surgical dressing site dry few hypoactive bowel tones noted Objective - Vital Signs Vital signs: Vital Signs Temp 98.6 F 09/13/17 22:07 Pulse 86 09/14/17 07:56 Resp 16 09/13/17 23:00 BP 133/52 09/13/17 22:07 Pulse Ox 96 09/14/17 07:46 Intake & Output 09/13/17 09/14/17 09/14/17 18:59 06:59 18:59 Intake Total 460 Balance 460 Intake: IV 190 0.9 NaCl 140 Piperacillin-Tazobactam 3 50 .375 gm In Dextrose/Water 1 50ml.bag @ 12.5 mls/hr IVPB Q8HR [facility] Rx#: [id number] Oral 270 Other: Voiding Method Bedside Commode Bedside Commode # Voids 1 3 # Bowel Movements 1 0 # Emeses 0 ABP, PAP, CO, CI - Last Documented Arterial Blood Pressure 131/47 - Exam Physical exam Sitting up in a chair appears in no acute distress hard of hearing taking regular diet tolerating Lungs diminished at the bases no wheezing no crackles nasal cannula 2 L sats 96 % no cough noted Heart S1-S2 audible no murmur noted Abdomen dressing to surgical site dry firm slightly distended. Hypoactive bowel tones nursing reports the patient has been up to a bedside commode urinating no difficulty. Positive tenderness to the right quadrant nursing reports patient has had a bowel movement this morning and one last evening brown soft stool moderate amount no nausea no vomiting Extremities no pedal edema bilaterally 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 - Labs CBC & Chem 7: 09/14/17 07:51 09/14/17 07:51 Labs: Abnormal Lab Results - Last 24 Hours (Table) 09/13/17 09/14/17 09/14/17 Range/Units 20:11 07:51 07:51 WBC 12.6 H (3.8-10.6) k/uL RBC 3.70 L (3.80-5.40) m/uL Neutrophils # 11.0 H (1.3-7.7) k/uL Lymphocytes # 0.7 L (1.0-4.8) k/uL Sodium 135 L (137-145) mmol/L Chloride 97 L (98-107) mmol/L Glucose 110 H (74-99) mg/dL POC Glucose (mg/dL) 145 H (75-99) mg/dL Total Protein 5.9 L (6.3-8.2) g/dL Albumin 2.9 L (3.5-5.0) g/dL Assessment and Plan Assessment: Impression Present on admission intractable abdominal pain nausea vomiting with abdominal distention no stool suspect due to a small bowel obstruction Postop September 03 acute small bowel obstruction secondary to adhesions with volvlus Acute respiratory failure expected outcome from bowel surgery Hypotension fluid bolus given no pressors required Chronic atrial fibrillation controlled ventricular response Macular degeneration legally blind Permanent pacemaker Hypokalemia corrected resolved Essential hypertension Hearing deficit and legally blind Postop expected urinary retention suspect due to poor oral intake hypovolemia History of breast cancer breast with mastectomy Hypokalemia corrected resolved New-onset left upper extremity edematous with Doppler showing no evidence of a DVT Plan Abdominal x-ray now follow up on results transfer when medically stable to ECF PT OT when appropriate Start regular diet advance as tolerated Continue postop surgical care Increase activity Pain control DVT and GI prophylaxis The above impression and plan of care have been discussed and directed by signing physician. Chrystal Sharma nurse practitioner acting as scribe for signing physician.
[2017-09-14] MEDS: ENOXAPARIN 40 MG/0.4 ML SYRINGE SQ SCH (12:11)
[2017-09-14] MEDS: VIT A,C & E-LUTEIN-MINERALS 1 EACH TAB PO SCH (12:11)
[2017-09-14] MEDS: TRIAMTERENE-HCTZ 37.5-25MG 1 EACH CAP PO SCH (12:12)
[2017-09-14] MEDS: POTASSIUM CHLORIDE ER 20 MEQ TAB.ER PO SCH (12:12)
[2017-09-14] MEDS: DIGOXIN 125 MCG TAB PO SCH (12:13)
[2017-09-14] MEDS: prednisoLONE ACETATE 1% OPHTH DROPS 5 ML BTL LEFT EYE SCH (12:13)
[2017-09-14] MEDS: ESCITALOPRAM 10 MG TAB PO SCH (12:14)
[2017-09-14] MEDS: HYDROcodone/APAP 5-325MG 1 EACH TAB PO PRN ×2 (12:14→15:26)
--- NOTE | 2017-09-14 12:29 | XR ---
EXAMINATION TYPE: XR abdomen 2V DATE OF EXAM: 09/14/2017 CLINICAL HISTORY: Abdominal distension and pain. TECHNIQUE: Supine and upright views of the abdomen are obtained. COMPARISON: CT abdomen and pelvis dated 09/03/2017. FINDINGS: Gas is seen in slightly prominent stomach. Scattered gas is seen in nondistended small and large bowel loops throughout the abdomen and pelvis. Cholecystectomy clips are redemonstrated. Interv al surgery with new vertical skin davi is noted. There are new small right greater than left pleur al effusions. There is partial visualization of pacemaker. No pneumoperitoneum is present. Visualized osseous structures are intact. IMPRESSION: Overall nonobstructive bowel gas pattern currently.
--- NOTE | 2017-09-14 14:35 | P.PN ---
Subjective Progress Note Date: 09/14/17 This is an 87-year-old female one of Dr. Oneil,'s with a previous medical history significant for coronary artery disease status post myocardial infarction 3 with the first one Y she was at 5-year-old, post left heart catheterization with the upper continue his coronary intervention and 3 stent placement, hypertension and hypertensive cardio vascular disease, hyperlipidemia , atrial fibrillation status post permanent pacemaker, history of breast cancer in the past status post left mastectomy with lymph node dissection, history of glaucoma with left eye blindness and macular degeneration, patient was in her usual state of health about a week ago when she started to feel increased bloating in her stomach associated with increased nausea over the last 2 days she developed to have a significant abdominal pain associated with increased nausea and vomiting she has not had a bowel movement in 3 days, she was brought into the emergency department at [facility] yesterday from 12 until 6: 30 she was given some medicine that she felt better that time patient went back home and woke up today with significant abdominal pain associated with nausea and vomiting and no bowel movement she ended up coming to the ER at [facility] had a computed tomography scan of the abdomen that showed small bowel obstruction with possible volvulus patient was seen by surgery and he was reminded for the patient to go to the [facility]. 09/04: Patient underwent exploratory laparotomy and lysis of adhesion for small bowel resection due to small bowel obstruction and volvulus, she is laying down about the drowsy opens her eyes response to verbal sunlight, she does follow commands appropriately, she has of NG tube in place, she is complaining of pain , she has a wound VAC in the middle of the abdomen 6/2: Patient was extubated yesterday, has been drowsy all day, NG tube in place , Lasix given for slight fluid overload, still nothing by mouth, no bowel sounds 6 last 3: Patient is awake today, more conversant, she has brought up hospice but most likely discussion was triggered that she and her has been to prior to his , on exam today noted to be more generalized edema and anasarca in the face, extremities and bilateral upper extremity and bilateral lower extremity, furosemide 40 mg IV given today, albumin low at 2.4, IV fluids decreased to 75 mL an hour, contemplating the use of TPN, will discuss with family members patient was started on popsicle which she tolerated, if this continues, patient most likely with transition to oral ensure clear in next 24 hrs 09/07, patient remains in ICU, more conversant, and less edematous, vitals are stable general surgeon is anticipating increase in oral diet in the morning, currently on ice chips and pop 09/08, patient's in ICU today, has improved significantly, and is anticipated to be transferred out today to surgical or so floor with telemetry, family at bedside, full liquid diet initiated today by surgery , and ensure clear started , patient does not have any flatus or bowel movement yet. 09/09: Patient is seen on the surgical unit. Heart rate is elevated for which Cardizem will be increased. Patient denies having any nausea. She has not passed gas. Slight increased abdominal distention from yesterday. She is tolerating diet without nausea or vomiting. Wound VAC is in place. Patient needed straight cath for urinary retention. We will plan for culture of the wound on her right lower abdomen (skin tear from tape) and Bactroban to be applied. 09/10: Heart rate improved today. US left arm is negative for DVT but limited. UA reveals patchy basilar infiltrates and pleural effusions with mild interval improvement. Miller catheter remains in place. Patient does states she passed gas today but no bowel movement. Pulse ox is 97% on 2 L nasal cannula. Plan is for discharge to [facility] tomorrow. 09/11: Patient denies any nausea. She has had diarrhea. Stool specimen to be sent for C. diff. Surgery has ordered for urinalysis and culture. Phosphorus and potassium replaced. Heart rate has been running 110 by documentation is consistently 80-90. Plan will be to continue to monitor. No fevers. Repeat chest x-ray shows trace left pleural effusion and associated bibasilar space disease likely compressive atelectasis. Patient was ordered for 1 dose of IV push Lasix 20 mg today by pulmonary medicine. No plan for thoracentesis. Anticipate discharge to [facility] on Thursday. 09/12: Patient continued to be hemodynamic a overnight no major events reported by nursing staff patient continued to have urinary retention and required intermittent straight cath twice. Diarrhea has subsided and patient returned to be negative for C. diff patient is tolerating current diet but eating less than 25% of her meals drinking decent amount of fluid. Family at the bedside 09/13: Patient seems to be improving daughter at the bedside saying that her mother is feeling better patient is hard of hearing but denying chest pain shortness breath nausea vomiting or abdominal pain no major events reported by nursing staff patient had one bowel movement this morning 09/14: Patient did have a bowel movement last night and this morning was brown and soft. No reported blood. Patient is tolerating regular diet without nausea or vomiting. She is scheduled for discharge to [facility] today in stable condition. Objective - Vital Signs Vital signs: Vital Signs Temp 98.6 F 09/13/17 22:07 Pulse 86 09/14/17 07:56 Resp 16 09/13/17 23:00 BP 133/52 09/13/17 22:07 Pulse Ox 96 09/14/17 07:46 Intake & Output 09/13/17 09/14/17 09/14/17 18:59 06:59 18:59 Intake Total 460 Balance 460 Intake: IV 190 0.9 NaCl 140 Piperacillin-Tazobactam 3 50 .375 gm In Dextrose/Water 1 50ml.bag @ 12.5 mls/hr IVPB Q8HR [facility] Rx#: [id number] Oral 270 Other: Voiding Method Bedside Commode Bedside Commode # Voids 1 3 # Bowel Movements 1 0 # Emeses 0 ABP, PAP, CO, CI - Last Documented Arterial Blood Pressure 131/47 - Exam General appearance: Present: cooperative, no acute distress - EENT Eyes: Present: anicteric sclerae, edentulous, PERRLA, dentition normal ENT: Present: NA/AT, normal oropharynx - Neck Neck: Present: normal ROM - Respiratory Respiratory: bilateral: CTA, negative: diminished, dullness - Cardiovascular Rhythm: regular Heart sounds: normal: S1, S2 - Gastrointestinal General gastrointestinal: Present: normal bowel sounds, soft - Neurologic Neurologic: Present: CNII-XII intact - Musculoskeletal Musculoskeletal: Present: generalized weakness, strength equal bilaterally - Psychiatric Psychiatric: Present: A&O x's 3, appropriate affect, intact judgment & insight - Labs CBC & Chem 7: 09/14/17 07:51 09/14/17 07:51 Labs: Abnormal Lab Results - Last 24 Hours (Table) 09/13/17 09/14/17 09/14/17 Range/Units 20:11 07:51 07:51 WBC 12.6 H (3.8-10.6) k/uL RBC 3.70 L (3.80-5.40) m/uL Neutrophils # 11.0 H (1.3-7.7) k/uL Lymphocytes # 0.7 L (1.0-4.8) k/uL Sodium 135 L (137-145) mmol/L Chloride 97 L (98-107) mmol/L Glucose 110 H (74-99) mg/dL POC Glucose (mg/dL) 145 H (75-99) mg/dL Total Protein 5.9 L (6.3-8.2) g/dL Albumin 2.9 L (3.5-5.0) g/dL Assessment and Plan Plan: 1. Small bowel obstruction with volvulus status post exploratory laparotomy and lysis of adhesion with small bowel resection. Continue the current management as outlined by general surgery. Patient completed course of Zosyn. She is tolerating a regular diet. 2. Fluid overload, with anasarca improved. Lasix dosed daily. echocardiogram showed atrial fibrillation, LV size normal, EF 55-60%, left atrium mildly dilated, aortic valve sclerosis, mild aortic stenosis, mild aortic regurgitation, moderate MR, mild TR tract ventricle systolic pressure of 35 3. CAD post WA with left heart catheterization in 3 stents placement. Patient appears to be stable at this point in time we'll monitor the patient very closely postoperatively. 4. Chronic Atrial fibrillation post permanent pacemaker placement. Resumed on digoxin 125 g daily, Cardizem 30 mg 3 times daily, currently on Lovenox.. 5. Hyperlipidemia. Continue pravastatin. 6. History of glaucoma. Continue current eyedrops. 7. History of macular degeneration. She is legally blind. 8. History of breast cancer status post left mastectomy with lymph node dissection. Currently in remission. 8. ALLERGIC rhinitis and possible asthma. Continue nebulized treatment as well as oxygen support. 10. Generalized anxiety disorder. Continue Xanax 0.25 mg at bedtime, Lexapro 10 mg daily. 11. Moderate protein calorie malnutrition, status post bowel surgery, on oral diet 12. DVT prophylaxis. Patient is on Lovenox 40 mg subcutaneously every day. 11. GI prophylaxis. Start the patient on Protonix 40 mg IV push every 24 hours. 12. Hypokalemia and hypophosphatemia status post replacement 13. Discharge plan: [facility] Thursday. Impression and plan of care have been directed as dictated by the signing physician. Cailin Mendoza nurse practitioner acting as scribe for signing physician.
[2017-09-14 15:04] VITALS: BP 101/72; PULSE 108; RESP 16; TEMP 98
== END 2017-09-14 16:05 | DRG 329 ==
LOC: EC 13:10 → 3SUR 16:51 → 6ICU 18:58 → 3SUR 09-08 14:18
PROVIDERS: ADMIT Surgery; ATTEND Surgery
PROC: 0DBA0ZZ Excision of Jejunum, Open Approach (ICD-10-PCS; principal; 2017-09-03 17:03)
PROC: 0DN80ZZ Release Small Intestine, Open Approach (ICD-10-PCS; principal; 2017-09-03 17:03)
DX: K56.52 Intestinal adhesions [bands] with complete obstruction (principal); J96.00 Acute respiratory failure, unspecified whether with hypoxia or hypercapnia; J90 Pleural effusion, not elsewhere classified; J98.11 Atelectasis; N39.0 Urinary tract infection, site not specified; E44.0 Moderate protein-calorie malnutrition; D64.9 Anemia, unspecified; E78.5 Hyperlipidemia, unspecified; E86.0 Dehydration; E87.6 Hypokalemia; F41.9 Anxiety disorder, unspecified; H35.30 Unspecified macular degeneration; H40.9 Unspecified glaucoma; H54.8 Legal blindness, as defined in USA; H91.90 Unspecified hearing loss, unspecified ear; I11.9 Hypertensive heart disease without heart failure; I25.10 Atherosclerotic heart disease of native coronary artery without angina pectoris; I25.2 Old myocardial infarction; I48.2 Chronic atrial fibrillation; J30.9 Allergic rhinitis, unspecified; J44.9 Chronic obstructive pulmonary disease, unspecified; K56.2 Volvulus; Z79.01 Long term (current) use of anticoagulants; Z79.899 Other long term (current) drug therapy; Z82.49 Family history of ischemic heart disease and other diseases of the circulatory system; Z85.3 Personal history of malignant neoplasm of breast; Z87.891 Personal history of nicotine dependence; Z90.12 Acquired absence of left breast and nipple; Z90.710 Acquired absence of both cervix and uterus; Z95.0 Presence of cardiac pacemaker; Z95.5 Presence of coronary angioplasty implant and graft; I95.9 Hypotension, unspecified; Z68.21 Body mass index [BMI] 21.0-21.9, adult
CPT/HCPCS: 36415; 51798; 70450; 71045; 71046; 74018; 74019; 74177; 76604; 80048; 80053; 80162; 81001; 82040; 82150; 82271; 82330; 82550; 82553; 82805; 83605; 83690; 83735; 83880; 84100; 84132; 84134; 84484; 85025; 85027; 85347; 85610; 87040; 87070; 87086; 87205; 87324; 88307; 93005; 93306; 94002; 94003; 94640; 94760; 96360; 96361; 96365; 96375; 96376; 99285

== ENCOUNTER 2018-04-15 15:05 | Inpatient (IN) | payer MEDICARE, BC ==
[2018-04-15] MEDS ORDERED: FUROSEMIDE 10 MG/ML 4 ML VIAL IV STA (15:14)
[2018-04-15] MEDS ORDERED: NITROGLYCERIN SL TABS 0.4 MG TAB SUBLINGUAL STA (15:16)
--- NOTE | 2018-04-15 15:20 | ED ---
General Adult HPI - General Chief complaint: Shortness of Breath Stated complaint: CHF, fluid in lungs Time Seen by Provider: 04/15/18 15:05 Source: patient, family, RN notes reviewed Mode of arrival: wheelchair Limitations: no limitations - History of Present Illness Initial comments: This is an 87-year-old female presents emergency department with past medical history significant for atrial fibrillation as well as a pacemaker placement. Patient also has history of congestive heart.. Patient is noticed that her difficulty breathing is been worsening over the last couple weeks and is a little bit increased swelling to her legs. Patient went to her doctor say determined that she has congestive heart failure center and to the emergency department. When patient arrived she was actually any 84% in triage and they brought her back immediately. Patient denies any recent fever chills or cough per patient denies any chest pain. Patient denies any abdominal pain patient denies any lightheadedness dizziness or near syncopal episode. Patient denies any recent injury or trauma. She states her swelling in her legs is increased. - Related Data Home Medications Medication Instructions Recorded Confirmed Montelukast [Singulair] 10 mg PO HS 04/01/14 04/15/18 Pravastatin Sodium [Pravachol] 20 mg PO HS 04/01/14 04/15/18 Dorzolamide 2% [Trusopt 2%] 1 drops BOTH EYES BID 05/27/16 04/15/18 Latanoprost Ophth [Xalatan 0.005%] 1 drops BOTH EYES HS 05/27/16 04/15/18 Vits A,C,E/Lutein/Minerals 1 tab PO DAILY 05/27/16 04/15/18 [Ocuvite with Lutein Tablet] Escitalopram Oxalate [Lexapro] 10 mg PO DAILY 10/13/16 04/15/18 Apixaban [Eliquis] 1.25 mg PO BID 09/02/17 04/15/18 Aspirin EC [Ecotrin Low Dose] 81 mg PO DAILY 09/02/17 04/15/18 ALPRAZolam [Xanax] 0.25 mg PO HS 04/15/18 04/15/18 Acetaminophen Tab [Tylenol Tab] 650 mg PO Q6H PRN 04/15/18 04/15/18 Carboxymethylcellulose Sodium 1 drop BOTH EYES DAILY PRN 04/15/18 04/15/18 [Refresh Tears] Verapamil HCl 120 mg PO DAILY 04/15/18 04/15/18 guaiFENesin [Mucinex] 600 mg PO QAM 04/15/18 04/15/18 Previous Rx's Medication Instructions Recorded Loratadine [Claritin] 10 mg PO HS tab 09/14/17 Allergies Allergy/AdvReac Type Severity Reaction Status Date / Time codeine AdvReac Unknown Verified 04/15/18 16:07 furosemide [From Lasix] AdvReac dizziness,w Verified 04/15/18 16:07 eakness tiotropium bromide AdvReac Unknown Verified 04/15/18 16:07 [From Spiriva with HandiHaler] Review of Systems ROS Statement: Those systems with pertinent positive or pertinent negative responses have been documented in the HPI. ROS Other: All systems not noted in ROS Statement are negative. 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, deafness, hypertension, hyperlipidemia, history of breast cancer with a previous left mastectomy, history of coronary intervention and coronary stenting History of Any Multi-Drug Resistant Organisms: None Reported Past Surgical History: Ablation, Cholecystectomy, Heart Catheterization With Stent, Hysterectomy, Pacemaker, Tonsillectomy Additional Past Surgical History / Comment(s): mastectomy, oopherectomy Past Anesthesia/Blood Transfusion Reactions: No Reported Reaction Date of Last Stent Placement:: unk Type of Cardiac Device: Permanent Pacemaker Device Placement Date:: unk Past Psychological History: Anxiety Smoking Status: Former smoker Past Alcohol Use History: Occasional Past Drug Use History: None Reported - Past Family History Mother Family Medical History: No Reported History Father Family Medical History: No Reported History Brother(s) Family Medical History: Coronary Artery Disease (CAD) (patient had 2 brothers were with CAD.) Sister(s) Family Medical History: Coronary Artery Disease (CAD) (patient had 2 sisters were with CAD.) Daughter(s) Family Medical History: No Reported History (patient has 3 daughters no major medical problems) Son(s) Family Medical History: No Reported History (patient has 2 sons no major medical problems) General Exam - General Exam Comments Initial Comments: GENERAL: Patient is well-developed and well-nourished. Patient is nontoxic and well- hydrated and is in mild distress. ENT: Neck is soft and supple. No significant lymphadenopathy is noted. Oropharynx is clear. Moist mucous membranes. Neck has full range of motion without eliciting any pain. EYES: The sclera were anicteric and conjunctiva were pink and moist. Extraocular movements were intact and pupils were equal round and reactive to light. Eyelids were unremarkable. PULMONARY: Crackles bilaterally CARDIOVASCULAR: There is a regular rate and rhythm without any murmurs gallops or rubs. ABDOMEN: Soft and nontender with normal bowel sounds. No palpable organomegaly was noted. There is no palpable pulsatile mass. SKIN: Skin is clear with no lesions or rashes and otherwise unremarkable. NEUROLOGIC: Patient is alert and oriented x3. Cranial nerves II through XII are grossly intact. Motor and sensory are also intact. Normal speech, volume and content. Symmetrical smile. MUSCULOSKELETAL: Normal extremities with adequate strength and full range of motion. 1+ edema bilaterally LYMPHATICS: No significant lymphadenopathy is noted PSYCHIATRIC: Normal psychiatric evaluation. Limitations: no limitations Course Vital Signs 04/15/18 04/15/18 04/15/18 15:10 16:36 16:56 Temperature 97.7 F Pulse Rate 129 H 100 Respiratory 30 H 32 H Rate Blood Pressure 147/86 O2 Sat by Pulse 84 L Oximetry 04/15/18 17:04 Temperature Pulse Rate 114 H Respiratory Rate Blood Pressure O2 Sat by Pulse Oximetry Medical Decision Making - Medical Decision Making EKG shows atrial fibrillation with rapid ventricular response at 105 bpm QRS is 78 QT interval 344 QTC is 454. Patient's EKG shows no ST segment elevation or depression. Patient's chest x-ray shows bilateral pleural effusions but no increased in size since the last chest x-ray. No fulminant pulmonary edema. Patient was moving very little air/started giving the patient some breathing treatments and steroids. Patient then mentioned she did have a 35 year history of smoking and then live with a smoker for most of her life. Patient states she does take breathing treatments at home. When I initially interviewed her I asked her if she ever had any history of breathing problems other than congestive heart failure and she said no. I spoke with Dr. Song he agreed to admit the patient admitted the patient I wrote admitting orders I consult the pulmonary and cardiology. I continued Solu -Medrol and breathing treatments on the floor. - Lab Data Result diagrams: 04/15/18 15:20 04/15/18 15:20 Lab Results 04/15/18 04/15/18 04/15/18 Range/Units 15:20 15:20 15:20 WBC 7.9 (3.8-10.6) k/uL RBC 3.78 L (3.80-5.40) m/uL Hgb 10.4 L (11.4-16.0) gm/dL Hct 33.8 L (34.0-46.0) % MCV 89.5 (80.0-100.0) fL MCH 27.6 (25.0-35.0) pg MCHC 30.8 L (31.0-37.0) g/dL RDW 15.2 (11.5-15.5) % Plt Count 299 (150-450) k/uL Neutrophils % 80 % Lymphocytes % 12 % Monocytes % 4 % Eosinophils % 2 % Basophils % 1 % Neutrophils # 6.3 (1.3-7.7) k/uL Lymphocytes # 0.9 L (1.0-4.8) k/uL Monocytes # 0.3 (0-1.0) k/uL Eosinophils # 0.1 (0-0.7) k/uL Basophils # 0.0 (0-0.2) k/uL Hypochromasia Marked PT (9.0-12.0) sec INR (<1.2) APTT (22.0-30.0) sec Sodium 141 (137-145) mmol/L Potassium 4.9 (3.5-5.1) mmol/L Chloride 107 (98-107) mmol/L Carbon Dioxide 27 (22-30) mmol/L Anion Gap 7 mmol/L BUN 22 H (7-17) mg/dL Creatinine 0.72 (0.52-1.04) mg/dL Est GFR (CKD-EPI)AfAm 89 (>60 ml/min/1.73 sqM) Est GFR (CKD-EPI)NonAf 77 (>60 ml/min/1.73 sqM) Glucose 116 H (74-99) mg/dL Calcium 9.6 (8.4-10.2) mg/dL Magnesium 2.1 (1.6-2.3) mg/dL Total Bilirubin 0.5 (0.2-1.3) mg/dL AST 21 (14-36) U/L ALT 19 (9-52) U/L Alkaline Phosphatase 93 (38-126) U/L Total Creatine Kinase 29 L (30-135) U/L CK-MB (CK-2) 0.7 (0.0-2.4) ng/mL CK-MB (CK-2) Rel Index 2.4 Troponin I <0.012 (0.000-0.034) ng/mL NT-Pro-B Natriuret Pep pg/mL Total Protein 7.0 (6.3-8.2) g/dL Albumin 3.9 (3.5-5.0) g/dL 04/15/18 04/15/18 Range/Units 15:20 15:20 WBC (3.8-10.6) k/uL RBC (3.80-5.40) m/uL Hgb (11.4-16.0) gm/dL Hct (34.0-46.0) % MCV (80.0-100.0) fL MCH (25.0-35.0) pg MCHC (31.0-37.0) g/dL RDW (11.5-15.5) % Plt Count (150-450) k/uL Neutrophils % % Lymphocytes % % Monocytes % % Eosinophils % % Basophils % % Neutrophils # (1.3-7.7) k/uL Lymphocytes # (1.0-4.8) k/uL Monocytes # (0-1.0) k/uL Eosinophils # (0-0.7) k/uL Basophils # (0-0.2) k/uL Hypochromasia PT 10.2 (9.0-12.0) sec INR 0.9 (<1.2) APTT 26.9 (22.0-30.0) sec Sodium (137-145) mmol/L Potassium (3.5-5.1) mmol/L Chloride (98-107) mmol/L Carbon Dioxide (22-30) mmol/L Anion Gap mmol/L BUN (7-17) mg/dL Creatinine (0.52-1.04) mg/dL Est GFR (CKD-EPI)AfAm (>60 ml/min/1.73 sqM) Est GFR (CKD-EPI)NonAf (>60 ml/min/1.73 sqM) Glucose (74-99) mg/dL Calcium (8.4-10.2) mg/dL Magnesium (1.6-2.3) mg/dL Total Bilirubin (0.2-1.3) mg/dL AST (14-36) U/L ALT (9-52) U/L Alkaline Phosphatase (38-126) U/L Total Creatine Kinase (30-135) U/L CK-MB (CK-2) (0.0-2.4) ng/mL CK-MB (CK-2) Rel Index Troponin I (0.000-0.034) ng/mL NT-Pro-B Natriuret Pep 1430 pg/mL Total Protein (6.3-8.2) g/dL Albumin (3.5-5.0) g/dL Critical Care Time Critical Care Time: Yes Total Critical Care Time: 35 Disposition Clinical Impression: Acute exacerbation of chronic obstructive airways disease Disposition: ADMITTED IP TO THIS HOSP Referrals: Gonzalo Oneil MD [Primary Care Provider] - 1-2 days Time of Disposition: 17:28
--- NOTE | 2018-04-15 15:35 | XR ---
EXAMINATION TYPE: XR chest 1V portable DATE OF EXAM: 04/15/2018 COMPARISON: Chest x-ray September 14, 2017 HISTORY: Dyspnea. TECHNIQUE: Single frontal view of the chest is obtained. FINDINGS: There is cardiomegaly with dual lead pacemaker and atherosclerotic thoracic aorta all rede monstrated. There is chronic parenchymal change with small right slightly greater than left bilater al pleural effusions and associated bibasilar atelectasis and/or infiltrate all redemonstrated. Upper lungs remain clear without pneumothorax. The osseous structures remain demineralized. IMPRESSION: Cardiomegaly and chronic painful change with small right greater than left pleural effus ions and associated bibasilar atelectasis and/or infiltrate all redemonstrated. No significant interv al change from prior study.
[2018-04-15 15:40] LABS: Basophils % (A) 1 %; Eosinophils # (A) 0.1 k/uL (0-0.7); Eosinophils % (A) 2 %; HCT 33.8 % (34.0-46.0); HGB 10.4 gm/dL (11.4-16.0); Hypochromasia Marked; Lymphocytes # (A) 0.9 k/uL (1.0-4.8); Lymphocytes % (A) 12 %; MCH 27.6 pg (25.0-35.0); MCHC 30.8 g/dL (31.0-37.0); MCV 89.5 fL (80.0-100.0); Mean Platelet Volume 7.6; Monocytes # (A) 0.3 k/uL (0-1.0); Monocytes % (A) 4 %; Neutrophils # (A) 6.3 k/uL (1.3-7.7); Neutrophils % (A) 80 %; Platelet Count 299 k/uL (150-450); RBC 3.78 m/uL (3.80-5.40); RDW 15.2 % (11.5-15.5); WBC 7.9 k/uL (3.8-10.6)
[2018-04-15 15:44] LABS: INR 0.9 (<1.2); Partial Thromboplastin Time 26.9 sec (22.0-30.0); Prothrombin Time 10.2 sec (9.0-12.0)
[2018-04-15 15:46] LABS: Creatine Kinase 29 U/L (30-135)
[2018-04-15 15:48] LABS: Albumin 3.9 g/dL (3.5-5.0); Calcium 9.6 mg/dL (8.4-10.2); Magnesium 2.1 mg/dL (1.6-2.3); Potassium 4.9 mmol/L (3.5-5.1); Total Bilirubin 0.5 mg/dL (0.2-1.3)
[2018-04-15 16:00] LABS: Creatine Kinase MB 0.7 ng/mL (0.0-2.4); Troponin I <0.012 ng/mL (0.000-0.034)
[2018-04-15] MEDS ORDERED: IPRATROPIUM-ALBUTEROL 3 ML NEB INHALATION STA ×2 (16:47→17:20)
[2018-04-15] MEDS ORDERED: methylPREDNISolone SOD SUCCI 125 MG/2 ML VIAL IV STA (17:20)
[2018-04-15] MEDS ORDERED: IPRATROPIUM-ALBUTEROL 3 ML NEB INHALATION PRN (17:29)
[2018-04-15] MEDS ORDERED: KETOROLAC 60 MG/2 ML VIAL IVP STA (19:02)
[2018-04-15] MEDS: methylPREDNISolone SOD SUCCI 125 MG/2 ML VIAL IV SCH (19:35)
[2018-04-15] MEDS ORDERED: LORazepam 2 MG/ML INJ IV STA (21:51)
[2018-04-15] MEDS: APIXABAN 2.5 MG TABLET PO SCH (23:49)
[2018-04-15] MEDS: LORATADINE 10 MG TAB PO SCH (23:49)
[2018-04-15] MEDS: MONTELUKAST 10 MG TAB PO SCH (23:49)
[2018-04-15] MEDS: PRAVASTATIN SODIUM 20 MG TAB PO SCH (23:49)
[2018-04-16] MEDS: ALPRAZolam 0.25 MG TAB PO SCH ×2 (00:44→20:13)
[2018-04-16] MEDS: methylPREDNISolone SOD SUCCI 125 MG/2 ML VIAL IV SCH ×3 (00:52→11:46)
[2018-04-16 05:58] LABS: Glucose,Whole Blood 147 mg/dL (75-99)
[2018-04-16] MEDS: INSULIN ASPART 100 UNIT/ML 1 ML 10 ML VIAL SQ SCH ×4 (06:15→21:33)
[2018-04-16] MEDS: guaiFENesin 600 MG TABLET.ER PO SCH (08:48)
[2018-04-16] MEDS: VIT A,C & E-LUTEIN-MINERALS 1 EACH TAB PO SCH (08:48)
[2018-04-16] MEDS: ESCITALOPRAM 10 MG TAB PO SCH (08:48)
[2018-04-16] MEDS: APIXABAN 2.5 MG TABLET PO SCH ×2 (08:48→20:13)
[2018-04-16] MEDS: ASPIRIN 81 MG PO SCH (08:48)
[2018-04-16] MEDS: DORZOLAMIDE HCL 2% DROPS 10 ML BTL BOTH EYES SCH ×2 (08:49→20:14)
[2018-04-16] MEDS: VERAPAMIL SR 120 MG TABLET.ER PO SCH (08:49)
[2018-04-16] MEDS: ARTIFICIAL TEARS-HYPROMELLOSE DROPS 15 ML BTL BOTH EYES PRN ×2 (08:49→20:13)
[2018-04-16] MEDS: ACETAMINOPHEN TAB 325 MG TAB PO PRN ×2 (08:59→20:12)
[2018-04-16 10:52] LABS: Glucose,Whole Blood 196 mg/dL (75-99)
[2018-04-16] MEDS ORDERED: FUROSEMIDE 10 MG/ML 4 ML VIAL IV SCH (11:15)
[2018-04-16] MEDS: BUMETANIDE 0.25 MG/ML 4 ML VIAL IVP SCH ×2 (11:45→23:21)
[2018-04-16] MEDS: LACTULOSE 20 GM/30 ML CUP PO SCH (11:46)
[2018-04-16] MEDS: SENNOSIDES-DOCUSATE SODIUM 1 EACH TAB PO SCH ×2 (11:46→20:13)
--- NOTE | 2018-04-16 11:53 | CONS ---
CONSULTATION CHIEF COMPLAINT: Shortness of breath. Patient has history of atrial fibrillation and has had a pacemaker. Comes in with worsening shortness of breath and bilateral leg swelling. Patient has been using nebulizers very frequently at home with some improvement in her symptoms. On admission she got started on the Lasix following which she put out quite a bit of urine. Her symptoms have improved significantly. At the time of my evaluation this morning, she appears comfortable at rest. Leg edema has improved. Her admission seems to be due to a combination of COPD exacerbation and congestive heart failure. Her BNP is elevated at 1430. We do not have any LV function on her, but this is probably related to diastolic heart failure. Patient had an echo done in September of this year and ejection fraction was 55%-60%. PAST MEDICAL HISTORY: Significant for COPD, dyslipidemia, atrial fibrillation, and permanent pacemaker. CURRENT MEDICATIONS: Include Eliquis 1.25 b.i.d., verapamil 120 q. daily, aspirin, Lexapro, Xanax, Claritin, Singulair, Pravachol, Mucinex. She has multiple drug allergies including CODEINE, LATEX and SPIRIVA. FAMILY HISTORY: Negative for premature coronary artery disease. SOCIAL HISTORY: Negative for smoking, EtOH abuse or drug abuse. REVIEW OF SYSTEMS: HEENT is unremarkable. CARDIAC: As described above. RESPIRATORY: As described above. GI: Negative. GENITOURINARY: Negative. ALLERGY/IMMUNOLOGY: Negative. SKIN: Negative. MUSCULOSKELETAL: Significant for arthritis. PSYCHOSOCIAL: Negative. ENDOCRINE: Negative. DERMATOLOGICAL: Negative. CONSTITUTIONAL: Negative. ONCOLOGICAL: Negative. CASSEROLE PREPARER: Negative. PHYSICAL EXAM: Comfortable at rest. Vital signs, afebrile. Heart rate is 100 beats per minute, blood pressure is 146/68, O2 sat is 97% on 2 L. There is no jugular venous distention. Chest exam reveals occasional rhonchi bilaterally. Heart exam reveals first and second heart sounds, irregular rhythm and a systolic murmur at the left lower sternal border. Abdomen is soft. Exam of the extremities reveals bilateral 2+ pitting edema. LABS: Show that the creatinine is 0.7. Troponin is negative. BNP is elevated at 14 30. Hemoglobin is 10.4. ASSESSMENT: 1. Acute exacerbation of chronic diastolic heart failure. 2. History of chronic atrial fibrillation. 3. Sick sinus syndrome, status post permanent pacemaker. 4. Chronic obstructive pulmonary disease. PLAN: I will treat the patient with IV Lasix. Continue rest of her medication. Obtain a 2D echo to document LV function. Hopefully, home on Thursday. JAVON / NOEMI: [id number] /
[2018-04-16] MEDS: IPRATROPIUM-ALBUTEROL 3 ML NEB INHALATION SCH ×3 (12:01→19:32)
[2018-04-16 14:34] VITALS: BMI 16.9
--- NOTE | 2018-04-16 14:44 | CONS ---
CONSULTATION PULMONARY/CRITICAL CARE CONSULTATION: DATE OF SERVICE: 04/16/2018 This is an 87-year-old female who presented to the emergency room on April 15. She apparently complained of difficulty breathing. It had been going on for a couple of weeks prior to admission. In addition, she had a bit of a cough and she had some swelling of her legs. She was thought to have congestive heart failure by her primary doctor and she was sent into the hospital to be evaluated. Her primary doctor was Dr. Reagan Oneil. Dr. Oneil did a chest x-ray in his office, which showed some cephalization and bilateral effusions and some fluid in the minor fissure. He said that he could treat her with oral diuretic, but it was better that she go to the hospital to receive IV diuretic. She denies any chest pain or chest discomfort. There was no fever or chills. No nausea, vomiting or diarrhea.. PREVIOUS HISTORY: Congestive heart failure. She also may have an underlying history of mild COPD. She smoked about 32 years at 1/2 pack a day or she has about a 16 pack year history of tobacco use. She apparently at [address] Wright, her prior family doctor she may have asthma. She saw my partner, Dr. Jhaveri and Dr. Jhaveri confirmed some mild asthma. MEDICATIONS: Include Singulair, Pravachol, eye drops, vitamins, Lexapro, Eliquis, aspirin, Xanax, Tylenol, refresh tears, verapamil, Mucinex. She also uses loratadine. Allergies include LASIX, CODEINE and SPIRIVA. Medical history includes atrial fibrillation, CAD, CHF, macular degeneration, deafness, hyperlipidemia, hypertension, coronary artery disease, previous pacemaker insertion, glaucoma, breast cancer with previous left mastectomy and coronary stenting. She also may have a touch of COPD/asthma. It is not clear to me. SURGICAL HISTORY: Includes pacemaker insertion, tonsillectomy, hysterectomy, PCI with stent, cholecystectomy, and ablation. She has also had a mastectomy and oophorectomy. SOCIAL HISTORY: Positive for 32 years of tobacco use at 1/2 pack a day. Occasional alcohol use. No illicit drug use. FAMILY HISTORY: Positive for heart disease. REVIEW OF SYSTEMS: CONSTITUTIONAL: Weakness, decreased appetite. NEUROLOGIC: Negative. HEENT: Negative. CARDIOVASCULAR: Negative. PULMONARY: Shortness of breath. GI/: Negative RHEUMATOLOGIC: Negative. ENDOCRINOLOGIC: Negative. DERMATOLOGIC: Negative. Current vital signs are reviewed. Temperature 98.4, heart rate 95, respiratory rate 18, blood pressure 107/66, mean 79, 2 L saturation 95%. She appears in no acute distress. Her daughter is at the bedside. Sara is both hard of hearing and partially blind. HEENT examination is grossly unremarkable. Nasal O2 in place. Mucous membranes are moist. Neck is supple. Full range of motion. No adenopathy or thyromegaly. Cardiovascular examination reveals a regular rhythm and rate. S1, S2 normal. No S3, S4. A soft systolic murmur is heard. Heart sounds are distant. Lungs reveal bibasilar crackles. Breath sounds are diminished at the bases. No wheezes. No rhonchi. Abdomen is soft. Bowel sounds are heard. No masses. Extremities are intact. There is some slight edema. No cyanosis or clubbing. Skin without rash. Skin is thin. Neurologic examination is brief but nonfocal. LABORATORY DATA: Includes a white count of 7.9, hemoglobin 10.4, hematocrit 33.8, platelet count 299,000. PT 10.2, INR 0.9, PTT is 26.9. Sodium, potassium, chloride, CO2 normal. Anion gap is normal. BUN and creatinine were 22 and 0.72. The rest of the labs are reviewed. Troponin is less than 0.012. N terminal proBNP is elevated at 1430. ASSESSMENT: 1. Acute exacerbation of chronic diastolic congestive heart failure. 2. History of atrial fibrillation. 3. Coronary artery disease with previous PCI and stent. 4. Status post pacemaker insertion for sick sinus syndrome. 5. Macular degeneration. 6. Deafness. 7. Hyperlipidemia. 8. Hypertension. 9. Breast cancer with previous left mastectomy. 10.Possible underlying chronic obstructive pulmonary disease from previous 16 pack- year history of tobacco use. PLAN: The patient has a followup appointment set up with Dr. Jhaveri. She does not need steroids. I believe her wheezing was related more to cardiac asthma rather than COPD. The patient is on diuretics. She was switched from Lasix to Bumex. Additional recommendations and suggestions are forthcoming. Prognosis is guarded. Will see her as needed. No additional recommendations are made. MMODL / IJN: [id number] /
--- NOTE | 2018-04-16 15:24 | P.HPIM ---
History of Present Illness H&P Date: 04/16/18 This is an 87-year-old female one of Dr. Gonzalo Oneil's patients with a previous medical history significant for coronary artery disease status post myocardial infarction 3 post left heart catheterization with coronary intervention and 3 stent placement, hypertension and hypertensive cardio vascular disease, hyperlipidemia, atrial fibrillation status post permanent pacemaker, history of breast cancer in the past status post left mastectomy with lymph node dissection, history of glaucoma with left eye blindness and macular degeneration, recent hospitalization in September 2017 for small bowel obstruction with volvulus status post expiratory laparotomy, lysis of adhesion and small bowel resection. At that time echocardiogram showed EF of 55-60%, left atrium mildly dilated, aortic valve sclerosis, mild aortic stenosis, mild aortic regurgitation, moderate MR, mild TR. Patient complains of difficulty with breathing for the past week with increasing edema to the lower extremities. She states she is short of breath with minimal activity and normally uses a walker but now family has to use a wheelchair to get her to the bathroom this is been going on for the past week. She denies having any chest pain. She was seen by Dr. Oneil and sent into [facility] emergency center for evaluation. Her initial pulse ox was 84% and patient was brought back immediately to the ER. Heart rate was 129, respirations 30, blood pressure 147/86 and temperature 97.7. EKG was atrial fibrillation with RVR with no acute ST changes. Chest x-ray showed bilateral pleural effusions but no increase in size since last chest x-ray. No fulminant pulmonary edema. White count 7.9, hemoglobin 10.4, electrolytes within normal limits, BUN 22 and creatinine 0.72, blood sugar 116. Troponin negative on initial draw. ProBNP 1430. She was provided with steroids and nebulizer treatment but continued to have shortness of breath. Patient was continued on IV Solu-Medrol, nebulizer treatments and IV Solu-Medrol and IV Lasix and admitted to the cardiac stepdown unit and cardiology and pulmonary consults requested.. Review of Systems All systems: negative Constitutional: Reports fatigue, Reports lethargy, Reports malaise, Reports poor appetite, Reports weakness, Denies chills, Denies fever Eyes: denies blurred vision, denies pain Ears, nose, mouth and throat: Denies dysphagia, Denies headache, Denies hoarseness, Denies sore throat Cardiovascular: Reports decreased exercise tolerance, Reports dyspnea on exertion, Reports edema, Reports leg edema, Denies chest pain, Denies lightheadedness, Denies shortness of breath, Denies syncope Respiratory: Reports cough, Reports dyspnea, Reports wheezing, Denies excessive sputum, Denies hemoptysis, Denies home oxygen Gastrointestinal: Denies abdominal pain, Denies diarrhea, Denies nausea, Denies vomiting Genitourinary: Denies dysuria, Denies hematuria Musculoskeletal: Reports muscle weakness, Denies frequent falls, Denies gait dysfunction, Denies myalgias Integumentary: Denies pruritus, Denies rash, Denies wounds Neurological: Reports gait dysfunction, Reports weakness, Denies aphasia, Denies change in mentation, Denies change in speech, Denies confusion, Denies convulsions, Denies head injury, Denies headaches, Denies numbness, Denies seizures Psychiatric: Denies anxiety, Denies depression Endocrine: Denies fatigue, Denies weight change 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, deafness, hypertension, hyperlipidemia, history of breast cancer with a previous left mastectomy, history of coronary intervention and coronary stenting, shingles approx 2013, sbo august 2017(sx), urethral caruncle, pne vaccine in past 5 years,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 at time of admit,please f/u in am History of Any Multi-Drug Resistant Organisms: None Reported Past Surgical History: Ablation, Bowel Resection, Cholecystectomy, Heart Catheterization With Stent, Hysterectomy, Pacemaker, Tonsillectomy Additional Past Surgical History / Comment(s): mastectomy, oopherectomy, exploratoy laparotomy/ bowel resection Past Anesthesia/Blood Transfusion Reactions: No Reported Reaction Date of Last Stent Placement:: unk Type of Cardiac Device: Permanent Pacemaker Device Placement Date:: unk Smoking Status: Former smoker Additional Past Alcohol Use History / Comment(s): The patient was a smoker of pack per day for 35 years and quit when she was 51 years of age. No marijuana or illicit drug use. - Past Family History Mother Family Medical History: No Reported History Additional Family Medical History / Comment(s): Mother at age 66 from a myocardial infarction. Father Family Medical History: No Reported History Additional Family Medical History / Comment(s): Patient does not about her father. Brother(s) Family Medical History: Coronary Artery Disease (CAD) Additional Family Medical History / Comment(s): Patient had 2 brothers from coronary artery disease. Sister(s) Family Medical History: Coronary Artery Disease (CAD) Additional Family Medical History / Comment(s): Patient had 2 sisters from coronary artery disease. Daughter(s) Family Medical History: No Reported History Additional Family Medical History / Comment(s): Patient's 3 daughters with no major medical problems. Son(s) Family Medical History: No Reported History Additional Family Medical History / Comment(s): Patient has 2 sons with no major medical problems. Medications and Allergies Home Medications Medication Instructions Recorded Confirmed Type Montelukast [Singulair] 10 mg PO HS 04/01/14 04/15/18 History Pravastatin Sodium [Pravachol] 20 mg PO HS 04/01/14 04/15/18 History Dorzolamide 2% [Trusopt 2%] 1 drops BOTH EYES BID 05/27/16 04/15/18 History Latanoprost Ophth [Xalatan 0.005%] 1 drops BOTH EYES HS 05/27/16 04/15/18 History Vits A,C,E/Lutein/Minerals 1 tab PO DAILY 05/27/16 04/15/18 History [Ocuvite with Lutein Tablet] Escitalopram Oxalate [Lexapro] 10 mg PO DAILY 10/13/16 04/15/18 History Apixaban [Eliquis] 1.25 mg PO BID 09/02/17 04/15/18 History Aspirin EC [Ecotrin Low Dose] 81 mg PO DAILY 09/02/17 04/15/18 History Loratadine [Claritin] 10 mg PO HS tab 09/14/17 04/15/18 Rx ALPRAZolam [Xanax] 0.25 mg PO HS 04/15/18 04/15/18 History Acetaminophen Tab [Tylenol Tab] 650 mg PO Q6H PRN 04/15/18 04/15/18 History Carboxymethylcellulose Sodium 1 drop BOTH EYES DAILY PRN 04/15/18 04/15/18 History [Refresh Tears] Verapamil HCl 120 mg PO DAILY 04/15/18 04/15/18 History guaiFENesin [Mucinex] 600 mg PO QAM 04/15/18 04/15/18 History Allergies Allergy/AdvReac Type Severity Reaction Status Date / Time codeine AdvReac Unknown Verified 04/15/18 16:07 furosemide [From Lasix] AdvReac dizziness,w Verified 04/15/18 16:07 eakness tiotropium bromide AdvReac Unknown Verified 04/15/18 16:07 [From Spiriva with HandiHaler] Physical Exam Vitals: Vital Signs Temp Pulse Pulse Resp BP BP Pulse Ox 04/16/18 10:59 98.4 F 95 18 107/66 95 04/16/18 08:34 100 04/16/18 08:22 96 04/16/18 08:00 97.4 F L 107 H 18 126/68 97 04/16/18 04:00 98 20 128/70 98 04/16/18 00:00 126 H 28 H 159/93 97 04/15/18 21:30 113 H 19 133/83 97 04/15/18 18:30 110 H 15 136/89 98 04/15/18 18:00 102 H 33 H 125/87 98 04/15/18 17:45 105 H 04/15/18 17:34 87 04/15/18 17:30 93 26 H 130/79 99 04/15/18 17:04 114 H 04/15/18 17:00 102 H 36 H 130/79 100 04/15/18 16:56 100 04/15/18 16:36 32 H 04/15/18 16:30 87 29 H 134/95 100 04/15/18 16:00 110 H 25 H 152/71 99 04/15/18 15:30 117 H 44 H 96 04/15/18 15:10 97.7 F 129 H 30 H 147/86 84 L 04/15/18 15:09 82 L Intake and Output 04/15/18 04/16/18 04/16/18 22:59 06:59 14:59 Intake Total 0 240 Output Total 1600 Balance 0 -1600 240 Intake: Oral 0 240 Output: Urine 1600 Other: Weight 48.988 kg 46 kg General appearance: Moderate distress, thin - EENT Eyes: anicteric sclerae, EOMI, PERRLA, no ptosis, no scleral icterus, normal appearance ENT: Hard of hearing, NG tube in place, mucous membranes of the mouth are somewhat dry. Ears: bilateral: normal - Neck Neck: no lymphadenopathy, normal ROM, no rigidity, no stridor, no thyromegaly Carotids: bilateral: upstroke delayed - Respiratory Respiratory: bilateral: diminished with crackles bilaterally, negative: wheezing , prolonged expiration - Cardiovascular Rhythm: other (permanent pacemaker.) Heart sounds: normal: S1, S2 Abnormal Heart Sounds: systolic murmur - Gastrointestinal General gastrointestinal: Soft, nontender, no organomegaly, bowel sounds present. - Integumentary Integumentary: normal, normal turgor - Neurologic Neurologic: CNII-XII intact - Musculoskeletal Musculoskeletal: generalized weakness, strength equal bilaterally - Psychiatric Psychiatric: A&O x's 3, appropriate affect, intact judgment & insight Results CBC & Chem 7: 04/15/18 15:20 04/15/18 15:20 Labs: Abnormal Lab Results - Last 24 Hours (Table) 04/15/18 04/15/18 04/15/18 Range/Units 15:20 15:20 15:20 RBC 3.78 L (3.80-5.40) m/uL Hgb 10.4 L (11.4-16.0) gm/dL Hct 33.8 L (34.0-46.0) % MCHC 30.8 L (31.0-37.0) g/dL Lymphocytes # 0.9 L (1.0-4.8) k/uL BUN 22 H (7-17) mg/dL Glucose 116 H (74-99) mg/dL POC Glucose (mg/dL) (75-99) mg/dL Total Creatine Kinase 29 L (30-135) U/L 04/16/18 04/16/18 Range/Units 05:56 10:51 RBC (3.80-5.40) m/uL Hgb (11.4-16.0) gm/dL Hct (34.0-46.0) % MCHC (31.0-37.0) g/dL Lymphocytes # (1.0-4.8) k/uL BUN (7-17) mg/dL Glucose (74-99) mg/dL POC Glucose (mg/dL) 147 H 196 H (75-99) mg/dL Total Creatine Kinase (30-135) U/L Thrombosis Risk Factor Assmnt - Choose All That Apply Any of the Below Risk Factors Present?: Yes Each Factor Represents 1 point: Abnormal pulmonary function (COPD) Other Risk Factors: Yes Each Risk Factor Represents 3 Points: Age 75 years or older Thrombosis Risk Factor Assessment Total Risk Factor Score: 4 Thrombosis Risk Factor Assessment Level: Moderate Risk Assessment and Plan Plan: 1. Acute hypoxic respiratory failure secondary to acute diastolic heart failure , possible COPD. Patient will be continued on Bumex 1 mg IV push every 12 hours due to ALLERGY to Lasix, nebulizer treatments 4 times daily scheduled and as needed, oxygen therapy, Mucinex. Consults with pulmonary medicine and cardiology. Daily weights, I&O, monitor kidney function and electrolytes. Echocardiogram ordered. 2. CAD post DE with left heart catheterization in 3 stents placement. No complaints of chest pain, normal troponin. Continue aspirin, pravastatin. 3. Chronic atrial fibrillation. Continue eliquis 1.25 mg twice daily, verapamil 120 mg daily. 4. History of sick sinus syndrome status post permanent pacemaker placement. 5. Hyperlipidemia. Continue pravastatin. 6. History of glaucoma. Continue current eyedrops. 7. History of macular degeneration. She is legally blind. 8. History of breast cancer status post left mastectomy with lymph node dissection. Currently in remission. 8. ALLERGIC rhinitis and possible asthma. Continue nebulized treatment as well as oxygen support. 10. Generalized anxiety disorder. Continue Xanax 0.25 mg at bedtime, Lexapro 10 mg daily. 11. History of small bowel obstruction with volvulus status post exploratory laparotomy and lysis of adhesion with small bowel resection. 12. DVT prophylaxis. On eliquis. 11. GI prophylaxis. Protonix 40 mg every 24 hours. CODE STATUS no code Discharge plan: To be determined. Patient admitted to the hospital for a minimum of 3 nights stay. Impression and plan of care have been directed as dictated by the signing physician. Cailin Mendoza nurse practitioner acting as scribe for signing physician.
[2018-04-16 16:37] LABS: Glucose,Whole Blood 166 mg/dL (75-99)
[2018-04-16] MEDS ORDERED: methylPREDNISolone SOD SUCCI 125 MG/2 ML VIAL IV SCH (18:00)
[2018-04-16] MEDS: MONTELUKAST 10 MG TAB PO SCH (20:13)
[2018-04-16] MEDS: PRAVASTATIN SODIUM 20 MG TAB PO SCH (20:13)
[2018-04-16] MEDS: LATANOPROST 0.005% OPHTH DROPS 2.5 ML BTL BOTH EYES SCH (20:13)
[2018-04-16] MEDS: LORATADINE 10 MG TAB PO SCH (20:13)
[2018-04-16 21:15] LABS: Glucose,Whole Blood 192 mg/dL (75-99)
[2018-04-17 06:11] LABS: Glucose,Whole Blood 138 mg/dL (75-99)
[2018-04-17] MEDS: INSULIN ASPART 100 UNIT/ML 1 ML 10 ML VIAL SQ SCH (06:16)
[2018-04-17] MEDS: PANTOPRAZOLE 40 MG TABLET PO SCH (06:18)
--- NOTE | 2018-04-17 06:59 | ECHOF ---
Referral Reason:LVF MEASUREMENTS -------- HEIGHT: 165.1 cm WEIGHT: 45.8 kg BP: 107/66 RVIDd: 2.5 cm (< 3.3) IVSd: 0.9 cm (0.6 - 1.1) LVIDd: 4.2 cm (3.9 - 5.3) LVPWd: 0.9 cm (0.6 - 1.1) IVSs: 1.0 cm LVIDs: 3.8 cm LVPWs: 1.1 cm LA Diam: 4.6 cm (2.7 - 3.8) Ao Diam: 3.0 cm (2.0 - 3.7) AV Cusp: 1.6 cm (1.5 - 2.6) MV EXCURSION: 17.570 mm (> 18.000) MV EF SLOPE: 170 mm/s (70 - 150) EPSS: 0.7 cm AV maxP.34 mmHg AV meanP.43 mmHg AR PHT: 429 ms RAP: 15.00 mmHg RVSP: 38.51 mmHg FINDINGS -------- Paced rhythm. This was a technically adequate study. The left ventricular size is normal. Left ventricular wall thickness is normal. Overall left vent ricular systolic function is moderately impaired with, an EF between 35 - 40 %. Anterior is hypokin etic Septal Hypokinesis The right ventricle is normal in size and function. Paradoxical motion of the right ventricular sep aida is consistent with post operative status. The left atrium is moderately dilated. The right atrium is markedly enlarged. Electronic pacemaker lead seen in the right atrial cavity. Aortic valve is trileaflet and is moderately thickened. There is [id number] aortic regurgitat ion. There is mild aortic stenosis present. Aortic valve gradients possibly underestimated due to low EF. The mitral valve leaflets are mildly thickened. Moderate mitral annular calcification present. Se phma mitral regurgitation is present. Moderate to severe tricuspid regurgitation present. There is mild pulmonary hypertension. The rig ht ventricular systolic pressure, as measured by Doppler, is 38.51mmHg. Trace/mild (physiologic) pulmonic regurgitation. The aortic root size is normal. The inferior vena cava is dilated with poor inspiratory collapse which is consistent with estimated r ight atrial pressure of 20 mmHg. There is no pericardial effusion. CONCLUSIONS -------- 1. Paced rhythm. 2. This was a technically adequate study. 3. The left ventricular size is normal. 4. Left ventricular wall thickness is normal. 5. Anterior is hypokinetic 6. Septal Hypokinesis 7. The left atrium is moderately dilated. 8. The right atrium is markedly enlarged. 9. Electronic pacemaker lead seen in the right atrial cavity. 10. Aortic valve is trileaflet and is moderately thickened. 11. There is [id number] aortic regurgitation. 12. There is mild aortic stenosis present. 13. Aortic valve gradients possibly underestimated due to low EF. 14. The mitral valve leaflets are mildly thickened. 15. Moderate mitral annular calcification present. 16. Severe mitral regurgitation is present. 17. Moderate to severe tricuspid regurgitation present. 18. There is mild pulmonary hypertension. 19. The right ventricular systolic pressure, as measured by Doppler, is 38.51mmHg. 20. Trace/mild (physiologic) pulmonic regurgitation. 21. The aortic root size is normal. 22. The inferior vena cava is dilated with poor inspiratory collapse which is consistent with estimat ed right atrial pressure of 20 mmHg. 23. There is no pericardial effusion. FREEZER ASSISTANT: En Fine RDCS
[2018-04-17 07:33] LABS: HCT 31.3 % (34.0-46.0); HGB 9.4 gm/dL (11.4-16.0); Hypochromasia Marked; MCH 26.8 pg (25.0-35.0); MCHC 30.1 g/dL (31.0-37.0); MCV 89.1 fL (80.0-100.0); Mean Platelet Volume 7.8; Platelet Count 272 k/uL (150-450); RBC 3.52 m/uL (3.80-5.40); RDW 15.3 % (11.5-15.5); WBC 8.7 k/uL (3.8-10.6)
[2018-04-17] MEDS: IPRATROPIUM-ALBUTEROL 3 ML NEB INHALATION SCH ×4 (07:49→20:35)
[2018-04-17 07:58] LABS: Calcium 9.1 mg/dL (8.4-10.2); Potassium 3.4 mmol/L (3.5-5.1)
[2018-04-17] MEDS ORDERED: POTASSIUM CHLORIDE ER 20 MEQ TAB.ER PO STA (09:32)
[2018-04-17] MEDS: VERAPAMIL SR 120 MG TABLET.ER PO SCH (09:39)
[2018-04-17] MEDS: VIT A,C & E-LUTEIN-MINERALS 1 EACH TAB PO SCH (09:39)
[2018-04-17] MEDS: SENNOSIDES-DOCUSATE SODIUM 1 EACH TAB PO SCH ×2 (09:40→20:04)
[2018-04-17] MEDS: APIXABAN 2.5 MG TABLET PO SCH ×2 (09:40→20:05)
[2018-04-17] MEDS: ASPIRIN 81 MG PO SCH (09:40)
[2018-04-17] MEDS: ESCITALOPRAM 10 MG TAB PO SCH (09:40)
[2018-04-17] MEDS: guaiFENesin 600 MG TABLET.ER PO SCH (09:40)
[2018-04-17] MEDS: ACETAMINOPHEN TAB 325 MG TAB PO PRN ×2 (09:51→16:00)
[2018-04-17] MEDS: POTASSIUM CHLORIDE ER 20 MEQ TAB.ER PO SCH (09:52)
--- NOTE | 2018-04-17 10:39 | P.PN ---
Subjective Progress Note Date: 04/17/18 This is an 87-year-old female one of Dr. Gonzalo Oneil's patients with a previous medical history significant for coronary artery disease status post myocardial infarction 3 post left heart catheterization with coronary intervention and 3 stent placement, hypertension and hypertensive cardio vascular disease, hyperlipidemia, atrial fibrillation status post permanent pacemaker, history of breast cancer in the past status post left mastectomy with lymph node dissection, history of glaucoma with left eye blindness and macular degeneration, recent hospitalization in September 2017 for small bowel obstruction with volvulus status post expiratory laparotomy, lysis of adhesion and small bowel resection. At that time echocardiogram showed EF of 55-60%, left atrium mildly dilated, aortic valve sclerosis, mild aortic stenosis, mild aortic regurgitation, moderate MR, mild TR. Patient complains of difficulty with breathing for the past week with increasing edema to the lower extremities. She states she is short of breath with minimal activity and normally uses a walker but now family has to use a wheelchair to get her to the bathroom this is been going on for the past week. She denies having any chest pain. She was seen by Dr. Oneil and sent into [facility] emergency center for evaluation. Her initial pulse ox was 84% and patient was brought back immediately to the ER. Heart rate was 129, respirations 30, blood pressure 147/86 and temperature 97.7. EKG was atrial fibrillation with RVR with no acute ST changes. Chest x-ray showed bilateral pleural effusions but no increase in size since last chest x-ray. No fulminant pulmonary edema. White count 7.9, hemoglobin 10.4, electrolytes within normal limits, BUN 22 and creatinine 0.72, blood sugar 116. Troponin negative on initial draw. ProBNP 1430. She was provided with steroids and nebulizer treatment but continued to have shortness of breath. Patient was continued on IV Solu-Medrol, nebulizer treatments and IV Solu-Medrol and IV Lasix and admitted to the cardiac stepdown unit and cardiology and pulmonary consults requested.. 04/17: The patient did have some shortness of breath getting to the bathroom. She did have a large bowel movement after being constipated for 7 days and lactulose will be discontinued and continue only Senokot-S. Potassium will be replaced. Patient has Miller in and place and we will plan to remove this tomorrow. Patient will be continued on Bumex 1 mg every 12 hours. Patient has been seen by Dr. Anderson and Solu-Medrol discontinued as he states there is no COPD exacerbation. Patient is also seen by cardiology and maintained on IV diuretics. Echocardiogram reveals EF of 35-40%, mild aortic stenosis, moderate aortic regurgitation, severe mitral regurgitation, severe tricuspid regurgitation, mild pulmonary hypertension. Pulse ox 96% on 2 L nasal cannula, heart rate running 97-100, respiratory rate 18, blood pressure 136/69. WBC 8.7 , hemoglobin 9.4, potassium 3.4, BUN 31 creatinine 0.87. PT and OT evaluations requested. Review of Systems All systems: negative Constitutional: Reports fatigue, Reports lethargy, Reports malaise, Reports poor appetite, Reports weakness, Denies chills, Denies fever Eyes: denies blurred vision, denies pain Ears, nose, mouth and throat: Denies dysphagia, Denies headache, Denies hoarseness, Denies sore throat Cardiovascular: Reports decreased exercise tolerance, Reports dyspnea on exertion, Reports edema, Reports leg edema, Denies chest pain, Denies lightheadedness, Denies shortness of breath, Denies syncope Respiratory: Reports cough, Reports dyspnea, Reports wheezing, Denies excessive sputum, Denies hemoptysis, Denies home oxygen Gastrointestinal: Denies abdominal pain, Denies diarrhea, Denies nausea, Denies vomiting Genitourinary: Denies dysuria, Denies hematuria Musculoskeletal: Reports muscle weakness, Denies frequent falls, Denies gait dysfunction, Denies myalgias Integumentary: Denies pruritus, Denies rash, Denies wounds Neurological: Reports gait dysfunction, Reports weakness, Denies aphasia, Denies change in mentation, Denies change in speech, Denies confusion, Denies convulsions, Denies head injury, Denies headaches, Denies numbness, Denies seizures Psychiatric: Denies anxiety, Denies depression Endocrine: Reports fatigue, Denies weight change Objective - Vital Signs Vital signs: Vital Signs Temp 97.9 F 04/17/18 04:00 Pulse 97 04/17/18 08:03 Resp 20 04/17/18 04:00 BP 108/68 04/17/18 04:00 Pulse Ox 94 L 04/17/18 04:00 Intake & Output 04/16/18 04/17/18 04/17/18 18:59 06:59 18:59 Intake Total 440 Output Total 800 Balance 440 -800 Weight 46 kg 52 kg Intake: Oral 440 Output: Urine 800 Other: Voiding Method Indwelling Catheter - Exam General appearance: Moderate distress, thin - EENT Eyes: anicteric sclerae, EOMI, PERRLA, no ptosis, no scleral icterus, normal appearance ENT: Hard of hearing, mucous membranes of the mouth are somewhat dry. Ears: bilateral: normal Patient is legally blind. - Neck Neck: no lymphadenopathy, normal ROM, no rigidity, no stridor, no thyromegaly Carotids: bilateral: upstroke delayed - Respiratory Respiratory: bilateral: diminished with crackles bilaterally, negative: wheezing , prolonged expiration - Cardiovascular Rhythm: other (permanent pacemaker.) Heart sounds: normal: S1, S2 Abnormal Heart Sounds: systolic murmur - Gastrointestinal General gastrointestinal: Soft, nontender, no organomegaly, bowel sounds present. - Integumentary Integumentary: normal, normal turgor - Neurologic Neurologic: CNII-XII intact - Musculoskeletal Musculoskeletal: generalized weakness, strength equal bilaterally - Psychiatric Psychiatric: A&O x's 3, appropriate affect, intact judgment & insight - Labs CBC & Chem 7: 04/17/18 06:22 04/17/18 06:22 Labs: Abnormal Lab Results - Last 24 Hours (Table) 04/16/18 04/16/18 04/16/18 Range/Units 10:51 16:35 21:14 RBC (3.80-5.40) m/uL Hgb (11.4-16.0) gm/dL Hct (34.0-46.0) % MCHC (31.0-37.0) g/dL Potassium (3.5-5.1) mmol/L Carbon Dioxide (22-30) mmol/L BUN (7-17) mg/dL Glucose (74-99) mg/dL POC Glucose (mg/dL) 196 H 166 H 192 H (75-99) mg/dL 04/17/18 04/17/18 04/17/18 Range/Units 06:09 06:22 06:22 RBC 3.52 L (3.80-5.40) m/uL Hgb 9.4 L (11.4-16.0) gm/dL Hct 31.3 L (34.0-46.0) % MCHC 30.1 L (31.0-37.0) g/dL Potassium 3.4 L (3.5-5.1) mmol/L Carbon Dioxide 33 H (22-30) mmol/L BUN 31 H (7-17) mg/dL Glucose 129 H (74-99) mg/dL POC Glucose (mg/dL) 138 H (75-99) mg/dL Assessment and Plan Plan: 1. Acute hypoxic respiratory failure secondary to acute systolic heart failure , possible COPD. Patient will be continued on Bumex 1 mg IV push every 12 hours due to ALLERGY to Lasix, nebulizer treatments 4 times daily scheduled and as needed, oxygen therapy, Mucinex. Consults with pulmonary medicine and cardiology. Daily weights, I&O, monitor kidney function and electrolytes. Echocardiogram report as above. 2. CAD post SD with left heart catheterization in 3 stents placement. No complaints of chest pain, normal troponin. Continue aspirin, pravastatin. 3. Chronic atrial fibrillation. Continue eliquis 1.25 mg twice daily, verapamil 120 mg daily. 4. History of sick sinus syndrome status post permanent pacemaker placement. 5. Hyperlipidemia. Continue pravastatin. 6. History of glaucoma. Continue current eyedrops. 7. History of macular degeneration. She is legally blind. 8. History of breast cancer status post left mastectomy with lymph node dissection. Currently in remission. 8. ALLERGIC rhinitis and possible asthma. Continue nebulized treatment as well as oxygen support. 10. Generalized anxiety disorder. Continue Xanax 0.25 mg at bedtime, Lexapro 10 mg daily. 11. History of small bowel obstruction with volvulus status post exploratory laparotomy and lysis of adhesion with small bowel resection. 12. DVT prophylaxis. On eliquis. 11. GI prophylaxis. Protonix 40 mg every 24 hours. CODE STATUS no code Discharge plan: To be determined. PT and OT evaluations requested. Impression and plan of care have been directed as dictated by the signing physician. Cailin Mendoza nurse practitioner acting as scribe for signing physician.
[2018-04-17] MEDS: DORZOLAMIDE HCL 2% DROPS 10 ML BTL BOTH EYES SCH ×2 (11:10→20:05)
[2018-04-17] MEDS: LISINOPRIL 5 MG TAB PO SCH (11:10)
[2018-04-17] MEDS: CARVEDILOL 3.125 MG TAB PO SCH ×2 (11:10→17:27)
[2018-04-17] MEDS: LACTULOSE 20 GM/30 ML CUP PO SCH (12:00)
[2018-04-17] MEDS: BUMETANIDE 0.25 MG/ML 4 ML VIAL IVP SCH ×2 (12:04→23:48)
--- NOTE | 2018-04-17 12:52 | P.PN ---
Subjective Progress Note Date: 04/17/18 Principal diagnosis: Acute exacerbation of chronic diastolic congestive heart failure. This is a very pleasant 87-year-old female patient who follows with Reagan Oneil as her primary care physician. She has a history of congestive heart failure. She also has a history of mild chronic obstructive pulmonary disease and smoked for approximately 32 years at half a pack a day. She had been seen by Dr. Jhaveri in the past and was diagnosed with mild intermittent chronic bronchial asthma as well. She presented here on 04/15/2017 with complaints of increasing shortness of breath. She also had some increased lower extremity edema. He was found to have an acute exacerbation of chronic diastolic congestive heart failure. She is seen again today in follow-up on the selective care unit. She is awake and alert in no acute distress. She is breathing easier today as compared to yesterday. A little stronger. He is maintaining O2 saturations in the mid to upper 90s on 2 L/m nasal cannula. She' s afebrile. Hemodynamically stable. White count 8.7. Hemoglobin 9.4. Creatinine 0.87. She is currently on Bumex 1 mg IV push every 12 hours. Objective - Vital Signs Vital signs: Vital Signs Temp 97.6 F 04/17/18 11:00 Pulse 94 04/17/18 11:54 Resp 18 04/17/18 11:00 BP 147/63 04/17/18 11:00 Pulse Ox 99 04/17/18 11:00 Intake & Output 04/16/18 04/17/18 04/17/18 18:59 06:59 18:59 Intake Total 440 50 Output Total 800 Balance 440 -800 50 Weight 46 kg 52 kg Intake: Oral 440 50 Output: Urine 800 Other: Voiding Method Indwelling Catheter Indwelling Catheter # Voids 1 # Bowel Movements 1 - Exam GENERAL EXAM: Alert, pleasant 87-year-old female patient, comfortable in no apparent distress. On nasal cannula. HEAD: Normocephalic. Very hard of hearing. EYES: Macular degeneration. NOSE: Clear with pink turbinates. THROAT: No erythema or exudates. NECK: No masses, no JVD. CHEST: No chest wall deformity. LUNGS: Equal air entry with crackles in the posterior bases CVS: S1 and S2 normal with no audible murmur, regular rhythm. ABDOMEN: No hepatosplenomegaly, normal bowel sounds, no guarding or rigidity. SPINE: Kyphoscoliosis SKIN: No rashes CENTRAL NERVOUS SYSTEM: No focal deficits, tone is normal in all 4 extremities. EXTREMITIES: There is trace peripheral edema. No clubbing, no cyanosis. Peripheral pulses are intact. - Labs CBC & Chem 7: 04/17/18 06:22 04/17/18 06:22 Labs: Abnormal Lab Results - Last 24 Hours (Table) 04/16/18 04/16/18 04/17/18 Range/Units 16:35 21:14 06:09 RBC (3.80-5.40) m/uL Hgb (11.4-16.0) gm/dL Hct (34.0-46.0) % MCHC (31.0-37.0) g/dL Potassium (3.5-5.1) mmol/L Carbon Dioxide (22-30) mmol/L BUN (7-17) mg/dL Glucose (74-99) mg/dL POC Glucose (mg/dL) 166 H 192 H 138 H (75-99) mg/dL 04/17/18 04/17/18 Range/Units 06:22 06:22 RBC 3.52 L (3.80-5.40) m/uL Hgb 9.4 L (11.4-16.0) gm/dL Hct 31.3 L (34.0-46.0) % MCHC 30.1 L (31.0-37.0) g/dL Potassium 3.4 L (3.5-5.1) mmol/L Carbon Dioxide 33 H (22-30) mmol/L BUN 31 H (7-17) mg/dL Glucose 129 H (74-99) mg/dL POC Glucose (mg/dL) (75-99) mg/dL Assessment and Plan Assessment: Impression: #1 Acute exacerbation of chronic diastolic congestive heart failure. #2 Acute hypoxic respiratory failure secondary to above. #3 Coronary artery disease with previous stent placement. #4 History of atrial fibrillation. #5 Sick sinus syndrome status post permanent pacemaker implantation. #6 Macular degeneration. #7 Hearing disorder. #8 Hyperlipidemia. #9 Hypertension. #10 History of breast cancer with previous left mastectomy. #11 Suspect chronic obstructive pulmonary disease and previous chronic tobacco dependence. Plan: The patient is seen and evaluated by Dr. Anderson. She is improved today as compared to yesterday. Suspect some component of cardiac asthma with end expiratory wheezing. She remains on diuretics. She'll follow up with Dr. Jhaveri in the outpatient setting. We'll continue to follow and make further recommendations based on her clinical status. I, the cosigning physician, performed a history & physical examination of the patient. Lungs sounds faint end expiratory wheeze, crackles in the bases. Maintaining good O2 saturations in the 90s on 2 L/m per nasal cannula. I discussed the assessment and plan of care with my nurse practitioner, Aliya Palacios. I attest to the above note as dictated by her.
--- NOTE | 2018-04-17 13:49 | P.PN ---
Subjective This is an 87-year-old female past medical history significant for atrial fibrillation on long-term anticoagulation, status post pacemaker implantation, COPD and dyslipidemia. She follows with Dr. Hendrix in the office. She was started on IV Bumex secondary to shortness of breath. Echocardiogram obtained reveals markedly impaired left ventricular systolic function with ejection fraction 35-40% anterior and septal hypokinesia noted, moderately thickened aortic valve, mild to moderate aortic regurgitation, mild aortic stenosis, severe mitral regurgitation and moderate to severe tricuspid regurgitation, mild pulmonary hypertension with an RVSP of 38 mmHg. She is currently maintained on Bumex 1 mg twice a day. She is seen and examined sitting up at the bedside in no acute distress. She complains of some improvement in her shortness of breath but not entirely back to baseline. She denies chest pain, dizziness or palpitations. Blood pressure 147/63 heart rate 95 afebrile maintaining oxygen saturation on nasal cannula. Laboratory data reviewed, hemoglobin 9.4, platelets 272, sodium 140, potassium 3.4, creatinine 0.87. Intake and output documentation reveals negative fluid balance for the previous 24 hours. GENERAL: Well-appearing, well-nourished and in no acute distress. NECK: Supple without JVD or thyromegaly. LUNGS: Bibasilar rales. Respiration equal and unlabored. No wheezes or rhonchi. Diminished bilaterally. HEART: Irregular rate and rhythm with systolic ejection murmur, no rubs or gallops. S1 and S2 heard. EXTREMITIES: Normal range of motion, no edema. No clubbing or cyanosis. Peripheral pulses intact. ASSESSMENT Acute exacerbation of systolic heart failure Chronic persistent atrial fibrillation on long-term anticoagulation Sick sinus syndrome status post permanent pacemaker implantation COPD Hypokalemia PLAN Continue current medical regimen. Follow kidney function and electrolytes daily. Discontinue verapamil and initiated on lisinopril 5 mg daily and coronary 3.125 mg twice a day secondary to new onset systolic heart failure. Further recommendations to follow based upon clinical course. The above impression and plan of care have been discussed and directed by the signing physician. Pearl Arias, nurse practitioner, acting as scribe for signing physician. Objective - Vital Signs Vital signs: Vital Signs Temp 97.6 F 04/17/18 11:00 Pulse 94 04/17/18 11:54 Resp 18 04/17/18 11:00 BP 147/63 04/17/18 11:00 Pulse Ox 99 04/17/18 11:00 Intake & Output 04/16/18 04/17/18 04/17/18 18:59 06:59 18:59 Intake Total 440 50 Output Total 800 Balance 440 -800 50 Weight 46 kg 52 kg Intake: Oral 440 50 Output: Urine 800 Other: Voiding Method Indwelling Catheter Indwelling Catheter # Voids 1 # Bowel Movements 1 - Labs CBC & Chem 7: 04/17/18 06:22 04/17/18 06:22 Labs: Abnormal Lab Results - Last 24 Hours (Table) 04/16/18 04/16/18 04/17/18 Range/Units 16:35 21:14 06:09 RBC (3.80-5.40) m/uL Hgb (11.4-16.0) gm/dL Hct (34.0-46.0) % MCHC (31.0-37.0) g/dL Potassium (3.5-5.1) mmol/L Carbon Dioxide (22-30) mmol/L BUN (7-17) mg/dL Glucose (74-99) mg/dL POC Glucose (mg/dL) 166 H 192 H 138 H (75-99) mg/dL 04/17/18 04/17/18 Range/Units 06:22 06:22 RBC 3.52 L (3.80-5.40) m/uL Hgb 9.4 L (11.4-16.0) gm/dL Hct 31.3 L (34.0-46.0) % MCHC 30.1 L (31.0-37.0) g/dL Potassium 3.4 L (3.5-5.1) mmol/L Carbon Dioxide 33 H (22-30) mmol/L BUN 31 H (7-17) mg/dL Glucose 129 H (74-99) mg/dL POC Glucose (mg/dL) (75-99) mg/dL
[2018-04-17] MEDS: ALPRAZolam 0.25 MG TAB PO SCH (20:04)
[2018-04-17] MEDS: MONTELUKAST 10 MG TAB PO SCH (20:05)
[2018-04-17] MEDS: PRAVASTATIN SODIUM 20 MG TAB PO SCH (20:05)
[2018-04-17] MEDS: LORATADINE 10 MG TAB PO SCH (20:05)
[2018-04-17 20:44] LABS: Glucose,Whole Blood 127 mg/dL (75-99)
[2018-04-17] MEDS: LATANOPROST 0.005% OPHTH DROPS 2.5 ML BTL BOTH EYES SCH (20:56)
[2018-04-18] MEDS: CARVEDILOL 3.125 MG TAB PO SCH ×2 (05:40→18:59)
[2018-04-18] MEDS: PANTOPRAZOLE 40 MG TABLET PO SCH (05:40)
[2018-04-18 06:26] LABS: HCT 34.1 % (34.0-46.0); HGB 9.8 gm/dL (11.4-16.0); Hypochromasia Marked; MCH 26.2 pg (25.0-35.0); MCHC 28.7 g/dL (31.0-37.0); MCV 91.4 fL (80.0-100.0); Platelet Count 320 k/uL (150-450); RBC 3.74 m/uL (3.80-5.40); WBC 8.6 k/uL (3.8-10.6)
[2018-04-18 06:46] LABS: Calcium 9.1 mg/dL (8.4-10.2); Potassium 3.7 mmol/L (3.5-5.1)
[2018-04-18] MEDS: IPRATROPIUM-ALBUTEROL 3 ML NEB INHALATION SCH ×4 (07:48→21:52)
[2018-04-18] MEDS: POTASSIUM CHLORIDE ER 20 MEQ TAB.ER PO SCH (08:45)
[2018-04-18] MEDS: guaiFENesin 600 MG TABLET.ER PO SCH (08:45)
[2018-04-18] MEDS: LISINOPRIL 5 MG TAB PO SCH (08:45)
[2018-04-18] MEDS: ESCITALOPRAM 10 MG TAB PO SCH (08:45)
[2018-04-18] MEDS: VIT A,C & E-LUTEIN-MINERALS 1 EACH TAB PO SCH (08:45)
[2018-04-18] MEDS: ASPIRIN 81 MG PO SCH (08:45)
[2018-04-18] MEDS: DORZOLAMIDE HCL 2% DROPS 10 ML BTL BOTH EYES SCH ×2 (08:46→21:01)
[2018-04-18] MEDS: APIXABAN 2.5 MG TABLET PO SCH ×2 (08:46→21:04)
[2018-04-18] MEDS: SENNOSIDES-DOCUSATE SODIUM 1 EACH TAB PO SCH (08:47)
[2018-04-18] MEDS: ACETAMINOPHEN TAB 325 MG TAB PO PRN (08:49)
--- NOTE | 2018-04-18 11:41 | P.PN ---
Subjective Progress Note Date: 04/18/18 This is an 87-year-old female one of Dr. Gonzalo Oneil's patients with a previous medical history significant for coronary artery disease status post myocardial infarction 3 post left heart catheterization with coronary intervention and 3 stent placement, hypertension and hypertensive cardio vascular disease, hyperlipidemia, atrial fibrillation status post permanent pacemaker, history of breast cancer in the past status post left mastectomy with lymph node dissection, history of glaucoma with left eye blindness and macular degeneration, recent hospitalization in September 2017 for small bowel obstruction with volvulus status post expiratory laparotomy, lysis of adhesion and small bowel resection. At that time echocardiogram showed EF of 55-60%, left atrium mildly dilated, aortic valve sclerosis, mild aortic stenosis, mild aortic regurgitation, moderate MR, mild TR. Patient complains of difficulty with breathing for the past week with increasing edema to the lower extremities. She states she is short of breath with minimal activity and normally uses a walker but now family has to use a wheelchair to get her to the bathroom this is been going on for the past week. She denies having any chest pain. She was seen by Dr. Oneil and sent into [facility] emergency center for evaluation. Her initial pulse ox was 84% and patient was brought back immediately to the ER. Heart rate was 129, respirations 30, blood pressure 147/86 and temperature 97.7. EKG was atrial fibrillation with RVR with no acute ST changes. Chest x-ray showed bilateral pleural effusions but no increase in size since last chest x-ray. No fulminant pulmonary edema. White count 7.9, hemoglobin 10.4, electrolytes within normal limits, BUN 22 and creatinine 0.72, blood sugar 116. Troponin negative on initial draw. ProBNP 1430. She was provided with steroids and nebulizer treatment but continued to have shortness of breath. Patient was continued on IV Solu-Medrol, nebulizer treatments and IV Solu-Medrol and IV Lasix and admitted to the cardiac stepdown unit and cardiology and pulmonary consults requested.. 04/17: The patient did have some shortness of breath getting to the bathroom. She did have a large bowel movement after being constipated for 7 days and lactulose will be discontinued and continue only Senokot-S. Potassium will be replaced. Patient has Miller in and place and we will plan to remove this tomorrow. Patient will be continued on Bumex 1 mg every 12 hours. Patient has been seen by Dr. Anderson and Solu-Medrol discontinued as he states there is no COPD exacerbation. Patient is also seen by cardiology and maintained on IV diuretics. Echocardiogram reveals EF of 35-40%, mild aortic stenosis, moderate aortic regurgitation, severe mitral regurgitation, severe tricuspid regurgitation, mild pulmonary hypertension. Pulse ox 96% on 2 L nasal cannula, heart rate running 97-100, respiratory rate 18, blood pressure 136/69. WBC 8.7 , hemoglobin 9.4, potassium 3.4, BUN 31 creatinine 0.87. PT and OT evaluations requested. 04/18: Patient is having shortness of breath which is moving in bed today. She is complaining of lower back pain for which lidocaine gel will be added. Cardiology has started the patient on Coreg 3.125 mg twice daily and started lisinopril 5 mg daily and discontinued verapamil. Heart rate is running in the 80s to 90s. Blood pressure 127/69, pulse ox 97% on 3 L nasal cannula. Weight is down almost 3 kg from yesterday. Patient has had multiple bowel movements and Senokot will be discontinued. Miller catheter to be removed today. PT and OT evaluations in progress Review of Systems All systems: negative Constitutional: Reports fatigue, Reports lethargy, Reports malaise, Reports poor appetite, Reports weakness, Denies chills, Denies fever Eyes: denies blurred vision, denies pain Ears, nose, mouth and throat: Denies dysphagia, Denies headache, Denies hoarseness, Denies sore throat Cardiovascular: Reports decreased exercise tolerance, Reports dyspnea on exertion, Reports edema, Reports leg edema, Denies chest pain, Denies lightheadedness, reports shortness of breath, Denies syncope Respiratory: Reports cough, Reports dyspnea, Reports wheezing, Denies excessive sputum, Denies hemoptysis, Denies home oxygen Gastrointestinal: Denies abdominal pain, Denies diarrhea, Denies nausea, Denies vomiting Genitourinary: Denies dysuria, Denies hematuria Musculoskeletal: Reports muscle weakness, Denies frequent falls, Denies gait dysfunction, Denies myalgias Integumentary: Denies pruritus, Denies rash, Denies wounds Neurological: Reports gait dysfunction, Reports weakness, Denies aphasia, Denies change in mentation, Denies change in speech, Denies confusion, Denies convulsions, Denies head injury, Denies headaches, Denies numbness, Denies seizures Psychiatric: Denies anxiety, Denies depression Endocrine: Reports fatigue, Denies weight change Objective - Vital Signs Vital signs: Vital Signs Temp 98.1 F 04/18/18 00:00 Pulse 94 04/18/18 08:02 Resp 20 04/18/18 04:00 BP 127/69 04/18/18 04:00 Pulse Ox 97 04/18/18 04:00 Intake & Output 04/17/18 04/18/18 04/18/18 18:59 06:59 18:59 Intake Total 390 Output Total 500 300 Balance -110 -300 Weight 49.5 kg Intake: Oral 390 Output: Urine 500 300 Other: Voiding Method Indwelling Catheter Indwelling Catheter # Voids 1 0 # Bowel Movements 2 2 - Exam General appearance: Moderate distress, thin - EENT Eyes: anicteric sclerae, EOMI, PERRLA, no ptosis, no scleral icterus, normal appearance ENT: Hard of hearing, mucous membranes of the mouth are somewhat dry. Ears: bilateral: normal Patient is legally blind. - Neck Neck: no lymphadenopathy, normal ROM, no rigidity, no stridor, no thyromegaly Carotids: bilateral: upstroke delayed - Respiratory Respiratory: bilateral: diminished with crackles bilaterally, negative: wheezing , prolonged expiration - Cardiovascular Rhythm: other (permanent pacemaker.) Heart sounds: normal: S1, S2 Abnormal Heart Sounds: systolic murmur - Gastrointestinal General gastrointestinal: Soft, nontender, no organomegaly, bowel sounds present. Miller draining clear luis alfredo urine - Integumentary Integumentary: normal, normal turgor - Neurologic Neurologic: CNII-XII intact - Musculoskeletal Musculoskeletal: generalized weakness, strength equal bilaterally - Psychiatric Psychiatric: A&O x's 3, appropriate affect, intact judgment & insight - Labs CBC & Chem 7: 04/18/18 05:37 04/18/18 05:37 Labs: Abnormal Lab Results - Last 24 Hours (Table) 04/17/18 04/18/18 04/18/18 Range/Units 20:43 05:37 05:37 RBC 3.74 L (3.80-5.40) m/uL Hgb 9.8 L (11.4-16.0) gm/dL MCHC 28.7 L (31.0-37.0) g/dL Carbon Dioxide 33 H (22-30) mmol/L BUN 42 H (7-17) mg/dL POC Glucose (mg/dL) 127 H (75-99) mg/dL Assessment and Plan Plan: 1. Acute hypoxic respiratory failure secondary to acute systolic heart failure , possible COPD. Patient will be continued on Bumex 1 mg IV push every 12 hours due to ALLERGY to Lasix, nebulizer treatments 4 times daily scheduled and as needed, oxygen therapy, Mucinex. Consults with pulmonary medicine and cardiology. Daily weights, I&O, monitor kidney function and electrolytes. Echocardiogram report as above. 2. CAD post [place] with left heart catheterization in 3 stents placement. No complaints of chest pain, normal troponin. Continue aspirin, pravastatin. 3. Chronic atrial fibrillation. Continue eliquis 1.25 mg twice daily, verapamil discontinued and patient started on Coreg 3.125 g twice daily and lisinopril 5 mg daily. 4. History of sick sinus syndrome status post permanent pacemaker placement. 5. Hyperlipidemia. Continue pravastatin. 6. History of glaucoma. Continue current eyedrops. 7. History of macular degeneration. She is legally blind. 8. History of breast cancer status post left mastectomy with lymph node dissection. Currently in remission. 8. ALLERGIC rhinitis and possible asthma. Continue nebulized treatment as well as oxygen support. 10. Generalized anxiety disorder. Continue Xanax 0.25 mg at bedtime, Lexapro 10 mg daily. 11. History of small bowel obstruction with volvulus status post exploratory laparotomy and lysis of adhesion with small bowel resection. 12. DVT prophylaxis. On eliquis. 11. GI prophylaxis. Protonix 40 mg every 24 hours. CODE STATUS no code Discharge plan: To be determined. PT and OT evaluations requested. Impression and plan of care have been directed as dictated by the signing physician. Cailin Mendoza nurse practitioner acting as scribe for signing physician.
[2018-04-18] MEDS: LIDOCAINE 4% CREAM 5 GM TUBE TOPICAL SCH ×3 (12:20→21:06)
[2018-04-18] MEDS: BUMETANIDE 0.25 MG/ML 4 ML VIAL IVP SCH ×2 (12:20→23:24)
--- NOTE | 2018-04-18 13:13 | PN ---
PROGRESS NOTE DATE OF SERVICE: 04/18/2018 This is an 87-year-old female who was admitted with acute hypoxemic respiratory failure secondary to an acute exacerbation of her chronic diastolic heart failure. The patient is doing a bit better. She is blind and very deaf. Her daughter and granddaughter are in the room with her. There was talk about discharge to rehab facility. She has been both at [facility] and [facility] and did not really like either. They are considering the [facility] and/or inpatient rehab at [facility]. In addition, she has a history of atrial fibrillation, pacemaker insertion because of sick sinus syndrome, macular degeneration, hyperlipidemia, hypertension, and breast cancer with previous left mastectomy. Current vital signs are reviewed. Temperature 98, heart rate 90, respiratory rate 20, blood pressure 129/62, mean 82 and 2 L saturations 100%. She appears in no acute distress. She is resting comfortably. The family members are in the room. HEENT examination is grossly unremarkable. Nasal O2 in place. Neck is supple. Full range of motion. No adenopathy. Cardiovascular examination reveals regular rhythm and rate. Heart rate about 80 beats per minute. S1, S2 normal. No murmur noted. Lungs reveal some bibasilar crackles. Breath sounds are diminished. No rhonchi or wheezes. Abdomen is soft. Bowel sounds are heard. Extremities are intact. No cyanosis, clubbing, or edema. Skin without rash. Neurologic examination is nonfocal. LABS: Reviewed. White count 8.6, hemoglobin 9.8, hematocrit 34.1, platelet count 320,000. Sodium and potassium normal. Chloride 102, CO2 33, anion gap is 6, BUN and creatinine were 42 and 0.88. No recent chest x-ray was done, but one was ordered. Medications are reviewed. Microbiologic studies are negative. ASSESSMENT: 1. Acute exacerbation of chronic diastolic heart failure with hypoxemic respiratory failure, improved. 2. Coronary artery disease with previous stent placement. 3. History of atrial fibrillation. 4. Sick sinus syndrome, status post permanent pacemaker insertion. 5. Macular degeneration. 6. Deafness. 7. Hyperlipidemia. 8. Hypertension. 9. Breast cancer, with previous left mastectomy. 10.Possible underlying chronic obstructive pulmonary disease from previous chronic tobacco use. PLAN: The patient is doing better. A chest x-ray was ordered to check progress. The patient will likely be discharged to a rehab facility. The patient will need follow up with my partner in post discharge. Additional recommendations and suggestions are forthcoming. MMODL / IJN: [id number] /
--- NOTE | 2018-04-18 13:42 | P.PN ---
Subjective This is an 87-year-old female past medical history significant for atrial fibrillation on long-term anticoagulation, status post pacemaker implantation, COPD and dyslipidemia. She follows with Dr. Hendrix in the office. Echocardiogram obtained reveals markedly impaired left ventricular systolic function with ejection fraction 35-40% anterior and septal hypokinesia noted, moderately thickened aortic valve, mild to moderate aortic regurgitation, mild aortic stenosis, severe mitral regurgitation and moderate to severe tricuspid regurgitation, mild pulmonary hypertension with an RVSP of 38 mmHg. She is currently maintained on Bumex 1 mg twice a day. She is seen and examined sitting up at the bedside in no acute distress. She continues to feel short of breath with mild improvement. She has not been getting out of bed. Weight is down 3 kg from admission and she is maintaining a negative fluid balance. Blood pressure 129/62 heart rate 99 afebrile maintaining oxygen saturation on nasal cannula. To be VC 8.6, hemoglobin 9.8, platelets 320, sodium 141, potassium 3.7, creatinine 0.88. She is currently maintained on Eliquis 1.25 mg twice a day, aspirin 81 mg daily, Bumex 1 mg twice a day, carvedilol 3.125 mg twice a day, lisinopril 5 mg daily, and potassium supplementation as needed. GENERAL: Well-appearing, well-nourished and in no acute distress. NECK: Supple without JVD or thyromegaly. LUNGS: Bibasilar rales with rhonchi throughout. Respiration equal and unlabored. No wheezes. Diminished bilaterally. HEART: Irregular rate and rhythm with systolic ejection murmur, no rubs or gallops. S1 and S2 heard. EXTREMITIES: Normal range of motion, no edema. No clubbing or cyanosis. Peripheral pulses intact. ASSESSMENT Acute exacerbation of systolic heart failure Chronic persistent atrial fibrillation on long-term anticoagulation Sick sinus syndrome status post permanent pacemaker implantation COPD Hypokalemia PLAN Continue current medical regimen. We may consider adding aldactone tomorrow. Follow kidney function and electrolytes daily. Further recommendations to follow based upon clinical course. The above impression and plan of care have been discussed and directed by the signing physician. Pearl Arias, nurse practitioner, acting as scribe for signing physician. Objective - Vital Signs Vital signs: Vital Signs Temp 98.0 F 04/18/18 07:50 Pulse 88 01/13/19 11:50 Resp 20 04/18/18 07:50 BP 129/62 04/18/18 07:50 Pulse Ox 100 04/18/18 07:50 Intake & Output 04/17/18 04/18/18 04/18/18 18:59 06:59 18:59 Intake Total 390 150 Output Total 500 300 625 Balance -110 -300 -475 Weight 49.5 kg Intake: Oral 390 150 Output: Urine 500 300 625 Other: Voiding Method Indwelling Catheter Indwelling Catheter Indwelling Catheter # Voids 1 0 # Bowel Movements 2 2 1 - Labs CBC & Chem 7: 04/18/18 05:37 04/18/18 05:37 Labs: Abnormal Lab Results - Last 24 Hours (Table) 04/17/18 04/18/18 04/18/18 Range/Units 20:43 05:37 05:37 RBC 3.74 L (3.80-5.40) m/uL Hgb 9.8 L (11.4-16.0) gm/dL MCHC 28.7 L (31.0-37.0) g/dL Carbon Dioxide 33 H (22-30) mmol/L BUN 42 H (7-17) mg/dL POC Glucose (mg/dL) 127 H (75-99) mg/dL
[2018-04-18] MEDS: LATANOPROST 0.005% OPHTH DROPS 2.5 ML BTL BOTH EYES SCH (21:02)
[2018-04-18] MEDS: ALPRAZolam 0.25 MG TAB PO SCH (21:03)
[2018-04-18] MEDS: PRAVASTATIN SODIUM 20 MG TAB PO SCH (21:04)
[2018-04-18] MEDS: LORATADINE 10 MG TAB PO SCH (21:04)
[2018-04-18] MEDS: MONTELUKAST 10 MG TAB PO SCH (21:04)
[2018-04-18] MEDS: BENZOCAINE 20% HEMORRHOIDAL OINT 28GM RECTAL SCH (21:06)
[2018-04-19] MEDS: ACETAMINOPHEN TAB 325 MG TAB PO PRN ×3 (00:12→20:14)
[2018-04-19] MEDS: PANTOPRAZOLE 40 MG TABLET PO SCH (06:33)
[2018-04-19] MEDS: CARVEDILOL 3.125 MG TAB PO SCH ×2 (06:33→18:14)
[2018-04-19] MEDS: IPRATROPIUM-ALBUTEROL 3 ML NEB INHALATION SCH ×4 (08:21→20:38)
[2018-04-19] MEDS: APIXABAN 2.5 MG TABLET PO SCH ×2 (08:33→20:06)
[2018-04-19] MEDS: VIT A,C & E-LUTEIN-MINERALS 1 EACH TAB PO SCH (08:33)
[2018-04-19] MEDS: ASPIRIN 81 MG PO SCH (08:34)
[2018-04-19] MEDS: LISINOPRIL 5 MG TAB PO SCH (08:34)
[2018-04-19] MEDS: POTASSIUM CHLORIDE ER 20 MEQ TAB.ER PO SCH (08:34)
[2018-04-19] MEDS: ESCITALOPRAM 10 MG TAB PO SCH (08:34)
[2018-04-19] MEDS: LIDOCAINE 4% CREAM 5 GM TUBE TOPICAL SCH ×4 (08:35→20:05)
[2018-04-19] MEDS: BENZOCAINE 20% HEMORRHOIDAL OINT 28GM RECTAL SCH ×3 (08:35→20:05)
[2018-04-19] MEDS: DORZOLAMIDE HCL 2% DROPS 10 ML BTL BOTH EYES SCH ×2 (08:35→20:07)
[2018-04-19] MEDS: guaiFENesin 600 MG TABLET.ER PO SCH (08:42)
[2018-04-19 12:25] LABS: Glucose,Whole Blood 92 mg/dL (75-99)
[2018-04-19] MEDS: SPIRONOLACTONE 25 MG TAB PO SCH (12:30)
[2018-04-19] MEDS: BUMETANIDE 0.25 MG/ML 4 ML VIAL IVP SCH (13:48)
[2018-04-19] MEDS ORDERED: BUMETANIDE 0.25 MG/ML 4 ML VIAL IVP STA (13:56)
--- NOTE | 2018-04-19 14:54 | P.PN ---
Subjective Progress Note Date: 04/19/18 This is an 87-year-old female one of Dr. Gonzalo Oneil's patients with a previous medical history significant for coronary artery disease status post myocardial infarction 3 post left heart catheterization with coronary intervention and 3 stent placement, hypertension and hypertensive cardio vascular disease, hyperlipidemia, atrial fibrillation status post permanent pacemaker, history of breast cancer in the past status post left mastectomy with lymph node dissection, history of glaucoma with left eye blindness and macular degeneration, recent hospitalization in September 2017 for small bowel obstruction with volvulus status post expiratory laparotomy, lysis of adhesion and small bowel resection. At that time echocardiogram showed EF of 55-60%, left atrium mildly dilated, aortic valve sclerosis, mild aortic stenosis, mild aortic regurgitation, moderate MR, mild TR. Patient complains of difficulty with breathing for the past week with increasing edema to the lower extremities. She states she is short of breath with minimal activity and normally uses a walker but now family has to use a wheelchair to get her to the bathroom this is been going on for the past week. She denies having any chest pain. She was seen by Dr. Oneil and sent into [facility] emergency center for evaluation. Her initial pulse ox was 84% and patient was brought back immediately to the ER. Heart rate was 129, respirations 30, blood pressure 147/86 and temperature 97.7. EKG was atrial fibrillation with RVR with no acute ST changes. Chest x-ray showed bilateral pleural effusions but no increase in size since last chest x-ray. No fulminant pulmonary edema. White count 7.9, hemoglobin 10.4, electrolytes within normal limits, BUN 22 and creatinine 0.72, blood sugar 116. Troponin negative on initial draw. ProBNP 1430. She was provided with steroids and nebulizer treatment but continued to have shortness of breath. Patient was continued on IV Solu-Medrol, nebulizer treatments and IV Solu-Medrol and IV Lasix and admitted to the cardiac stepdown unit and cardiology and pulmonary consults requested.. 04/17: The patient did have some shortness of breath getting to the bathroom. She did have a large bowel movement after being constipated for 7 days and lactulose will be discontinued and continue only Senokot-S. Potassium will be replaced. Patient has Miller in and place and we will plan to remove this tomorrow. Patient will be continued on Bumex 1 mg every 12 hours. Patient has been seen by Dr. Anderson and Solu-Medrol discontinued as he states there is no COPD exacerbation. Patient is also seen by cardiology and maintained on IV diuretics. Echocardiogram reveals EF of 35-40%, mild aortic stenosis, moderate aortic regurgitation, severe mitral regurgitation, severe tricuspid regurgitation, mild pulmonary hypertension. Pulse ox 96% on 2 L nasal cannula, heart rate running 97-100, respiratory rate 18, blood pressure 136/69. WBC 8.7 , hemoglobin 9.4, potassium 3.4, BUN 31 creatinine 0.87. PT and OT evaluations requested. 04/18: Patient is having shortness of breath which is moving in bed today. She is complaining of lower back pain for which lidocaine gel will be added. Cardiology has started the patient on Coreg 3.125 mg twice daily and started lisinopril 5 mg daily and discontinued verapamil. Heart rate is running in the 80s to 90s. Blood pressure 127/69, pulse ox 97% on 3 L nasal cannula. Weight is down almost 3 kg from yesterday. Patient has had multiple bowel movements and Senokot will be discontinued. Miller catheter to be removed today. PT and OT evaluations in progress 04/19: She has been afebrile, heart rate running in the 80s, pulse ox 99 on room air, blood pressure 93/52. WBC 8.6, hemoglobin 9.8, BUN 42 and creatinine 0.88. CO2 33. Cardiology has added in Aldactone 25 mg daily. Repeat chest x- ray has been requested. Bumex IV push ordered by Dr. Forte and changed to oral for tomorrow. Anticipate probable discharge home tomorrow with home care. Review of Systems All systems: negative Constitutional: Reports fatigue, Reports lethargy, Reports malaise, Reports poor appetite, Reports weakness, Denies chills, Denies fever Eyes: denies blurred vision, denies pain Ears, nose, mouth and throat: Denies dysphagia, Denies headache, Denies hoarseness, Denies sore throat Cardiovascular: Reports decreased exercise tolerance, Reports dyspnea on exertion, Reports edema, Reports leg edema, Denies chest pain, Denies lightheadedness, reports shortness of breath, Denies syncope Respiratory: Reports cough, Reports dyspnea, Reports wheezing, Denies excessive sputum, Denies hemoptysis, Denies home oxygen Gastrointestinal: Denies abdominal pain, Denies diarrhea, Denies nausea, Denies vomiting Genitourinary: Denies dysuria, Denies hematuria Musculoskeletal: Reports muscle weakness, Denies frequent falls, Denies gait dysfunction, Denies myalgias Integumentary: Denies pruritus, Denies rash, Denies wounds Neurological: Reports gait dysfunction, Reports weakness, Denies aphasia, Denies change in mentation, Denies change in speech, Denies confusion, Denies convulsions, Denies head injury, Denies headaches, Denies numbness, Denies seizures Psychiatric: Denies anxiety, Denies depression Endocrine: Reports fatigue Objective - Vital Signs Vital signs: Vital Signs Temp 97.8 F 04/19/18 08:00 Pulse 80 04/19/18 08:33 Resp 14 04/19/18 08:00 BP 93/52 04/19/18 08:00 Pulse Ox 99 04/19/18 08:00 Intake & Output 04/18/18 04/19/18 04/19/18 18:59 06:59 18:59 Intake Total 390 100 Output Total 625 1150 Balance -235 -1150 100 Weight 53.5 kg Intake: Oral 390 100 Output: Urine 625 1150 Other: Voiding Method Indwelling Catheter Indwelling Catheter # Voids 3 # Bowel Movements 2 - Exam General appearance: no distress, thin - EENT Eyes: anicteric sclerae, EOMI, PERRLA, no ptosis, no scleral icterus, normal appearance ENT: Hard of hearing, mucous membranes of the mouth are somewhat dry. Ears: bilateral: normal Patient is legally blind. - Neck Neck: no lymphadenopathy, normal ROM, no rigidity, no stridor, no thyromegaly Carotids: bilateral: upstroke delayed - Respiratory Respiratory: bilateral: diminished with crackles bilaterally, negative: wheezing , prolonged expiration - Cardiovascular Rhythm: other (permanent pacemaker.) Heart sounds: normal: S1, S2 Abnormal Heart Sounds: systolic murmur - Gastrointestinal General gastrointestinal: Soft, nontender, no organomegaly, bowel sounds present. Miller draining clear luis alfredo urine - Integumentary Integumentary: normal, normal turgor - Neurologic Neurologic: CNII-XII intact - Musculoskeletal Musculoskeletal: generalized weakness, strength equal bilaterally - Psychiatric Psychiatric: A&O x's 3, appropriate affect, intact judgment & insight - Labs CBC & Chem 7: 04/18/18 05:37 04/18/18 05:37 Assessment and Plan Plan: 1. Acute hypoxic respiratory failure secondary to acute systolic heart failure , possible COPD. Bumex 0.5 mg daily to start tomorrow , nebulizer treatments 4 times daily scheduled and as needed, oxygen therapy, Mucinex, lisinopril 5 mg daily, spironolactone 25 mg daily, Coreg 3.125 mg twice daily. Consults with pulmonary medicine and cardiology. Daily weights, I&O, monitor kidney function and electrolytes. Echocardiogram report as above. 2. CAD post [place] with left heart catheterization in 3 stents placement. No complaints of chest pain, normal troponin. Continue aspirin, pravastatin. 3. Chronic atrial fibrillation. Continue eliquis 1.25 mg twice daily, verapamil discontinued and patient started on Coreg 3.125 g twice daily and lisinopril 5 mg daily. 4. History of sick sinus syndrome status post permanent pacemaker placement. 5. Hyperlipidemia. Continue pravastatin. 6. History of glaucoma. Continue current eyedrops. 7. History of macular degeneration. She is legally blind. 8. History of breast cancer status post left mastectomy with lymph node dissection. Currently in remission. 8. ALLERGIC rhinitis and possible asthma. Continue nebulized treatment as well as oxygen support. 10. Generalized anxiety disorder. Continue Xanax 0.25 mg at bedtime, Lexapro 10 mg daily. 11. History of small bowel obstruction with volvulus status post exploratory laparotomy and lysis of adhesion with small bowel resection. 12. DVT prophylaxis. On eliquis. 11. GI prophylaxis. Protonix 40 mg every 24 hours. CODE STATUS no code Discharge plan: Home with home care tomorrow. Impression and plan of care have been directed as dictated by the signing physician. Cailin Mendoza nurse practitioner acting as scribe for signing physician.
--- NOTE | 2018-04-19 15:11 | P.PN ---
Subjective Progress Note Date: 04/19/18 This is an 87-year-old female past medical history significant for atrial fibrillation on long-term anticoagulation, status post pacemaker implantation, COPD and dyslipidemia. She follows with Dr. Hendrix in the office. Echocardiogram obtained reveals markedly impaired left ventricular systolic function with ejection fraction 35-40% anterior and septal hypokinesia noted, moderately thickened aortic valve, mild to moderate aortic regurgitation, mild aortic stenosis, severe mitral regurgitation and moderate to severe tricuspid regurgitation, mild pulmonary hypertension with an RVSP of 38 mmHg. Bumex was decreased to 0.5 mg daily today by pulmonary. I pressure 126/66, heart rate in the 80s to 90s. White blood cell count 8.6, hemoglobin 9.8, platelet count 320. Sodium 141, potassium 3.7, BUN 42 and creatinine 0.8. We'll add Aldactone 25 mg daily to her medication regime today. Objective - Vital Signs Vital signs: Vital Signs Temp 97.8 F 04/19/18 08:00 Pulse 80 04/19/18 13:01 Resp 16 04/19/18 12:00 BP 127/67 04/19/18 12:00 Pulse Ox 99 04/19/18 08:00 Intake & Output 04/18/18 04/19/18 04/19/18 18:59 06:59 18:59 Intake Total 390 220 Output Total 625 1150 Balance -235 -1150 220 Weight 53.5 kg Intake: Oral 390 220 Output: Urine 625 1150 Other: Voiding Method Indwelling Catheter Indwelling Catheter Toilet # Voids 3 # Bowel Movements 2 - Exam GENERAL: Well-appearing, well-nourished and in no acute distress. NECK: Supple without JVD or thyromegaly. LUNGS: Bibasilar rales with rhonchi throughout. Respiration equal and unlabored. No wheezes. Diminished bilaterally. HEART: Irregular rate and rhythm with systolic ejection murmur, no rubs or gallops. S1 and S2 heard. EXTREMITIES: Normal range of motion, no edema. No clubbing or cyanosis. Peripheral pulses intact. - Labs CBC & Chem 7: 04/18/18 05:37 04/18/18 05:37 Assessment and Plan Plan: ASSESSMENT AND PLAN #1 Acute exacerbation of systolic heart failure #2 Chronic persistent atrial fibrillation on long-term anticoagulation #3 Sick sinus syndrome status post permanent pacemaker implantation #4 COPD #5 Hypokalemia Plan From tomorrow patient will be changed over to oral diuretics. Add Aldactone 25 mg daily. We'll continue the rest of her medications. DNP note has been reviewed, I agree with a documented findings and plan of care. Patient was seen and examined.
--- NOTE | 2018-04-19 15:23 | P.PN ---
Subjective Progress Note Date: 04/19/18 Principal diagnosis: Acute exacerbation of chronic diastolic congestive heart failure This is a very pleasant 87-year-old female patient who follows with Reagan Oneil as her primary care physician. She has a history of congestive heart failure. She also has a history of mild chronic obstructive pulmonary disease and smoked for approximately 32 years at half a pack a day. She had been seen by Dr. Jhaveri in the past and was diagnosed with mild intermittent chronic bronchial asthma as well. She presented here on 04/15/2017 with complaints of increasing shortness of breath. She also had some increased lower extremity edema. He was found to have an acute exacerbation of chronic diastolic congestive heart failure. She is seen again today in follow-up on the selective care unit. She is awake and alert in no acute distress. She is breathing easier today as compared to yesterday. A little stronger. He is maintaining O2 saturations in the mid to upper 90s on 2 L/m nasal cannula. She' s afebrile. Hemodynamically stable. White count 8.7. Hemoglobin 9.4. Creatinine 0.87. She is currently on Bumex 1 mg IV push every 12 hours. On 04/19/2018 patient is seen in follow-up. Patient is diuresing, currently on IV Bumex twice daily, lung sounds are clear on today's examination, patient is breathing easier. She is in -1385 ML fluid balance over the last 24 hours. No chest pain, no shortness of breath. Today's labs have been reviewed, and shows WBC of 8.6, hemoglobin of 9.8, sodium is 141, potassium is 3.7, chloride is 102 , CO2 33, BUN is 42 and creatinine 0.88, patient has become less likely prerenal , WHICH time IV Bumex to oral Bumex 0.5 mg once daily, and Aldactone was added per cardiology. AP chest x-ray in the morning Objective - Vital Signs Vital signs: Vital Signs Temp 97.8 F 04/19/18 08:00 Pulse 80 04/19/18 13:01 Resp 16 04/19/18 12:00 BP 127/67 04/19/18 12:00 Pulse Ox 99 04/19/18 08:00 Intake & Output 04/18/18 04/19/18 04/19/18 18:59 06:59 18:59 Intake Total 390 220 Output Total 625 1150 Balance -235 -1150 220 Weight 53.5 kg Intake: Oral 390 220 Output: Urine 625 1150 Other: Voiding Method Indwelling Catheter Indwelling Catheter Toilet # Voids 3 # Bowel Movements 2 - Exam GENERAL EXAM: Alert, pleasant, 87-year-old white female comfortable in no apparent distress. On room air HEAD: Normocephalic/atraumatic. EYES: Normal reaction of pupils, equal size. Conjunctiva pink, sclera white. NOSE: Clear with pink turbinates. THROAT: No erythema or exudates. NECK: No masses, no JVD, no thyroid enlargement, no adenopathy. CHEST: No chest wall deformity. Symmetrical expansion. LUNGS: Equal air entry with no crackles, wheeze, rhonchi or dullness. CVS: Regular rate and rhythm, normal S1 and S2, no gallops, no murmurs, no rubs ABDOMEN: Soft, nontender. No hepatosplenomegaly, normal bowel sounds, no guarding or rigidity. EXTREMITIES: No clubbing, no edema, no cyanosis, 2+ pulses and upper and lower extremities. MUSCULOSKELETAL: Muscle strength and tone normal. SPINE: No scoliosis or deformity SKIN: No rashes CENTRAL NERVOUS SYSTEM: Alert and oriented -3. No focal deficits, tone is normal in all 4 extremities. PSYCHIATRIC: Alert and oriented -3. Appropriate affect. Intact judgment and insight. - Labs CBC & Chem 7: 04/18/18 05:37 04/18/18 05:37 Assessment and Plan Plan: #1 Acute exacerbation of chronic diastolic congestive heart failure. #2 Acute hypoxic respiratory failure secondary to above. #3 Coronary artery disease with previous stent placement. #4 History of atrial fibrillation. #5 Sick sinus syndrome status post permanent pacemaker implantation. #6 Macular degeneration. #7 Hearing disorder. #8 Hyperlipidemia. #9 Hypertension. #10 History of breast cancer with previous left mastectomy. #11 Suspect chronic obstructive pulmonary disease and previous chronic tobacco dependence. Plan: We'll switch the IV Bumex to oral Bumex 0.5 mg once daily, today's labs reveal that patient is becoming a bit prerenal, lung sounds are clear on today's examination, no rales, no rhonchi or wheezes, patient is breathing easier, she is on room air, we'll obtain chest x-ray in the morning. The echo has been added by cardiology, we'll continue to follow. I performed a history & physical examination of the patient and discussed their management with my nurse practitioner, Carina Rojas. I reviewed the nurse practitioner's note and agree with the documented findings and plan of care. Lung sounds are positive for clear. The findings and the impression was discussed with the patient. I attest to the documentation by the nurse practitioner. Time with Patient: Less than 30
--- NOTE | 2018-04-19 17:17 | XR ---
EXAMINATION TYPE: XR chest 1V portable DATE OF EXAM: 04/19/2018 COMPARISON: 04/15/2018 HISTORY: Follow-up heart failure TECHNIQUE: Single frontal view of the chest is obtained. FINDINGS: Heart is enlarged. There is no heart failure. There is blunting of the costophrenic angles and more on the right side. There is left axillary pacemaker with the lead tips in the right ventric le. Bony thorax appears intact. IMPRESSION: There is slight decrease in the pleural effusions compared to last exam. No overt heart failure seen. Stable cardiomegaly.
[2018-04-19] MEDS: PRAVASTATIN SODIUM 20 MG TAB PO SCH (20:05)
[2018-04-19] MEDS: LORATADINE 10 MG TAB PO SCH (20:05)
[2018-04-19] MEDS: ALPRAZolam 0.25 MG TAB PO SCH (20:05)
[2018-04-19] MEDS: MONTELUKAST 10 MG TAB PO SCH (20:05)
[2018-04-19] MEDS: LATANOPROST 0.005% OPHTH DROPS 2.5 ML BTL BOTH EYES SCH (20:07)
[2018-04-19 20:43] LABS: Glucose,Whole Blood 127 mg/dL (75-99)
[2018-04-20] MEDS: CARVEDILOL 3.125 MG TAB PO SCH (06:55)
[2018-04-20] MEDS: PANTOPRAZOLE 40 MG TABLET PO SCH (06:55)
[2018-04-20] MEDS ORDERED: BUMETANIDE 1 MG TAB PO SCH (09:00)
[2018-04-20] MEDS: IPRATROPIUM-ALBUTEROL 3 ML NEB INHALATION SCH ×2 (09:03→12:27)
[2018-04-20] MEDS: POTASSIUM CHLORIDE ER 20 MEQ TAB.ER PO SCH (09:33)
[2018-04-20] MEDS: SPIRONOLACTONE 25 MG TAB PO SCH (09:34)
[2018-04-20] MEDS: ASPIRIN 81 MG PO SCH (09:34)
[2018-04-20] MEDS: LISINOPRIL 5 MG TAB PO SCH (09:34)
[2018-04-20] MEDS: ESCITALOPRAM 10 MG TAB PO SCH (09:34)
[2018-04-20] MEDS: DORZOLAMIDE HCL 2% DROPS 10 ML BTL BOTH EYES SCH (09:34)
[2018-04-20] MEDS: APIXABAN 2.5 MG TABLET PO SCH (09:35)
[2018-04-20] MEDS: ARTIFICIAL TEARS-HYPROMELLOSE DROPS 15 ML BTL BOTH EYES PRN (09:36)
[2018-04-20] MEDS: BENZOCAINE 20% HEMORRHOIDAL OINT 28GM RECTAL SCH (09:36)
[2018-04-20] MEDS: VIT A,C & E-LUTEIN-MINERALS 1 EACH TAB PO SCH (09:37)
[2018-04-20] MEDS: guaiFENesin 600 MG TABLET.ER PO SCH (09:37)
[2018-04-20] MEDS: LIDOCAINE 4% CREAM 5 GM TUBE TOPICAL SCH (09:37)
[2018-04-20 10:14] VITALS: RESP 18
[2018-04-20] MEDS: ACETAMINOPHEN TAB 325 MG TAB PO PRN (11:27)
[2018-04-20 11:53] VITALS: BP 106/57; TEMP 97.9
[2018-04-20 12:40] VITALS: PULSE 96
--- NOTE | 2018-04-20 13:03 | P.PN ---
Subjective Progress Note Date: 04/20/18 Principal diagnosis: Acute exacerbation of chronic diastolic congestive heart failure. This is a very pleasant 87-year-old female patient who follows with Reagan Oneil as her primary care physician. She has a history of congestive heart failure. She also has a history of mild chronic obstructive pulmonary disease and smoked for approximately 32 years at half a pack a day. She had been seen by Dr. Jhaveri in the past and was diagnosed with mild intermittent chronic bronchial asthma as well. She presented here on 04/15/2017 with complaints of increasing shortness of breath. She also had some increased lower extremity edema. He was found to have an acute exacerbation of chronic diastolic congestive heart failure. She is seen again today in follow-up on the selective care unit. She is awake and alert in no acute distress. She is breathing easier today as compared to yesterday. A little stronger. He is maintaining O2 saturations in the mid to upper 90s on 2 L/m nasal cannula. She' s afebrile. Hemodynamically stable. White count 8.7. Hemoglobin 9.4. Creatinine 0.87. She is currently on Bumex 1 mg IV push every 12 hours. The patient is seen today 04/20/2018 in follow-up on the cardiac care floor. She is presently awake and alert in no acute distress. She is resting comfortably in bed. She denies any shortness of breath, cough or congestion. Maintaining good O2 saturations in the high 90s on 2 L/m per nasal cannula. She 's afebrile. Hemodynamically stable. Continued on bronchodilators. Oral diuretics. Objective - Vital Signs Vital signs: Vital Signs Temp 97.9 F 04/20/18 11:50 Pulse 96 04/20/18 12:38 Resp 18 04/20/18 11:53 BP 106/57 04/20/18 11:50 Pulse Ox 99 04/20/18 11:50 Intake & Output 04/19/18 04/20/18 04/20/18 18:59 06:59 18:59 Intake Total 340 120 0 Balance 340 120 0 Weight 48.9 kg Intake: Oral 340 120 0 Other: Voiding Method Toilet Toilet # Voids 1 1 - Exam GENERAL EXAM: Alert, pleasant 87-year-old female patient, comfortable in no apparent distress. On nasal cannula. HEAD: Normocephalic. Very hard of hearing. EYES: Macular degeneration. NOSE: Clear with pink turbinates. THROAT: No erythema or exudates. NECK: No masses, no JVD. CHEST: No chest wall deformity. LUNGS: Equal air entry with crackles in the posterior bases CVS: S1 and S2 normal with no audible murmur, regular rhythm. ABDOMEN: No hepatosplenomegaly, normal bowel sounds, no guarding or rigidity. SPINE: Kyphoscoliosis SKIN: No rashes CENTRAL NERVOUS SYSTEM: No focal deficits, tone is normal in all 4 extremities. EXTREMITIES: There is trace peripheral edema. No clubbing, no cyanosis. Peripheral pulses are intact. - Labs CBC & Chem 7: 04/18/18 05:37 04/18/18 05:37 Labs: Abnormal Lab Results - Last 24 Hours (Table) 04/19/18 Range/Units 20:41 POC Glucose (mg/dL) 127 H (75-99) mg/dL Assessment and Plan Assessment: Impression: #1 Acute exacerbation of chronic diastolic congestive heart failure. #2 Acute hypoxic respiratory failure secondary to above. #3 Coronary artery disease with previous stent placement. #4 History of atrial fibrillation. #5 Sick sinus syndrome status post permanent pacemaker implantation. #6 Macular degeneration. #7 Hearing disorder. #8 Hyperlipidemia. #9 Hypertension. #10 History of breast cancer with previous left mastectomy. #11 Suspect chronic obstructive pulmonary disease and previous chronic tobacco dependence. Plan: The patient is seen and evaluated by Dr. Forte. She is currently stable from the pulmonary standpoint. Titrate FiO2 as tolerated. She'll follow up with Dr. Jhaveri in the outpatient setting. We'll continue to follow and make further recommendations based on her clinical status. I, the cosigning physician, performed a history & physical examination of the patient. Lungs sounds faint end expiratory wheeze, crackles in the bases. Maintaining good O2 saturations in the 90s on 2 L/m per nasal cannula. I discussed the assessment and plan of care with my nurse practitioner, Aliya Palacios. I attest to the above note as dictated by her.
[2018-04-20 14:41] LABS: Calcium 9.2 mg/dL (8.4-10.2); Potassium 4.3 mmol/L (3.5-5.1)
--- NOTE | 2018-04-20 14:41 | P.PN ---
Subjective Progress Note Date: 04/20/18 This is an 87-year-old female past medical history significant for atrial fibrillation on long-term anticoagulation, status post pacemaker implantation, COPD and dyslipidemia. She follows with Dr. Hendrix in the office. Echocardiogram obtained reveals markedly impaired left ventricular systolic function with ejection fraction 35-40% anterior and septal hypokinesia noted, moderately thickened aortic valve, mild to moderate aortic regurgitation, mild aortic stenosis, severe mitral regurgitation and moderate to severe tricuspid regurgitation, mild pulmonary hypertension with an RVSP of 38 mmHg. Bumex was decreased to 0.5 mg daily today by pulmonary. I pressure 126/66, heart rate in the 80s to 90s. White blood cell count 8.6, hemoglobin 9.8, platelet count 320. Sodium 141, potassium 3.7, BUN 42 and creatinine 0.8. We'll add Aldactone 25 mg daily to her medication regime today. 04/20/2018 Kashif was seen and examined this morning, overall doing significantly better today. Her weight is down, blood pressure 106/50, currently on oral Bumex. Objective - Vital Signs Vital signs: Vital Signs Temp 97.9 F 04/20/18 11:50 Pulse 96 04/20/18 12:38 Resp 18 04/20/18 11:53 BP 106/57 04/20/18 11:50 Pulse Ox 99 04/20/18 11:50 Intake & Output 04/19/18 04/20/18 04/20/18 18:59 06:59 18:59 Intake Total 340 120 120 Balance 340 120 120 Weight 48.9 kg Intake: Oral 340 120 120 Other: Voiding Method Toilet Toilet # Voids 1 1 - Exam GENERAL: Well-appearing, well-nourished and in no acute distress. NECK: Supple without JVD or thyromegaly. LUNGS: Bibasilar rales with rhonchi throughout. Respiration equal and unlabored. No wheezes. Diminished bilaterally. HEART: Irregular rate and rhythm with systolic ejection murmur, no rubs or gallops. S1 and S2 heard. EXTREMITIES: Normal range of motion, no edema. No clubbing or cyanosis. Peripheral pulses intact. - Labs CBC & Chem 7: 04/18/18 05:37 04/18/18 05:37 Labs: Abnormal Lab Results - Last 24 Hours (Table) 01/14/19 Range/Units 20:41 POC Glucose (mg/dL) 127 H (75-99) mg/dL Assessment and Plan Plan: ASSESSMENT AND PLAN #1 Acute exacerbation of systolic heart failure #2 Chronic persistent atrial fibrillation on long-term anticoagulation #3 Sick sinus syndrome status post permanent pacemaker implantation #4 COPD #5 Hypokalemia Plan From cardiology's perspective, we'll recommend to continue the patient on current medications. Discharged once cleared by primary. Follow-up in the office post discharge. DNP note has been reviewed, I agree with a documented findings and plan of care. Patient was seen and examined.
== END 2018-04-20 14:49 | disposition home health service (06) | DRG 291 ==
LOC: EC 15:05 → 3SCARD 17:29
PROVIDERS: ADMIT Internal Medicine; ATTEND Internal Medicine
DX: I11.0 Hypertensive heart disease with heart failure (principal); J96.01 Acute respiratory failure with hypoxia; I48.1 Persistent atrial fibrillation; J44.1 Chronic obstructive pulmonary disease with (acute) exacerbation; E78.5 Hyperlipidemia, unspecified; E87.6 Hypokalemia; F41.1 Generalized anxiety disorder; H35.30 Unspecified macular degeneration; H40.9 Unspecified glaucoma; H54.62 Unqualified visual loss, left eye, normal vision right eye; H91.90 Unspecified hearing loss, unspecified ear; I08.3 Combined rheumatic disorders of mitral, aortic and tricuspid valves; I25.10 Atherosclerotic heart disease of native coronary artery without angina pectoris; I25.2 Old myocardial infarction; I27.20 Pulmonary hypertension, unspecified; I48.2 Chronic atrial fibrillation; Z95.0 Presence of cardiac pacemaker; I50.43 Acute on chronic combined systolic (congestive) and diastolic (congestive) heart failure; K59.00 Constipation, unspecified; Z79.01 Long term (current) use of anticoagulants; Z79.82 Long term (current) use of aspirin; Z79.899 Other long term (current) drug therapy; Z82.49 Family history of ischemic heart disease and other diseases of the circulatory system; Z85.3 Personal history of malignant neoplasm of breast; Z87.891 Personal history of nicotine dependence; Z90.12 Acquired absence of left breast and nipple; Z90.49 Acquired absence of other specified parts of digestive tract; Z90.710 Acquired absence of both cervix and uterus; Z95.5 Presence of coronary angioplasty implant and graft; Z90.721 Acquired absence of ovaries, unilateral; Z88.5 Allergy status to narcotic agent; Z88.8 Allergy status to other drugs, medicaments and biological substances; Z66 Do not resuscitate
CPT/HCPCS: 36415; 51702; 71045; 80048; 80053; 82550; 82553; 83735; 83880; 84484; 85025; 85027; 85610; 85730; 87077; 87086; 87186; 93005; 93306; 94640; 94760; 96374; 96375; 96376; 99291

== ENCOUNTER 2018-05-02 08:34 | Emergency (ER) | payer MEDICARE, BC ==
--- NOTE | 2018-05-02 08:53 | ED ---
General Adult HPI - General Stated complaint: poss stroke Time Seen by Provider: 05/02/18 08:35 Source: EMS, RN notes reviewed Mode of arrival: EMS Limitations: altered mental status, physical limitation - History of Present Illness Initial comments: Patient is a pleasant 87-year-old female presenting to the emergency department with concern for stroke. Last known well is reported at 9 PM. History is provided by EMS as patient is nonverbal. Patient reportedly is normally alert and oriented and able to hold a conversation. Patient is unable to provide any history at this time. - Related Data Home Medications Medication Instructions Recorded Confirmed Montelukast [Singulair] 10 mg PO HS 04/01/14 05/02/18 Pravastatin Sodium [Pravachol] 20 mg PO HS 04/01/14 05/02/18 Dorzolamide 2% [Trusopt 2%] 1 drops RIGHT EYE BID 05/27/16 05/02/18 Latanoprost Ophth [Xalatan 0.005%] 1 drops RIGHT EYE HS 05/27/16 05/02/18 Escitalopram Oxalate [Lexapro] 10 mg PO DAILY 10/13/16 05/02/18 Apixaban [Eliquis] 1.25 mg PO BID 09/02/17 05/02/18 Aspirin EC [Ecotrin Low Dose] 81 mg PO DAILY 09/02/17 05/02/18 ALPRAZolam [Xanax] 0.25 mg PO HS 04/15/18 05/02/18 Acetaminophen Tab [Tylenol] 650 mg PO BID 04/15/18 05/02/18 Carboxymethylcellulose Sodium 1 drop BOTH EYES DAILY PRN 04/15/18 05/02/18 [Refresh Tears] guaiFENesin [Mucinex] 600 mg PO QAM 04/15/18 05/02/18 Carvedilol [Coreg] 3.125 mg PO BID 05/02/18 05/02/18 Multivitamins, Thera [Multivitamin 1 tab PO DAILY 05/02/18 05/02/18 (formulary)] Previous Rx's Medication Instructions Recorded Loratadine [Claritin] 10 mg PO HS tab 09/14/17 Bumetanide [BUMEX] 0.5 mg PO DAILY #30 tab 04/20/18 Lisinopril [Zestril] 5 mg PO DAILY #30 tab 04/20/18 Potassium Chloride ER [K-Dur 20] 20 meq PO DAILY #30 tab.er.prt 04/20/18 Spironolactone [Aldactone] 25 mg PO DAILY #30 tab 04/20/18 Allergies Allergy/AdvReac Type Severity Reaction Status Date / Time codeine AdvReac Unknown Verified 05/02/18 10:12 furosemide [From Lasix] AdvReac dizziness,w Verified 05/02/18 10:12 eakness tiotropium bromide AdvReac Unknown Verified 05/02/18 10:12 [From Spiriva with HandiHaler] Review of Systems ROS Statement: Those systems with pertinent positive or pertinent negative responses have been documented in the HPI. ROS Other: All systems not noted in ROS Statement are negative. 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, deafness, hypertension, hyperlipidemia, history of breast cancer with a previous left mastectomy, history of coronary intervention and coronary stenting, shingles approx 2013, sbo august 2017(sx), urethral caruncle, pne vaccine in past 5 years,travel writer unable to verify date at time of admit,please f/u in am History of Any Multi-Drug Resistant Organisms: None Reported Past Surgical History: Ablation, Bowel Resection, Cholecystectomy, Heart Catheterization With Stent, Hysterectomy, Pacemaker, Tonsillectomy Additional Past Surgical History / Comment(s): mastectomy, oopherectomy, exploratoy laparotomy/ bowel resection Past Anesthesia/Blood Transfusion Reactions: No Reported Reaction Date of Last Stent Placement:: unk Type of Cardiac Device: Permanent Pacemaker Device Placement Date:: unk Smoking Status: Former smoker Additional Past Alcohol Use History / Comment(s): The patient was a smoker of pack per day for 35 years and quit when she was 51 years of age. No marijuana or illicit drug use. - Past Family History Mother Family Medical History: No Reported History Additional Family Medical History / Comment(s): Mother at age 66 from a myocardial infarction. Father Family Medical History: No Reported History Additional Family Medical History / Comment(s): Patient does not about her father. Brother(s) Family Medical History: Coronary Artery Disease (CAD) Additional Family Medical History / Comment(s): Patient had 2 brothers from coronary artery disease. Sister(s) Family Medical History: Coronary Artery Disease (CAD) Additional Family Medical History / Comment(s): Patient had 2 sisters from coronary artery disease. Daughter(s) Family Medical History: No Reported History Additional Family Medical History / Comment(s): Patient's 3 daughters with no major medical problems. Son(s) Family Medical History: No Reported History Additional Family Medical History / Comment(s): Patient has 2 sons with no major medical problems. General Exam Limitations: altered mental status, physical limitation General appearance: alert Head exam: Present: atraumatic Eye exam: Present: other (Gaze deviated to the left) ENT exam: Present: normal oropharynx Neck exam: Present: normal inspection Respiratory exam: Present: normal lung sounds bilaterally Cardiovascular Exam: Present: regular rate, normal rhythm GI/Abdominal exam: Present: soft. Absent: tenderness Extremities exam: Present: normal inspection Neurological exam: Present: alert, altered Expanded Neurological exam: Present: total aphasia, protecting the airway, other (Gaze deviated to the left. Right-sided neglect. Unable to follow commands. Unable to test for sensory exam) Cranial nerves: EOM's Intact: Abnormal Right (Gaze deviated to the left.) Motor strength exam: RUE: 2/1, LUE: 4, RLE: 2/1, LLE: 3 Eye Response: (4) open spontaneously Motor Response: (4) withdraws to pain Verbal Response: incomprehensible sounds Psychiatric exam: Present: flat affect, other (Nonverbal) Skin exam: Present: normal color Course Vital Signs 05/02/18 05/02/18 05/02/18 08:35 08:40 08:50 Temperature Pulse Rate 101 H 92 Respiratory 20 20 Rate Blood Pressure 144/62 162/75 O2 Sat by Pulse 96 96 96 Oximetry 05/02/18 05/02/18 05/02/18 09:05 09:06 09:30 Temperature 97.0 F L Pulse Rate 91 91 92 Respiratory 20 22 20 Rate Blood Pressure 130/66 166/79 120/63 O2 Sat by Pulse 96 96 99 Oximetry 05/02/18 05/02/18 05/02/18 10:00 10:30 11:00 Temperature Pulse Rate 93 100 93 Respiratory 16 18 18 Rate Blood Pressure 122/58 119/66 133/65 O2 Sat by Pulse 97 99 97 Oximetry 05/02/18 11:30 Temperature Pulse Rate 98 Respiratory 18 Rate Blood Pressure 136/73 O2 Sat by Pulse 99 Oximetry - Reevaluation(s) Reevaluation #1: 05/02/18 09:[address] maldonado spoke with nurse and stated patient was not a TPA candidate. 05/02/18 10:27 Patient reevaluated and unchanged. Family updated on results. Family also updated on need for transfer as well as potential for interventional procedure. Neural interventional list has been paged again to discussed CT results. 05/02/18 11:38 Case was discussed with , who states patient is not a candidate for thrombectomy. Family updated. 05/02/18 11:52 Family was hoping to avoid transfer despite not having neurology here. Case was discussed in detail with Dr. Schmitz who is not comfortable with that and does recommend transfer to someplace with neurology. Case was then discussed with Dr. Nails at [facility], who will accept transfer. EKG Findings - EKG Comments: EKG Findings:: A. fib with rate of 90. QRS 86. QT 366. QTc 447. Normal axis. Septal Q waves. No acute ST change. Medical Decision Making - Lab Data Result diagrams: 05/02/18 08:45 05/02/18 08:45 Lab Results 05/02/18 05/02/18 05/02/18 Range/Units 08:45 08:45 08:45 WBC 6.9 (3.8-10.6) k/uL RBC 3.99 (3.80-5.40) m/uL Hgb 10.8 L (11.4-16.0) gm/dL Hct 35.4 (34.0-46.0) % MCV 88.9 (80.0-100.0) fL MCH 27.0 (25.0-35.0) pg MCHC 30.4 L (31.0-37.0) g/dL RDW 15.7 H (11.5-15.5) % Plt Count 270 (150-450) k/uL Neutrophils % 73 % Lymphocytes % 15 % Monocytes % 7 % Eosinophils % 2 % Basophils % 1 % Neutrophils # 5.1 (1.3-7.7) k/uL Lymphocytes # 1.1 (1.0-4.8) k/uL Monocytes # 0.5 (0-1.0) k/uL Eosinophils # 0.1 (0-0.7) k/uL Basophils # 0.0 (0-0.2) k/uL Hypochromasia Marked PT (9.0-12.0) sec INR (<1.2) APTT (22.0-30.0) sec Sodium 141 (137-145) mmol/L Potassium 5.9 H (3.5-5.1) mmol/L Chloride 108 H (98-107) mmol/L Carbon Dioxide 26 (22-30) mmol/L Anion Gap 7 mmol/L BUN 35 H (7-17) mg/dL Creatinine 0.85 (0.52-1.04) mg/dL Est GFR (CKD-EPI)AfAm 72 (>60 ml/min/1.73 sqM) Est GFR (CKD-EPI)NonAf 63 (>60 ml/min/1.73 sqM) Glucose 109 H (74-99) mg/dL Calcium 9.7 (8.4-10.2) mg/dL Total Bilirubin 0.5 (0.2-1.3) mg/dL AST 30 (14-36) U/L ALT 24 (9-52) U/L Alkaline Phosphatase 80 (38-126) U/L Total Creatine Kinase 22 L (30-135) U/L CK-MB (CK-2) 0.6 (0.0-2.4) ng/mL CK-MB (CK-2) Rel Index 2.7 Troponin I <0.012 (0.000-0.034) ng/mL Total Protein 7.0 (6.3-8.2) g/dL Albumin 3.8 (3.5-5.0) g/dL 05/02/18 Range/Units 08:45 WBC (3.8-10.6) k/uL RBC (3.80-5.40) m/uL Hgb (11.4-16.0) gm/dL Hct (34.0-46.0) % MCV (80.0-100.0) fL MCH (25.0-35.0) pg MCHC (31.0-37.0) g/dL RDW (11.5-15.5) % Plt Count (150-450) k/uL Neutrophils % % Lymphocytes % % Monocytes % % Eosinophils % % Basophils % % Neutrophils # (1.3-7.7) k/uL Lymphocytes # (1.0-4.8) k/uL Monocytes # (0-1.0) k/uL Eosinophils # (0-0.7) k/uL Basophils # (0-0.2) k/uL Hypochromasia PT 10.0 (9.0-12.0) sec INR 0.9 (<1.2) APTT 24.9 (22.0-30.0) sec Sodium (137-145) mmol/L Potassium (3.5-5.1) mmol/L Chloride (98-107) mmol/L Carbon Dioxide (22-30) mmol/L Anion Gap mmol/L BUN (7-17) mg/dL Creatinine (0.52-1.04) mg/dL Est GFR (CKD-EPI)AfAm (>60 ml/min/1.73 sqM) Est GFR (CKD-EPI)NonAf (>60 ml/min/1.73 sqM) Glucose (74-99) mg/dL Calcium (8.4-10.2) mg/dL Total Bilirubin (0.2-1.3) mg/dL AST (14-36) U/L ALT (9-52) U/L Alkaline Phosphatase (38-126) U/L Total Creatine Kinase (30-135) U/L CK-MB (CK-2) (0.0-2.4) ng/mL CK-MB (CK-2) Rel Index Troponin I (0.000-0.034) ng/mL Total Protein (6.3-8.2) g/dL Albumin (3.5-5.0) g/dL - Radiology Data Radiology results: report reviewed (Computed tomography scan of the brain shows chronic small vessel disease. 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 Specs Out of Hospital Transfer - Requested Specifics: Other Emergency Center
[2018-05-02 09:10] VITALS: TEMP 97
[2018-05-02 09:35] LABS: Albumin 3.8 g/dL (3.5-5.0); Calcium 9.7 mg/dL (8.4-10.2); Potassium 5.9 mmol/L (3.5-5.1); Total Bilirubin 0.5 mg/dL (0.2-1.3)
--- NOTE | 2018-05-02 09:35 | CT ---
EXAMINATION TYPE: CT brain wo con for TPA DATE OF EXAM: 05/02/2018 COMPARISON: Prior CT brain dated 09/02/2017 HISTORY: Code stroke. Neuro deficits. CT DLP: 1131 mGycm Automated exposure control for dose reduction was used. Helical imaging through the brain. FINDINGS: Encephalomalacia again noted in the inferior right cerebellar hemisphere, left occipital lobe as on p rior. White matter low-attenuation again noted, there is cortical atrophy. No evident hemorrhage or h ydrocephalus. Calvarium is intact. IMPRESSION: CHRONIC SMALL VESSEL ISCHEMIC CHANGES.
[2018-05-02 09:40] LABS: Basophils % (A) 1 %; Eosinophils # (A) 0.1 k/uL (0-0.7); Eosinophils % (A) 2 %; HCT 35.4 % (34.0-46.0); HGB 10.8 gm/dL (11.4-16.0); Hypochromasia Marked; Lymphocytes # (A) 1.1 k/uL (1.0-4.8); Lymphocytes % (A) 15 %; MCHC 30.4 g/dL (31.0-37.0); MCV 88.9 fL (80.0-100.0); Mean Platelet Volume 8.1; Monocytes # (A) 0.5 k/uL (0-1.0); Monocytes % (A) 7 %; Neutrophils # (A) 5.1 k/uL (1.3-7.7); Neutrophils % (A) 73 %; Platelet Count 270 k/uL (150-450); RBC 3.99 m/uL (3.80-5.40); RDW 15.7 % (11.5-15.5); WBC 6.9 k/uL (3.8-10.6)
[2018-05-02 09:41] LABS: Creatine Kinase 22 U/L (30-135)
[2018-05-02 09:52] LABS: Creatine Kinase MB 0.6 ng/mL (0.0-2.4); Troponin I <0.012 ng/mL (0.000-0.034)
[2018-05-02 10:06] LABS: INR 0.9 (<1.2); Partial Thromboplastin Time 24.9 sec (22.0-30.0)
--- NOTE | 2018-05-02 10:16 | CT ---
EXAMINATION TYPE: CT angio head neck DATE OF EXAM: 05/02/2018 HISTORY: Neuro Deficits COMPARISON: CT brain same date CT DLP: 571.4 mGycm. Automated Exposure Control for Dose Reduction was Utilized. TECHNIQUE: CTA scan of the neck is performed with IV Contrast, patient injected with 65 mL of Isovue 370, axial images are obtained, coronal and sagittal reformatted images are reviewed. Three-D recons tructed images are created on an independent workstation and reviewed. FINDINGS: Exam is limited for evaluation due to technical factors. Poor enhancement of the arterial s tructures and portions of the study, venous enhancement is prominent. Carotid/Vascular Structures: Common carotid arteries, transverse aorta, left and right subclavian art eries, innominate artery are patent. Atheromatous changes are present. Vertebral arteries are patent. Internal and external carotid arteries are patent in the neck, there is atheromatous change of the c arotid bulbs, no definite stenosis. Within the level of the siphon and petrous portion, the left internal carotid artery is occluded. The re is some vague enhancement present of the internal carotid artery possibly due to cross-filling Other: Emphysematous changes in the lung apices. 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 Case discussed with Dr. Loya at the time of interpretation of the exam.
--- NOTE | 2018-05-02 10:17 | XR ---
EXAMINATION TYPE: XR chest 1V DATE OF EXAM: 05/02/2018 COMPARISON: Prior chest x-ray 04/19/2017 HISTORY: Altered mental status TECHNIQUE: Single frontal view of the chest is obtained. FINDINGS: There is interval improved aeration at the lung bases. Heart remains enlarged. Generator a nd leads again noted, there are cardiac leads. No pneumothorax. Aorta is dense. Prominent lung volume s may be indicative of COPD. IMPRESSION: No acute process. Stable cardiomegaly.
[2018-05-02] MEDS ORDERED: ASPIRIN 81 MG PO STA (11:52)
[2018-05-02 14:27] VITALS: BP 137/71; PULSE 95; RESP 20
== END 2018-05-02 13:30 | disposition other institution (70) ==
LOC: EC 08:34
DX: I63.9 Cerebral infarction, unspecified (principal); R29.716 NIHSS score 16; I48.2 Chronic atrial fibrillation; I25.10 Atherosclerotic heart disease of native coronary artery without angina pectoris; E78.5 Hyperlipidemia, unspecified; I10 Essential (primary) hypertension; H40.89 Other specified glaucoma; Z85.3 Personal history of malignant neoplasm of breast; Z95.5 Presence of coronary angioplasty implant and graft; Z95.0 Presence of cardiac pacemaker; Z90.12 Acquired absence of left breast and nipple; Z87.891 Personal history of nicotine dependence; Z79.01 Long term (current) use of anticoagulants; Z79.82 Long term (current) use of aspirin; Z79.899 Other long term (current) drug therapy; Z88.5 Allergy status to narcotic agent; Z88.8 Allergy status to other drugs, medicaments and biological substances; Z53.8 Procedure and treatment not carried out for other reasons
CPT/HCPCS: 36415; 93005; 80053; 82550; 82553; 84484; 85025; 85610; 85730; 71045; 70496; 70450; 70498; 99291; Q9967